=== PATIENT | female | born 1955 | race Caucasian/White ===

== ENCOUNTER → 2016-04-24 | Outpatient (CLI) | payer BC ==
[~2016-04-24] MED LIST: ADVIN25/60 INH; ALBUAER2 INH; AMLO-114 PO; BROM0.07 OPR; DIGO0.1219 PO; DULERA PO; DXY100 PO; FORM1NEB INH; GATI0.5S OPR; LISI-787 PO; METO1TAB69 PO; METO50TA16 PO; MULTTAB5 PO; OPTIRAY 320 IV PRN; PRED10TA PO; PRED1SUS3 OPR; RIVA1TAB4 PO; SPRIN/30 INH; SYMIN INH; TPRSR50 PO; VNTHFA/IN INH; ZTHM250 PO; [UNRECOGNIZED DRUG - OTHER]
--- NOTE | 2016-04-24 10:36 | DIAGNOSTIC IMAGING REPORT ---
CHEST CT WITH CONTRAST CT DOSE: 302.56 mGy.cm HISTORY: Lung nodule LUNG Nodule, multiple TECHNIQUE: Multiaxial CT images of the chest were performed following the intravenous administration of contrast. COMPARISON: 10/26/2015 FINDINGS: Nodular densities previously described are completely stable. There has been no change in size configuration or dimension. There is been no significant change in number. There is no significant hilar or mediastinal adenopathy. IMPRESSION: No significant change compared to the prior study. The nodular densities previously described are completely stable. No evidence for new or interval process. A 6-12 month follow-up is suggested. Electronically signed by: Fred Harris M.D. 04/24/2016 10:35 AM Dictated Date/Time: 04/24/2016 10:25 AM
== END | disposition home or self-care (01) ==
LOC: C.CTS 09:47
PROVIDERS: ATTEND Nurse Practitioner Adult Health
DX: R91.8 Other nonspecific abnormal finding of lung field (principal)

== ENCOUNTER 2016-05-30 17:59 | Inpatient (IN) | payer BC ==
[~2016-05-30] VITALS: Ht 182.9 cm; Wt 76.3 kg
[~2016-05-30 17:59] MED LIST changes: -ADVIN25/60 INH; -DIGO0.1219 PO; -DULERA PO; -DXY100 PO; +METO100T44 PO; -METO1TAB69 PO; -METO50TA16 PO; -OPTIRAY 320 IV PRN; -PRED10TA PO; -RIVA1TAB4 PO; -SPRIN/30 INH; -SYMIN INH; -TPRSR50 PO; -VNTHFA/IN INH; -ZTHM250 PO; -[UNRECOGNIZED DRUG - OTHER]
[2016-05-30] MEDS ORDERED: ALBUT/IPRATROP 3MG/0.5MG NEB 3 ML VIAL INH STA ×2 (18:14→19:52)
--- NOTE | 2016-05-30 19:15 | DIAGNOSTIC IMAGING REPORT ---
CHEST ONE VIEW PORTABLE HISTORY: Short of breath. COMPARISON: Chest CT 04/24/2016. FINDINGS: Mild emphysema. No pleural effusions. No pneumothorax. The lungs are clear. The heart is top normal in size. IMPRESSION: Mild emphysema. Otherwise, no acute process within the chest. Electronically signed by: Dre Taylor M.D. 05/30/2016 7:12 PM Dictated Date/Time: 05/30/2016 7:11 PM
[2016-05-30 19:22] LABS: BASO % 0.3 %; BASO ABS # 0.02 K/uL (0-0.2); COMPLETE YES; EOS % 2.5 %; HEMATOCRIT 46.6 % (37-47); IG% 0.1 %; LYMPH % 24.9 %; LYMPH ABS # 1.68 K/uL (1.2-3.4); MEAN CELL VOLUME 92.5 fL (80-100); MEAN CORPUSCULAR HEMOGLOBIN 30.6 pg (25-34); MEAN PLATELET VOLUME 9.1 fL (7.4-10.4); MONO % 7.3 %; NEUT % 64.9 %; PLATELET COUNT 311 K/uL (130-400); RED BLOOD COUNT 5.04 M/uL (4.2-5.4); WHITE BLOOD COUNT 6.74 K/uL (4.8-10.8)
[2016-05-30 19:31] LABS: PROTHROMBIN TIME (PATIENT) 10.6 SECONDS (9.0-12.0)
[2016-05-30 19:38] LABS: CALCIUM 8.7 mg/dl (8.5-10.1); POTASSIUM 3.9 mmol/L (3.5-5.1)
[2016-05-30 19:39] LABS: POINT OF CARE TROPONIN I 0.01 ng/ml (0-0.045)
[2016-05-30] MEDS ORDERED: METHYLPREDNISOLONE 125 MG VIAL IV STA (19:52)
[2016-05-30] MEDS ORDERED: ONDANSETRON INJ 2 MG/ML 2 ML VIAL IV PRN (23:30)
[2016-05-30] MEDS ORDERED: ACETAMINOPHEN 325 MG TAB PO PRN (23:30)
[2016-05-30] MEDS ORDERED: ZOLPIDEM TARTRATE 5 MG TAB PO PRN (23:30)
[2016-05-30] MEDS ORDERED: MAGNESIUM HYDROXIDE SUSP 30 ML UDC PO PRN (23:30)
[2016-05-30] MEDS ORDERED: ALUMINUM/MAGNESIUM/SIMETH (MAALOX MAX) 30 ML UDC PO PRN (23:30)
[2016-05-30] MEDS ORDERED: POLYETHYLENE (MIRALAX) 17 GM PACK PO PRN (23:30)
--- NOTE | 2016-05-30 23:31 | History and Physical ---
History & Physical Date & Time of Service: May 30, 2016 at 23:30 Chief Complaint: SOB Primary Care Physician: Masha Germain C.R.N.P. History of Present Illness Source: patient 60-year-old female with a past medical history of hypertension, smoking presented to the ER with complaints of worsening shortness of breath which started about a week ago. She complained about shortness of breath at rest and with exertion which had worsened today. She denied any chest pain, palpitations , dizziness, fevers or chills that she did have some dry nonproductive cough. She recently had a CT chest which revealed lung nodules. She denied any swelling or tenderness in calves, any long travels . Denied any nausea, vomiting, abdominal pain, urinary symptoms. She does not use any oxygen at home. Past Medical/Surgical History Medical Problems: (1) Hypertension Status: Chronic Family History Heart disease Social History Smoking Status: Current Every Day Smoker Allergies Coded Allergies: No Known Allergies (Unverified , 05/30/16) Home Medications Scheduled Amlodipine (Norvasc), 10 MG PO QAM Budesonide/Formoterol Fumarate (Symbicort 160-4.5 Mcg/Act), 2 PUFFS INH BID Doxycycline Hyclate (Doxycycline Hyclate), 100 MG PO BID Lisinopril/Hctz (Zestoretic 20MG/12.5MG), 1 TAB PO QAM Metoprolol Succ (Toprol Xl) (Toprol-Xl ), 100 MG PO QAM Multiple Vitamins W/ Minerals (Centrum), 1 TAB PO QAM Prednisone Tab (Prednisone), 10 MG PO UD Tiotropium [place] (Spiriva Handihaler), 1 CAP INH DAILY Scheduled PRN Albuterol Hfa (Ventolin Hfa), 1 PUFFS INH Q4H PRN for SOB/Wheezing Review of Systems Constitutional: No chills, No fever Eyes: No worsening of vision ENT: No hearing loss Respiratory: + cough, + dyspnea at rest, + dyspnea on exertion, + shortness of breath Cardiovascular: No chest pain Abdomen: No nausea, No pain, No vomiting Musculoskeletal: No joint pain Genitourinary - Female: No dysuria Neurologic: No memory loss Psychiatric: No depression symptoms Endocrine: No fatigue Hematologic / Lymphatic: No abnormal bleeding/bruising Physical Exam Vital Signs Date Time Temp Pulse Resp B/P Pulse Ox O2 Delivery O2 Flow Rate FiO2 05/30/16 22:15 67 18 145/87 93 Nasal Cannula 2.0 05/30/16 21:08 65 18 158/88 95 Room Air 05/30/16 19:52 64 20 144/92 95 Room Air 05/30/16 19:48 66 05/30/16 19:25 95 Nasal Cannula 3.0 05/30/16 18:12 Nasal Cannula 2.0 05/30/16 18:12 86 Room Air 05/30/16 18:02 36.7 72 18 175/103 84 Room Air General Appearance: WD/WN, no apparent distress Head: normocephalic Eyes: normal inspection ENT: normal ENT inspection, hearing grossly normal Neck: supple Respiratory/Chest: chest non-tender, normal breath sounds, no respiratory distress, no accessory muscle use, + wheezing (diffusely) Cardiovascular: regular rate, rhythm Abdomen/GI: normal bowel sounds, non tender, soft Extremities/Musculoskelatal: no pedal edema Neurologic/Psych: alert, normal mood/affect, oriented x 3 Skin: normal color Diagnostics Laboratory Results Results Past 24 Hours Test 05/30/16 19:09 05/30/16 19:14 Range/Units White Blood Count 6.74 4.8-10.8 K/uL Red Blood Count 5.04 4.2-5.4 M/uL Hemoglobin 15.4 12.0-16.0 g/dL Hematocrit 46.6 37-47 % Mean Corpuscular Volume 92.5 80-100 fL Mean Corpuscular Hemoglobin 30.6 25-34 pg Mean Corpuscular Hemoglobin Concent 33.0 32-36 g/dl Platelet Count 311 130-400 K/uL Mean Platelet Volume 9.1 7.4-10.4 fL Neutrophils (%) (Auto) 64.9 % Lymphocytes (%) (Auto) 24.9 % Monocytes (%) (Auto) 7.3 % Eosinophils (%) (Auto) 2.5 % Basophils (%) (Auto) 0.3 % Neutrophils # (Auto) 4.37 1.4-6.5 K/uL Lymphocytes # (Auto) 1.68 1.2-3.4 K/uL Monocytes # (Auto) 0.49 0.11-0.59 K/uL Eosinophils # (Auto) 0.17 0-0.5 K/uL Basophils # (Auto) 0.02 0-0.2 K/uL RDW Standard Deviation 47.4 36.4-46.3 fL RDW Coefficient of Variation 14.1 11.5-14.5 % Immature Granulocyte % (Auto) 0.1 % Immature Granulocyte # (Auto) 0.01 0.00-0.02 K/uL Prothrombin Time 10.6 9.0-12.0 SECONDS Prothromb Time International Ratio 1.0 0.9-1.1 Activated Partial Thromboplast Time 25.5 21.0-31.0 SECONDS Partial Thromboplastin Ratio 1.0 Sodium Level 144 136-145 mmol/L Potassium Level 3.9 3.5-5.1 mmol/L Chloride Level 102 98-107 mmol/L Carbon Dioxide Level 40 21-32 mmol/L Anion Gap 2.0 3-11 mmol/L Blood Urea Nitrogen 17 7-18 mg/dl Creatinine 1.00 0.60-1.20 mg/dl Est Creatinine Clear Calc Drug Dose 70.8 ml/min Estimated GFR () 71.9 Estimated GFR (Non- 62.1 BUN/Creatinine Ratio 17.0 10-20 Random Glucose 97 70-99 mg/dl Calcium Level 8.7 8.5-10.1 mg/dl Bedside D-Dimer 289 0-450 ng/mlFEU Bedside Troponin I 0.010 0-0.045 ng/ml DF-Vfc-[id number]-Type Natriuretic Peptide 160 0-900 pg/ml Diagnostic Radiology CHEST ONE VIEW PORTABLE HISTORY: Short of breath. COMPARISON: Chest CT 04/24/2016. FINDINGS: Mild emphysema. No pleural effusions. No pneumothorax. The lungs are clear. The heart is top normal in size. IMPRESSION: Mild emphysema. Otherwise, no acute process within the chest. Electronically signed by: Dre Taylor M.D. 05/30/2016 7:12 PM Dictated Date/Time: 05/30/2016 7:11 PM EKG Normal sinus rhythm Possible Left atrial enlargement Left axis deviation Cannot rule out Septal infarct , age undetermined Abnormal ECG No previous ECGs available Confirmed by JEFFREY KAUR ([id number]) on 05/30/2016 8:15:00 PM Impression Assessment and Plan 60-year-old female with a past medical history of hypertension, smoking presented to the ER with complaints of worsening shortness of breath which started about a week ago. She complained about shortness of breath at rest and with exertion which had worsened today. COPD exacerbation : - CXR: Mild emphysema - Received DuoNeb's and Solu-Medrol in the ER - Oxygen per protocol - Continue duonebs QID and Q2h PRN - Continue Solu-Medrol 60 mg 3 times a day Hypertension - Continue Norvasc, lisinopril, Toprol DVT prophylaxis Lovenox Full code Disposition: Admitted to [facility] Level of Care Telemetry Resuscitation Status FULL RESUSCITATION VTE Prophylaxis VTE Risk Assessment Done? Y/N: Yes Risk Level: High Resident Tracking Resident Involvement: Resident Care Provided Care Provided: Adult [facility] Medicine Assessment and Plan Attending Addendum: I have physically seen and examined this patient, have directed their medical care, have supervised the medical residents activities, and agree with the H&P as noted above, with the following changes: NONE
[2016-05-30] MEDS ORDERED: ALBUT/IPRATROP 3MG/0.5MG NEB 3 ML VIAL INH SCH (23:45)
--- NOTE | 2016-05-31 00:45 | EMERGENCY ROOM VISIT NOTE ---
History Report prepared by Radha: Abigail Garcia Under the Supervision of: Dr. Jose Hui M.D. First contact with patient: 18:08 Chief Complaint: SHORTNESS OF BREATH Stated Complaint: SOB History of Present Illness The patient is a 60 year old female who presents to the Emergency Room with complaints of worsening shortness of breath for the past week. Her symptoms are worse with exertion. She recently had a CT scan of the chest that found nodules in her lungs. She was told that it was not cancerous but they are going to keep an eye on it. The patient is a current smoker. She denies any personal history of CHF or COPD. She denies chest pain, chest tightness, cough, abdominal pain, vomiting, fever, and any recent illness. She does not take estrogen or hormone replacement therapy. She denies any recent long trips. The patient was placed on O2 in the department and her shortness of breath has started to improve. Source of History: patient Onset: 1 week ago Position: chest (respiratory) Quality: other (shortness of breath) Timing: worsening Modifying Factors (Worsening): exertion Modifying Factors (Relieving): oxygen Associated Symptoms: No abdominal pain, No chest pain, No cough, No fevers, No vomiting Review of Systems See HPI for pertinent positives & negatives. A total of 10 systems reviewed and were otherwise negative. Past Medical & Surgical Medical Problems: (1) Hypertension (2) SOB (shortness of breath) Family History Heart disease Social History Smoking Status: Current Every Day Smoker Marital Status: Housing Status: lives with significant other Current/Historical Medications Scheduled Amlodipine (Norvasc), 10 MG PO QAM Lisinopril/Hctz (Zestoretic 20MG/12.5MG), 1 TAB PO QAM Metoprolol Succ (Toprol Xl) (Toprol-Xl ), 100 MG PO QAM Multiple Vitamins W/ Minerals (Centrum), 1 TAB PO QAM Scheduled PRN Albuterol (Ventolin), 2 PUFFS INH QID PRN for Shortness of Breath Formoterol Fumarate (Perforomist), 1 DOSE INH Q12 PRN for Shortness of Breath Allergies Coded Allergies: No Known Allergies (Unverified , 05/30/16) Physical Exam Vital Signs Date Time Temp Pulse Resp B/P Pulse Ox O2 Delivery O2 Flow Rate FiO2 05/31/16 00:25 66 20 139/91 92 3.0 05/30/16 22:15 67 18 145/87 93 Nasal Cannula 2.0 05/30/16 21:08 65 18 158/88 95 Room Air 05/30/16 19:52 64 20 144/92 95 Room Air 05/30/16 19:48 66 05/30/16 19:25 95 Nasal Cannula 3.0 05/30/16 18:12 Nasal Cannula 2.0 05/30/16 18:12 86 Room Air 05/30/16 18:02 36.7 72 18 175/103 84 Room Air Physical Exam Constitutional: Vital signs reviewed. Hypoxic. Eyes: Pupils are equal round reactive to light. Conjunctiva are noninjected. ENT: Pharynx is clear without erythema or exudate. Mucous membranes are moist. Neck supple without meningeal signs. Respiratory: Poor air entry bilaterally. Breath sounds are equal bilaterally. Cardiovascular: Regular rate and rhythm. No rubs or gallops. GI: Soft, nondistended and nontender. Bowel sounds are present. Musculoskeletal: No peripheral edema. No lower extremity tenderness. Integumentary: No cyanosis. Neurological: The patient is awake and alert. No focal deficits. Psychiatric: Normal affect. Medical Decision & Procedures ER Provider Diagnostic Interpretation: Radiology results as stated below per my review and the radiologist's interpretation: CHEST ONE VIEW PORTABLE HISTORY: Short of breath. COMPARISON: Chest CT 04/24/2016. FINDINGS: Mild emphysema. No pleural effusions. No pneumothorax. The lungs are clear. The heart is top normal in size. IMPRESSION: Mild emphysema. Otherwise, no acute process within the chest. Electronically signed by: Dre Taylor M.D. 05/30/2016 7:12 PM Dictated Date/Time: 05/30/2016 7:11 PM Laboratory Results 05/30/16 19:09 Red Blood Count 5.04, Mean Corpuscular Volume 92.5, Mean Corpuscular Hemoglobin 30.6, Mean Corpuscular Hemoglobin Concent 33.0, Mean Platelet Volume 9.1, Neutrophils (%) (Auto) 64.9, Lymphocytes (%) (Auto) 24.9, Monocytes (%) (Auto) 7.3, Eosinophils (%) (Auto) 2.5, Basophils (%) (Auto) 0.3, Neutrophils # (Auto) 4.37, Lymphocytes # (Auto) 1.68, Monocytes # (Auto) 0.49, Eosinophils # (Auto) 0.17, Basophils # (Auto) 0.02 05/30/16 19:09 Test 05/30/16 19:09 05/30/16 19:14 White Blood Count 6.74 K/uL (4.8-10.8) Red Blood Count 5.04 M/uL (4.2-5.4) Hemoglobin 15.4 g/dL (12.0-16.0) Hematocrit 46.6 % (37-47) Mean Corpuscular Volume 92.5 fL (80-100) Mean Corpuscular Hemoglobin 30.6 pg (25-34) Mean Corpuscular Hemoglobin Concent 33.0 g/dl (32-36) Platelet Count 311 K/uL (130-400) Mean Platelet Volume 9.1 fL (7.4-10.4) Neutrophils (%) (Auto) 64.9 % Lymphocytes (%) (Auto) 24.9 % Monocytes (%) (Auto) 7.3 % Eosinophils (%) (Auto) 2.5 % Basophils (%) (Auto) 0.3 % Neutrophils # (Auto) 4.37 K/uL (1.4-6.5) Lymphocytes # (Auto) 1.68 K/uL (1.2-3.4) Monocytes # (Auto) 0.49 K/uL (0.11-0.59) Eosinophils # (Auto) 0.17 K/uL (0-0.5) Basophils # (Auto) 0.02 K/uL (0-0.2) RDW Standard Deviation 47.4 fL (36.4-46.3) RDW Coefficient of Variation 14.1 % (11.5-14.5) Immature Granulocyte % (Auto) 0.1 % Immature Granulocyte # (Auto) 0.01 K/uL (0.00-0.02) Prothrombin Time 10.6 SECONDS (9.0-12.0) Prothromb Time International Ratio 1.0 (0.9-1.1) Activated Partial Thromboplast Time 25.5 SECONDS (21.0-31.0) Partial Thromboplastin Ratio 1.0 Anion Gap 2.0 mmol/L (3-11) Est Creatinine Clear Calc Drug Dose 70.8 ml/min Estimated GFR () 71.9 Estimated GFR (Non- 62.1 BUN/Creatinine Ratio 17.0 (10-20) Calcium Level 8.7 mg/dl (8.5-10.1) Bedside D-Dimer 289 ng/mlFEU (0-450) Bedside Troponin I 0.010 ng/ml (0-0.045) EQ-Rtx-T-Type Natriuretic Peptide 160 pg/ml (0-900) Laboratory results as reviewed by me. Medications Administered Medications (Trade) Dose Ordered Sig/Lianne Route Start Time Stop Time Status Last Admin Dose Admin Albuterol/ Ipratropium (Duoneb) 3 ml NOW STAT INH 05/30/16 18:14 05/30/16 18:16 DC 05/30/16 18:14 3 ML Methylprednisolone Sodium Succinate (Solu-Medrol IV) 125 mg NOW STAT IV 05/30/16 19:52 05/30/16 19:53 DC 05/30/16 20:11 125 MG Albuterol/ Ipratropium (Duoneb) 3 ml NOW STAT INH 05/30/16 19:52 05/30/16 19:53 DC 05/30/16 20:11 3 ML ECG Indication: SOB/dyspnea Rate (beats per minute): 65 Rhythm: normal sinus Findings: no acute ischemic change, no ectopy ED Course 1807: The patient was evaluated in room B12A. A complete history and physical exam was performed. 1813: DuoNeb 3 ml INH 1900: I reevaluated the patient. Her pulse-ox is 96% on 3L and the nurse is getting an ECG and labs now. 1949: I reassessed the patient at this time. She has better air entry on exam with significant wheezing. I discussed the results and treatment plan with the patient. I answered all pertaining questions that she had. She expressed understanding and verbalized agreement. 1951: DuoNeb 3ml INH, Solu-Medrol 125 mg IV 2013: I spoke with Dr. Sapp. We discussed the patient's results and treatment plan. The patient will be evaluated by the [facility] for further management. Medical Decision This is a 60-year-old female who presents with shortness of breath for the past week. Differential diagnosis includes pneumonia, pleural effusion, CHF, pulmonary embolism, COPD. I did perform a limited focused review of portions of the patient's old chart on the electronic medical record. The patient had a CT of the chest with contrast on April 24 which showed stable nodular densities without any new or interval process. I did evaluate the patient as noted above. IV access was established. The patient was placed on a continuous grief counsellor. The patient is hypoxemic. She was placed on 3 L nasal cannula and her O2 saturation went up to 96%. She has poor air entry on lung examination and was treated with a DuoNeb. On reexamination air entry improved and she had significant wheezing. She was given another DuoNeb and Solu-Medrol IV. I did order and personally review the patient's 12-lead EKG and chest x-ray as described above. I did order and review the patient's blood work as noted in the electronic medical record. D- dimer and troponin are negative. BNP is negative. I did discuss the test results with the patient. Because of her hypoxemia she will be hospitalized. I did discuss case with the hospitalist and manager of case. Consults Time Called: 1954 Consulting Physician: Dr. Sapp Returned Call: [address] Sapp. We discussed the patient's results and treatment plan. The patient will be evaluated by the [facility] for further management. Impression Primary Impression: Hypoxia Additional Impression: COPD exacerbation Scribe Attestation The scribe's documentation has been prepared under my direct and personally reviewed by me in its entirety. I confirm that the note above accurately reflects all work, treatment, procedures, and medical decision making performed by me. Departure Information Dispostion Being Evaluated By Hospitalist Referrals Masha Germain C.R.N.P. (PCP) Patient Instructions My [facility] Problem Qualifiers
[2016-05-31 00:51] VITALS: BP 143/88; PULSE 72; TEMP 36.4; O2SAT 89; Ht 182.9 cm; Wt 76.3 kg
[2016-05-31 06:06] LABS: BASO % 0.2 %; BASO ABS # 0.01 K/uL (0-0.2); COMPLETE YES; HEMATOCRIT 47.4 % (37-47); IG% 0.2 %; LYMPH % 11.2 %; LYMPH ABS # 0.61 K/uL (1.2-3.4); MEAN CELL VOLUME 92.6 fL (80-100); MEAN CORPUSCULAR HEMOGLOBIN 29.5 pg (25-34); MEAN CORPUSCULAR HGB CONC 31.9 g/dl (32-36); MONO % 0.4 %; PLATELET COUNT 312 K/uL (130-400); RED BLOOD COUNT 5.12 M/uL (4.2-5.4); WHITE BLOOD COUNT 5.47 K/uL (4.8-10.8)
[2016-05-31 06:45] LABS: BUN/CREATININE RATIO 22.8 (10-20); CALCIUM 8.8 mg/dl (8.5-10.1); CREATININE 0.89 mg/dl (0.60-1.20); MAGNESIUM 2.2 mg/dl (1.8-2.4); POTASSIUM 3.9 mmol/L (3.5-5.1)
[2016-05-31 07:40] VITALS: PULSE 74; O2SAT 92
[2016-05-31 08:00] VITALS: O2SAT 96
[2016-05-31 08:13] VITALS: BP 137/75; PULSE 70; TEMP 36.6; O2SAT 96
[2016-05-31] MEDS ORDERED: METHYLPREDNISOLONE IV 60 MG in SYRINGE 0 ML IV SCH (09:00)
[2016-05-31] MEDS ORDERED: BUDESONIDE/FORMOTEROL FUMARATE 160/4.5 60 PUFFS/INHALER INH SCH (09:00)
[2016-05-31] MEDS ORDERED: AMLODIPINE BESYLATE 5 MG TAB PO SCH (09:00)
[2016-05-31] MEDS ORDERED: METOPROLOL SUCC 50MG EXT REL TAB PO SCH (09:00)
[2016-05-31] MEDS ORDERED: CEROVITE ADV FORMULA TAB PO SCH (09:00)
[2016-05-31] MEDS ORDERED: TIOTROPIUM BROMIDE 5 PUFF/90 MCG INH INH SCH (09:00)
[2016-05-31] MEDS ORDERED: LISINOPRIL/HCTZ 20/12.5MG TAB PO SCH (09:00)
[2016-05-31] MEDS ORDERED: DOXYCYCLINE HYCLATE 100 MG CAP PO SCH (09:00)
[2016-05-31] MEDS ORDERED: ENOXAPARIN 40 MG/0.4 ML SYR SQ SCH (09:00)
[2016-05-31] MEDS ORDERED: SYMIN INH (09:21)
[2016-05-31] MEDS ORDERED: SPRIN/30 INH (09:21)
[2016-05-31] MEDS ORDERED: VNTHFA/IN INH (09:21)
[2016-05-31] MEDS ORDERED: DXY100 PO (09:21)
[2016-05-31] MEDS ORDERED: [UNRECOGNIZED DRUG - OTHER] (09:21)
[2016-05-31] MEDS ORDERED: PRED10TA PO (09:21)
--- NOTE | 2016-05-31 09:37 | Discharge Instructions ---
Discharge Instructions Date of Service May 31, 2016. Admission Reason for Admission: SOB Discharge Discharge Diagnosis / Problem: (presumed) COPD exacerbation Discharge Goals Goal(s): Diagnostic testing, Therapeutic intervention Activity Recommendations Activity Limitations: as noted below . Instructions / Follow-Up Instructions / Follow-Up your shortness of breath appears to have been due to a COPD exacerbation (think : severe bronchitis) ---i have to use the vague terms "presumed" or "appears to have been" until we get you set up for pulmonary function tests to truly determine if you have COPD or if you just have lungs irritated from smoking and dust (see below) ---the working assumption, with the way your current bronchitis appears, is that you probably have a moderate degree of COPD -the current bronchitis-type flare up should continue to respond nicely to the antibiotics to kill bacterial overgrowth (doxycycline), steroids to reduce lung inflammation (prednisone) and the inhalers (spiriva, symbicort, albuterol - see below) -the overall long-term picture of management will really depend on how mild/ moderate/severe things look when we get your pulmonary function tests done acute exacerbation: -the current acute illness will probably take ~3-5 days to slowly fade, and then probably take about a month until you totally feel like yourself again. we 'll finish treatment for this with the doxycyline and prednisone as noted above. you'll be due for your next dose of doxycycline tonight (05/31) and your next dose of prednisone tomorrow morning (06/01). the doxycycline is usually really well tolerated, it can make people more sun-sensitive though - so even though it's only mid-may, wear sunblock and sun protection as though it's late august. the prednisone, as we discussed, can commonly make you "hungry and hyper" - so definitely take it earlier in the day. if "hyper" is more feeling angry or easily agitated, that too is very common and should go away once you get to lower doses (obviously if it's really bad, call) -use the albuterol inhaler with the spacer (plastic tube) as often as every 4 hours for shortness of breath, a tight cough, or wheezing. i expect that you' ll probably need it 4-6 times a day for the next few days on the early part of getting better, and then likely you'll need it less and less as days go by and you improve. for most people, using an inhaler with a spacer is as effective as using a nebulizer (and way more convenient) (presumed) COPD -we'll want to get you set up for pulmonary function tests - i've asked that this be scheduled for about 4-6 weeks from now. if we were to check today, the acute bronchitis picture would make your lung function look way worse than it actually is -obviously, as we've discussed, try to quit smoking (make today a new "quit day ") if you did have to go home on oxygen for the short term, obviously smoking while on oxygen presents a real and true explosion risk, but even if you didn't , smoking while you're getting better from something like this can easily get worse with smoking. for most people, a situation like this can create a "man, i 've gotta quit" kind of moment that makes it more do-able. if you find that quitting is still really hard, that's where it would be worthwhile to talk with your PCP about meds that can help quit -for COPD, the foundation of inhaler management keeps people out of trouble, makes sickness less severe when you do get sick, and generally works to make hospital stays and severe illnesses less frequent -spiriva: this is in a class called "anticholinergics" -- it helps to reduce the mucous your lungs make and reduce inflammation, take it once a day every day -symbicort: (or advair, breo, dulera, depending on coverage) - this has two meds in it - an inhaled steroid and a long acting bronchodilator (opens up airways) -- the inhaled steroid reduces inflammation in your lungs by a different mechanism than the spiriva, and the bronchodilator works to keep your lungs more open and keep air moving better. this is a twice a day every day inhaler (unless it's the breo - which is once a day) -- because the steroid can coat your tongue and lead to thrush, we recommend rinsing your mouth after using -albuterol: this is the only one of the inhalers that's a strictly "as needed" -- it helps open your airways quickly when you feel tight/short of breath, or wheezy. you can use it up to every four hours as needed. it can make you feel a little shaky or jittery afterwards. typically the goal is to have things under good enough control with the regularly scheduled inhalers that you don't need the albuterol often, but obviously when you're sick you'll need it more often than when things are going well take it easy through the weekend, and then when you follow up in the office next week they can see how you're doing, how you're feeling, and hopefully allow you to be able to start to do more Current Hospital Diet Patient's current hospital diet: Regular Diet Discharge Diet Recommended Diet: Regular Diet Pending Studies Studies pending at discharge: no Medical Emergencies . Who to Call and When: Medical Emergencies: If at any time you feel your situation is an emergency, please call 911 immediately. . Non-Emergent Contact Non-Emergency issues call your: Primary Care Provider (we're working on getting you set up at the [facility] office Friday or Friday of next week) . . "Provider Documentation" section prepared by Umesh Campos. . VTE Core Measure Inpt VTE Proph given/why not?: Enoxaparin (Lovenox)SQ
[2016-05-31 10:50] VITALS: BP 137/75; PULSE 70; TEMP 36.6; O2SAT 96
--- NOTE | 2016-05-31 15:10 | Discharge Summary ---
Discharge Summary Date of Service May 31, 2016. Discharge Summary Admission Date: May 30, 2016 at 23:29 Discharge Date: May 31, 2016 Discharge Disposition: Home Principal Diagnosis: (presumed) COPD exacerbation Procedures: [~ rep ct add3]] CHEST ONE VIEW PORTABLE HISTORY: Short of breath. COMPARISON: Chest CT 04/24/2016. FINDINGS: Mild emphysema. No pleural effusions. No pneumothorax. The lungs are clear. The heart is top normal in size. IMPRESSION: Mild emphysema. Otherwise, no acute process within the chest. Electronically signed by: Dre Taylor M.D. 05/30/2016 7:12 PM Dictated Date/Time: 05/30/2016 7:11 PM Last Resulted CBC 05/31/16 05:23 Red Blood Count 5.12, Mean Corpuscular Volume 92.6, Mean Corpuscular Hemoglobin 29.5, Mean Corpuscular Hemoglobin Concent 31.9, Mean Platelet Volume 9.0, Neutrophils (%) (Auto) 88.0, Lymphocytes (%) (Auto) 11.2, Monocytes (%) (Auto) 0.4, Eosinophils (%) (Auto) 0.0, Basophils (%) (Auto) 0.2, Neutrophils # (Auto) 4.82, Lymphocytes # (Auto) 0.61, Monocytes # (Auto) 0.02, Eosinophils # (Auto) 0.00, Basophils # (Auto) 0.01 Last Resulted BMP 05/31/16 05:23 Medication Reconciliation New Medications: Albuterol Hfa (Ventolin Hfa) 200 Puffs/64862 Mcg Aers 1 PUFFS INH Q4H PRN for SOB/Wheezing, #1 INHALER Prednisone Tab (Prednisone) 10 Mg Tab 10 MG PO UD, #42 TAB 6 po x 2 days then 5 po x 2 days then 4 po x 2 days then 3 po x 2 days then 2 po x 2 days then 1 po x 2 days Spacer (Aerochamber Plus/Small Ma) 1 Ea Zena UNIT, #1 Tiotropium [place] (Spiriva Handihaler) 30 Puff/540 Mcg Aerp 1 CAP INH DAILY for 30 Days, #30 CAP 3 Refills Budesonide/Formoterol Fumarate (Symbicort 160-4.5 Mcg/Act) 60 Puffs/Inhaler Aero 2 PUFFS INH BID, #1 INHALER rinse mouth after using Doxycycline Hyclate (Doxycycline Hyclate) 100 Mg Cap 100 MG PO BID, #19 CAP Continued Medications: Amlodipine (Norvasc) 10 Mg Tab 10 MG PO QAM, TAB Lisinopril/Hctz (Zestoretic 20MG/12.5MG) Tab 1 TAB PO QAM, TAB Metoprolol Succ (Toprol Xl) (Toprol-Xl ) 100 Mg Tabcr 100 MG PO QAM, TAB Multiple Vitamins W/ Minerals (Centrum) 1 Tab Tab 1 TAB PO QAM Discontinued Medications: Albuterol (Ventolin) Inh 2 PUFFS INH QID PRN for Shortness of Breath for 5 Days, INHALER Formoterol Fumarate (Perforomist) 20 Mcg/2 Ml Neb 1 DOSE INH Q12 PRN for Shortness of Breath Discharge Exam Physical Exam: General Appearance: no apparent distress Eyes: EOMI ENT: hearing grossly normal Neck: trachea midline Respiratory/Chest: no respiratory distress, no accessory muscle use, + decreased breath sounds (faint wheeze diminished air entry no r/r good effort no accessory muscles) Cardiovascular: regular rate, rhythm Neurologic/Psychiatric: painter maintenance II-XII nml as tested, alert, normal mood/affect Skin: normal color, warm/dry Hospital Course admitted w sob c/w COPD exacerbation - no prior dx COPD ---did well - improved quickly w medical management ---was requiring supplemental O2 - initially suspicious she might need home O2 for a little while, but fortunately did well on walk test ---has clinical picture, Xray findings highly suspicious of COPD - d/w pt will manage empirically as such at this time: -doxy 100mg bid x 10 days -steroid taper -spiriva daily -symbicort BID (discussed above inhalers scheduled NOT prn) -albuterol w spacer Q4hr prn sob/wheeze -PFTs 4-6wks -smoke cessation -f/u PCP early next week stable for home Total Time Spent: Greater than 30 minutes This includes examination of the patient, discharge planning, medication reconciliation, and communication with other providers. Discharge Instructions Please refer to the electronic Patient Visit Report (Discharge Instructions) for additional information. Additional Copies To Dina Santillan DO
[2016-09-20] MEDS ORDERED: AZIT-57 PO (14:15)
[2016-10-25] MEDS ORDERED: METO50TA16 PO (06:40)
== END 2016-05-31 13:25 | disposition home or self-care (01) | DRG 192 ==
LOC: ENRESERVTM → ENRESERVDT → C.EDB 18:00 → C.MS2W 23:29
PROVIDERS: ADMIT Family Medicine; ATTEND Family Medicine
DX: J44.1 Chronic obstructive pulmonary disease with (acute) exacerbation (principal); R09.02 Hypoxemia; I10 Essential (primary) hypertension; F17.200 Nicotine dependence, unspecified, uncomplicated; Z79.899 Other long term (current) drug therapy

== ENCOUNTER → 2016-06-18 | Outpatient (CLI) | payer BC ==
[~2016-06-18] MED LIST changes: +ADVIN25/60 INH; -ALBUAER2 INH; +AZIT-57 PO; -BROM0.07 OPR; +DIGO0.1219 PO; +DULERA PO; +DXY100 PO; -FORM1NEB INH; -GATI0.5S OPR; +METO50TA16 PO; +PRED10TA PO; -PRED1SUS3 OPR; +RIVA1TAB4 PO; +SPRIN/30 INH; +SYMIN INH; +TPRSR50 PO; +VNTHFA/IN INH; +[UNRECOGNIZED DRUG - OTHER]
--- NOTE | 2016-06-18 12:49 | MAMMOGRAPHY REPORT ---
UNILATERAL LEFT DIGITAL DIAGNOSTIC MAMMOGRAM TOMOSYNTHESIS WITH CAD AND TARGETED LEFT ULTRASOUND: 06/18/2016 CLINICAL HISTORY: 60-year-old woman presents for follow-up in the left breast for any facing area of architectural distortion in the superior aspect of the breast. Also to reevaluate the prominent le ft axillary lymph node. TECHNIQUE: Left breast tomosynthesis in addition to standard 2D mammography was performed. Current josseline cisneros was also evaluated with a Computer Aided Detection (CAD) system. COMPARISON: Comparison is made to exams dated: 12/19/2015 ultrasound, 12/19/2015 mammogram, 6 mammogram - [facility], 02/16/2014 mammogram, 02/04/2013 mammogram, and 12/31/2011 mammogram. BREAST COMPOSITION: The tissue of the left breast is almost entirely fatty. FINDINGS: No persistent architectural distortion is seen in the superior or lateral left breast to c orrelate with the questionable finding seen on screening mammography dated 11/29/2015. Currently, n o focal area of architectural distortion or suspicious microcavitation's are seen. There is an 8 mm nodular asymmetry in the lateral anterior left breast on the CC view, that appears somewhat similar to prior mammograms, particularly the 2011 exam suggesting it could represent normal overlapping ti ssue. However, further evaluation with ultrasound was performed. Real-time high-resolution ultrasound was performed in the lateral left breast and left axilla. With in the left axilla, a prominent undulating morphologically normal lymph node is again identified, th ought to correlate with the lymph node seen on low-dose screening chest CT. This is unchanged harlan red to the prior ultrasound and is considered benign. A few other smaller morphologically normal ly mph nodes are also seen in the left axilla. In the 12:00 through 6:00, slightly lateral left breast , no suspicious solid or cystic mass is seen to correlate with the nodular mammographic asymmetry. This confirms it most likely represented normal overlapping tissue. Recommend follow-up at time of next annual screening mammogram. IMPRESSION: ACR BI-RADS CATEGORY 2: BENIGN, TARGETED ULTRASOUND ACR BI-RADS CATEGORY 2: BENIGN No persistent architectural distortion in the left breast. No suspicious lymphadenopathy identified in the left axilla on ultrasound. There is no mammographic or targeted sonographic evidence of mal ignancy. Return to annual mammogram screening schedule is recommended (December 2016). The patient has been verbally notified of the results. Approximately 10% of breast cancers are not detected with mammography. A negative mammographic repor t should not delay biopsy if a clinically suggestive mass is present. Mary Ann Hernadez M.D. ay/:06/18/2016 10:45:49 Skin Lap Bonder: Dena Gordon, [facility] letter sent: Normal 1/2 BI-RADS Code: ACR BI-RADS Category 2: Benign Ultrasound BI-RADS: ACR BI-RADS Category 2: Benign
== END | disposition home or self-care (01) ==
LOC: C.MAMM 09:41
PROVIDERS: ATTEND Nurse Practitioner Adult Health
DX: Z09 Encounter for follow-up examination after completed treatment for conditions other than malignant neoplasm (principal); R92.8 Other abnormal and inconclusive findings on diagnostic imaging of breast

== ENCOUNTER 2016-09-16 19:02 | Inpatient (IN) | payer BC ==
[~2016-09-16] VITALS: Ht 182.9 cm; Wt 82.3 kg
[~2016-09-16 19:02] MED LIST changes: -ADVIN25/60 INH; -AZIT-57 PO; -DIGO0.1219 PO; -DULERA PO; -METO100T44 PO; +METO1TAB69 PO; -METO50TA16 PO; -RIVA1TAB4 PO; -TPRSR50 PO
[2016-09-16] MEDS ORDERED: ASPIRIN 81 MG CHEW PO STA (19:23)
[2016-09-16] MEDS ORDERED: ALBUT/IPRATROP 3MG/0.5MG NEB 3 ML VIAL INH ONE (19:30)
[2016-09-16 19:47] LABS: BASO % 0.1 %; BASO ABS # 0.01 K/uL (0-0.2); COMPLETE YES; IG% 0.6 %; LYMPH % 7.1 %; LYMPH ABS # 1.31 K/uL (1.2-3.4); MEAN CELL VOLUME 94.5 fL (80-100); MEAN CORPUSCULAR HGB CONC 31.8 g/dl (32-36); MEAN PLATELET VOLUME 9.3 fL (7.4-10.4); MONO % 7.5 %; NEUT % 84.7 %; PLATELET COUNT 462 K/uL (130-400); RED BLOOD COUNT 4.76 M/uL (4.2-5.4); WHITE BLOOD COUNT 18.53 K/uL (4.8-10.8)
[2016-09-16] MEDS ORDERED: ADVIN25/60 INH (19:50)
[2016-09-16] MEDS ORDERED: DULERA PO (19:51)
[2016-09-16 20:05] VITALS: PULSE 116; O2SAT 91
[2016-09-16 20:05] LABS: ALT/SGPT 163 U/L (12-78); BLOOD UREA NITROGEN 37 mg/dl (7-18); BUN/CREATININE RATIO 28.8 (10-20); CALCIUM 8.4 mg/dl (8.5-10.1); CARBON DIOXIDE 36 mmol/L (21-32); CHLORIDE 106 mmol/L (98-107); GLUCOSE 133 mg/dl (70-99); POTASSIUM 3.7 mmol/L (3.5-5.1); SODIUM 147 mmol/L (136-145)
[2016-09-16] MEDS ORDERED: SODIUM CHLORIDE 0.9% 500ML 500 ML IV STA (20:07)
[2016-09-16 20:10] LABS: ALB/GLOB RATIO 1.1 (0.9-2); ALKALINE PHOSPHATASE 81 U/L (45-117); AST/SGOT 59 U/L (15-37)
[2016-09-16 20:22] LABS: VEN BLOOD GAS BASE EXCESS 8.5 mEq/L
--- NOTE | 2016-09-16 20:23 | EMERGENCY ROOM VISIT NOTE ---
History First contact with patient: 19:13 Chief Complaint: SHORTNESS OF BREATH Stated Complaint: SOB Nursing Triage Summary: c/o asthma exacerbation for days seen at urgent care time two. History of Present Illness The patient is a 60 year old female with past medical history of hypertension and COPD who presents to the Emergency Room with complaints of shortness of breath for the past week has been getting progressively worse. She states the shortness of breath is worse with even minor exertion like taking a shower. Patient states she went to an urgent care 5 days ago where they gave her a breathing treatment and placed her on prednisone 40 mg daily which she has been taking with no improvement. She went to urgent care again yesterday where she had another breathing treatment and they gave her "a shot of steroids" and told her to follow closely with her PCP. Patient states she has not been using any albuterol treatments at home. She is an every day smoker, she is on multiple inhalers for COPD but states she has never been formally diagnosed with pulmonary function tests. In addition to her shortness of breath, patient has noted swelling in her feet and lower legs over the past few days that is new for her. She denies any chest pain, palpitations, dizziness or syncope, cough, hemoptysis, abdominal pain, nausea or vomiting, fevers or chills, diarrhea, urinary symptoms. She does report a strong family history of heart disease, though she states she has never had any known heart issues other than hypertension. Review of Systems A complete 10 point review of systems was reviewed with the patient with pertinent positives and negatives as per history of present illness. All else were negative. Past Medical/Surgical History Medical Problems: (1) Congestive heart failure (2) COPD exacerbation (3) Hypertension (4) SOB (shortness of breath) Family History Heart disease Social History Smoking Status: Current Every Day Smoker Marital Status: Housing Status: lives with significant other Current/Historical Medications Scheduled Amlodipine (Norvasc), 10 MG PO QAM Fluticasone Prop/Salmeterol (Advair Diskus 250/50 60 Dose), 2 PUFF INH BID Lisinopril/Hctz (Zestoretic 20MG/12.5MG), 1 TAB PO QAM Metoprolol Succ (Toprol Xl) (Toprol-Xl ), 100 MG PO QAM Multiple Vitamins W/ Minerals (Centrum), 1 TAB PO QAM Prednisone Tab (Prednisone), 10 MG PO UD Tiotropium [place] (Spiriva Handihaler), 1 CAP INH DAILY [Dulera], 2 PUFF PO BID Scheduled PRN Albuterol Hfa (Ventolin Hfa), 1 PUFFS INH Q4H PRN for SOB/Wheezing Physical Exam Vital Signs Date Time Temp Pulse Resp B/P (MAP) Pulse Ox O2 Delivery O2 Flow Rate FiO2 09/16/16 21:23 134 18 153/120 92 Nasal Cannula 4.0 09/16/16 20:05 116 21 91 Nasal Cannula 2.0 09/16/16 20:05 142 20 150/104 90 09/16/16 19:43 92 Nasal Cannula 2.0 09/16/16 19:42 92 Nasal Cannula 2.0 09/16/16 19:05 36.7 122 22 135/95 88 Room Air Physical Exam CONSTITUTIONAL: No acute distress, but does appear uncomfortable. Moderately dehydrated. Alert and oriented X 4 with normal affect. HEENT: Normocephalic, atraumatic. Pupils equal, round and reactive to light, EOMI. TMs normal. Pharynx normal. Dry mucous membranes. NECK: Supple, full active range of motion without discomfort. RESPIRATORY: Mildly tachypneic, but no retractions, able to speak in full sentences. Significantly diminished throughout with fine expiratory wheezing and crackles, no rhonchi or stridor. Equal expansion bilaterally. CARDIOVASCULAR: Irregularly irregular rhythm, tachycardic rate, with no murmurs , rubs or gallops. Normal peripheral perfusion. 3+ pitting edema in the feet ankles and calves up to the knees. GASTROINTESTINAL: Soft, nontender, nondistended. Bowel sounds present in all quadrants. MUSCULOSKELETAL: Full range of motion of all joints without discomfort. INTEGUMENTARY: No rash or other significant dermatologic conditions noted. Poor skin turgor. NEUROLOGIC: Cranial nerves II-XII grossly intact. No focal neurologic deficits noted. Medical Decision & Procedures ER Provider Diagnostic Interpretation: CHEST ONE VIEW PORTABLE CLINICAL HISTORY: SOB, hypoxic dyspnea COMPARISON STUDY: 05/30/2016 FINDINGS: Moderate cardiac megaly. Increased prominence of the pulmonary vasculature. Diaphragms are smooth. IMPRESSION: Congestive failure ----- (CHEST FOR PE) ANGIO WITH CT DOSE: 508.07 mGy.cm HISTORY: Chest pain dyspnea TECHNIQUE: Multiaxial CT images of the chest were performed following the intravenous administration of contrast to evaluate the pulmonary arteries. Maximal intensity projection images were also obtained. A dose lowering technique was utilized adhering to the principles of ALARA. COMPARISON STUDY: 04/24/2016 FINDINGS: There is a normal caliber thoracic aorta with no evidence for dissection. There is no evidence for pulmonary embolus. No pleural effusions. No pneumothorax. The liver and spleen are unremarkable. No mediastinal or hilar lymphadenopathy. The central airways are patent. The lungs are clear. Moderate cardiomegaly. Minimal basilar nodularity unchanged from the prior study. Mild nonspecific left lower lobe basilar interstitial change. IMPRESSION: 1. No evidence for pulmonary embolus. 2. Stable nodularity compared to the prior study. 3. Mild interstitial prominence left lower lobe raise the possibly of a nonspecific interstitial pneumonitis. 4. Moderate stable cardia megaly. Laboratory Results 09/16/16 19:35 Red Blood Count 4.76, Mean Corpuscular Volume 94.5, Mean Corpuscular Hemoglobin 30.0, Mean Corpuscular Hemoglobin Concent 31.8, Mean Platelet Volume 9.3, Neutrophils (%) (Auto) 84.7, Lymphocytes (%) (Auto) 7.1, Monocytes (%) (Auto) 7.5, Eosinophils (%) (Auto) 0.0, Basophils (%) (Auto) 0.1, Neutrophils # (Auto) 15.70, Lymphocytes # (Auto) 1.31, Monocytes # (Auto) 1.39, Eosinophils # (Auto) 0.00, Basophils # (Auto) 0.01 09/16/16 19:35 Test 09/16/16 19:35 09/16/16 20:07 09/16/16 22:34 White Blood Count 18.53 K/uL (4.8-10.8) Red Blood Count 4.76 M/uL (4.2-5.4) Hemoglobin 14.3 g/dL (12.0-16.0) Hematocrit 45.0 % (37-47) Mean Corpuscular Volume 94.5 fL (80-100) Mean Corpuscular Hemoglobin 30.0 pg (25-34) Mean Corpuscular Hemoglobin Concent 31.8 g/dl (32-36) Platelet Count 462 K/uL (130-400) Mean Platelet Volume 9.3 fL (7.4-10.4) Neutrophils (%) (Auto) 84.7 % Lymphocytes (%) (Auto) 7.1 % Monocytes (%) (Auto) 7.5 % Eosinophils (%) (Auto) 0.0 % Basophils (%) (Auto) 0.1 % Neutrophils # (Auto) 15.70 K/uL (1.4-6.5) Lymphocytes # (Auto) 1.31 K/uL (1.2-3.4) Monocytes # (Auto) 1.39 K/uL (0.11-0.59) Eosinophils # (Auto) 0.00 K/uL (0-0.5) Basophils # (Auto) 0.01 K/uL (0-0.2) RDW Standard Deviation 51.2 fL (36.4-46.3) RDW Coefficient of Variation 14.9 % (11.5-14.5) Immature Granulocyte % (Auto) 0.6 % Immature Granulocyte # (Auto) 0.12 K/uL (0.00-0.02) Anion Gap 5.0 mmol/L (3-11) Est Creatinine Clear Calc Drug Dose 54.4 ml/min Estimated GFR () 52.4 Estimated GFR (Non- 45.2 BUN/Creatinine Ratio 28.8 (10-20) Calcium Level 8.4 mg/dl (8.5-10.1) Total Bilirubin 0.6 mg/dl (0.2-1) Aspartate Amino Transf (AST/SGOT) 59 U/L (15-37) Alanine Aminotransferase (ALT/SGPT) 163 U/L (12-78) Alkaline Phosphatase 81 U/L (45-117) Troponin I < 0.015 ng/ml (0-0.045) Pro-B-Type Natriuretic Peptide 4950 pg/ml (0-900) Total Protein 6.3 gm/dl (6.4-8.2) Albumin 3.3 gm/dl (3.4-5.0) Globulin 3.0 gm/dl (2.5-4.0) Albumin/Globulin Ratio 1.1 (0.9-2) Venous Blood pH 7.41 (7.36-7.41) Venous Blood Partial Pressure CO2 56 mmHg (38.0-50.0) Venous Blood Partial Pressure O2 55 mmHg Venous Blood HCO3 35 mmol/L Venous Blood Oxygen Saturation 86.0 % Venous Blood Base Excess 8.5 mEq/L Lactic Acid Level 1.3 mmol/L (0.4-2.0) Medications Administered Medications (Trade) Dose Ordered Sig/Lianne Route Start Time Stop Time Status Last Admin Dose Admin Albuterol/ Ipratropium (Duoneb) 12 ml ONE ONCE INH 09/16/16 19:30 09/16/16 19:31 DC 09/16/16 19:30 12 ML Aspirin (Aspirin Chew) 324 mg NOW STAT PO 09/16/16 19:23 09/16/16 19:29 DC 09/16/16 19:40 324 MG Sodium Chloride 500 ml @ 999 mls/hr Q31M STAT IV 09/16/16 20:07 09/16/16 20:37 DC 09/16/16 20:16 999 MLS/HR Furosemide (Lasix Inj) 40 mg STK-MED ONCE .ROUTE 09/16/16 21:48 09/16/16 21:49 DC 09/16/16 21:52 40 MG ECG Indication: SOB/dyspnea Rate (beats per minute): 130 Rhythm: atrial fibrillation (with RVR) Findings: PVC, no acute ischemic change Medical Decision CC: Patient presenting with complaint of shortness of breath Interpretation of Labs: Leukocytosis with left shift, not anemic, mild hyponatremia, no other significant electrolyte abnormalities, elevated BUN and creatinine, normal liver enzymes, normal lactic acid. VBG shows a slightly elevated CO2 with normal pH. Troponin negative, pro-BNP significantly elevated. Differential Diagnosis: Includes, but not limited to COPD exacerbation, congestive heart failure, pneumonia, bronchitis, PE, acute VT, dysrhythmia, dehydration, electrolyte abnormality, sepsis/bacteremia, among others. Medication Reconciliation: I attest that I have personally reviewed the patient' s current medication list. Vital signs review: I reviewed the patient's vital signs and interpret them as follows: T: Afebrile; BP: Hypertensive; HR: Tachycardic; RR: Tachypneic; Pulse Ox: Hypoxic. Summary: Patient was evaluated at bedside, history of physical exam performed. Patient is alert and in no acute distress, but does appear somewhat uncomfortable. She is noted to be tachycardic on exam, mildly tachypneic in the mid 20s, but with no significant respiratory distress, no retractions, and able to speak in full sentences. Irregularly irregular and tachycardic heart rate auscultation and confirmed with pulse check. Significant pitting edema in the bilateral lower extremities, and lungs are significantly diminished with scant wheezes and crackles. EKG evaluated at bedside, atrial fibrillation with RVR. Compared to previous EKG, A.fib is a new finding. I am most suspicious for COPD exacerbation vs a new onset of CHF, based on patient's history and clinical condition. Orders were placed at bedside for labs, UA, DuoNeb treatment, chest x-ray to evaluate for pneumonia. Patient discussed with Dr. Phillips, who agrees with my assessment and plan. Labs reviewed as above, significant for leukocytosis with left shift, elevated creatinine. Significantly elevated pro-BNP suggestive of acute congestive heart failure. Given the leukocytosis in setting of tachycardia, blood cultures and lactic acid were added on. Duo Neb treatment given, with improved air movement and increased wheezing now heard. Patient also reports improvement in her shortness of breath after the neb treatment. Bedside ultrasound performed at bedside by Dr. Phillips, he has some concern based on this for mild right heart strain. We discussed together and decision was made to order CT of the chest to rule out PE. 500 mL IV fluids ordered for renal protection due to elevated creatinine of 1.3 Chest x-ray reviewed, this supports pulmonary congestion rather than COPD exacerbation. No evidence of pneumonia or effusion. I updated Dr. Phillips on patient's status and workup thus far. We discussed patient's picture of pulmonary congestion in setting of hypoxia, however appearing clinically dry. We also discussed the persistent rapid A. fib, which I believe may be compensatory. CT chest for PE is pending, given that patient has remained stable to this point , Dr. Phillips and I agree that we will hold off on any diuresis until we have results from the CT. CT chest reviewed and is negative for PE. Discussed again with Dr. Phillips, who agrees with diuresis at this time and will speak with hospitalist for admission. I spoke on the phone with Dr. Shelton, Hospitalist, who agrees with plan for admission and will come evaluate the patient. Patient reassessed multiple times throughout ED stay, she reports she is feeling improved after being placed on oxygen and having her nebulizer treatment. She remains stable and in no acute distress. Patient updated on all results and plan for admission, she verbalized understanding and is in agreement with this plan. Patient in stable condition at time of admission. Medication Reconcilliation Current Medication List: was personally reviewed by me Blood Pressure Screening Patient's blood pressure: Elevated blood pressure Blood pressure disposition: Elevated BP felt to be situational (Patient requiring admission) Impression Primary Impression: Congestive heart failure Additional Impression: Hypoxemia Critical Care I have personally spent greater than 30 minutes of critical care time in the direct management of this patient. This includes bedside care, interpretation of diagnostic studies, and testing, discussion with consultants, patient, and family members, and other required patient management activities. This 30 minutes is in excess of all separately billable procedures. Departure Information Dispostion Admitted as an inpatient Condition FAIR Referrals Masha Germain ,OnielN.P. (PCP) Patient Instructions My [facility] Problem Qualifiers Primary Impression: Congestive heart failure Congestive heart failure type: unspecified congestive heart failure type Congestive heart failure chronicity: acute Qualified Codes: I50.9 - Heart failure, unspecified
--- NOTE | 2016-09-16 21:00 | DIAGNOSTIC IMAGING REPORT ---
CHEST ONE VIEW PORTABLE CLINICAL HISTORY: SOB, hypoxic dyspnea COMPARISON STUDY: 05/30/2016 FINDINGS: Moderate cardiac megaly. Increased prominence of the pulmonary vasculature. Diaphragms are smooth. IMPRESSION: Congestive failure The above report was generated using voice recognition software. It may contain grammatical, syntax or spelling errors. Electronically signed by: Fred Harris M.D. 09/16/2016 8:59 PM Dictated Date/Time: 09/16/2016 8:58 PM
[2016-09-16] MEDS ORDERED: OPTIRAY 320 IV PRN (21:30)
--- NOTE | 2016-09-16 21:30 | DIAGNOSTIC IMAGING REPORT ---
(CHEST FOR PE) ANGIO WITH CT DOSE: 508.07 mGy.cm HISTORY: Chest pain dyspnea TECHNIQUE: Multiaxial CT images of the chest were performed following the intravenous administration of contrast to evaluate the pulmonary arteries. Maximal intensity projection images were also obtained. A dose lowering technique was utilized adhering to the principles of ALARA. COMPARISON STUDY: 04/24/2016 FINDINGS: There is a normal caliber thoracic aorta with no evidence for dissection. There is no evidence for pulmonary embolus. No pleural effusions. No pneumothorax. The liver and spleen are unremarkable. No mediastinal or hilar lymphadenopathy. The central airways are patent. The lungs are clear. Moderate cardiomegaly. Minimal basilar nodularity unchanged from the prior study. Mild nonspecific left lower lobe basilar interstitial change. IMPRESSION: 1. No evidence for pulmonary embolus. 2. Stable nodularity compared to the prior study. 3. Mild interstitial prominence left lower lobe raise the possibly of a nonspecific interstitial pneumonitis. 4. Moderate stable cardia megaly. The above report was generated using voice recognition software. It may contain grammatical, syntax or spelling errors. Electronically signed by: Fred Harris M.D. 09/16/2016 9:29 PM Dictated Date/Time: 09/16/2016 9:25 PM
[2016-09-16] MEDS ORDERED: FUROSEMIDE INJ 40 MG in SYRINGE 0 ML IV STA (21:40)
[2016-09-16] MEDS ORDERED: FUROSEMIDE 40 MG/4 ML VIAL ONE (21:48)
[2016-09-16] MEDS ORDERED: ACETAMINOPHEN 325 MG TAB PO PRN (22:15)
[2016-09-16] MEDS ORDERED: ZOLPIDEM TARTRATE 5 MG TAB PO PRN (22:15)
[2016-09-16] MEDS ORDERED: ONDANSETRON INJ 2 MG/ML 2 ML VIAL IV PRN (22:15)
--- NOTE | 2016-09-16 22:44 | History and Physical ---
History & Physical Date & Time of Service: Sep 16, 2016 at 22:43 Chief Complaint: SOB Primary Care Physician: Masha Germain C.R.N.P. History of Present Illness Source: patient Mrs Croft is a 60-year-old female with significant smoking history, about a pack a day since age 14, who presents with shortness of breath. She reports this started 5 days ago. She went to an urgent care and was started on a breathing treatment, and a course of steroids. She did not feel that it had any improvement, so she went back to the urgent care and she was given a shot of the steroid. She returns today to the ER feeling a persistently short of breath even at rest. She was found to be in atrial fibrillation with RVR, which apparently is new, and a new diagnosis of congestive heart failure. On review of her medication list though she is on a beta nadia, diuretics, and JLUIS inhibitor. On review of our records there is no echocardiogram noted. The patient reports that she is incredibly stressed with everything going on in her life. Her apparently drinks a lot, which concerns her, and she is trying to get him to stop. She reports that most recently he brought a bottle of tequila and she thought he would if she shared it with him then he would drink less. She denies drinking significant amounts herself though. She denies any form of verbal or physical abuse from her . She reports she has a very loving family. She reports she is very eager to stop smoking. She has now cut down to three quarters pack per day. She reports she is considering going to an inpatient rehabilitation facility in [place] to stop smoking. She then brought up that she was considering her . She also reports her diet is very poor, and over the last week she has had a very high salt diet. This consists of lots of pizza, pakistani fries, and chips. Past Medical/Surgical History Medical Problems: (1) Hypertension Status: Chronic (2) Axillary lymphadenopathy - biopsied, was benign PSHx: None Family History Heart disease Social History Smoking Status: Current Every Day Smoker (3/4 ppd, since age 14) Smokeless Tobacco Use: Yes Alcohol Use: socially Drug Use: marijuana Marital Status: Housing status: lives with family Occupational Status: unemployed Immunizations History of Influenza Vaccine: Unknown History of Tetanus Vaccine?: Yes History of Pneumococcal: No History of Hepatitis B Vaccine: Unknown Multi-Drug Resistant Organisms History of MDRO: No Allergies Coded Allergies: No Known Allergies (Unverified , 09/16/16) Home Medications Scheduled Amlodipine (Norvasc), 10 MG PO QAM Fluticasone Prop/Salmeterol (Advair Diskus 250/50 60 Dose), 2 PUFF INH BID Lisinopril/Hctz (Zestoretic 20MG/12.5MG), 1 TAB PO QAM Metoprolol Succ (Toprol Xl) (Toprol-Xl ), 100 MG PO QAM Multiple Vitamins W/ Minerals (Centrum), 1 TAB PO QAM Prednisone Tab (Prednisone), 10 MG PO UD Tiotropium [place] (Spiriva Handihaler), 1 CAP INH DAILY [Dulera], 2 PUFF PO BID Scheduled PRN Albuterol Hfa (Ventolin Hfa), 1 PUFFS INH Q4H PRN for SOB/Wheezing Review of Systems See HPI for pertinent positives & negatives. A total of 10 systems reviewed and were otherwise negative. Physical Exam Vital Signs Date Time Temp Pulse Resp B/P (MAP) Pulse Ox O2 Delivery O2 Flow Rate FiO2 09/16/16 21:23 134 18 153/120 92 Nasal Cannula 4.0 09/16/16 20:05 116 21 91 Nasal Cannula 2.0 09/16/16 20:05 142 20 150/104 90 09/16/16 19:43 92 Nasal Cannula 2.0 09/16/16 19:42 92 Nasal Cannula 2.0 09/16/16 19:05 36.7 122 22 135/95 88 Room Air General Appearance: WD/WN, + moderate distress, + pertinent finding (anxious) Head: normocephalic, atraumatic Eyes: normal inspection, PERRL ENT: hearing grossly normal Neck: supple, no JVD Respiratory/Chest: normal breath sounds, no respiratory distress, + wheezing ( expiratory wheeze in all lung heredia) Cardiovascular: no murmur, normal peripheral pulses, + tachycardia Abdomen/GI: non tender, soft Back: no CVA tenderness, no muscle spasm Extremities/Musculoskelatal: no calf tenderness, no pedal edema Neurologic/Psych: alert, normal mood/affect, oriented x 3 Skin: no rash Diagnostics Laboratory Results Results Past 24 Hours Test 09/16/16 19:35 09/16/16 20:07 09/16/16 22:34 Range/Units White Blood Count 18.53 4.8-10.8 K/uL Red Blood Count 4.76 4.2-5.4 M/uL Hemoglobin 14.3 12.0-16.0 g/dL Hematocrit 45.0 37-47 % Mean Corpuscular Volume 94.5 80-100 fL Mean Corpuscular Hemoglobin 30.0 25-34 pg Mean Corpuscular Hemoglobin Concent 31.8 32-36 g/dl Platelet Count 462 130-400 K/uL Mean Platelet Volume 9.3 7.4-10.4 fL Neutrophils (%) (Auto) 84.7 % Lymphocytes (%) (Auto) 7.1 % Monocytes (%) (Auto) 7.5 % Eosinophils (%) (Auto) 0.0 % Basophils (%) (Auto) 0.1 % Neutrophils # (Auto) 15.70 1.4-6.5 K/uL Lymphocytes # (Auto) 1.31 1.2-3.4 K/uL Monocytes # (Auto) 1.39 0.11-0.59 K/uL Eosinophils # (Auto) 0.00 0-0.5 K/uL Basophils # (Auto) 0.01 0-0.2 K/uL RDW Standard Deviation 51.2 36.4-46.3 fL RDW Coefficient of Variation 14.9 11.5-14.5 % Immature Granulocyte % (Auto) 0.6 % Immature Granulocyte # (Auto) 0.12 0.00-0.02 K/uL Sodium Level 147 136-145 mmol/L Potassium Level 3.7 3.5-5.1 mmol/L Chloride Level 106 98-107 mmol/L Carbon Dioxide Level 36 21-32 mmol/L Anion Gap 5.0 3-11 mmol/L Blood Urea Nitrogen 37 7-18 mg/dl Creatinine 1.30 0.60-1.20 mg/dl Est Creatinine Clear Calc Drug Dose 54.4 ml/min Estimated GFR () 52.4 Estimated GFR (Non- 45.2 BUN/Creatinine Ratio 28.8 10-20 Random Glucose 133 70-99 mg/dl Calcium Level 8.4 8.5-10.1 mg/dl Total Bilirubin 0.6 0.2-1 mg/dl Aspartate Amino Transf (AST/SGOT) 59 15-37 U/L Alanine Aminotransferase (ALT/SGPT) 163 12-78 U/L Alkaline Phosphatase 81 45-117 U/L Troponin I < 0.015 0-0.045 ng/ml Pro-B-Type Natriuretic Peptide 4950 0-900 pg/ml Total Protein 6.3 6.4-8.2 gm/dl Albumin 3.3 3.4-5.0 gm/dl Globulin 3.0 2.5-4.0 gm/dl Albumin/Globulin Ratio 1.1 0.9-2 Venous Blood pH 7.41 7.36-7.41 Venous Blood Partial Pressure CO2 56 38.0-50.0 mmHg Venous Blood Partial Pressure O2 55 mmHg Venous Blood HCO3 35 mmol/L Venous Blood Oxygen Saturation 86.0 % Venous Blood Base Excess 8.5 mEq/L Lactic Acid Level 1.3 0.4-2.0 mmol/L Microbiology Results 09/16/16 Blood Culture, Received Pending 09/16/16 Blood Culture, Received Pending Diagnostic Radiology CTA IMPRESSION: 1. No evidence for pulmonary embolus. 2. Stable nodularity compared to the prior study. 3. Mild interstitial prominence left lower lobe raise the possibly of a nonspecific interstitial pneumonitis. 4. Moderate stable cardia megaly. CXR IMPRESSION: Congestive failure Normal EKG Impression Assessment and Plan 60-year-old female with significant smoking history who presents with shortness of breath - likely COPD exacerbation with components of congestive heart failure. She also has atrial fibrillation with RVR. Congestive heart failure - Appears intravascularly dry, was given a 500 mL bolus in the ED, and then given 40 mg of Lasix IV. Continue to monitor this - Strict I&O monitoring - Echocardiogram in the morning - Low salt diet - Dietary education on low salt diet - Continue JLUIS-I, Beta nadia, and diuretic - Repeat CXR in AM Atrial fibrillation with RVR - Takes Toprol-XL 100 mg in a.m. We'll provide a 25 mg dose of Toprol XLat the moment, with 5 mg Lopressor IV every 4 hours for heart rate greater than 110. - Her CHADsVaSC score is 3 - will provide Lovenox 1mg/kg BID so she gets a dose now, then decide on further chcf anticoagulation in the AM - Telemetry monitoring COPD Exacerbation - Has already received 6 days of steroids - We'll provide DuoNeb regularly and when necessary at this time. - Continue home inhaler regime - Spiriva, Dulera -though it is unclear if she is actually taking them all - Goal O2 sats 88-92% Hypertension - Continue Amlodipine 10mg Anxiety - Pt is v tremulous - will check an alcohol level and tox screen Leukocytosis - Could be from steroids. No other evidence of infection at this time - Continue to monitor for underlying pneumonia. DISPO: Tele VTE: Lovenox CODE STATUS: Full Attending Addendum: I have physically seen and examined this patient, have supervised the medical residents activities, and agree with the H&P as noted above with the following exceptions as noted. The patient is awake, well-developed and adequately nourished, alert and oriented 3, normocephalic and atraumatic, sitting up on the edge of the bed and in no acute distress. HEENT--PERRL, EOMI, mucous membranes and oropharynx dry. Neck--supple, no JVD or bruits, thyroid normal, trachea midline, no adenopathy. Heart--normal S1 and S2, no extra beats, no murmurs, rubs or gallops. Lungs--crackles at the bases bilaterally no respiratory distress, no accessory muscle use. Abdomen--normal bowel sounds and soft, nontender and nondistended, no hernias or masses, no organomegaly. Extremities--no cyanosis, clubbing. There is 3+ bilateral pretibial pitting Edema. There are good distal pulses b/l. Dermatologic--normal skin turgor, normal color, warm and dry, no abnormal lymph nodes, no rash. There is pitting edema abdominal wall and bilateral extremities Neurologic--cranial nerves II through XII grossly intact, motor and sensory examination normal. Rheumatologic--normal range of motion, nontender, muscles and joints. Psychiatric--normal affect. Assessment and Plan: 1. Anasarca/CHF/hypernatremia/excessive sodium intake over the past 2 weeks/ atrial fibrillation with RVR-- The patient will be admitted to telemetry for serial cardiac enzymes, cardiac rhythm monitoring and a 2-D echocardiogram with Dopplers. Check serum osmolality and urine osmolality. Would decrease amlodipine from 10 mg to 5 mg by mouth every morning. Continue lisinopril/HCTZ 20/12.5 by mouth every morning. Continue metoprolol succinate 100 mg by mouth every morning, and add 50 mg by mouth every evening. Lopressor 5 mg IV every 4 hours when necessary heart rate greater than 110. Lovenox 1 mg/kg subcutaneous twice a day, until long-term anticoagulation modality is chosen. Extensive education on lowering sodium intake. She had friends in from out of town, and ate Telugu take-out food excessively. UDS initial screen positive for amphetamine/dextroamphetamine, with confirmation pending. If confirmed, likely a strong contributor or cause of A. fib with RVR. 2. COPD exacerbation--no further steroids at this time, having completed 6 days. Continue Spiriva, and Dulera. Hold on Duonebs due to potential for aggravating A. fib, and instead have Xopenex/Atrovent available to use every 2 hours when necessary. 3. Abnormal liver enzymes--order adult hepatitis panel, and liver ultrasound. Level of Care Telemetry Advanced Directives Existing Advance Directive: No Existing Living Will: No Existing Power of Portfolio Manager: No Resuscitation Status FULL RESUSCITATION VTE Prophylaxis VTE Risk Assessment Done? Y/N: Yes Risk Level: Moderate Given or contraindicated: Other Anticoagulation, SCD's Social Service Consult None Apply Resident Tracking Resident Involvement: Resident Care Provided Care Provided: Adult Hospital Medicine
[2016-09-16 23:01] VITALS: BP 154/93; PULSE 137; TEMP 36.5; O2SAT 92; Ht 182.9 cm; Wt 82.3 kg
[2016-09-16 23:01] LABS: PROTHROMBIN TIME (PATIENT) 10.9 SECONDS (9.0-12.0)
[2016-09-16] MEDS ORDERED: ENOXAPARIN 1 MG/KG SQ SCH (23:45)
[2016-09-17] VITALS (15 sets, daily range): BP systolic 118–149; BP diastolic 76–95; PULSE 79–130; TEMP 36.3–37.5; O2SAT 90–96
[2016-09-17] MEDS ORDERED: METOPROLOL SUCC 25MG EXT REL TAB PO STA (00:22)
[2016-09-17 00:30] LABS: URINE APPEARANCE CLEAR (CLEAR); URINE BILIRUBIN NEG (NEG); URINE COLOR YELLOW; URINE NITRITE NEG (NEG); URINE SPECIFIC GRAVITY 1.019 (1.000-1.030); UROBILINOGEN NEG (NEG)
[2016-09-17 00:31] LABS: MANUAL MICROSCOPIC REQUIRED? NO; REVIEW REQ? NO
[2016-09-17] MEDS ORDERED: ENOXAPARIN 100 MG/1ML SYR SQ STA (00:35)
[2016-09-17 00:46] LABS: BENZODIAZEPINE, URINE NEG (NEG); COCAINE,URINE NEG (NEG); PHENCYCLIDINE, URINE NEG (NEG)
[2016-09-17] MEDS: METOPROLOL TARTRATE 1 MG/ML VIAL IV PRN ×4 (03:14→23:50)
[2016-09-17] MEDS ORDERED: NURSING DECISION MEDICATION ORDER SCH (05:45)
[2016-09-17] MEDS ORDERED: COUGH DROP (SUGAR FREE) LOZ 24 LOZ/1 BOX ONE (05:45)
[2016-09-17] MEDS ORDERED: HEPARIN SOD 5000 UNIT/0.5 ML CARP SQ SCH (06:00)
[2016-09-17] MEDS ORDERED: COUGH DROP (SUGAR FREE) LOZ 24 LOZ/1 BOX PO PRN (06:00)
[2016-09-17 07:03] LABS: BUN/CREATININE RATIO 27.3 (10-20); CALCIUM 8.3 mg/dl (8.5-10.1); CHOLESTEROL/HDL RATIO 3.6; CREATININE 1.1 mg/dl (0.60-1.20)
[2016-09-17 07:05] LABS: ESTIMATED AVERAGE GLUCOSE 131 mg/dl; HA1C FLAG Normal (Normal)
[2016-09-17] MEDS: ALBUT/IPRATROP 3MG/0.5MG NEB 3 ML VIAL INH SCH ×3 (07:20→15:19)
--- NOTE | 2016-09-17 07:29 | DIAGNOSTIC IMAGING REPORT ---
CHEST ONE VIEW PORTABLE HISTORY: Short of breath. COMPARISON: Chest 09/16/2016. FINDINGS: The heart remains mildly enlarged. Bibasilar interstitial thickening has slightly progressed. Mild emphysema. No pleural effusions. No pneumothorax. Internal fixation of an old right humeral fracture. IMPRESSION: 1. Progressive bibasilar interstitial thickening. This could represent an atypical pneumonitis or dependent change. 2. Stable cardiomegaly. Electronically signed by: Dre Taylor M.D. 09/17/2016 7:28 AM Dictated Date/Time: 09/17/2016 7:26 AM
[2016-09-17] MEDS: FLUTICASONE/SALMETEROL 250/50 (ADVAIR) 14 PUFF/1 INHALER INH SCH ×2 (07:41→20:58)
[2016-09-17] MEDS: TIOTROPIUM BROMIDE 5 PUFF/90 MCG INH INH SCH (07:42)
[2016-09-17] MEDS: DULERA~ORDER AWAITING ACTION SCH ×3 (07:42→20:58)
[2016-09-17] MEDS: AMLODIPINE BESYLATE 5 MG TAB PO SCH (07:43)
[2016-09-17] MEDS: LISINOPRIL/HCTZ 20/12.5MG TAB PO SCH (07:43)
[2016-09-17] MEDS: METOPROLOL SUCC 50MG EXT REL TAB PO SCH (07:43)
[2016-09-17] MEDS: CEROVITE ADV FORMULA TAB PO SCH (07:44)
[2016-09-17] MEDS: ENOXAPARIN 100 MG/1ML SYR SQ SCH ×2 (12:54→20:59)
--- NOTE | 2016-09-17 14:31 | ECHOCARDIOGRAM REPORT ---
*NOTICE TO RECEIVING [employer] This information is strictly Confidential and protected under [place] law. [place] law prohibits you from making any further disclosure of this information unless further disclosure is expressly permitted by the written consent of the person to whom it pertains or is authorized by law. A general authorization for the release of medical or other information is not sufficient for this purpose. Hospital accepts no responsibility if the information is made available to any other person, INCLUDING THE PATIENT. Interpretation Summary * Name: RAFIQ JENKINS Study Date: 09/17/2016 06:50 AM BP: 142/88 mmHg * Patient Location: C.2T\S\S229\S\2 HR: 122 * : 1955 (M/d/yyyy) Gender: Female Height: 72 in * Age: 60 yrs Ethnicity: CA Weight: 182 lb * Ordering Physician: Masha Shelton * Referring Physician: Self, Referred * Performed By: Sweetie Epps RCS * * Reason For Study: CHF * BSA: 2.0 m2 * -- Conclusions -- * The left ventricle is borderline dilated. * There is moderate concentric left ventricular hypertrophy. * Left ventricular systolic function is mildly reduced. * The left atrium is moderately dilated. * The right atrium is moderately dilated. * There is mild mitral regurgitation. * Right ventricular systolic pressure is elevated at 30-40mmHg. Procedure Details * A complete two-dimensional transthoracic echocardiogram was performed (2D, M-mode, Doppler and color flow Doppler). * The rhythm is atrial fibrillation Left Ventricle * The left ventricle is borderline dilated. * There is moderate concentric left ventricular hypertrophy. * Left ventricular systolic function is mildly reduced. * Ejection Fraction = 40-45%. Right Ventricle * The right ventricle is normal in size and function. Atria * The left atrium is moderately dilated. * The right atrium is moderately dilated. Mitral Valve * The mitral valve is grossly normal. * There is mild mitral regurgitation. Tricuspid Valve * There is mild tricuspid regurgitation. * Right ventricular systolic pressure is elevated at 30-40mmHg. Aortic Valve * The aortic valve is normal in structure and function. * The aortic valve is trileaflet. * No hemodynamically significant valvular aortic stenosis. * There is no significant aortic regurgitation. Great Vessels * The aortic root is normal size. Pericardium/Pleural * There is no pericardial effusion. MMode 2D Measurements and Calculations IVSd 1.7 cm IVSs 1.8 cm LVIDd 5.2 cm LVIDs 4.6 cm LVPWd 1.5 cm LVPWs 1.7 cm IVS/LVPW 1.2 FS 10.4 % EDV(Teich) 127.9 ml ESV(Teich) 99.0 ml EF(Teich) 22.6 % EDV(cubed) 138.3 ml ESV(cubed) 99.5 ml EF(cubed) 28.1 % % IVS thick 3.6 % % LVPW thick 16.8 % LV mass(C)d 374.3 grams LV mass(C)dI 182.9 grams/m\S\2 LV mass(C)s 367.4 grams LV mass(C)sI 179.5 grams/m\S\2 SV(Teich) 28.9 ml SI(Teich) 14.1 ml/m\S\2 SV(cubed) 38.8 ml SI(cubed) 19.0 ml/m\S\2 Ao root diam 3.2 cm Ao root area 8.2 cm\S\2 ACS 2.3 cm LA dimension 4.8 cm LA/Ao 1.5 LVOT diam 2.2 cm LVOT area 3.8 cm\S\2 Doppler Measurements and Calculations MV E max jeanette 117.6 cm/sec MV P1/2t max jeanette 128.3 cm/sec MV P1/2t 60.8 msec MVA(P1/2t) 3.6 cm\S\2 MV dec slope 618.3 cm/sec\S\2 MV dec time 0.15 sec TR max jeanette 271.5 cm/sec
--- NOTE | 2016-09-17 15:15 | EMERGENCY ROOM VISIT NOTE ---
ED Visit Note First contact with patient: 19:13 HPI: SOB with new BLE edema and Afib PE: Tachypneic, tachycardic NC/AT MM mikayla, no injection IRIR, no murmurs Dimished throughout with scattered wheezes Abd soft NT/ND Ext: 1+ edema BLE, erythema Neuro: grossly intact Limited bedside US: negative for pericardial effusion, ?mild RV dilation/apical WMA, LV slightly enlarged. EF slightly decreased to normal. Plan: CT-PE negative in setting of new BLE edema and ?RV dilation. Appears mixed picture of new-onset AFib/CHF predominant and COPD. Nebs, Diurese, rate control if needed. I reviewed the patient's past medical history, medications, and visit nursing notes. I discussed the case with the physician chemistry research assistant, examined the patient, and agree with the findings and plan as documented in the physician assistants note. Problem List Medical Problems: (1) Hypertension Status: Chronic Current/Historical Medications Scheduled Amlodipine (Norvasc), 10 MG PO QAM Fluticasone Prop/Salmeterol (Advair Diskus 250/50 60 Dose), 2 PUFF INH BID Lisinopril/Hctz (Zestoretic 20MG/12.5MG), 1 TAB PO QAM Metoprolol Succ (Toprol Xl) (Toprol-Xl ), 100 MG PO QAM Multiple Vitamins W/ Minerals (Centrum), 1 TAB PO QAM Prednisone Tab (Prednisone), 10 MG PO UD Tiotropium [place] (Spiriva Handihaler), 1 CAP INH DAILY [Dulera], 2 PUFF PO BID Scheduled PRN Albuterol Hfa (Ventolin Hfa), 1 PUFFS INH Q4H PRN for SOB/Wheezing Allergies Coded Allergies: No Known Allergies (Unverified , 09/16/16) Vital Signs Date Time Temp Pulse Resp B/P (MAP) Pulse Ox O2 Delivery O2 Flow Rate FiO2 09/16/16 21:23 134 18 153/120 92 Nasal Cannula 4.0 09/16/16 20:05 116 21 91 Nasal Cannula 2.0 09/16/16 20:05 142 20 150/104 90 09/16/16 19:43 92 Nasal Cannula 2.0 09/16/16 19:42 92 Nasal Cannula 2.0 09/16/16 19:05 36.7 122 22 135/95 88 Room Air Laboratory Results 09/16/16 19:35 Red Blood Count 4.76, Mean Corpuscular Volume 94.5, Mean Corpuscular Hemoglobin 30.0, Mean Corpuscular Hemoglobin Concent 31.8, Mean Platelet Volume 9.3, Neutrophils (%) (Auto) 84.7, Lymphocytes (%) (Auto) 7.1, Monocytes (%) (Auto) 7.5, Eosinophils (%) (Auto) 0.0, Basophils (%) (Auto) 0.1, Neutrophils # (Auto) 15.70, Lymphocytes # (Auto) 1.31, Monocytes # (Auto) 1.39, Eosinophils # (Auto) 0.00, Basophils # (Auto) 0.01 Test 09/16/16 19:35 09/16/16 20:07 White Blood Count 18.53 K/uL (4.8-10.8) Red Blood Count 4.76 M/uL (4.2-5.4) Hemoglobin 14.3 g/dL (12.0-16.0) Hematocrit 45.0 % (37-47) Mean Corpuscular Volume 94.5 fL (80-100) Mean Corpuscular Hemoglobin 30.0 pg (25-34) Mean Corpuscular Hemoglobin Concent 31.8 g/dl (32-36) Platelet Count 462 K/uL (130-400) Mean Platelet Volume 9.3 fL (7.4-10.4) Neutrophils (%) (Auto) 84.7 % Lymphocytes (%) (Auto) 7.1 % Monocytes (%) (Auto) 7.5 % Eosinophils (%) (Auto) 0.0 % Basophils (%) (Auto) 0.1 % Neutrophils # (Auto) 15.70 K/uL (1.4-6.5) Lymphocytes # (Auto) 1.31 K/uL (1.2-3.4) Monocytes # (Auto) 1.39 K/uL (0.11-0.59) Eosinophils # (Auto) 0.00 K/uL (0-0.5) Basophils # (Auto) 0.01 K/uL (0-0.2) RDW Standard Deviation 51.2 fL (36.4-46.3) RDW Coefficient of Variation 14.9 % (11.5-14.5) Immature Granulocyte % (Auto) 0.6 % Immature Granulocyte # (Auto) 0.12 K/uL (0.00-0.02) Total Bilirubin 0.6 mg/dl (0.2-1) Aspartate Amino Transf (AST/SGOT) 59 U/L (15-37) Alanine Aminotransferase (ALT/SGPT) 163 U/L (12-78) Alkaline Phosphatase 81 U/L (45-117) Troponin I < 0.015 ng/ml (0-0.045) Pro-B-Type Natriuretic Peptide 4950 pg/ml (0-900) Total Protein 6.3 gm/dl (6.4-8.2) Albumin 3.3 gm/dl (3.4-5.0) Globulin 3.0 gm/dl (2.5-4.0) Albumin/Globulin Ratio 1.1 (0.9-2) Venous Blood pH 7.41 (7.36-7.41) Venous Blood Partial Pressure CO2 56 mmHg (38.0-50.0) Venous Blood Partial Pressure O2 55 mmHg Venous Blood HCO3 35 mmol/L Venous Blood Oxygen Saturation 86.0 % Venous Blood Base Excess 8.5 mEq/L Lactic Acid Level 1.3 mmol/L (0.4-2.0) Medications Administered Medications (Trade) Dose Ordered Sig/Lianne Route Start Time Stop Time Status Last Admin Dose Admin Albuterol/ Ipratropium (Duoneb) 12 ml ONE ONCE INH 09/16/16 19:30 09/16/16 19:31 DC 09/16/16 19:30 12 ML Aspirin (Aspirin Chew) 324 mg NOW STAT PO 09/16/16 19:23 09/16/16 19:29 DC 09/16/16 19:40 324 MG Sodium Chloride 500 ml @ 999 mls/hr Q31M STAT IV 09/16/16 20:07 09/16/16 20:37 DC 09/16/16 20:16 999 MLS/HR Furosemide (Lasix Inj) 40 mg STK-MED ONCE .ROUTE 09/16/16 21:48 09/16/16 21:49 DC 09/16/16 21:52 40 MG Departure Information Impression Primary Impression: Congestive heart failure Additional Impression: Hypoxemia Dispostion Admitted as an inpatient Condition FAIR Referrals Masha Germain ,C.R.N.P. (PCP) Forms HOME CARE DOCUMENTATION FORM, IMPORTANT VISIT INFORMATION Patient Instructions [facility] Problem Qualifiers
[2016-09-17] MEDS ORDERED: METHYLPREDNISOLONE IV 80 MG in SYRINGE 0 ML IV SCH (16:00)
[2016-09-17] MEDS ORDERED: FUROSEMIDE INJ 40 MG in SYRINGE 0 ML IV ONE (16:00)
[2016-09-17] MEDS ORDERED: ALBUTEROL 0.083% NEBU SOLN 3 ML VIAL INH PRN (16:00)
[2016-09-17] MEDS ORDERED: POTASSIUM CHLORIDE 10 MEQ TABCR PO STA (16:09)
[2016-09-17] MEDS ORDERED: METOPROLOL SUCC 25MG EXT REL TAB PO ONE (16:15)
[2016-09-17] MEDS ORDERED: AZITHROMYCIN 250 MG TAB PO ONE (16:30)
[2016-09-17] MEDS ORDERED: NURSING VERBAL MED ORDER ONE (16:30)
[2016-09-17] MEDS: NYSTATIN SUSP 500,000 U/5 ML UDC PO SCH ×2 (17:34→20:57)
[2016-09-17] MEDS ORDERED: POTASSIUM CHLORIDE 10 MEQ TABCR PO ONE ×2 (18:00→21:00)
--- NOTE | 2016-09-17 18:50 | Family Medicine Progress Note ---
Progress Note Date of Service Sep 17, 2016. Subjective Pt evaluation today including: conversation w/ patient, physical exam, chart review, lab review, review of studies Voiding: no voiding problems 60F with COPD here for SOB x1 week, treated at urgent care with steroids, but only temporary improvement. Pt is resting comfortably in bed with nasal cannula in place. Pt complains of throat pain that she thinks may be due to not rinsing out her mouth after using her inhaler for COPD. Constitutional: No fever, No chills, No sweats Respiratory: + shortness of breath, No sputum Cardiovascular: No chest pain, No orthopnea, No palpitations Abdomen: No pain, No nausea, No vomiting Objective Physical Exam General Appearance: WD/WN, + mild distress (pt somewhat restless in bed) Eyes: normal inspection, PERRL, EOMI ENT: hearing grossly normal, + pharyngeal erythema, + pertinent finding ( evidence of thrush in her oropharynx and palate.) Neck: no JVD, trachea midline Respiratory/Chest: chest non-tender, no respiratory distress, no accessory muscle use, + wheezing Cardiovascular: no edema, no JVD, + irregularly irregular Abdomen: normal bowel sounds, non tender, soft Neurologic/Psychiatric: alert, oriented x 3 Skin: normal color, warm/dry, no rash Assessment and Plan 60F with h/o COPD here for SOB COPD exacerbation - pt with SOB and cough for 1+ week, appears somewhat noncompliant with meds - currently smokes 3/4 PPD, has smoked 1 PPD since age 14. - CXR showed increased prominence of pulmonary vasculature, congestive failure. - Cont Albuterol, Advair, Spiriva. Added Solumedrol and Zithromax to cover for atypical pneumonia. - On 3L O2 nasal cannula, sats 95. AFIB w/ RVR, new onset - pt rate is 115-130s - Continue Toprol-XL 100 mg in a.m. and Lisinopril/HCTZ 20/12.5mg - adding Metoprolol succinate 25mg OD. - Continue 5 mg Lopressor IV every 4 hours for heart rate greater than 110. - Her CHADsVaSC score is 3 - continuing Lovenox 1mg/kg BID - Telemetry monitoring Acute CHF exacerbation - Strict I&O monitoring - Echo showed: Left ventricle borderline dilated with moderate concentric left ventricular hypertrophy. Left ventricular systolic function is mildly reduced. Left and Right atrium are moderately dilated. Mild mitral regurgitation. Ejection Fraction = 40-45%. - Repeat CXR showed: Progressive bibasilar interstitial thickening which could represent an atypical pneumonitis or dependent change. Stable cardiomegaly - Given 40 Lasix - Low salt diet - Dietary education on low salt diet - Continue JLUIS-I, Beta nadia, and diuretic Hypertension, controlled - cont Amlodipine Anxiety - tremulousness is improving. - UDS + for dextromethorphan. - per nurse, pt states she took brother's adderall pill 2 days ago - supportive care prn Leukocytosis - likely due to steroid treatment pre-hospitalization - will continue to monitor CODE STATUS: Full VTE: Lovenox DISPO: Tele Resident Physician Supervision Note: I interviewed and examined the patient. Discussed with Dr. Mckeon and agree with findings and plan as documented in the note. Any exceptions or clarifications are listed here: None Documented By: Umesh Campos feeling OK breathing ok better than when she came in but not back to baseline vitals noted breathing unlabored but very fatigued appearing tachycardia ongoing afib/RVR - appearing due to COPD / COPD exacerbation - increase metoprolol. anticoagulation COPD w exacerbation - steroids, cover atypicals, inhalers, supportive care acute (mostly rate related diastolic) CHF - control rate, lasix x 1 cardiomyopathy - likely relates mostly to above, but with nonspecific ST changes should at least have non-invasive testing after back to baseline. no troponin elevation tobacco abuse otherwise as above Continued [facility] stay due to: abnormal vital signs Resident Tracking Resident Involvement: Resident Care Provided Care Provided: Adult Hospital Medicine
[2016-09-17] MEDS: METHYLPREDNISOLONE IV 80 MG in SYRINGE 0 ML IV SCH (20:57)
[2016-09-17] MEDS ORDERED: METOPROLOL SUCC 25MG EXT REL TAB PO SCH (21:00)
[2016-09-18] VITALS (8 sets, daily range): BP systolic 114–144; BP diastolic 70–98; PULSE 106–116; TEMP 36.9–37.7; O2SAT 91–96
[2016-09-18 05:52] LABS: HEMATOCRIT 46.5 % (37-47); MEAN CELL VOLUME 95.5 fL (80-100); MEAN CORPUSCULAR HEMOGLOBIN 29.6 pg (25-34); MEAN PLATELET VOLUME 9.4 fL (7.4-10.4); PLATELET COUNT 359 K/uL (130-400); RED BLOOD COUNT 4.87 M/uL (4.2-5.4); WHITE BLOOD COUNT 18.71 K/uL (4.8-10.8)
[2016-09-18] MEDS: METHYLPREDNISOLONE IV 80 MG in SYRINGE 0 ML IV SCH ×3 (06:07→21:51)
--- NOTE | 2016-09-18 06:50 | Family Medicine Progress Note ---
Progress Note Date of Service Sep 18, 2016. Subjective Pt evaluation today including: conversation w/ patient, physical exam, chart review, lab review Voiding: no voiding problems Pt reports sleeping well overnight with no issues. Pt is resting comfortably in bed having just finished breakfast. Pt asked about discharge, and we discussed that we need to see more improvement in lung function and rate control. Pt understands and says that is fine. Pt reports that throat pain is better since the nystatin, but still has some pain when swallowing. Constitutional: No fever, No chills, No sweats Respiratory: + cough, No shortness of breath, No dyspnea at rest Cardiovascular: No chest pain, No orthopnea, No edema Abdomen: No pain, No nausea, No vomiting, No diarrhea Psychiatric: No insomnia Objective Physical Exam General Appearance: WD/WN, no apparent distress Eyes: normal inspection, PERRL, EOMI ENT: hearing grossly normal, + pertinent finding (thrush still present, but improving.) Respiratory/Chest: chest non-tender, no respiratory distress, no accessory muscle use, + wheezing, + pertinent finding (faint basilar rales asymmetric, faint L upper lung wheeze) Cardiovascular: no edema, no gallop, no JVD, + irregularly irregular Abdomen: normal bowel sounds, non tender, soft Extremities: normal range of motion, normal inspection, no pedal edema Neurologic/Psychiatric: alert, normal mood/affect Skin: normal color, warm/dry, no rash Assessment and Plan 60F with h/o COPD here for SOB COPD exacerbation - pt with SOB and cough for 1+ week, appears somewhat noncompliant with meds - currently smokes 3/4 PPD, has smoked 1 PPD since age 14. - CXR showed increased prominence of pulmonary vasculature, congestive failure. - Cont Albuterol, Advair, Spiriva. Added Solumedrol and Zithromax to cover for atypical pneumonia. - On 3L O2 nasal cannula, sats 95. AFIB w/ RVR, new onset - pt rate remains tachy at 115-130s - increased PM Toprol dose to 50mg OD. - Continue AM Toprol-XL 100 mg and Lisinopril/HCTZ 20/12.5mg. - Continue 5 mg Lopressor IV every 4 hours for heart rate greater than 110. - Her CHADsVaSC score is 3 - continuing Lovenox 1mg/kg BID. 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 - Telemetry monitoring Acute CHF exacerbation - likely due to supply demand mismatch. - Echo showed: Left ventricle borderline dilated with moderate concentric left ventricular hypertrophy. Left ventricular systolic function is mildly reduced. Left and Right atrium are moderately dilated. Mild mitral regurgitation. Ejection Fraction = 40-45%. - Repeat CXR showed: Progressive bibasilar interstitial thickening which could represent an atypical pneumonitis or dependent change. Stable cardiomegaly. - Strict I&O monitoring - Improved with 40 Lasix given 09/17/16. - Low salt diet - Dietary education on low salt diet - Continue JLUIS-I, Beta nadia, and diuretic Hypertension, controlled - cont Amlodipine Anxiety - tremulousness is improving. - UDS + for dextromethorphan. - per nurse, pt states she took brother's adderall pill 2 days ago - supportive care prn Leukocytosis - likely due to steroid treatment pre-hospitalization - Afebrile. Will continue to monitor CODE STATUS: Full VTE: Lovenox DISPO: Tele Resident Physician Supervision Note: I interviewed and examined the patient. Discussed with Dr. Mckoen and agree with findings and plan as documented in the note. Any exceptions or clarifications are listed here: None Documented By: Umesh Campos feels OK no sob no cp no palpitations vitals noted breathing unlabored faint basilar rales asymmetric, faint L upper lung wheeze. afib/RVR - appearing due to COPD / COPD exacerbation - rate improved but not at goal - increase metoprolol again anticoagulation COPD w exacerbation - steroids, cover atypicals, inhalers, supportive care, continue current care today acute (mostly rate related diastolic) CHF - improved w lasix, now rate control. follow cardiomyopathy - likely relates mostly to above, but with nonspecific ST changes should at least have non-invasive testing after back to baseline. no troponin elevation tobacco abuse otherwise as above Continued [facility] stay due to: abnormal vital signs, multiple IV medications needed Discharge planning: home Resident Tracking Resident Involvement: Resident Care Provided Care Provided: Adult Hospital Medicine
[2016-09-18 06:53] LABS: BUN/CREATININE RATIO 30.5 (10-20); CALCIUM 8.7 mg/dl (8.5-10.1); CREATININE 0.84 mg/dl (0.60-1.20); MAGNESIUM 1.9 mg/dl (1.8-2.4); POTASSIUM 3.8 mmol/L (3.5-5.1); THYROID STIMULATING HORMONE 0.329 uIu/ml (0.300-4.500)
[2016-09-18] MEDS: DULERA~ORDER AWAITING ACTION SCH ×2 (08:00→15:44)
[2016-09-18] MEDS: FLUTICASONE/SALMETEROL 250/50 (ADVAIR) 14 PUFF/1 INHALER INH SCH ×2 (08:30→20:23)
[2016-09-18] MEDS: TIOTROPIUM BROMIDE 5 PUFF/90 MCG INH INH SCH (08:30)
[2016-09-18] MEDS: LISINOPRIL/HCTZ 20/12.5MG TAB PO SCH (08:30)
[2016-09-18] MEDS: METOPROLOL SUCC 50MG EXT REL TAB PO SCH ×3 (08:31→20:24)
[2016-09-18] MEDS: AMLODIPINE BESYLATE 5 MG TAB PO SCH (08:31)
[2016-09-18] MEDS: CEROVITE ADV FORMULA TAB PO SCH (08:31)
[2016-09-18] MEDS: NYSTATIN SUSP 500,000 U/5 ML UDC PO SCH ×4 (08:31→20:23)
[2016-09-18] MEDS: AZITHROMYCIN 250 MG TAB PO SCH (08:32)
[2016-09-18] MEDS: METOPROLOL TARTRATE 1 MG/ML VIAL IV PRN ×3 (11:04→21:57)
[2016-09-18] MEDS: ENOXAPARIN 100 MG/1ML SYR SQ SCH (11:18)
[2016-09-19] MEDS: ENOXAPARIN 100 MG/1ML SYR SQ SCH ×3 (00:12→23:51)
[2016-09-19 03:53] VITALS: BP 145/91; PULSE 106; TEMP 36.8; O2SAT 95
[2016-09-19] MEDS: METHYLPREDNISOLONE IV 80 MG in SYRINGE 0 ML IV SCH ×2 (05:58→14:43)
--- NOTE | 2016-09-19 06:45 | Family Medicine Progress Note ---
Progress Note Date of Service Sep 19, 2016. Subjective Pt evaluation today including: conversation w/ patient, physical exam, chart review, lab review, review of studies Objective Physical Exam General Appearance: WD/WN, no apparent distress Eyes: normal inspection, PERRL, EOMI Respiratory/Chest: chest non-tender, lungs clear, no respiratory distress, + wheezing Cardiovascular: no edema, no JVD, + irregularly irregular Abdomen: normal bowel sounds, non tender, soft Extremities: no pedal edema Assessment and Plan 60F with h/o COPD here for SOB COPD exacerbation - pt with SOB and cough for 1+ week, appears somewhat noncompliant with meds - currently smokes 3/4 PPD, has smoked 1 PPD since age 14. - CXR showed increased prominence of pulmonary vasculature, congestive failure. - Cont Albuterol, Advair, Spiriva. Added Solumedrol and Zithromax to cover for atypical pneumonia. - On 3L O2 nasal cannula, sats 95. AFIB w/ RVR, new onset - pt rate remains tachy at 110-120s - increased PM Toprol dose to 50mg OD. - Continue AM Toprol-XL 100 mg and Lisinopril/HCTZ 20/12.5mg. - Added Digoxin today: 250 mcg (09:42)ONCE, then next dose will be .25 mg (@20: 00). - Continue 5 mg Lopressor IV every 4 hours for heart rate greater than 110. - Her CHADsVaSC score is 3 - continuing Lovenox 1mg/kg BID. 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 - Telemetry monitoring Acute CHF exacerbation - likely due to supply demand mismatch. - Echo showed: Left ventricle borderline dilated with moderate concentric left ventricular hypertrophy. Left ventricular systolic function is mildly reduced. Left and Right atrium are moderately dilated. Mild mitral regurgitation. Ejection Fraction = 40-45%. - Repeat CXR showed: Progressive bibasilar interstitial thickening which could represent an atypical pneumonitis or dependent change. Stable cardiomegaly. - Strict I&O monitoring - Improved with 40 Lasix given 09/17/16. - Low salt diet - Dietary education on low salt diet - Continue JLUIS-I, Beta nadia, and diuretic Hypertension, controlled - cont Amlodipine Anxiety - tremulousness is improving. - UDS + for dextromethorphan. - per nurse, pt states she took brother's adderall pill 2 days ago - supportive care prn Leukocytosis - likely due to steroid treatment pre-hospitalization - Afebrile. Will continue to monitor CODE STATUS: Full VTE: Lovenox DISPO: Tele Resident Physician Supervision Note: I interviewed and examined the patient. Discussed with Dr. Mckeon and agree with findings and plan as documented in the note. Any exceptions or clarifications are listed here: None Documented By: Umesh Campos feeling fine. notes breathing better no complaints. initially gets somewhat combative asking when a railroad signal operator will be seeing her and then grumbling "so i have to go to [facility] to get good care" -- extensively explained all dx's and plans to pt and where typically a role of cardiology would be -- she then noted that her family was who was bothering her about a consult and once she understood she feels comfortable with our care. offered multiple times for cardiology consult for her peace of mind but she declined. vitals noted HR improving lungs w diminished air entry, faint base rales no wheeze afib / RVR - rate now improving w digoxin in addition to metoprolol COPD w exacerbation - encouraged smoke cessation continue current treatment probably can wean steroids starting tomorrow nonspecific T wave changes - formal stress testing once better. no elevation of troponin so less likely of significance given how sick she was with both of above hypoxia - due to COPD and diastolic CHF w afib/RVR --> may need home O2 DVT proph - anticoagulated for afib Continued [facility] stay due to: abnormal vital signs Discharge planning: home
[2016-09-19 07:18] VITALS: BP 144/92; PULSE 117; TEMP 36.8; O2SAT 96
[2016-09-19 07:36] LABS: HEMATOCRIT 46.8 % (37-47); MEAN CELL VOLUME 95.7 fL (80-100); MEAN CORPUSCULAR HEMOGLOBIN 30.1 pg (25-34); MEAN CORPUSCULAR HGB CONC 31.4 g/dl (32-36); MEAN PLATELET VOLUME 9.5 fL (7.4-10.4); PLATELET COUNT 350 K/uL (130-400); RED BLOOD COUNT 4.89 M/uL (4.2-5.4); WHITE BLOOD COUNT 19.28 K/uL (4.8-10.8)
[2016-09-19] MEDS: DULERA~ORDER AWAITING ACTION SCH ×4 (08:00→23:49)
[2016-09-19 08:04] LABS: BUN/CREATININE RATIO 29.8 (10-20); CALCIUM 8.8 mg/dl (8.5-10.1); CREATININE 0.85 mg/dl (0.60-1.20); POTASSIUM 3.9 mmol/L (3.5-5.1)
[2016-09-19] MEDS ORDERED: DIGOXIN IV 250 MCG in SYRINGE 9 ML IV SCH (09:15)
[2016-09-19] MEDS: AMLODIPINE BESYLATE 5 MG TAB PO SCH (09:41)
[2016-09-19] MEDS: FLUTICASONE/SALMETEROL 250/50 (ADVAIR) 14 PUFF/1 INHALER INH SCH ×2 (09:41→21:02)
[2016-09-19] MEDS: NYSTATIN SUSP 500,000 U/5 ML UDC PO SCH ×4 (09:41→21:03)
[2016-09-19] MEDS: AZITHROMYCIN 250 MG TAB PO SCH (09:42)
[2016-09-19] MEDS: METOPROLOL SUCC 50MG EXT REL TAB PO SCH ×2 (09:42→21:02)
[2016-09-19] MEDS: LISINOPRIL/HCTZ 20/12.5MG TAB PO SCH (09:42)
[2016-09-19] MEDS: CEROVITE ADV FORMULA TAB PO SCH (09:42)
[2016-09-19] MEDS: TIOTROPIUM BROMIDE 5 PUFF/90 MCG INH INH SCH (09:46)
[2016-09-19 11:23] VITALS: BP 138/80; PULSE 103; TEMP 37.3; O2SAT 95
[2016-09-19] MEDS ORDERED: DIGOXIN IV 250 MCG in SYRINGE 9 ML IV ONE (13:45)
[2016-09-19 15:07] VITALS: BP 141/90; PULSE 95; TEMP 36.8; O2SAT 95
[2016-09-19 18:35] VITALS: BP 129/65; PULSE 110; TEMP 37.2; O2SAT 92
[2016-09-19] MEDS: METHYLPREDNISOLONE IV 40 MG in SYRINGE 0 ML IV SCH (21:02)
[2016-09-19] MEDS: DIGOXIN 0.25 MG TAB PO SCH (21:03)
[2016-09-19 22:58] VITALS: BP 140/90; PULSE 110; TEMP 36.7; O2SAT 92
[2016-09-20 03:50] VITALS: BP 160/96; PULSE 89; TEMP 36.7; O2SAT 93
[2016-09-20 05:51] LABS: HEMATOCRIT 47.3 % (37-47); MEAN CELL VOLUME 93.1 fL (80-100); MEAN CORPUSCULAR HEMOGLOBIN 30.1 pg (25-34); MEAN CORPUSCULAR HGB CONC 32.3 g/dl (32-36); MEAN PLATELET VOLUME 9.5 fL (7.4-10.4); PLATELET COUNT 325 K/uL (130-400); RED BLOOD COUNT 5.08 M/uL (4.2-5.4); WHITE BLOOD COUNT 19.52 K/uL (4.8-10.8)
[2016-09-20] MEDS: METHYLPREDNISOLONE IV 40 MG in SYRINGE 0 ML IV SCH ×2 (06:23→14:00)
[2016-09-20 06:41] LABS: CREATININE 0.75 mg/dl (0.60-1.20)
[2016-09-20 07:26] VITALS: BP 157/97; PULSE 91; TEMP 36.7; O2SAT 96
[2016-09-20] MEDS: DULERA~ORDER AWAITING ACTION SCH ×2 (08:00→14:53)
[2016-09-20] MEDS: TIOTROPIUM BROMIDE 5 PUFF/90 MCG INH INH SCH (09:47)
[2016-09-20] MEDS: FLUTICASONE/SALMETEROL 250/50 (ADVAIR) 14 PUFF/1 INHALER INH SCH (09:47)
[2016-09-20] MEDS: METOPROLOL SUCC 50MG EXT REL TAB PO SCH (09:48)
[2016-09-20] MEDS: AMLODIPINE BESYLATE 5 MG TAB PO SCH (09:48)
[2016-09-20] MEDS: LISINOPRIL/HCTZ 20/12.5MG TAB PO SCH (09:48)
[2016-09-20] MEDS: CEROVITE ADV FORMULA TAB PO SCH (09:48)
[2016-09-20] MEDS: AZITHROMYCIN 250 MG TAB PO SCH (09:49)
[2016-09-20] MEDS: NYSTATIN SUSP 500,000 U/5 ML UDC PO SCH ×3 (09:49→15:03)
--- NOTE | 2016-09-20 10:27 | Discharge Summary ---
Discharge Summary Date of Service Sep 20, 2016. (Shilpa Mckeon M.D.) Discharge Summary Admission Date: Sep 16, 2016 at 22:13 Discharge Date: Sep 20, 2016 Discharge Disposition: Home Principal Diagnosis: COPD exacerbation Problems/Secondary Diagnoses: CAP, new onset AFIB w RVR. Immunizations: Have You Had Influenza Vaccine: Unknown History of Tetanus Vaccine?: Yes History of Pneumococcal: No History of Hepatitis B Vaccine: Unknown (Shilpa Mckeon M.D.) Discharge Exam Review of Systems: Constitutional: No fever, No chills, No sweats Respiratory: + cough, No sputum, No wheezing, No shortness of breath Cardiovascular: No chest pain, No orthopnea, No edema Abdomen: No pain, No nausea, No vomiting Physical Exam: General Appearance: WD/WN, no apparent distress Respiratory/Chest: chest non-tender, lungs clear, no respiratory distress, no accessory muscle use, + wheezing (mild wheezing in LT upper lobe) Cardiovascular: no edema, no JVD, no murmur, + irregularly irregular Abdomen / GI: normal bowel sounds, non tender, soft Extremities: normal inspection, no pedal edema, normal range of motion Neurologic/Psychiatric: alert, oriented x 3, + pertinent finding (appears mildly anxious) Skin: normal color, warm/dry, no rash (Shilpa Mckeon M.D.) Hospital Course 60F with h/o COPD here for Shortness of breath COPD exacerbation - Pt with SOB and cough for 1+ week, appears somewhat noncompliant with meds. - Currently smokes 3/4 PPD, has smoked 1 PPD since age 14. - CXR showed increased prominence of pulmonary vasculature, congestive failure. - Continue Albuterol, Advair, and Spiriva. - Added Solumedrol and Zithromax to cover for atypical pneumonia. - On 3L O2 nasal cannula, sats 95. - Discussed with pt the benefits of smoking cessation. AFIB w/ RVR, new onset - Pt's rate improved on increased Toprol dose, as well as Digoxin: - Pt educated on importance of taking medicine as prescribed, but to also follow up with PCP as doses may need to be titrated once pneumonia is resolved. Acute CHF exacerbation - likely due to supply demand mismatch. - Echo showed: Left ventricle borderline dilated with moderate concentric left ventricular hypertrophy. Left ventricular systolic function is mildly reduced. Left and Right atrium are moderately dilated. Mild mitral regurgitation. Ejection Fraction = 40-45%. - Repeat CXR showed: Progressive bibasilar interstitial thickening which could represent an atypical pneumonitis or dependent change. Stable cardiomegaly. - We monitored I&O strictly. Pt improved with a dose of Lasix. - Discussed with pt importance of on low salt diet - Continue JLUIS-I, Beta nadia, and diuretic Hypertension, controlled - continue Amlodipine Anxiety - Tremulousness is improving. - UDS + for dextromethorphan. - per nurse, pt states she took brother's adderall pill 2 days ago - supportive care prn. - Educated pt about this drug's effects on the heart and to avoid any recreational use. CODE STATUS: Full VTE: Lovenox Total Time Spent: Greater than 30 minutes This includes examination of the patient, discharge planning, medication reconciliation, and communication with other providers. (Shilpa Mckeon M.D.) Resident Physician Supervision Note: I interviewed and examined the patient. Discussed with Dr. Mckeon and agree with findings and plan as documented in the note. Any exceptions or clarifications are listed here: None Documented By: Umesh Campos feeling better breathing better HR controlled did well w 2 step vitals noted HR controlled breathing unlabored no accessory muscles stable for home afib/RVR - improved -metoprolol and digoxin --> as COPD exacerbation lets up hopefully afib will be easier to control possibly can wean or stop dig -digoxin level friday -xarelto anticoagulation - extensively discussed COPD w exacerbation -steroids and zithromax for acute -advair/spiriva/albuterol prn for chronic -hopefully she'll truly quit smoking, hopefully she'll show for PFTs PCP previously ordered nonspecific ST-T changes -no elevation of troponin or sx but new from prior baseline -dw pt for now quite nonspecific but will want formal stress testing once back to recovered from current acute illness (?likely can stress in ~2-4wks depending on recovery) stable for home Total Time Spent: Greater than 30 minutes (Umesh Campos, [place]) Discharge Instructions Please refer to the electronic Patient Visit Report (Discharge Instructions) for additional information. (Shilpa Mckeon M.D.) Additional Copies To Masha Germain C.R.N.P. Resident Tracking Resident Involvement: Resident Care Provided Care Provided: Adult [facility] (Shilpa Mckeon M.D.)
[2016-09-20 11:02] VITALS: BP 149/94; PULSE 88; TEMP 37; O2SAT 92
[2016-09-20] MEDS: ENOXAPARIN 100 MG/1ML SYR SQ SCH (12:04)
[2016-09-20] MEDS ORDERED: RIVA1TAB4 PO (14:15)
[2016-09-20] MEDS ORDERED: DIGO0.1219 PO (14:15)
[2016-09-20] MEDS ORDERED: PRED10TA PO (14:15)
[2016-09-20] MEDS ORDERED: ZTHM250 PO (14:15)
[2016-09-20] MEDS ORDERED: TPRSR50 PO (14:15)
--- NOTE | 2016-09-20 14:26 | Discharge Instructions ---
Discharge Instructions Date of Service Sep 20, 2016. Admission Reason for Admission: Congestive Heart Failure, Copd Exacerbation, Sob Discharge Discharge Diagnosis / Problem: COPD exacerbation Discharge Goals Goal(s): Decrease discomfort Activity Recommendations Activity Limitations: as noted below (Make sure to rest and drink plenty of fluids. Talk to Dr. Germain about activity limitations. Only do as much as you can tolerate, because too much activity can make your breathing worse.) . Instructions / Follow-Up Instructions / Follow-Up You were treated for an exacerbation of your lung disease, COPD. We treated you with antibiotic (Zithromax) to cover for the pneumonia. We also treated you with oxygen and daily nebulizing treatments. We have continued your COPD medications and we recommend you take those as prescribed. Your lung function will be greatly improved by quitting smoking as soon as possible. You were also treated for your heart, as you had Atrial Fibrillation with Rapid Ventricular Response. We were able to get your heart rate under control with multiple medications, one of which is new for you called Digoxin. You will need to go to the lab on the specified date to get a blood test to check the level of digoxin in your blood. Please take your heart medications as prescribed. Your heart function will be greatly improved by quitting smoking as soon as possible. While you were here, we also found ST changes on your rhythm strip for your heart. We recommend your primary care provider recheck a EKG at your next visit and monitor. Current Hospital Diet Patient's current hospital diet: AHA Diet (Heart Healthy), Low Sodium Diet (2gm Na) Discharge Diet Recommended Diet: AHA Diet (Heart Healthy) Pending Studies Studies pending at discharge: no Laboratory Results Hemoglobin A1c Test 09/17/16 05:49 Range/Units Estimated Average Glucose 131 mg/dl Hemoglobin A1c 6.2 H 4.5-5.6 % Lipid Panel Test 09/17/16 05:49 Range/Units Triglycerides Level 161 H 0-150 mg/dl Cholesterol Level 125 0-200 mg/dl HDL Cholesterol 35 mg/dl Cholesterol/HDL Ratio 3.6 LDL Cholesterol, Calculated 58 mg/dl Medical Emergencies . Who to Call and When: Medical Emergencies: If at any time you feel your situation is an emergency, please call 911 immediately. . Non-Emergent Contact Non-Emergency issues call your: Primary Care Provider . . "Provider Documentation" section prepared by Shilpa Mike. . VTE Core Measure Inpt VTE Proph given/why not?: Other Anticoagulation, SCD's
[2016-09-20 14:34] VITALS: BP 149/94; PULSE 88; TEMP 37; O2SAT 92
[2016-09-20] MEDS: DIGOXIN 0.25 MG TAB PO SCH (15:03)
[2016-09-21] MEDS ORDERED: ENOXAPARIN 80 MG/0.8 ML SYR SQ SCH
[2016-10-25] MEDS ORDERED: METO50TA16 PO (06:40)
== END 2016-09-20 15:18 | disposition home or self-care (01) | DRG 190 ==
LOC: C.EDB 19:02 → C.2T 22:13 → ENRESERV 22:23
PROVIDERS: ADMIT Hospitalist; ATTEND Family Medicine
DX: J44.1 Chronic obstructive pulmonary disease with (acute) exacerbation (principal); I50.31 Acute diastolic (congestive) heart failure; J18.9 Pneumonia, unspecified organism; E87.0 Hyperosmolality and hypernatremia; I42.9 Cardiomyopathy, unspecified; I11.0 Hypertensive heart disease with heart failure; R09.02 Hypoxemia; F17.210 Nicotine dependence, cigarettes, uncomplicated; I48.91 Unspecified atrial fibrillation; Z91.14 Patient's other noncompliance with medication regimen; F41.9 Anxiety disorder, unspecified

== ENCOUNTER → 2016-09-23 | Outpatient (CLI) | payer BC ==
[~2016-09-23] MED LIST changes: +ADVIN25/60 INH; +DIGO0.1219 PO; -DXY100 PO; +METO50TA16 PO; +RIVA1TAB4 PO; -SYMIN INH; +TPRSR50 PO; +ZTHM250 PO; -[UNRECOGNIZED DRUG - OTHER]
== END | disposition home or self-care (01) ==
LOC: C.LAB1850 12:18
PROVIDERS: ATTEND Nurse Practitioner Family
DX: I48.91 Unspecified atrial fibrillation (principal); Z51.81 Encounter for therapeutic drug level monitoring; Z79.899 Other long term (current) drug therapy

== ENCOUNTER → 2016-10-17 | Outpatient (CLI) | payer BC | END | disposition home or self-care (01) | LOC: C.LAB1850 13:02 | PROVIDERS: ATTEND Nurse Practitioner Family | DX: I48.91 Unspecified atrial fibrillation (principal) ==

== ENCOUNTER → 2016-10-25 | Day surgery (SDC) | payer BC ==
[~2016-10-25] VITALS: Ht 182.9 cm; Wt 81.0 kg
[~2016-10-25] MED LIST changes: +LIDOCAINE HCL 2% 2 ML VIAL (20MG/ML) ONE; +PROPOFOL IV EMULSION 10 MG/ML 20 ML VIAL IV ONE
[2016-10-25 07:00] VITALS: BP 137/103; PULSE 65; TEMP 36.7; Ht 182.9 cm; Wt 81.0 kg
[2016-10-25 07:28] VITALS: BP 131/90; PULSE 76; O2SAT 99
[2016-10-25 07:33] VITALS: BP 113/95; PULSE 72; O2SAT 98
[2016-10-25 07:37] VITALS: BP 133/87; PULSE 72; O2SAT 98
--- NOTE | 2016-10-25 07:41 | History & Physical Bridge Note ---
H&P Re-Evaluation Bridge Note: I have examined the patient, reviewed the History & Physical and in the interval since the performance of the History & Physical I have noted the following changes of clinical significance: Still in AF No other changes noted
--- NOTE | 2016-10-25 07:43 | Discharge Instructions ---
Discharge Instructions Date of Service Oct 25, 2016. Admission Reason for Admission: W/Anesthesia,, A Fib Discharge Discharge Diagnosis / Problem: Atrial fibrillation Discharge Goals Goal(s): Improve function Activity Recommendations Activity Limitations: resume your previous activity Lifting Limitations: none Exercise/Sports Limitations: none May Resume Sexual Activity: when tolerated Shower/Bathe: no limitations Driving or Machine Use: resume 1 day after discharge . Current Hospital Diet Patient's current hospital diet: Discharge Diet Recommended Diet: AHA Diet (Heart Healthy) Pending Studies Studies pending at discharge: no Laboratory Results Hemoglobin A1c Test 09/17/16 05:49 Range/Units Estimated Average Glucose 131 mg/dl Hemoglobin A1c 6.2 H 4.5-5.6 % Lipid Panel Test 09/17/16 05:49 Range/Units Triglycerides Level 161 H 0-150 mg/dl Cholesterol Level 125 0-200 mg/dl HDL Cholesterol 35 mg/dl Cholesterol/HDL Ratio 3.6 LDL Cholesterol, Calculated 58 mg/dl Medical Emergencies . Who to Call and When: Medical Emergencies: If at any time you feel your situation is an emergency, please call 911 immediately. . Non-Emergent Contact Non-Emergency issues call your: Sand Worker Call Non-Emergent contact if: you have any medication questions . . "Provider Documentation" section prepared by Roberto Isaac. . VTE Core Measure Inpt VTE Proph given/why not?: Treatment not indicated
[2016-10-25 07:44] VITALS: BP 141/84; PULSE 70; O2SAT 95
--- NOTE | 2016-10-25 08:17 | Anesthesiology Progress Note ---
Anesthesia Post Op Note Date & Time Oct 25, 2016 at 08:17 Vital Signs Pain Intensity: 0 Vital Signs Past 12 Hours Date Time Temp Pulse Resp B/P (MAP) Pulse Ox O2 Delivery O2 Flow Rate FiO2 10/25/16 08:04 68 18 129/88 (102) 94 Room Air 10/25/16 07:54 68 18 122/94 (103) 95 Room Air 10/25/16 07:44 66 16 124/92 (103) 93 Room Air 10/25/16 07:44 70 18 141/84 95 Room Air 10/25/16 07:37 72 14 133/87 98 Nasal Cannula 4 10/25/16 07:33 72 14 113/95 98 Nasal Cannula 4 10/25/16 07:28 76 22 131/90 99 Nasal Cannula 4 10/25/16 07:00 36.7 65 16 137/103 Room Air Notes Mental Status: alert / awake / arousable, participated in evaluation Pt Amnestic to Procedure: Yes Nausea / Vomiting: adequately controlled Pain: adequately controlled Airway Patency, RR, SpO2: stable & adequate BP & HR: stable & adequate Hydration State: stable & adequate Anesthetic Complications: no major complications apparent
[2016-10-25 08:26] VITALS: BP 133/82; PULSE 62; O2SAT 95
--- NOTE | 2016-10-25 18:34 | Procedure Note ---
Procedure Note Date of Service Oct 25, 2016. 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 Based on symptoms associated with the arrhythmia she has requested cardioversion today. She has been anticoagulated for the appropriate amount of time. Procedure detail: The patient was informed of the risks benefits and alternatives to the intended procedure. She wished to proceed. The patient underwent administration of a general anesthetic by the Anesthesiology Service. Once appropriately anesthetized initial attempt at cardioversion with 200 joules was unsuccessful. A 2nd attempt at 360 joules delivered in a biphasic fashion returned her to a sinus rhythm. Patient tolerated procedure well. She was neurologically intact at the conclusion of the procedure. There were no immediate complications. Impression: Successful cardioversion from atrial fibrillation normal sinus rhythm.
== END | disposition home or self-care (01) ==
LOC: C.CATH 06:25
PROVIDERS: ATTEND Internal Medicine Clinical Cardiac Electrophysiology
DX: I48.91 Unspecified atrial fibrillation (principal); J44.1 Chronic obstructive pulmonary disease with (acute) exacerbation; F17.210 Nicotine dependence, cigarettes, uncomplicated; I10 Essential (primary) hypertension; Z79.899 Other long term (current) drug therapy

== ENCOUNTER → 2016-10-28 | Outpatient (CLI) | payer BC ==
[~2016-10-28] MED LIST changes: -ADVIN25/60 INH; -LIDOCAINE HCL 2% 2 ML VIAL (20MG/ML) ONE; -METO1TAB69 PO; -PROPOFOL IV EMULSION 10 MG/ML 20 ML VIAL IV ONE; -SPRIN/30 INH; -TPRSR50 PO; -ZTHM250 PO
--- NOTE | 2016-10-28 08:15 | DIAGNOSTIC IMAGING REPORT ---
CT LUNG SCREENING, LOW DOSE WITH COMPUTER-AIDED DETECTION (CAD) CLINICAL HISTORY: Smoker. Lung screening examination. COMPARISON STUDY: 10/26/2015 CT DOSE: 88.97 mGy.cm TECHNIQUE: Low-dose helical CT was acquired without intravenous contrast from lung apices to bases and reconstructed at 2.5 mm every 2 mm. CAD was utilized for this study. A dose lowering technique was utilized adhering to the principles of ALARA. FINDINGS: Thyroid: The right lobe of thyroid is quite small and may been previously surgically removed Thoracic aorta: The thoracic aorta is normal in course and caliber, noting standard 3 vessel arch anatomy. Heart: The heart is normal in size and configuration, without pericardial effusion. Lungs and pleural spaces: There is pulmonary emphysema. Multiple tiny subcentimeter point nodules remain stable. 12 month follow-up is recommended. Mediastinum: There is no pathologic mediastinal adenopathy by size criteria Angela: Calcified hilar lymph nodes remain stable Axilla: There is no evidence of pathologic axillary lymphadenopathy Upper abdomen: Partially visualized upper abdominal viscera is within normal limits. Skeletal structures: There are no lytic or blastic osseous lesions. IMPRESSION: Stable subcentimeter pulmonary nodules. 12 month follow-up is recommended. Nodule 1 Category: 2 Nodule 1 Status: Stable Nodule 1 Description: Solid Nodule 1 Lesion ID: 2 Nodule 1 Slice Number: [id number] Nodule 1 Volume (mm3): 125 Nodule 1 Major [place] mm: 10.1 Nodule 1 Minor [place] mm: 7.5 Nodule 2 Category: 2 Nodule 2 Status: Shrinking Nodule 2 Description: Solid Nodule 2 Lesion ID: 1 Nodule 2 Slice Number: [id number] Nodule 2 Volume (mm3): -1 Nodule 2 Major [place] mm: -1.0 Nodule 2 Minor [place] mm: -1.0 Nodule 3 Category: 2 Nodule 3 Status: New Nodule 3 Description: Solid Nodule 3 Lesion ID: 6 Nodule 3 Slice Number: [id number] Nodule 3 Volume (mm3): 11 Nodule 3 Major [place] mm: 3.2 Nodule 3 Minor [place] mm: 3.2 Nodule 4 Category: 2 Nodule 4 Status: Stable Nodule 4 Description: Solid Nodule 4 Lesion ID: 2 Nodule 4 Slice Number: [id number] Nodule 4 Volume (mm3): 125 Nodule 4 Major [place] mm: 10.1 Nodule 4 Minor [place] mm: 7.5 CAD FINDINGS: Overall Lung RADS Category: 2 Lung RADS Management Recommendation: Lung-RADS 2: Continue annual screening in 12 months. Lung RADS Follow Up Date: 2017-10-28 Lung RADS Nodule ID: [id number] Electronically signed by: Edilberto Camacho M.D. 10/28/2016 8:14 AM Dictated Date/Time: 10/28/2016 7:59 AM
== END | disposition home or self-care (01) ==
LOC: C.CTS 07:40
PROVIDERS: ATTEND Nurse Practitioner Adult Health
DX: R91.8 Other nonspecific abnormal finding of lung field (principal); Z87.891 Personal history of nicotine dependence

== ENCOUNTER → 2016-11-29 | Outpatient (CLI) | payer BC ==
--- NOTE | 2016-11-29 13:42 | MAMMOGRAPHY REPORT ---
BILATERAL DIGITAL SCREENING MAMMOGRAM TOMOSYNTHESIS WITH CAD: 11/29/2016 CLINICAL HISTORY: Routine screening. Patient has no complaints. TECHNIQUE: Breast tomosynthesis in addition to standard 2D mammography was performed. Current study was also evaluated with a Computer Aided Detection (CAD) system. COMPARISON: Comparison is made to exams dated: 06/18/2016 ultrasound, 06/18/2016 mammogram, 12/19/2015 ul trasound, 12/19/2015 mammogram, 11/29/2015 mammogram - [facility], and 02/16/2014 mamm ogram. BREAST COMPOSITION: The tissue of both breasts is almost entirely fatty. FINDINGS: No suspicious masses, calcifications, or areas of architectural distortion are noted in ei ther breast. There has been no significant interval change compared to prior exams. IMPRESSION: ACR BI-RADS CATEGORY 1: NEGATIVE There is no mammographic evidence of malignancy. A 1 year screening mammogram is recommended. The pa tient will receive written notification of the results. Approximately 10% of breast cancers are not detected with mammography. A negative mammographic report should not delay biopsy if a clinically suggestive mass is present. Janet Winchester M.D. /:11/29/2016 12:29:05 Wax Specialist: Dena Gordon, [facility] letter sent: Normal 1/2 BI-RADS Code: ACR BI-RADS Category 1: Negative
== END | disposition home or self-care (01) ==
LOC: C.MAMM 09:26
PROVIDERS: ATTEND Nurse Practitioner Family
DX: Z12.31 Encounter for screening mammogram for malignant neoplasm of breast (principal)

== ENCOUNTER → 2017-01-20 | Day surgery (SDC) | payer BC ==
[~2017-01-20] VITALS: Ht 182.9 cm; Wt 82.0 kg
[2017-01-20] VITALS (7 sets, daily range): BP systolic 129–152; BP diastolic 78–99; PULSE 60–78; TEMP 36.8; O2SAT 93–96; Ht 182.9 cm; Wt 82.0 kg
[~2017-01-20] MED LIST changes: +DRON400T PO; -VNTHFA/IN INH
--- NOTE | 2017-01-20 07:56 | History & Physical Bridge Note ---
H&P Re-Evaluation Bridge Note: I have examined the patient, reviewed the History & Physical and in the interval since the performance of the History & Physical I have noted the following changes of clinical significance: Bronchospasm present or arrival, received nebulizer treatment pre-procedure with improvement. Reviewed the indications, procedure, risks and alternatives and she understands and agrees to proceed. Consent obtained.
--- NOTE | 2017-01-20 08:22 | Cardioversion ---
Electricial Cardioversion Rpt Date of Service: 01/20/2017 Electrical Cardioversion Rprt The patient was brought to the laboratory being NPO after midnight and was identified in the laboratory, connected to the recording apparatus including electrocardiographic monitoring, noninvasive blood pressure monitoring and pulse oximetry. On exam she had significant bronchospasm and therefore a nebulizer treatment was given. She improved significantly. Anteroposterior patch electrodes were placed. The patient was anesthetized by the anesthesia department. Once adequate anesthesia was obtained a synchronized biphasic shock was delivered using 200 J with conversion to a sinus rhythm. The patient awoke from the anesthetic without sequela, will be observed briefly and then discharged.
--- NOTE | 2017-01-20 09:35 | Discharge Instructions ---
Discharge Instructions Date of Service Jan 20, 2017. Admission Reason for Admission: Atrial fibrillation Discharge Discharge Diagnosis / Problem: Electrical cardioversion Discharge Goals Goal(s): Improve disease control Activity Recommendations Activity Limitations: resume your previous activity . Instructions / Follow-Up Instructions / Follow-Up ACTIVITY RECOMMENDATIONS: * May resume driving tomorrow. SPECIAL CARE: * May apply burn ointment for skin irritation. * Please contact physician for any lightheadedness, dizziness or palpitations. Current Hospital Diet Patient's current hospital diet: AHA Diet (Heart Healthy) Discharge Diet Recommended Diet: AHA Diet (Heart Healthy) Pending Studies Studies pending at discharge: no Medical Emergencies . Who to Call and When: Medical Emergencies: If at any time you feel your situation is an emergency, please call 911 immediately. . Non-Emergent Contact Non-Emergency issues call your: Primary Care Provider . . "Provider Documentation" section prepared by Tim Alvarado. . VTE Core Measure Inpt VTE Proph given/why not?: Other Anticoagulation
--- NOTE | 2017-01-20 09:51 | Anesthesiology Progress Note ---
Anesthesia Post Op Note Date & Time Jan 20, 2017 at 09:51 Vital Signs Pain Intensity: 0 Vital Signs Past 12 Hours Date Time Temp Pulse Resp B/P (MAP) Pulse Ox O2 Delivery O2 Flow Rate FiO2 01/20/17 08:45 65 16 116/73 (87) 94 Room Air 01/20/17 08:30 67 16 116/70 (85) 94 Room Air 01/20/17 08:25 64 16 114/70 (85) 94 Room Air 01/20/17 08:10 60 16 134/90 (105) 92 Room Air 01/20/17 08:05 60 16 142/80 96 Nasal Cannula 4 01/20/17 08:05 60 16 136/92 (107) 92 Room Air 01/20/17 08:04 72 16 93 Nasal Cannula 3.0 01/20/17 08:03 60 16 129/80 96 Nasal Cannula 4 01/20/17 08:00 74 16 131/82 96 Nasal Cannula 4 01/20/17 07:59 78 16 145/94 96 Nasal Cannula 4 01/20/17 07:10 36.8 72 16 152/99 93 Room Air Notes Mental Status: alert / awake / arousable, participated in evaluation Pt Amnestic to Procedure: Yes Nausea / Vomiting: adequately controlled Pain: adequately controlled Airway Patency, RR, SpO2: stable & adequate BP & HR: stable & adequate Hydration State: stable & adequate Anesthetic Complications: no major complications apparent
== END ==
LOC: C.CATH 06:31
PROVIDERS: ATTEND Internal Medicine Cardiovascular Disease
DX: I48.91 Unspecified atrial fibrillation (principal); J44.9 Chronic obstructive pulmonary disease, unspecified; I42.9 Cardiomyopathy, unspecified; I10 Essential (primary) hypertension; Z98.890 Other specified postprocedural states; Z90.710 Acquired absence of both cervix and uterus; Z87.891 Personal history of nicotine dependence; Z98.49 Cataract extraction status, unspecified eye; Z79.01 Long term (current) use of anticoagulants; Z79.899 Other long term (current) drug therapy; Z83.3 Family history of diabetes mellitus; Z80.1 Family history of malignant neoplasm of trachea, bronchus and lung; Z82.49 Family history of ischemic heart disease and other diseases of the circulatory system; Z83.6 Family history of other diseases of the respiratory system

== ENCOUNTER → 2017-02-27 | Day surgery (SDC) | payer BC ==
[~2017-02-27] VITALS: Ht 182.9 cm; Wt 82.0 kg
[~2017-02-27] MED LIST changes: +ADVIN10/60 INH; +ALBUTEROL HFA 8 GM INHALER INH ONE; +ATRINS NEB; +LIDOCAINE HCL 2% 2 ML VIAL (20MG/ML) ONE; +METO100T44 PO; +PROPOFOL IV EMULSION 10 MG/ML 20 ML VIAL IV ONE; +PRVHFAIN
[2017-02-27 07:06] VITALS: BP 149/95; PULSE 84; TEMP 36.5; O2SAT 98; Ht 182.9 cm; Wt 82.0 kg
--- NOTE | 2017-02-27 07:19 | History & Physical Bridge Note ---
H&P Re-Evaluation Bridge Note: I have examined the patient, reviewed the History & Physical and in the interval since the performance of the History & Physical I have noted the following changes of clinical significance: Still in AF. On appropriate anticoagulation. No changes noted
--- NOTE | 2017-02-27 07:20 | Procedure Note ---
Procedure Note Date of Service Feb 27, 2017. Procedure Note Procedure performed: Cardioversion Indication: Atrial fibrillation Staff keg varnisher: Sahil Isaac MD Procedure in detail: The patient was informed of the risks benefits and alternatives to the intended procedure. He understood such which proceed. He was taken to the cardiac catheterization suite holding area. A general anesthetic was administered by the Anesthesiology Service. Once appropriately anesthetized, the patient was cardioverted using 200 joules delivered in a biphasic fashion. This returned the patient to sinus rhythm. However, she quickly returned to atrial fibrillation required a 2nd 200 joule cardioversion. The patient tolerated procedure well, there were no immediate complications. Patient was neurologically intact subsequent to the procedure. Impression: Successful cardioversion from atrial fibrillation to normal sinus rhythm
--- NOTE | 2017-02-27 07:22 | Discharge Instructions ---
Discharge Instructions Procedure Procedure Date: Feb 27, 2017. Reason for Visit: A Fib W/Anesthesia . Discharge Discharge Date: Feb 27, 2017. Discharge Diagnosis: Atrial fibrillation Last Recorded Wt (Kilograms): 82 Anesthesia Post Anesthesia Instructions: If you have had General Anesthesia or IV Sedation: * Do not drive today. * Resume driving when surgeon permits. * Do not make important decisions or sign legal documents today. * Call surgeon for: 1. Temperature elevations greater than 101 degrees F. 2. Uncontrollable pain. 3. Excessive bleeding. 4. Persistent nausea and vomiting. 5. Medication intolerance (nausea, vomiting or rash). * For nausea and vomiting use only clear liquids such as: tea, soda, bouillon until nausea subsides, then gradually increase diet as tolerated. * If you have any concerns or questions, call your surgeon's office. If physician is unavailable and it is an emergency, call 911 or go to the nearest emergency room. Instructions Activity Recommendations: driving or machine use limit Return to School/Work: with no limitations Recommended Home Diet: resume previous diet Allergies: Coded Allergies: No Known Allergies (Unverified , 09/16/16) Provider Instructions No driving for 24 hours. Follow Up [facility] Recommendations: Call your doctor if: * Temperature above 101 degrees * Pain not relieved by pain medicine ordered * There is increased drainage or redness from any incision * You have any unanswered questions or concerns. Your Doctors Instructions noted above were prepared by provider Roberto Isaac. Patient Signature Section: Patient Instructions Signature Page José Croft Patient (or Guardian) Signature/Date: I have read and understand the instructions given to me by my caregivers. Caregiver/RN/Doctor Signature/Date: The above-named patient and/or guardian has received patient instructions on this date. + Original Patient Signature Page (only) stays with chart. Please make copy for patient.
[2017-02-27 07:26] VITALS: BP 128/87; PULSE 84; O2SAT 96
[2017-02-27 07:30] VITALS: BP 97/73; PULSE 85; O2SAT 96
[2017-02-27 07:33] VITALS: BP 119/70; PULSE 96; O2SAT 96
[2017-02-27 08:00] VITALS: BP 97/62; PULSE 77; O2SAT 95
--- NOTE | 2017-02-27 08:34 | Anesthesiology Progress Note ---
Anesthesia Post Op Note Date & Time Feb 27, 2017 at 08:34 Vital Signs Pain Intensity: 0 Vital Signs Past 12 Hours Date Time Temp Pulse Resp B/P (MAP) Pulse Ox O2 Delivery O2 Flow Rate FiO2 02/27/17 08:00 77 16 97/62 (74) 95 Room Air 02/27/17 07:50 71 16 121/73 (89) 95 Room Air 02/27/17 07:40 36.8 77 16 121/66 (84) 95 Room Air 02/27/17 07:33 96 16 119/70 96 Nasal Cannula 5 02/27/17 07:30 85 16 97/73 96 Nasal Cannula 5 02/27/17 07:26 84 16 128/87 96 Nasal Cannula 5 02/27/17 07:06 36.5 84 18 149/95 (113) 98 Room Air Notes Mental Status: alert / awake / arousable, participated in evaluation Pt Amnestic to Procedure: Yes Nausea / Vomiting: adequately controlled Pain: adequately controlled Airway Patency, RR, SpO2: stable & adequate BP & HR: stable & adequate Hydration State: stable & adequate Anesthetic Complications: no major complications apparent
== END | disposition home or self-care (01) ==
LOC: C.CATH 06:16
PROVIDERS: ATTEND Internal Medicine Clinical Cardiac Electrophysiology
DX: I48.0 Paroxysmal atrial fibrillation (principal); I42.9 Cardiomyopathy, unspecified; I34.0 Nonrheumatic mitral (valve) insufficiency; I10 Essential (primary) hypertension; I27.20 Pulmonary hypertension, unspecified; J44.9 Chronic obstructive pulmonary disease, unspecified; F17.210 Nicotine dependence, cigarettes, uncomplicated; Z82.49 Family history of ischemic heart disease and other diseases of the circulatory system; Z80.1 Family history of malignant neoplasm of trachea, bronchus and lung; Z83.3 Family history of diabetes mellitus; Z83.6 Family history of other diseases of the respiratory system

== ENCOUNTER → 2017-05-19 | Outpatient (CLI) | payer BC ==
[~2017-05-19] MED LIST changes: -ALBUTEROL HFA 8 GM INHALER INH ONE; -LIDOCAINE HCL 2% 2 ML VIAL (20MG/ML) ONE; -METO50TA16 PO; -PRED10TA PO; -PROPOFOL IV EMULSION 10 MG/ML 20 ML VIAL IV ONE
[2017-05-19 15:10] LABS: BLOOD UREA NITROGEN 15 mg/dl (7-18); CALCIUM 9.3 mg/dl (8.5-10.1); CARBON DIOXIDE 36 mmol/L (21-32); CREATININE 0.88 mg/dl (0.60-1.20); GLUCOSE 108 mg/dl (70-99); POTASSIUM 3.2 mmol/L (3.5-5.1); SODIUM 132 mmol/L (136-145)
== END | disposition home or self-care (01) ==
LOC: C.LAB1850 13:20
PROVIDERS: ATTEND Internal Medicine Clinical Cardiac Electrophysiology
DX: I48.0 Paroxysmal atrial fibrillation (principal)

== ENCOUNTER 2018-05-18 22:34 | Inpatient (IN) ==
[2018-05-18] MEDS ORDERED: ALBUT/IPRATROP 3MG/0.5MG NEB 3 ML VIAL NEB STA (23:22)
[2018-05-18] MEDS ORDERED: SODIUM CHLORIDE 0.9% 1000ML 1,000 ML IV ONE (23:22)
[2018-05-18] MEDS ORDERED: MAGNESIUM SULFATE / D5W 1 GM/100 ML BAG IV ONE (23:22)
[2018-05-18 23:36] LABS: Appearance Urine Clear (Clear); Bacteria Urine Automated Negative (Negative); Bilirubin Urine Negative (Negative); Blood Urine 2+ (Negative); Color Urine Yellow; Glucose Urine UA Negative (Negative); Ketones Urine Negative (Negative); Leukocyte Esterase Urine Negative (Negative); Nitrite Urine Negative (Negative); Protein Urine 1+ (Negative); RBC Urine Automated 0-4 /hpf (0-4); Specific Gravity Urine 1.019 (1.000-1.030); Urobilinogen Urine Negative (Negative); WBC Urine Automated 0 /hpf (0-5); pH Urine 5.5 (4.5-7.5)
[2018-05-18 23:43] LABS: Basophils # (auto) 0.02 K/uL (0-0.2); Basophils % (auto) 0.2 %; Hematocrit (blood only) 35.1 % (37-47); Hemoglobin 11.5 g/dL (12.0-16.0); Immature Granulocytes # (auto) 0.03 K/uL (0.00-0.02); Immature Granulocytes % (auto) 0.3 %; Lymphocytes # (auto) 0.74 K/uL (1.2-3.4); Lymphocytes % (auto) 6.5 %; Mean Corpuscular Hgb Conc 32.8 g/dL (32-36); Mean Platelet Volume 9.4 fL (7.4-10.4); Monocytes # (auto) 1.26 K/uL (0.11-0.59); Neutrophils # (auto) 9.36 K/uL (1.4-6.5); Platelet Count 265 K/uL (130-400); RDW Coefficient of Variation 14.8 % (11.5-14.5); RDW Standard Deviation 47.8 fL (36.4-46.3); Red Blood Count 3.99 M/uL (4.2-5.4); White Blood Count 11.41 K/uL (4.8-10.8)
[2018-05-18 23:59] LABS: Alanine Aminotransferase 29 U/L (12-78); Albumin Level 3.2 gm/dl (3.4-5.0); Aspartate Aminotransferase 29 U/L (15-37); Blood Urea Nitrogen 23 mg/dl (7-18); Calcium 8.5 mg/dl (8.5-10.1); Carbon Dioxide 34 mmol/L (21-32); Chloride 99 mmol/L (98-107); Creatinine Clr Calc Pharmacy 97.4 ml/min; Est GFR (African American) 95.8; Est GFR (Non-African American) 82.6; Glucose 119 mg/dl (70-99); Magnesium 1.8 mg/dl (1.8-2.4); Potassium 2.8 mmol/L (3.5-5.1); Sodium 139 mmol/L (136-145)
[2018-05-19 00:04] LABS: Albumin Globulin Ratio 0.8 (0.9-2); Alkaline Phosphatase 98 U/L (45-117); Bilirubin,Total 0.3 mg/dl (0.2-1); Globulin 3.9 gm/dl (2.5-4.0); NT Pro B Type Natriuretic Pept 328 pg/ml (0-900); Total Protein 7.1 gm/dl (6.4-8.2); Troponin I < 0.015 ng/ml (0-0.045)
[2018-05-19] MEDS ORDERED: POTASSIUM CHLORIDE 20 MEQ TABCR PO STA (00:39)
[2018-05-19] MEDS ORDERED: ALBUT/IPRATROP 3MG/0.5MG NEB 3 ML VIAL NEB STA (00:54)
--- NOTE | 2018-05-19 02:46 | Emergency Department Note ---
Entered by Michael Gant acting as a scribe for Carmencita Meraz DO History of Present Illness General Chief complaint: Shortness of Breath/Dyspnea Stated complaint: SOB Time Seen by Provider: 05/18/18 23:09 Source: patient History of Present Illness Provider complaint: Shortness of breath Onset (ago): day(s) (past few days) Location: chest Pain Consistency: + other (worsening) Quality: + other (shortness of breath) Relieved By: + other (NC oxygen) Exacerbated By: + other (laying down) Associated symptoms: + denies other symptoms (diarrhea, swelling in her legs) and + cough (sputum ranging from greenish-yellow to brown); no fever/chills and no nausea/vomiting Treatments prior to arrival: other (Doxycycline, Amoxicillin, Prednisone) The patient is a 62 year old female who presents to the Emergency Room with complaints of shortness of breath that has been worsening over the past few days. The patient reports a history of COPD, but states that her was sick with a cough last week and notes that she recently developed a cough associated with sputum that ranges from a greenish-yellow color to a brownish color. The patient notes that she was seen at Urgent Care yesterday where she was given a chest x-ray and diagnosed with pneumonia in her right lung. The patient denies ever having pneumonia before. She reports that she was prescribed Doxycycline as well as Amoxicillin and was given a shot of Prednisone at Urgent Care. The patient notes that she has been experience significant shortness of breath that is worsened when she lies down. The patient reports that she feels much better with the NC oxygen on. She states that she typically wears 2.5 L NC at night. She denies any fevers, chills, nausea, vomiting, diarrhea, or swelling in her legs. The patient admits smoking about a quarter of a pack of cigarettes per day. She also notes that she is on the lung nodule program here at [facility] and gets scans frequently. The patient also states that she has a history of Afib that has been corrected through cardioversions and a cardiac ablation. The patient notes that she is currently on Xarelto. The patient states that she had had an echo done before, but denies ever being told that her heart didn't squeeze or pump normally. Additionally, the patient notes that 3 days ago she was out with her friend in [place] where she did a line of speed. Home Medications Home Medications Medication Instructions Recorded Confirmed Type albuterol sulfate 2 puff INHALATION Q6H PRN 05/19/18 05/19/18 History amlodipine 10 mg PO DAILY 05/19/18 05/19/18 History flecainide 100 mg PO DAILY 05/19/18 05/19/18 History fluticasone furoate-vilanterol 1 dose INHALATION DAILY 05/19/18 05/19/18 History [Breo Ellipta] ipratropium-albuterol 3 ml INHALATION QID 05/19/18 05/19/18 History lisinopril-hydrochlorothiazide 1 tab PO QAM 05/19/18 05/19/18 History metoprolol succinate 100 mg PO DAILY 05/19/18 05/19/18 History pirxthbednbo-flpk-hxqvb acid 1 tab PO QAM 05/19/18 05/19/18 History [Centrum] rivaroxaban [Xarelto] 20 mg PO DAILY 05/19/18 05/19/18 History Allergies Allergy/AdvReac Type Severity Reaction Status Date / Time No Known Allergies Allergy Verified 05/19/18 01:21 Past Med/Surg History Medical History Afib History of cardioversion Hypertension (Chronic) COPD exacerbation Congestive heart failure (Acute) Congestive heart failure Hypoxemia (Acute) SOB (shortness of breath) Cataract Surgical History H/O cardiac radiofrequency ablation H/O partial thyroidectomy History of 3 sections Family History Other No pertinent family history Social History Preferred Language: Occitan Communication Ability: Effective [employer] Manager Required: No Beliefs That Will Affect Care: None Current Living Situation: Spouse Other Information That Helps Us Care for You: No Feels Safe at Home: Yes Safety Concerns: Feels Safe At This Time Smoking Status: Current every day smoker Hx Substance Use: Yes Review of Systems See HPI for pertinent positives & negatives. and A total of 10 systems reviewed and were otherwise negative Physical Exam Vital Signs Vital Signs - 24 hr 05/18/18 22:46 05/18/18 22:58 05/18/18 23:41 Temperature 37.7 C H Temperature Source Oral Sepsis Recent Fever Within 48 Hours No Sepsis New/Unexplained Change in Mental Status No Sepsis Action Taken by Nursing No Action Required Pulse Rate 104 H Pulse Rate [Right Finger] 91 H Respiratory Rate 30 H 20 Respiratory Effort / Characteristics Labored Non-Labored Spontaneous Respiratory Depth Normal Respiratory Pattern Regular Blood Pressure 164/98 H Blood Pressure [Right Arm] 127/72 Blood Pressure Mean 120 Blood Pressure Mean [Right Arm] 90 Blood Pressure Position [Right Arm] Sitting Pulse Oximetry 94 94 98 Oxygen Delivery Method Nasal Cannula Nasal Cannula Nebulizer Oxygen Flow Rate 4 5 9 05/19/18 00:08 05/19/18 00:58 05/19/18 01:11 Temperature Temperature Source Sepsis Recent Fever Within 48 Hours Sepsis New/Unexplained Change in Mental Status Sepsis Action Taken by Nursing Pulse Rate Pulse Rate [Right Finger] 99 H 99 H 97 H Respiratory Rate 20 24 24 Respiratory Effort / Characteristics Non-Labored Spontaneous Spontaneous Spontaneous Respiratory Depth Normal Normal Normal Respiratory Pattern Regular Regular Blood Pressure Blood Pressure [Right Arm] 124/78 162/99 H 153/83 H Blood Pressure Mean Blood Pressure Mean [Right Arm] 93 120 106 Blood Pressure Position [Right Arm] Sitting Sitting Sitting Pulse Oximetry 94 92 84 L Oxygen Delivery Method Nasal Cannula Nasal Cannula Nasal Cannula Oxygen Flow Rate 5 6 5 05/19/18 02:27 05/19/18 02:52 05/19/18 03:57 Temperature 37.3 C Temperature Source Oral Sepsis Recent Fever Within 48 Hours Sepsis New/Unexplained Change in Mental Status Sepsis Action Taken by Nursing Pulse Rate 88 Pulse Rate [Right Finger] 93 H 95 H Respiratory Rate 22 20 20 Respiratory Effort / Characteristics Spontaneous Non-Labored Spontaneous SOB on Exertion Respiratory Depth Normal Respiratory Pattern Regular Blood Pressure 155/86 H Blood Pressure [Right Arm] 131/80 162/88 H Blood Pressure Mean Blood Pressure Mean [Right Arm] 97 112 Blood Pressure Position [Right Arm] Sitting Pulse Oximetry 94 94 93 Oxygen Delivery Method Nasal Cannula Nasal Cannula Nasal Cannula Oxygen Flow Rate 5 5 5 GENERAL: alert, ill-appearing, well nourished, mild distress, non-toxic EYE EXAM: normal conjunctiva, PERRL and EOM's grossly intact OROPHARYNX: no exudate, no erythema, lips, buccal mucosa, and tongue normal and mucous membranes are moist NECK: supple, no nuchal rigidity, no adenopathy, non-tender LUNGS: Increased work of breathing. Bilateral expiratory wheezes. No retractions. Normal chest wall mechanics HEART: Tachycardic. No murmurs, S1 normal and S2 normal ABDOMEN: abdomen soft, non-tender, normo-active bowel sounds, no masses, no rebound or guarding. BACK: Back is symmetrical on inspection and there is no deformity, no midline tenderness, no CVA tenderness. SKIN: no rashes and no bruising UPPER EXTREMITIES: upper extremities are grossly normal. FROM, nml pulses b/l. LOWER EXTREMITIES: No pitting edema. FROM, nml pulses b/l. NEURO EXAM: Normal sensorium, cranial nerves II-XII grossly intact, normal speech, no gross weakness of arms, no gross weakness of legs. Course 2311: The patient was evaluated in room C10, and a complete history and physical examination were performed. 0052: I reevaluated the patient and she states that she is feeling better. Upon reexamination the patient has faint expiratory wheezing on the left. 0123: I discussed my recommendation for admission with the patient. She is agreeable with the plan. Per nursing staff, patient easily desaturates despite being on 5 L/min via nasal cannula with any movement or exertion. 0128: I reviewed the patient's [facility] will evaluate the patient for further management. Consultations Consultation #1: [facility] Time: 01:28 Administered Medications Albuterol (Duoneb) 3 ml NEB Q4R RODNEY Stop: 06/18/18 03:59 Last Admin: 05/19/18 03:57 Dose: 3 ml Documented by: [id number] Azithromycin 500 mg/ Dextrose 255 mls @ 125 mls/hr IV ONE ONE Stop: 05/19/18 06:02 Last Admin: 05/19/18 04:24 Dose: 125 mls/hr Documented by: [id number] Discontinued Medications Albuterol (Duoneb) 3 ml NEB NOW STA Stop: 05/18/18 23:23 Last Admin: 05/18/18 23:29 Dose: 3 ml Documented by: [id number] Albuterol (Duoneb) 3 ml NEB NOW STA Stop: 05/19/18 00:55 Last Admin: 05/19/18 01:10 Dose: 3 ml Documented by: [id number] Magnesium Sulfate/Dextrose (Magnesium Sulfate / D5w) 1 gm in 100 mls @ 100 mls/hr IV ONE ONE Stop: 05/19/18 00:21 Last Infusion: 05/19/18 00:45 Dose: 0 mls/hr Documented by: [id number] Admin: 05/18/18 23:29 Dose: 100 mls/hr Documented by: [id number] Sodium Chloride (Nss 1000ml) 1,000 mls @ 999 mls/hr IV .Q1H1M ONE Stop: 05/19/18 00:22 Last Infusion: 05/19/18 00:45 Dose: 0 mls/hr Documented by: [id number] Admin: 05/18/18 23:29 Dose: 999 mls/hr Documented by: [id number] Methylprednisolone (Solumedrol) 40 mg IV NOW STA Stop: 05/18/18 23:23 Last Admin: 05/18/18 23:29 Dose: 40 mg Documented by: [id number] Potassium Chloride (Klor-Con M20) 40 meq PO NOW STA Stop: 05/19/18 00:40 Last Admin: 05/19/18 00:52 Dose: 40 meq Documented by: [id number] Potassium Chloride (Klor-Con M20) 60 meq PO ONE ONE Stop: 05/19/18 04:01 Last Admin: 05/19/18 04:24 Dose: 60 meq Documented by: [id number] Medical Decision Making Differential Diagnosis Differential diagnosis: Etiologies such as infections, reactive airway disease, pneumonia, pneumothorax, COPD, CHF, cardiac ischemia, pulmonary embolism, musculoskeletal, gastrointestinal, as well as others were entertained. Medical Records Attestation: I reviewed the patient's medical records. Home Medications Current Medication List: was personally reviewed by me Laboratory Data Attestation: I reviewed the patient's lab results. Result diagrams: 05/18/18 23:30 05/19/18 03:14 Lab Results 05/18/18 05/18/18 05/18/18 Range/Units 22:50 23:30 23:30 WBC 11.41 H (4.8-10.8) K/uL RBC 3.99 L (4.2-5.4) M/uL Hgb 11.5 L (12.0-16.0) g/dL Hct 35.1 L (37-47) % MCV 88.0 (80-100) fL MCH 28.8 (25-34) pg MCHC 32.8 (32-36) g/dL RDW Std Deviation 47.8 H (36.4-46.3) fL RDW Coeff of Naila 14.8 H (11.5-14.5) % Plt Count 265 (130-400) K/uL MPV 9.4 (7.4-10.4) fL Immature Gran % (Auto) 0.3 % Neut % (Auto) 82.0 % Lymph % (Auto) 6.5 % [place] % (Auto) 11.0 % Eos % (Auto) 0.0 % Baso % (Auto) 0.2 % Immature Gran # (Auto) 0.03 H (0.00-0.02) K/uL Neut # (Auto) 9.36 H (1.4-6.5) K/uL Lymph # (Auto) 0.74 L (1.2-3.4) K/uL [place] # (Auto) 1.26 H (0.11-0.59) K/uL Eos # (Auto) 0.00 (0-0.5) K/uL Baso # (Auto) 0.02 (0-0.2) K/uL Sodium 139 (136-145) mmol/L Potassium 2.8 L (3.5-5.1) mmol/L Chloride 99 (98-107) mmol/L Carbon Dioxide 34 H (21-32) mmol/L Anion Gap 6.0 (3-11) BUN 23 H (7-18) mg/dl Creatinine 0.78 (0.6-1.2) mg/dl Est Cr Clr Drug Dosing 97.4 ml/min Est GFR ( Amer) 95.8 Est GFR (Non-Af Amer) 82.6 BUN/Creatinine Ratio 29.0 H (10-20) Glucose 119 H (70-99) mg/dl Calcium 8.5 (8.5-10.1) mg/dl Phosphorus (2.5-4.9) mg/dl Magnesium 1.8 (1.8-2.4) mg/dl Total Bilirubin 0.3 (0.2-1) mg/dl AST 29 (15-37) U/L ALT 29 (12-78) U/L Alkaline Phosphatase 98 (45-117) U/L Troponin I < 0.015 (0-0.045) ng/ml NT-Pro-B Natriuret Pep 328 (0-900) pg/ml Total Protein 7.1 (6.4-8.2) gm/dl Albumin 3.2 L (3.4-5.0) gm/dl Globulin 3.9 (2.5-4.0) gm/dl Albumin/Globulin Ratio 0.8 L (0.9-2) Lipase 90 (73-393) U/L Urine Color Yellow Urine Appearance Clear (Clear) Urine pH 5.5 (4.5-7.5) Ur Specific [place] 1.019 (1.000-1.030) Urine Protein 1+ H (Negative) Urine Glucose (UA) Negative (Negative) Urine Ketones Negative (Negative) Urine Blood 2+ H (Negative) Urine Nitrite Negative (Negative) Urine Bilirubin Negative (Negative) Urine Urobilinogen Negative (Negative) Ur Leukocyte Esterase Negative (Negative) Urine WBC (Auto) 0 (0-5) /hpf Urine RBC (Auto) 0-4 (0-4) /hpf U Hyaline Cast (Auto) 1-5 (0-5) /lpf U Epithel Cells (Auto) 5-10 H (0-5) /lpf Urine Bacteria (Auto) Negative (Negative) 05/19/18 Range/Units 03:14 WBC (4.8-10.8) K/uL RBC (4.2-5.4) M/uL Hgb (12.0-16.0) g/dL Hct (37-47) % MCV (80-100) fL MCH (25-34) pg MCHC (32-36) g/dL RDW Std Deviation (36.4-46.3) fL RDW Coeff of Naila (11.5-14.5) % Plt Count (130-400) K/uL MPV (7.4-10.4) fL Immature Gran % (Auto) % Neut % (Auto) % Lymph % (Auto) % [place] % (Auto) % Eos % (Auto) % Baso % (Auto) % Immature Gran # (Auto) (0.00-0.02) K/uL Neut # (Auto) (1.4-6.5) K/uL Lymph # (Auto) (1.2-3.4) K/uL [place] # (Auto) (0.11-0.59) K/uL Eos # (Auto) (0-0.5) K/uL Baso # (Auto) (0-0.2) K/uL Sodium 140 (136-145) mmol/L Potassium 3.5 D (3.5-5.1) mmol/L Chloride 102 (98-107) mmol/L Carbon Dioxide 35 H (21-32) mmol/L Anion Gap 3.0 (3-11) BUN 18 (7-18) mg/dl Creatinine 0.68 (0.6-1.2) mg/dl Est Cr Clr Drug Dosing 111.7 ml/min Est GFR ( Amer) 110.2 Est GFR (Non-Af Amer) 95.1 BUN/Creatinine Ratio 26.1 H (10-20) Glucose 124 H (70-99) mg/dl Calcium 8.2 L (8.5-10.1) mg/dl Phosphorus 3.3 (2.5-4.9) mg/dl Magnesium (1.8-2.4) mg/dl Total Bilirubin (0.2-1) mg/dl AST (15-37) U/L ALT (12-78) U/L Alkaline Phosphatase (45-117) U/L Troponin I (0-0.045) ng/ml NT-Pro-B Natriuret Pep (0-900) pg/ml Total Protein (6.4-8.2) gm/dl Albumin (3.4-5.0) gm/dl Globulin (2.5-4.0) gm/dl Albumin/Globulin Ratio (0.9-2) Lipase (73-393) U/L Urine Color Urine Appearance (Clear) Urine pH (4.5-7.5) Ur Specific [place] (1.000-1.030) Urine Protein (Negative) Urine Glucose (UA) (Negative) Urine Ketones (Negative) Urine Blood (Negative) Urine Nitrite (Negative) Urine Bilirubin (Negative) Urine Urobilinogen (Negative) Ur Leukocyte Esterase (Negative) Urine WBC (Auto) (0-5) /hpf Urine RBC (Auto) (0-4) /hpf U Hyaline Cast (Auto) (0-5) /lpf U Epithel Cells (Auto) (0-5) /lpf Urine Bacteria (Auto) (Negative) Imaging Data Attestation: I personally reviewed and interpreted this imaging study as follows: My Impression: Two view Chest X-ray: 1. No cardiomegaly. 2. No effusions. 3. No wide mediastinum. 4. Increased interstitial marking of right lower lobe and slightly at right base concerning for pneumonia. 5. No acute pulmonary edema. ECG Data Attestation: I personally reviewed and interpreted this ECG as follows: Indication: SOB/dyspnea Rate (beats per minute): 100 Rhythm: sinus tachycardia Findings: + other (baseline artifact noted, normal intervals), + PVC (occasional) and + left axis deviation; no acute ischemic change Blood Pressure Blood Pressure Findings: Elevated blood pressure Blood Pressure Disposition: further management by hospitalist MDM Narrative Concern for patient's persistent hypoxia given recent diagnosis of pneumonia and underlying COPD despite initiation of outpatient treatment with antibiotics and steroids. Patient given additional steroids here, nebulizer treatments, as well as IV magnesium. Patient did report improvement, and did have decreased wheezing on exam. I do not suspect bacteremia/sepsis. I do not suspect contributing cardiac etiology including ACS and CHF. Given patient's daily use of anticoagulation, I do not suspect PE. Given persistent hypoxia and increased oxygen requirements, discussed with patient additional inpatient evaluation and she was in agreement. Case discussed with hospitalist for additional evaluation and management. Impression & Plan Pneumonia, COPD exacerbation, Hypoxia, Hypertension, Anxiety Discharge Plan Visit Data *Final* Discharge Date/Time: 05/19/18 02:52 Chief Complaint: Shortness of Breath/Dyspnea Stated Complaint: SOB ED Provider: Carmencita Meraz Discharge Problem: Pneumonia, COPD exacerbation, Hypoxia, Hypertension, Anxiety Patient Disposition: Admitted As Inpatient Discharge Instructions Interventions: ED Discharge Assessment Last Done: 05/19/18 02:52 Discharge Problem: Pneumonia Qualifiers: Pneumonia type: due to unspecified organism Laterality: right Lung location: lower lobe of lung Qualified Code(s): J18.1 - Lobar pneumonia, unspecified organism Hypertension Qualifiers: Hypertension type: essential hypertension Qualified Code(s): I10 - Essential (primary) hypertension The scribe's documentation has been prepared under my direction and personally reviewed by me in its entirety. I confirm that the note above accurately reflects all work, treatment, procedures, and medical decision making performed by me.
--- NOTE | 2018-05-19 02:57 | History & Physical Report ---
Date of Service May 19, 2018 Assessment & Plan (1) Hypoxia: Patient with O2 dependent COPD, chronic CO2 retention suggested by elevated serum HCO3 as well as prior VBG from 2017. Suspect COPD exacerbation secondary to underlying infectious process. Patient presently with adequate oxygenation on 5L NC. No respiratory distress. -Supplemental O2 as needed, maintain saturations 88 - 92% -Treatment as below Present on Admission?: Yes (2) COPD exacerbation: Suspect acute exacerbation of COPD secondary to underlying infectious process -Admit to medical floor -Continuous pulse ox as above -Supplemental O2 as needed -DuoNeb q 4 hours -Albuterol q 2 hours PRN -Solumedrol 30mg IV TID -Mucinex 1200mg po BID -Incentive Spirometry (3) Pneumonia: Patient afebrile, hemodynamically stable. Concern for RML CAP -Ceftriaxone and Azithromycin -Continue to monitor (4) Afib: Patient with AF s/p cardioversion and ablation, well controlled with Metoprolol, Flecainide. Anticoagulated on Xarelto -Continue Metoprolol, Flecainide and Xarelto -Check EKG q AM to assess QT interval (5) Hypertension: Blood pressure well controlled on home regimen. -Continue Amlodipine -Continue Lisinopril/HCTZ and Metoprolol -Monitor (6) Congestive heart failure: Patient with echo from 09/2016 which revealed mildly dilated LV with EF of 40-45%, moderate concentric LVH. She does not appear to be in acute decompensated CHF at this time. -Continue Metoprolol, Lisinopril/HCTZ -Continue to monitor F/E/N - [place]. Monitor electrolytes and replete as needed, administer. 60mEq K, Heart healthy diet as tolerated Ppx - Patient on Xarelto Code - Full Dispo - Med/Surge, continuous pulse oximetry History of Present Illness Chief Complaint: SOB Primary Care Provider: Ricardo Person, DIANA, JENNY Patient is a 62yo C female with history of O2 dependent COPD (no history of intubation), HTN, AF and CHF presenting with progressive dyspnea. Patient reports having mild URI symptoms 1 week ago, cough with clear nasal congestion. Symptoms worsened on 05/16/18, phlegm became yellow/green in color. She was seen at Urgent Care on 05/17/18 and had a CXR performed which revealed right sided PNA. She was started on Amoxicillin and Doxycycline and administered a steroid injection. She was sent home with antibiotics and a Prednisone taper. Patient with persistent SOB that has worsened over the last day. She denies CP, palpitations, dizziness or syncope. Denies abdominal pain, nausea/vomiting/diar alcides or constipation. No additional complaints at this time. On arrival to the ER she was tachycardic at 104, RR of 30. Episode of desaturation to 84% on 5L NC. ER Course: Albuterol neb x 2, Magnesium sulfate x 1gm, Solumedrol 40mg , KCL 40mEq, NSS x 1 L Allergies Allergy/AdvReac Type Severity Reaction Status Date / Time No Known Allergies Allergy Verified 05/19/18 01:21 Home Medications Home Medications Medication Instructions Recorded Confirmed Type albuterol sulfate 2 puff INHALATION Q6H PRN 05/19/18 05/19/18 History amlodipine 10 mg PO DAILY 05/19/18 05/19/18 History flecainide 100 mg PO DAILY 05/19/18 05/19/18 History fluticasone furoate-vilanterol 1 dose INHALATION DAILY 05/19/18 05/19/18 History [Breo Ellipta] ipratropium-albuterol 3 ml INHALATION QID 05/19/18 05/19/18 History lisinopril-hydrochlorothiazide 1 tab PO QAM 05/19/18 05/19/18 History metoprolol succinate 100 mg PO DAILY 05/19/18 05/19/18 History [id number]-[id number] acid 1 tab PO QAM 05/19/18 05/19/18 History [Centrum] rivaroxaban [Xarelto] 20 mg PO DAILY 05/19/18 05/19/18 History Past Med/Surg History Medical History Afib History of cardioversion Hypertension (Chronic) COPD exacerbation Congestive heart failure (Acute) Congestive heart failure Hypoxemia (Acute) SOB (shortness of breath) Cataract Surgical History H/O cardiac radiofrequency ablation H/O partial thyroidectomy History of 3 sections Family History Other No pertinent family history Social History Preferred Language: [place] Feels Safe at Home: Yes Smoking Status: Current every day smoker Hx Alcohol Use: No Hx Substance Use: Yes Review of Systems All systems reviewed & are unremarkable except as noted in HPI & below Physical Exam Vital Signs (Past 24 Hours): Last Vital Signs Temp 37.7 C H 05/18/18 22:46 Pulse 93 H 05/19/18 02:27 Resp 22 05/19/18 02:27 BP 131/80 05/19/18 02:27 Pulse Ox 94 05/19/18 02:27 Physical Exam: General: patient resting comfortably, NAD, non-toxic in appearance, AA&O x 4, speaking in complete sentences Skin: warm, dry, intact, no rashes or lesions HEENT: NC/AT, PERRL, EOMI, anicteric sclera, conjunctiva without injection, external ear normal to inspection and nontender, nares patent, moist mucus membranes, dentition intact, no oropharyngeal lesions, neck supple, trachea midline, no LAD, no thyromegaly, no JVD Heart: +S1/S2, regular, no m/r/g Lungs: diminished breath sounds bilaterally, diffuse inspiratory and expiratory wheezing, prolonged expiratory phase, diminished BS in bases, no rales/rhonchi Abd: +BS, soft, NT/ND, no masses/organomegaly/ascites Ext: warm, 2+ pulses in UE/LE bilaterally, no cyanosis or edema, +digital clubbing Neuro: nonfocal, patient AA&O x 4, speech intact, no facial droop, moving all extremities on command with equal strength 5/5 Results & Data Laboratory Results Lab Results 05/18/18 05/18/18 05/18/18 Range/Units 22:50 23:30 23:30 WBC 11.41 H (4.8-10.8) K/uL RBC 3.99 L (4.2-5.4) M/uL Hgb 11.5 L (12.0-16.0) g/dL Hct 35.1 L (37-47) % MCV 88.0 (80-100) fL MCH 28.8 (25-34) pg MCHC 32.8 (32-36) g/dL RDW Std Deviation 47.8 H (36.4-46.3) fL RDW Coeff of Naila 14.8 H (11.5-14.5) % Plt Count 265 (130-400) K/uL MPV 9.4 (7.4-10.4) fL Immature Gran % (Auto) 0.3 % Neut % (Auto) 82.0 % Lymph % (Auto) 6.5 % [place] % (Auto) 11.0 % Eos % (Auto) 0.0 % Baso % (Auto) 0.2 % Immature Gran # (Auto) 0.03 H (0.00-0.02) K/uL Neut # (Auto) 9.36 H (1.4-6.5) K/uL Lymph # (Auto) 0.74 L (1.2-3.4) K/uL [place] # (Auto) 1.26 H (0.11-0.59) K/uL Eos # (Auto) 0.00 (0-0.5) K/uL Baso # (Auto) 0.02 (0-0.2) K/uL Sodium 139 (136-145) mmol/L Potassium 2.8 L (3.5-5.1) mmol/L Chloride 99 (98-107) mmol/L Carbon Dioxide 34 H (21-32) mmol/L Anion Gap 6.0 (3-11) BUN 23 H (7-18) mg/dl Creatinine 0.78 (0.6-1.2) mg/dl Est Cr Clr Drug Dosing 97.4 ml/min Est GFR ( Amer) 95.8 Est GFR (Non-Af Amer) 82.6 BUN/Creatinine Ratio 29.0 H (10-20) Glucose 119 H (70-99) mg/dl Calcium 8.5 (8.5-10.1) mg/dl Magnesium 1.8 (1.8-2.4) mg/dl Total Bilirubin 0.3 (0.2-1) mg/dl AST 29 (15-37) U/L ALT 29 (12-78) U/L Alkaline Phosphatase 98 (45-117) U/L Troponin I < 0.015 (0-0.045) ng/ml NT-Pro-B Natriuret Pep 328 (0-900) pg/ml Total Protein 7.1 (6.4-8.2) gm/dl Albumin 3.2 L (3.4-5.0) gm/dl Globulin 3.9 (2.5-4.0) gm/dl Albumin/Globulin Ratio 0.8 L (0.9-2) Lipase 90 (73-393) U/L Urine Color Yellow Urine Appearance Clear (Clear) Urine pH 5.5 (4.5-7.5) Ur Specific [place] 1.019 (1.000-1.030) Urine Protein 1+ H (Negative) Urine Glucose (UA) Negative (Negative) Urine Ketones Negative (Negative) Urine Blood 2+ H (Negative) Urine Nitrite Negative (Negative) Urine Bilirubin Negative (Negative) Urine Urobilinogen Negative (Negative) Ur Leukocyte Esterase Negative (Negative) Urine WBC (Auto) 0 (0-5) /hpf Urine RBC (Auto) 0-4 (0-4) /hpf U Hyaline Cast (Auto) 1-5 (0-5) /lpf U Epithel Cells (Auto) 5-10 H (0-5) /lpf Urine Bacteria (Auto) Negative (Negative) Diagnostic Findings By my interpretation, trachea midline, lungs appear to be hyperinflated with flattened diaphragms, increase in airspace opacity in the the RML, no effusions or edema ECG Additional Comments: Sinus tachycardia Code Status & VTE Plan Code Status FULL VTE Prophylaxis Plan VTE Prophylaxis will be ordered: Yes (1) Pneumonia Laterality: right Lung location: lower lobe of lung Pneumonia type: due to unspecified organism Qualified Code(s): J18.1 - Lobar pneumonia, unspecified organism (2) Hypertension Hypertension type: essential hypertension Qualified Code(s): I10 - Essential (primary) hypertension
[2018-05-19] MEDS ORDERED: ALBUTEROL 0.5% NEB SOLN 2.5 MG/0.5 ML VIAL NEB PRN (03:03)
[2018-05-19] MEDS ORDERED: ACETAMINOPHEN 325 MG TAB PO PRN (03:03)
[2018-05-19] MEDS ORDERED: DOCUSATE SODIUM 100 MG CAP PO PRN (03:03)
[2018-05-19 03:57] LABS: BUN Creatinine Ratio 26.1 (10-20); Calcium 8.2 mg/dl (8.5-10.1); Creatinine Clr Calc Pharmacy 111.7 ml/min; Est GFR (African American) 110.2; Est GFR (Non-African American) 95.1; Phosphorus 3.3 mg/dl (2.5-4.9); Potassium 3.5 mmol/L (3.5-5.1)
[2018-05-19] MEDS: ALBUT/IPRATROP 3MG/0.5MG NEB 3 ML VIAL NEB SCH ×5 (03:57→20:28)
[2018-05-19] MEDS ORDERED: AZITHROMYCIN 500 MG in DEXTROSE 5% 250 ML IV ONE (04:00)
[2018-05-19] MEDS ORDERED: POTASSIUM CHLORIDE 20 MEQ TABCR PO ONE (04:00)
[2018-05-19] MEDS: cefTRIAXone SODIUM 1,000 MG in DEXTROSE 5% 50 ML IV SCH (06:25)
--- NOTE | 2018-05-19 06:32 | XRay Report ---
XR chest 2V routine HISTORY: 62 years-old Female cough, pneumonia acute cough with suspected pneumonia COMPARISON: Chest CT 10/16/2017, chest radiograph 09/17/2016 TECHNIQUE: PA and lateral views of the chest. FINDINGS: The cardiomediastinal and hilar silhouettes are unchanged. There is no pneumothorax, pleural effusion or overt pulmonary edema. Mild subsegmental bibasilar opacities are noted with emphysema and chronic interstitial coarsening. Degenerative changes of the shoulders and spine. Partially imaged hardware about the right humerus. IMPRESSION: 1. Mild subsegmental bibasilar opacities suggests atelectasis or pneumonitis. 2. Emphysema with chronic interstitial coarsening. The above report was generated using voice recognition software. It may contain grammatical, syntax o r spelling errors. Electronically signed by: Zechariah Villatoro M.D. 05/19/2018 6:31 AM
[2018-05-19] MEDS ORDERED: INFLUENZA VIRUS QUAD VACCINE 0.5 ML SYR IM ONE (07:00)
[2018-05-19] MEDS ORDERED: INFLUENZA ADMINISTRATION CHARGE ONE (07:00)
[2018-05-19] MEDS: RIVAROXABAN 20 MG TAB PO SCH (08:53)
[2018-05-19] MEDS: methylPREDNISolone 30 MG in SYRINGE 0 ML IV SCH ×2 (08:53→16:58)
[2018-05-19] MEDS: FLECAINIDE ACETATE 100 MG TABLET PO SCH (08:54)
[2018-05-19] MEDS: guaiFENesin 600 MG TABCR PO SCH ×2 (08:54→20:51)
[2018-05-19] MEDS: AMLODIPINE BESYLATE 5 MG TAB PO SCH (08:54)
[2018-05-19] MEDS: LISINOPRIL/HCTZ 20/12.5MG 1 TAB TAB PO SCH (08:54)
[2018-05-19] MEDS: METOPROLOL SUCC 50MG EXT REL TAB PO SCH (08:54)
--- NOTE | 2018-05-19 15:38 | Hospitalist Progress Note ---
Date of Service May 19, 2018 Assessment & Plan (1) Hypoxia: 70-year-old white female admitted because of COPD exacerbation acute on chronic respiratory failure, O2 dependent COPD, chronic CO2 retention suggested by elevated serum HCO3 as well as prior VBG from 2017. Suspect COPD exacerbation secondary to underlying infectious process. Still required 5L NC. No respiratory distress. Supplemental O2 as needed, maintain saturations 88 - 92% (2) COPD exacerbation: acute exacerbation of COPD secondary to underlying infectious process, and COPD exacerbation, More than 40 years history of tobacco abuse still smoking, Continue supplemental O2 as needed -DuoNeb q 4 hours -Albuterol q 2 hours PRN -Solumedrol 30mg IV TID -Mucinex 1200mg po BID -Incentive Spirometry -Counseled to quit smoking offered help, continue nicotine patch (3) Pneumonia: Patient afebrile, hemodynamically stable. Concern for RML CAP -Ceftriaxone and Azithromycin -Continue to monitor -Follow-up culture and sensitivity, (4) Afib: hx of AF s/p cardioversion and ablation, Stable, Continue with Metoprolol, Flecainide. Anticoagulated on Xarelto (5) Hypertension: Blood pressure mildly elevated, will watch, -Continue Amlodipine -Continue Lisinopril/HCTZ and Metoprolol -Monitor (6) Congestive heart failure: History of chronic systolic CHF, echo from 09/2016 which revealed mildly dilated LV with EF of 40-45%, moderate concentric LVH. no in acute decompensated CHF at this time. -Continue Metoprolol, Lisinopril/HCTZ -Continue to monitor Ppx - Patient on Xarelto Code - Full Dispo, continue current care PT OT, possible discharge in day 1 or 2, need to taper down Solu-Medrol, possible can change to oral prednisone tomorrow Subjective Pleasant, difficult improving, eating lunch, On 5 L nasal cannula oxygen, Occasional cough with white sputum, Denies fever chills denies chest pain Review of Systems Constitutional: Positive weakness, or fatigue Respiratory:mild dyspnea on exertion Cardiac: No chest pain, No orthopnea, No PND, No claudication, No palpitations, Abdomen: No pain, No nausea, No vomiting, No diarrhea Musculoskeletal: No joint pain, No muscle pain, No swelling, No calf pain, No problem reported : No dysuria, No urinary frequency, No incontinence, No hematuria Neurologic: No paralysis, No weakness, No numbness/tingling, Psychiatric: No depression symptoms, No anhedonism, No anxiety Heme: No abnormal bleeding/bruising, No clotting problems Skin: No rash, No itch, No new/changing skin lesions Physical Exam Vital Signs (Past 24 Hours): Last Vital Signs Temp 36.7 C 05/19/18 08:02 Pulse 85 05/19/18 15:17 Resp 20 05/19/18 15:17 BP 144/83 H 05/19/18 08:02 Pulse Ox 98 05/19/18 15:17 Physical Exam: General Appearance: Thinl, much older than her age, WD/WN, no apparent distress, Eyes: normal inspection, PERRL, EOMI, sclerae normal ENT: normal ENT inspection, hearing grossly normal, pharynx normal Neck: supple, no adenopathy, thyroid normal, no JVD, no carotid bruits, trachea midline Respiratory/Chest: chest non-tender, significantly decreased breath sounds, no respiratory distress, some rales, wheezing, no crackles, Cardiovascular: regular rate, rhythm, no JVD, no murmur Abdomen: normal bowel sounds, non tender, soft, no organomegaly, Extremities: normal range of motion, non-tender, normal inspection, Trace pedal edema, no calf tenderness, normal capillary refill, pelvis stable, joint has no limited range of motion, capillary refill is normal, no cyanosis clubbing Neurologic/Psychiatric: 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 II-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 nml as tested, no motor/sensory deficits, alert, normal mood/affect, oriented x 3 Skin: normal color, warm/dry, no rash Lymphatic: no adenopathy Results & Data Laboratory Results Laboratory Results - last 24 hr 05/18/18 05/18/18 05/18/18 22:50 23:30 23:30 WBC 11.41 H RBC 3.99 L Hgb 11.5 L Hct 35.1 L MCV 88.0 MCH 28.8 MCHC 32.8 RDW Std Deviation 47.8 H RDW Coeff of Naila 14.8 H Plt Count 265 MPV 9.4 Immature Gran % (Auto) 0.3 Neut % (Auto) 82.0 Lymph % (Auto) 6.5 [place] % (Auto) 11.0 Eos % (Auto) 0.0 Baso % (Auto) 0.2 Immature Gran # (Auto) 0.03 H Neut # (Auto) 9.36 H Lymph # (Auto) 0.74 L [place] # (Auto) 1.26 H Eos # (Auto) 0.00 Baso # (Auto) 0.02 Sodium 139 Potassium 2.8 L Chloride 99 Carbon Dioxide 34 H Anion Gap 6.0 BUN 23 H Creatinine 0.78 Est Cr Clr Drug Dosing 97.4 Est GFR ( Amer) 95.8 Est GFR (Non-Af Amer) 82.6 BUN/Creatinine Ratio 29.0 H Glucose 119 H Calcium 8.5 Phosphorus Magnesium 1.8 Total Bilirubin 0.3 AST 29 ALT 29 Alkaline Phosphatase 98 Troponin I < 0.015 NT-Pro-B Natriuret Pep 328 Total Protein 7.1 Albumin 3.2 L Globulin 3.9 Albumin/Globulin Ratio 0.8 L Lipase 90 Urine Color Yellow Urine Appearance Clear Urine pH 5.5 Ur Specific [place] 1.019 Urine Protein 1+ H Urine Glucose (UA) Negative Urine Ketones Negative Urine Blood 2+ H Urine Nitrite Negative Urine Bilirubin Negative Urine Urobilinogen Negative Ur Leukocyte Esterase Negative Urine WBC (Auto) 0 Urine RBC (Auto) 0-4 U Hyaline Cast (Auto) 1-5 U Epithel Cells (Auto) 5-10 H Urine Bacteria (Auto) Negative 05/19/18 03:14 WBC RBC Hgb Hct MCV MCH MCHC RDW Std Deviation RDW Coeff of Naila Plt Count MPV Immature Gran % (Auto) Neut % (Auto) Lymph % (Auto) [place] % (Auto) Eos % (Auto) Baso % (Auto) Immature Gran # (Auto) Neut # (Auto) Lymph # (Auto) [place] # (Auto) Eos # (Auto) Baso # (Auto) Sodium 140 Potassium 3.5 D Chloride 102 Carbon Dioxide 35 H Anion Gap 3.0 BUN 18 Creatinine 0.68 Est Cr Clr Drug Dosing 111.7 Est GFR ( Amer) 110.2 Est GFR (Non-Af Amer) 95.1 BUN/Creatinine Ratio 26.1 H Glucose 124 H Calcium 8.2 L Phosphorus 3.3 Magnesium Total Bilirubin AST ALT Alkaline Phosphatase Troponin I NT-Pro-B Natriuret Pep Total Protein Albumin Globulin Albumin/Globulin Ratio Lipase Urine Color Urine Appearance Urine pH Ur Specific [place] Urine Protein Urine Glucose (UA) Urine Ketones Urine Blood Urine Nitrite Urine Bilirubin Urine Urobilinogen Ur Leukocyte Esterase Urine WBC (Auto) Urine RBC (Auto) U Hyaline Cast (Auto) U Epithel Cells (Auto) Urine Bacteria (Auto) (1) Pneumonia Laterality: right Lung location: lower lobe of lung Pneumonia type: due to unspecified organism Qualified Code(s): J18.1 - Lobar pneumonia, unspecified organism (2) Hypertension Hypertension type: essential hypertension Qualified Code(s): I10 - Essential (primary) hypertension
[2018-05-19] MEDS: NICOTINE 7 MG/24 HR TDSY TD SCH (16:55)
[2018-05-20] MEDS: methylPREDNISolone 30 MG in SYRINGE 0 ML IV SCH ×3 (01:15→16:51)
[2018-05-20] MEDS: ALBUT/IPRATROP 3MG/0.5MG NEB 3 ML VIAL NEB SCH ×6 (03:23→23:15)
[2018-05-20] MEDS: cefTRIAXone SODIUM 1,000 MG in DEXTROSE 5% 50 ML IV SCH (05:41)
[2018-05-20 06:03] LABS: Basophils # (auto) 0.01 K/uL (0-0.2); Basophils % (auto) 0.1 %; Hemoglobin 11.7 g/dL (12.0-16.0); Immature Granulocytes # (auto) 0.06 K/uL (0.00-0.02); Immature Granulocytes % (auto) 0.7 %; Lymphocytes # (auto) 0.67 K/uL (1.2-3.4); Lymphocytes % (auto) 8.3 %; Mean Corpuscular Hgb Conc 31.6 g/dL (32-36); Mean Corpuscular Volume 89.8 fL (80-100); Mean Platelet Volume 9.4 fL (7.4-10.4); Monocytes # (auto) 0.37 K/uL (0.11-0.59); Monocytes % (auto) 4.6 %; Neutrophils # (auto) 6.95 K/uL (1.4-6.5); Neutrophils % (auto) 86.3 %; Platelet Count 257 K/uL (130-400); RDW Coefficient of Variation 14.7 % (11.5-14.5); RDW Standard Deviation 47.8 fL (36.4-46.3); Red Blood Count 4.12 M/uL (4.2-5.4); White Blood Count 8.06 K/uL (4.8-10.8)
[2018-05-20 06:31] LABS: Potassium 4.4 mmol/L (3.5-5.1)
[2018-05-20 06:32] LABS: BUN Creatinine Ratio 23.1 (10-20); Calcium 8.4 mg/dl (8.5-10.1); Creatinine Clr Calc Pharmacy 111.4 ml/min; Est GFR (African American) 113.6; Magnesium 2.2 mg/dl (1.8-2.4)
[2018-05-20] MEDS: AZITHROMYCIN 500 MG in DEXTROSE 5% 250 ML IV SCH (07:32)
[2018-05-20] MEDS: METOPROLOL SUCC 50MG EXT REL TAB PO SCH (07:38)
[2018-05-20] MEDS: LISINOPRIL/HCTZ 20/12.5MG 1 TAB TAB PO SCH (07:38)
[2018-05-20] MEDS: FLECAINIDE ACETATE 100 MG TABLET PO SCH (07:38)
[2018-05-20] MEDS: RIVAROXABAN 20 MG TAB PO SCH (07:38)
[2018-05-20] MEDS: guaiFENesin 600 MG TABCR PO SCH ×2 (07:38→20:41)
[2018-05-20] MEDS: NICOTINE 7 MG/24 HR TDSY TD SCH (07:38)
[2018-05-20] MEDS: AMLODIPINE BESYLATE 5 MG TAB PO SCH (07:38)
--- NOTE | 2018-05-20 18:07 | Hospitalist Progress Note ---
Date of Service May 20, 2018 Assessment & Plan (1) COPD exacerbation: Acute exacerbation of COPD secondary to underlying infectious process. More than 40 years history of tobacco abuse still smoking. - Continue supplemental O2 as needed - Continue DuoNebs, steroids, antibiotics - Mucinex 1200mg po BID - Incentive Spirometry - Counseled to quit smoking offered help, continue nicotine patch (2) Hypoxia: O2 dependent COPD, chronic CO2 retention suggested by elevated serum HCO3 as well as prior VBG from 2017. - Plan as above (3) Pneumonia: Patient afebrile, hemodynamically stable. CXR on 05/19 showed mild subsegmental opacities suggesting atelectasis vs. pneumonitis. - Plan as above (4) Afib: Hx of AF s/p cardioversion and ablation; stable. - Continue metoprolol & flecainide. - Continue Xarelto (5) Hypertension: Blood pressure initially elevated; now 130/70. - Continue Amlodipine - Continue Lisinopril/HCTZ and Metoprolol (6) Congestive heart failure: History of chronic systolic CHF. Echo from 09/2016 showed mildly dilated LV with EF of 40-45%, moderate concentric LVH. - Not in acute decompensated CHF at this time - Continue Metoprolol, Lisinopril/HCTZ - Continue to monitor Subjective Feeling some better today. Reports her breathing being ~50% from baseline. Reports no fevers/chills, chest pain, abdominal pain, nausea, or vomiting. Physical Exam Vital Signs (Past 24 Hours): Last Vital Signs Temp 37.2 C 05/20/18 16:04 Pulse 82 05/20/18 16:04 Resp 20 05/20/18 16:04 BP 131/67 05/20/18 16:04 Pulse Ox 93 05/20/18 16:04 Constitutional: WD/WN, vitals as above Eyes: EOM intact bilaterally; no conjunctival abnormality ENMT: external ear and nose normal, oropharynx normal Neck: trachea midline, no thyromegaly normal visual inspection Respiratory: + labored breathing Auscultation: + wheezes (Inspiratory and expiratory) Cardiovascular: RRR, no murmur, no edema Gastrointestinal (Abdomen): Inspection/Auscultation: abdomen normal to inspection; abdomen not distended Musculoskeletal: no cyanosis or clubbing, extremities motor strength 5/5 Skin: no rashes, warm and dry Neurologic: moves all extremities and awake Psychiatric: Orientation: alert, oriented to person and cooperative (1) Pneumonia Laterality: right Lung location: lower lobe of lung Pneumonia type: due to unspecified organism Qualified Code(s): J18.1 - Lobar pneumonia, unspecified organism (2) Hypertension Hypertension type: essential hypertension Qualified Code(s): I10 - Essential (primary) hypertension
[2018-05-21] MEDS: methylPREDNISolone 30 MG in SYRINGE 0 ML IV SCH ×2 (00:17→07:57)
[2018-05-21] MEDS: ALBUT/IPRATROP 3MG/0.5MG NEB 3 ML VIAL NEB SCH ×6 (03:40→23:05)
[2018-05-21] MEDS: cefTRIAXone SODIUM 1,000 MG in DEXTROSE 5% 50 ML IV SCH (05:53)
[2018-05-21] MEDS: guaiFENesin 600 MG TABCR PO SCH ×2 (07:56→22:20)
[2018-05-21] MEDS: LISINOPRIL/HCTZ 20/12.5MG 1 TAB TAB PO SCH (07:56)
[2018-05-21] MEDS: NICOTINE 7 MG/24 HR TDSY TD SCH (07:56)
[2018-05-21] MEDS: RIVAROXABAN 20 MG TAB PO SCH (07:56)
[2018-05-21] MEDS: AMLODIPINE BESYLATE 5 MG TAB PO SCH (07:56)
[2018-05-21] MEDS: AZITHROMYCIN 500 MG in DEXTROSE 5% 250 ML IV SCH (07:57)
[2018-05-21] MEDS: FLECAINIDE ACETATE 100 MG TABLET PO SCH (07:57)
[2018-05-21] MEDS: METOPROLOL SUCC 50MG EXT REL TAB PO SCH (07:57)
--- NOTE | 2018-05-21 15:08 | Hospitalist Progress Note ---
Date of Service May 21, 2018 Assessment & Plan (1) COPD exacerbation: Acute exacerbation of COPD, likely secondary to environment / continued smoking. More than 40 years history of tobacco abuse still smoking. - Continue supplemental O2 as needed - Continue DuoNebs, steroids - After discussion with pharmacist; held abx on 05/21 for low concern for infectious cause of her COPD exacerbation - Mucinex 1200mg po BID - Incentive Spirometry - Counseled to quit smoking offered help, continue nicotine patch (2) Hypoxia: O2 dependent COPD, chronic CO2 retention suggested by elevated serum HCO3 as well as prior VBG from 2017. - Patient has been using her home noctural O2 as a PRN - May need a 2-step if her home O2 script does not include this. Yeimy ([email or web address]) checking on this. - Plan as above (3) Pneumonia: Patient afebrile, hemodynamically stable. CXR on 05/19 showed mild subsegmental opacities suggesting atelectasis vs. pneumonitis. - Plan as above (4) Afib: Hx of afib s/p cardioversion and ablation; stable. - Continue metoprolol & flecainide. - Continue Xarelto (5) Hypertension: Blood pressure initially elevated; now generally 130/60 to 155/90 over the last 24 hours. - Continue amlodipine - Continue lisinopril/HCTZ and metoprolol (6) Congestive heart failure: History of chronic systolic CHF. Echo from 09/2016 showed mildly dilated LV with EF of 40-45%, moderate concentric LVH. - Not in acute decompensated CHF at this time - Continue metoprolol, lisinopril/HCTZ - Continue to monitor (7) DVT prophylaxis: On Xarelto for afib Subjective Feeling some better today. Reports her breathing being ~50% from baseline. Reports no fevers/chills, chest pain, abdominal pain, nausea, or vomiting. Physical Exam Vital Signs (Past 24 Hours): Last Vital Signs Temp 37 C 05/21/18 08:01 Pulse 78 05/21/18 11:13 Resp 20 05/21/18 11:13 BP 156/87 H 05/21/18 08:01 Pulse Ox 91 05/21/18 11:13 Constitutional: WD/WN, vitals as above Eyes: EOM intact bilaterally; no conjunctival abnormality ENMT: external ear and nose normal, oropharynx normal Neck: trachea midline, no thyromegaly normal visual inspection Respiratory: + labored breathing Auscultation: + wheezes (Inspiratory and expiratory) Cardiovascular: RRR, no murmur, no edema Gastrointestinal (Abdomen): Inspection/Auscultation: abdomen normal to inspection; abdomen not distended Musculoskeletal: no cyanosis or clubbing, extremities motor strength 5/5 Skin: no rashes, warm and dry Neurologic: moves all extremities and awake Psychiatric: Orientation: alert, oriented to person and cooperative (1) Pneumonia Laterality: right Lung location: lower lobe of lung Pneumonia type: due to unspecified organism Qualified Code(s): J18.1 - Lobar pneumonia, unspecified organism (2) Hypertension Hypertension type: essential hypertension Qualified Code(s): I10 - Essential (primary) hypertension
[2018-05-22] MEDS: ALBUT/IPRATROP 3MG/0.5MG NEB 3 ML VIAL NEB SCH ×6 (03:05→23:06)
[2018-05-22] MEDS: AMLODIPINE BESYLATE 5 MG TAB PO SCH (08:17)
[2018-05-22] MEDS: RIVAROXABAN 20 MG TAB PO SCH (08:17)
[2018-05-22] MEDS: METOPROLOL SUCC 50MG EXT REL TAB PO SCH (08:18)
[2018-05-22] MEDS: LISINOPRIL/HCTZ 20/12.5MG 1 TAB TAB PO SCH (08:18)
[2018-05-22] MEDS: guaiFENesin 600 MG TABCR PO SCH ×2 (08:18→20:14)
[2018-05-22] MEDS: predniSONE 50 MG TAB PO SCH (08:19)
[2018-05-22] MEDS: NICOTINE 7 MG/24 HR TDSY TD SCH (08:19)
[2018-05-22] MEDS: FLECAINIDE ACETATE 100 MG TABLET PO SCH (08:19)
[2018-05-23] MEDS: ALBUT/IPRATROP 3MG/0.5MG NEB 3 ML VIAL NEB SCH ×3 (03:31→11:29)
--- NOTE | 2018-05-23 07:57 | Hospitalist Progress Note ---
Date of Service May 22, 2018 Assessment & Plan (1) COPD exacerbation: Acute exacerbation of COPD, likely secondary to environment / continued smoking. More than 40 years history of tobacco abuse still smoking. Improving today - Continue supplemental O2 as needed and asked nurse to try to wean her off - Continue DuoNebs, steroids at current doses -No antibiotics needed as low concern for infectious cause of her COPD exacerbation -Continue Mucinex 1200mg po BID - Incentive Spirometry - Counseled to quit smoking offered help, continue nicotine patch-she has been working on this at home (2) Hypoxia: Acute on chronic hypoxic respiratory failure O2 dependent COPD at home with usual nocturnal O2, chronic CO2 retention suggested by elevated serum HCO3 as well as prior VBG from 2017. - Patient has been using her home nocturnal O2 as a PRN - May need a 2-step prior to discharge - Plan as above (3) Pneumonia: Ruled out. Patient afebrile, hemodynamically stable. CXR on 05/19 showed mild subsegmental opacities suggesting atelectasis vs. pneumonitis. Most likely atelectasis - Plan as above (4) Afib: Hx of afib s/p cardioversion and ablation; stable. Remains in normal rhythm on exam - Continue metoprolol & flecainide. - Continue Xarelto (5) Hypertension: Blood pressure controlled - Continue amlodipine - Continue lisinopril/HCTZ and metoprolol (6) Congestive heart failure: History of chronic systolic CHF. Echo from 09/2016 showed mildly dilated LV with EF of 40-45%, moderate concentric LVH. - Not in acute decompensated CHF at this time - Continue metoprolol, lisinopril/HCTZ - Continue to monitor (7) DVT prophylaxis: On Xarelto for afib Disposition-likely discharge home tomorrow Subjective Patient reports feeling much better, still short of breath with some exertion around the room. Remains on oxygen during the day which she does not wear at home. Reports a mildly productive cough of anna sputum. Remains afebrile Denies nausea or vomiting, denies chest pain. Review of Systems All systems reviewed & are unremarkable except as noted in HPI & below Physical Exam Vital Signs (Past 24 Hours): Last Vital Signs Temp 36.5 C 05/22/18 23:20 Pulse 80 05/23/18 07:03 Resp 18 05/23/18 07:03 BP 143/94 H 05/22/18 23:20 Pulse Ox 93 05/23/18 07:03 Constitutional: WD/WN, vitals as above Eyes: PERRL, conjunctivae normal, anicteric sclerae ENMT: external ear and nose normal, oropharynx normal Neck: trachea midline, no thyromegaly Respiratory: normal respiratory effort; no respiratory distress Auscultation: + diminished lung sounds (Throughout), + rhonchi (Throughout the left lung heredia) and + wheezes (Diffuse expiratory wheezes) Cardiovascular: RRR, no murmur, no edema Gastrointestinal (Abdomen): normal bowel sounds, soft, nontender, no hepatosplenomegaly Musculoskeletal: Extremities: extremities normal to inspection; no cyanosis and no clubbing Skin: no rashes, warm and dry Neurologic: moves all extremities and awake; no focal motor deficits Psychiatric: A+Ox3, euthymic affect Results & Data Laboratory Results No labs (1) Pneumonia Laterality: right Lung location: lower lobe of lung Pneumonia type: due to unspecified organism Qualified Code(s): J18.1 - Lobar pneumonia, unspecified organism (2) Hypertension Hypertension type: essential hypertension Qualified Code(s): I10 - Essential (primary) hypertension
[2018-05-23] MEDS: METOPROLOL SUCC 50MG EXT REL TAB PO SCH (08:36)
[2018-05-23] MEDS: LISINOPRIL/HCTZ 20/12.5MG 1 TAB TAB PO SCH (08:36)
[2018-05-23] MEDS: predniSONE 50 MG TAB PO SCH (08:36)
[2018-05-23] MEDS: guaiFENesin 600 MG TABCR PO SCH (08:36)
[2018-05-23] MEDS: FLECAINIDE ACETATE 100 MG TABLET PO SCH (08:36)
[2018-05-23] MEDS: NICOTINE 7 MG/24 HR TDSY TD SCH (08:37)
[2018-05-23] MEDS: RIVAROXABAN 20 MG TAB PO SCH (08:37)
[2018-05-23] MEDS: AMLODIPINE BESYLATE 5 MG TAB PO SCH (08:37)
--- NOTE | 2018-05-23 14:14 | Discharge Summary ---
Date of Service May 23, 2018 Admission HPI Per Admitting Provider Patient is a 62yo C female with history of O2 dependent COPD (no history of intubation), HTN, AF and CHF presenting with progressive dyspnea. Patient reports having mild URI symptoms 1 week ago, cough with clear nasal congestion. Symptoms worsened on 05/16/18, phlegm became yellow/green in color. She was seen at Urgent Care on 05/17/18 and had a CXR performed which revealed right sided PNA. She was started on Amoxicillin and Doxycycline and administered a steroid injection. She was sent home with antibiotics and a Prednisone taper. Patient with persistent SOB that has worsened over the last day. She denies CP, palpitations, dizziness or syncope. Denies abdominal pain, nausea/vomiting/diarrhea or constipation. No additional complaints at this time. On arrival to the ER she was tachycardic at 104, RR of 30. Episode of desaturation to 84% on 5L NC. ER Course: Albuterol neb x 2, Magnesium sulfate x 1gm, Solumedrol 40mg , KCL 40mEq, NSS x 1 L Principal Diagnosis COPD exacerbation Discharge Exam Constitutional WD/WN, vitals as above Eyes PERRL, conjunctivae normal, anicteric sclerae ENMT external ear and nose normal, oropharynx normal Neck trachea midline, no thyromegaly Respiratory normal respiratory effort; no respiratory distress Auscultation: + diminished lung sounds (Throughout); no rhonchi and no wheezes Cardiovascular RRR, no murmur, no edema Gastrointestinal (Abdomen) normal bowel sounds, soft, nontender, no hepatosplenomegaly Musculoskeletal Extremities: extremities normal to inspection; no cyanosis and no clubbing Skin no rashes, warm and dry Neurologic moves all extremities and awake; no focal motor deficits Psychiatric A+Ox3, euthymic affect Discharge Data Allergies Allergy/AdvReac Type Severity Reaction Status Date / Time No Known Allergies Allergy Verified 05/19/18 01:21 Consultations None Ordered Studies Chest x-ray Hospital Course (1) COPD exacerbation: Acute exacerbation of COPD, likely secondary to environment / continued smoking. More than 40 years history of tobacco abuse still smoking. Much improved overall - Continue supplemental O2 as tested with a 6-minute walk test-she requires 5 L nasal cannula with ambulation and 2-1/2 L continuously otherwise-prescription provided to case management to send her home medical supply company - Continue DuoNebs scheduled for the next 3 days and then can go to as needed after that -Continue home Brio Ellipta and Ventolin as needed -No antibiotics needed as low concern for infectious cause of her COPD exacerbation -Continue Mucinex 1200mg po BID after discharge -Finish out prednisone taper at 40 mill grams daily times 3 days, then decrease by 10 mg q. 1 day until gone - Counseled to quit smoking offered help, continue nicotine patch-she has been working on this at home -Needs close follow-up with her primary care physician after discharge (2) Hypoxia: Acute on chronic hypoxic respiratory failure O2 dependent COPD at home with usual nocturnal O2, chronic CO2 retention suggested by elevated serum HCO3 as well as prior VBG from 2017. The patient reports that she does have portable oxygen for use during the day but has not been using it. She is now requiring oxygen as above (3) Pneumonia: Ruled out. Patient afebrile, hemodynamically stable. CXR on 05/19 showed mild subsegmental opacities suggesting atelectasis vs. pneumonitis. Most likely atelectasis - Plan as above (4) Afib: Hx of afib s/p cardioversion and ablation; stable. Remains in normal rhythm on exam - Continue metoprolol & flecainide. - Continue Xarelto for stroke prevention (5) Hypertension: Blood pressure controlled - Continue amlodipine - Continue lisinopril/HCTZ and metoprolol (6) Congestive heart failure: History of chronic systolic CHF. Echo from 09/2016 showed mildly dilated LV with EF of 40-45%, moderate concentric LVH. - Not in acute decompensated CHF at this time - Continue metoprolol, lisinopril/HCTZ - Continue to monitor (7) DVT prophylaxis: On Xarelto for afib Disposition-stable for discharge to home today Total Time Total Time Spent Total Time Spent (In Minutes): Greater than 30 minutes Total Time Includes: Examination of the Patient, Discharge Planning and Medication Reconciliation Discharge Plan Discharge Items Patient Disposition: Home - Home Health Services Reason For Visit: COPD EXACERBATION, PNA Discharge Diagnosis: COPD Exacerbation Condition: Good Discharge Goals: Diagnostic testing, Improve disease control, Learn about illness and Therapeutic intervention Activity: Resume your previous activity Bathing: No limitations Exercise/Sports: Gradually increase as tolerated Non-emergency contact: Primary Care Provider Call non-emergency contact if: you have any medication questions and your symptoms worsen Follow-up/Referrals: Ricardo Person III, JENNY [Primary Care Provider] - (Please call for a follow up appointment within 1 week.) Diet: Heart Healthy Addtl Provider Instructions: You were admitted for an exacerbation of your COPD. Please finish out the prednisone taper as written for you. You can continue the nebulizer treatments at home every 6 hours for the next 3-5 days and then do it every 6 hours as needed after that. Your other medications remain the same. It is very important for you to continue to quit smoking as you were doing here in the hospital. You were tested for your oxygen requirement and you need 2-1/2 L at all times, and increase it to 5 L via nasal cannula with any exertion/walking around. Please follow-up with your primary care physician within 1 week. Prescriptions: New nicotine [Nicoderm CQ] 7 mg/24 hr Patch 24 Hour 7 mg transdermal QAM Qty: 14 RF: 0 prednisone 10 mg tablet 40 mg PO DAILY Qty: 18 RF: 0 guaifenesin [Mucinex] 600 mg Tablet Extended Release 12hr 1,200 mg PO Q12 Qty: 30 RF: 0 Continued amlodipine 10 mg tablet 10 mg PO DAILY RF: 0 Breo Ellipta 100-25 mcg/dose blister with device 1 dose inhalation DAILY RF: 0 ipratropium-albuterol 0.5 mg-3 mg(2.5 mg base)/3 mL solution for nebulization 3 ml inhalation QID RF: 0 lisinopril-hydrochlorothiazide 20-12.5 mg tablet 1 tab PO QAM RF: 0 metoprolol succinate 100 mg tablet extended release 24 hr 100 mg PO DAILY RF: 0 flecainide 100 mg tablet 100 mg PO DAILY RF: 0 Centrum 18-400 mg-mcg Tablet 1 tab PO QAM RF: 0 Xarelto 20 mg tablet 20 mg PO DAILY RF: 0 No Action albuterol sulfate 90 mcg/actuation Hfa Aerosol Inhaler 2 puff INHALATION Q6H PRN (Reason: Shortness Of Breath Or Wheezing) RF: 0 Stand-Alone Forms: [facility] Discharge Orders: Discharge Order (Routine); Ordered 05/23/18 Ordered By: Hyacinth Flynn Admission Data Admit Date/Time: 05/19/18 02:29 Attending Provider: Hyacinth Flynn Admit Provider: Bhavna Pires Primary Care Provider: Ricardo Person III Other Providers: Nish Laird Service: Medical Other Pending Studies at Discharge: No
== END 2018-05-23 16:00 | disposition home or self-care (01) | DRG 190 ==
LOC: ED 22:34 → SUATTDRO 05-19 02:29 → 2N 05-19 02:29 → 4W 05-19 22:40

== ENCOUNTER 2019-09-03 20:56 | Inpatient (IN) ==
[2019-09-03] MEDS ORDERED: SODIUM CHLORIDE 0.9% 1000ML 1,000 ML IV STA (21:04)
[2019-09-03] MEDS ORDERED: MIDAZOLAM HCL 1 MG/ML 2ML VIAL ONE ×3 (21:10→21:36)
[2019-09-03] MEDS ORDERED: HEPARIN (PORCINE) 1000 UNIT/ML 10 ML (CATH LAB USE ONLY) ONE (21:10)
[2019-09-03] MEDS ORDERED: NiCARDipine HCL INJ 2.5 MG/ML 10 ML AMP ONE (21:10)
[2019-09-03] MEDS ORDERED: fentaNYL citrate 100 MCG/2 ML VIAL ONE (21:10)
[2019-09-03] MEDS ORDERED: NITROGLYCERIN/D5W 100MCG/ML 20ML SYR ONE (21:11)
[2019-09-03] MEDS ORDERED: AMIODARONE 360MG / 200ML D5W IV ONE (21:15)
[2019-09-03] MEDS ORDERED: AMIODARONE 150MG / 100ML D5W IV ONE (21:15)
[2019-09-03] MEDS ORDERED: ICU PROTOCOL FOR HYPERGLYCEMIA PRN (21:18)
[2019-09-03 21:19] LABS: Hematocrit (blood only) 40.7 % (37-47); Hemoglobin 12.6 g/dL (12.0-16.0); Mean Corpuscular Hemoglobin 28.4 pg (25-34); Mean Corpuscular Volume 91.9 fL (80-100); Mean Platelet Volume 9.5 fL (7.4-10.4); Platelet Count 366 K/uL (130-400); RDW Coefficient of Variation 13.4 % (11.5-14.5); RDW Standard Deviation 44.9 fL (36.4-46.3); Red Blood Count 4.43 M/uL (4.2-5.4); White Blood Count 12.99 K/uL (4.8-10.8)
[2019-09-03] MEDS ORDERED: AMIODARONE / D5W 150 MG/100 ML BAG IV STA (21:24)
[2019-09-03] MEDS ORDERED: 0.2 MICRON FILTER SET 1 EA IV ONE (21:24)
[2019-09-03] MEDS ORDERED: AMIODARONE / D5W 360 MG/200 ML BAG IV ONE (21:24)
[2019-09-03 21:30] LABS: INR 1.3 (0.9-1.1); Partial Thromboplastin Ratio 1.1; Partial Thromboplastin Time 31.9 Seconds (21.0-31.0); Prothrombin Time 13.3 Seconds (9.0-12.0)
[2019-09-03] MEDS ORDERED: SODIUM CHLORIDE 0.9% 1000ML 1,000 ML IV SCH (21:30)
--- NOTE | 2019-09-03 21:31 | XRay Report ---
SINGLE VIEW CHEST CLINICAL HISTORY: Atypical chest pain. FINDINGS: 2 AP, portable, supine chest radiographs are compared to study dated 05/19/2018 and correlate d with chest CT dated 10/16/2017. The examination is degraded by portable technique and patient rotatio n. An endotracheal tube has been placed. The tip projects over the right mainstem bronchus. The hea rt is enlarged noting atherosclerotic calcification of the thoracic aorta. The pulmonary vasculature is noncongested. There are calcified right hilar lymph nodes. Emphysema and chronic interstitial thic kening are similar to previous. Atelectasis is seen at the left lung base. Scattered calcified granul omas are observed. No airspace consolidation or large pleural effusion is identified. No pneumothorax is seen. The skeletal structures are osteopenic. The bony thorax is grossly intact. IMPRESSION: 1. An endotracheal tube has been placed. The tip projects over the right mainstem bronchus and reposi tioning is indicated. 2. Cardiomegaly and emphysema. 3. No airspace consolidation, large pleural effusion, or pneumothorax is identified. ACT 112: Negative or not required by law. Electronically signed by: Juan David Finley M.D. 09/03/2019 9:30 PM
[2019-09-03 21:36] LABS: Alanine Aminotransferase 40 U/L (12-78); Albumin Level 2.9 gm/dl (3.4-5.0); Aspartate Aminotransferase 49 U/L (15-37); BUN Creatinine Ratio 9.5 (10-20); Blood Urea Nitrogen 15 mg/dl (7-18); Carbon Dioxide 28 mmol/L (21-32); Chloride 103 mmol/L (98-107); Est GFR (African American) 40.8; Est GFR (Non-African American) 35.2; Glucose 291 mg/dl (70-99); Lipase 166 U/L (73-393); Magnesium 2.4 mg/dl (1.8-2.4); Potassium 4.7 mmol/L (3.5-5.1); Sodium 142 mmol/L (136-145)
[2019-09-03] MEDS ORDERED: NOREPINEPHRINE BITARTRATE 1 MG/ML 4 ML VIAL (CATH LAB USE ONLY) ONE (21:39)
[2019-09-03 21:53] LABS: Basophils # (auto) 0.02 K/uL (0-0.2); Basophils % (auto) 0.2 %; Eosinophils # (auto) 0.07 K/uL (0-0.5); Eosinophils % (auto) 0.5 %; Immature Granulocytes # (auto) 0.67 K/uL (0.00-0.02); Immature Granulocytes % (auto) 5.2 %; Lymphocytes # (auto) 3.51 K/uL (1.2-3.4); Monocytes # (auto) 0.47 K/uL (0.11-0.59); Monocytes % (auto) 3.6 %; Neutrophils # (auto) 8.25 K/uL (1.4-6.5); Neutrophils % (auto) 63.5 %
[2019-09-03 21:54] LABS: Albumin Globulin Ratio 0.7 (0.9-2); Alkaline Phosphatase 119 U/L (45-117); Bilirubin,Total 0.3 mg/dl (0.2-1); Creatine Kinase 151 U/L (26-192); Creatine Kinase MB 4.3 ng/ml (0.5-3.6); Globulin 3.9 gm/dl (2.5-4.0); Total Protein 6.8 gm/dl (6.4-8.2); Troponin I 0.625 ng/ml (0-0.045)
[2019-09-03 22:10] LABS: T4 Free Thyroxine 0.97 ng/dl (0.8-1.6)
--- NOTE | 2019-09-03 22:17 | History & Physical Report ---
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 cpr, shock x3 and cp with inf yadira Primary Care Provider: Ricardo Person, III, FLIGHT INSTRUCTOR Allergies Allergy/AdvReac Type Severity Reaction Status Date / Time No Known Allergies Allergy Verified 04/14/19 12:15 Home Medications Home Medications Medication Instructions Recorded Confirmed Type Centrum 1 tab PO QAM 05/19/18 04/14/19 History flecainide 100 mg PO DAILY 05/19/18 04/14/19 History ipratropium-albuterol 3 ml INHALATION QID 05/19/18 04/14/19 History guaifenesin [Mucinex] 1,200 mg PO Q12 #30 tab 05/23/18 04/14/19 Rx nicotine [Nicoderm CQ] 7 mg TRANSDERMAL QAM #14 ea 05/23/18 04/14/19 Rx amlodipine 10 mg tablet 10 mg PO DAILY #90 tab 12/16/18 04/14/19 Rx lisinopril 20 1 tab PO QAM #90 tab 12/16/18 04/14/19 Rx mg-hydrochlorothiazide 12.5 mg tablet fluticasone furoate 100 1 ea INHALATION DAILY #1 inhaler 01/28/19 04/14/19 Rx mcg-vilanterol 25 mcg/dose inhalation powder rivaroxaban 20 mg tablet 20 mg PO DAILY #30 tab 03/22/19 04/14/19 Rx varenicline 0.5 mg (11)-1 mg (42) See Rx Instructions PO .as 04/14/19 04/14/19 Rx tablets in a dose pack directed #53 ea varenicline 1 mg tablet 1 mg PO BID 84 Days #168 tab 04/14/19 04/14/19 Rx azithromycin 250 mg tablet See Rx Instructions PO .COMPLEX #6 06/09/19 Rx tab prednisone 10 mg tablet See Rx Instructions PO DAILY #30 06/09/19 Rx tab metoprolol succinate 100 mg 100 mg PO DAILY #90 tab 07/13/19 Rx tablet,extended release 24 hr albuterol sulfate 90 mcg/actuation 1 puffs INHALATION Q4H PRN #18 gm 08/05/19 Rx aerosol inhaler Past Med/Surg History Social History Smoking Status: Unknown if ever smoked Cigarettes Per Day: 4-5; Hx Alcohol Use: No Hx Substance Use: No Preferred Language: [place]uneian Communication Ability: Effective Visual Impairment: No Limitations Hearing Ability: Normal Cap Sewer Required: No Beliefs That Will Affect Care: None Current Living Situation: Spouse current occupational status: disabled Feels Safe at Home: Yes Childhood Exposure to Second-Hand Smoke: Yes Physical Activity Frequency: Does not Exercise Seatbelt Use: always Sunscreen Use: Yes Physical Exam Constitutional: + obese and + altered mental status Respiratory: normal respiratory effort, lungs clear to auscultation Cardiovascular: RRR, no murmur, no edema Neurologic: + obtunded Comatose Patient: + response to noxious stimuli absent ASA Classification ASA ASA3 Results & Data Vital Signs (Past 12 Hours) Vital Signs Temp Pulse Resp BP Pulse Ox 09/03/19 21:49 35.7 C L 72 18 127/80 98 Code Status & VTE Plan VTE Prophylaxis Plan VTE Prophylaxis will be ordered: Yes
--- NOTE | 2019-09-03 22:18 | Emergency Department Note ---
Impression & Plan ST elevation (STEMI) myocardial infarction, Elevated troponin, Cardiac arrest with ventricular fibrillation, Signs of return of spontaneous circulation ED Provider Note INFORMANT: EMS, ED PROVIDER(S): Catrachito Black MD CHIEF COMPLAINT: Cardiac arrest PLAN: Disposition: Admitted Condition: Critical MEDICAL DECISION MAKING: Patient presented to the emergency department after a V. fib cardiac arrest and Rosc by ACLS prehospital intervention. EMS ECG was concerning for inferior ST elevation ID. Medical command done by me. Code Arctic as well as code heart alert initiated. Patient presented. She was intubated. She was placed on the ventilator without difficulty. Stable vital signs. She was also placed on the cooling blanket. She was given 2 mg of Versed IV as she was bucking the tube slightly. The patient had a mild leukocytosis on CBC and elevated troponin on chemistry panel. Interventional cardiology, Dr. Sahu presented to the emergency department. He assessed the situation and felt emergent cardiac intervention was necessary. The patient's consented. I did discuss the case with the patient's as well. Patient was taken emergently to the cardiac catheterization suite. The patient was also evaluated by Dr. Juan Ramon Sapp of the [facility] service to help with admission. Triage Nursing notes reviewed and agree them. [Additional history obtained from] EMS and the patient's [Prior medical records reviewed] history of COPD and CHF. A. fib with ablation. Vital Signs: reviewed and remarkable for [no significant abnormalities] Differential diagnosis: Dysrhythmia, myocardial infarction, infection, hypoglycemia, electrolyte abnormalities, overdose, toxicologic, cardiac sources, intracerebral event, neurologic, trauma, as well as other pathologies. Diagnostics interpreted by me: ECG: Twelve-lead ECG reveals a sinus rhythm with PACs at 73 bpm. There is left axis deviation and incomplete right bundle branch block present. There is anterolateral T wave abnormality present. ST elevation inferiorly concerning for myocardial infarction. Cardiac Monitoring: Cardiac monitoring ordered by me: The patient was placed on continuous cardiac monitoring and observed. It revealed a normal sinus rhythm at 75 beats per minute without ectopy or evidence of dysrhythmia. Imaging studies: Chest x-ray reveals no evidence of pneumothorax, effusion, or infiltrate. Endotracheal tube was at the right mainstem. Catheterization laboratory notified to draw back tube 1.5 cm Consultation(s): Interventional cardiology [facility] service HPI: The patient is a 63 year old female who presents to the Emergency Room with return of spontaneous circulation after V. fib cardiac arrest. This started less than 1 hour prior to arrival and is stabilizing. Patient did complain of chest pain to her . She collapsed. He summoned 911 and began bystander CPR. Police arrived on scene and continued CPR. AED was applied and the patient was shocked twice. ACLS arrived and initiated care. CPR was continued. The patient was given 2 shocks for ventricular fibrillation with conversion after also receiving IV epinephrine and 300 mg of IV amiodarone. The patient was intubated. Vital signs stabilized per EMS. Prehospital ECG was concerning for ST elevation ID. Medical command was contacted. A heart alert and code Arctic was initiated. History is limited secondary to the patient's mental sta tus. ROS: Unobtainable secondary to mental status and acuity. PAST MEDICAL HISTORY:[See Below] A. fib, COPD PAST SURGICAL HISTORY:[See Below] FAMILY HISTORY:[See Below] SOCIAL HISTORY:[See Below] HOME MEDICATIONS:[See Below] ALLERGIES:[See Below] VITALS:[See Below] PHYSICAL EXAMINATION: GENERAL: Unconscious, unresponsive, intubated. HENT: Normocephalic, atraumatic. Oropharynx unremarkable. ET tube in place. EYES: Normal conjunctiva. Sclera non-icteric. NECK: No tracheal deviation, No JVD. RESPIRATORY: Breath sounds equal bilaterally.. CARDIAC: Regular rate, normal rhythm. ABDOMEN: Soft, non-distended. No masses. RECTAL: Deferred. MUSCULOSKELETAL: Atraumatic. IO line present in the left tibia. LOWER EXTREMITIES: No significant edema. NEURO: Altered sensorium. Patient biting at the ET tube. Not following commands. SKIN: No rash or jaundice noted. ED COURSE: [Critical Care:] I have personally spent greater than 32 minutes of critical care time in the direct management of this patient. This includes bedside care, interpretation of diagnostic studies, and testing, discussion with consultants, and family members, and other required patient management activities. These minutes are in excess of all separately billable procedures. Catrachito Black MD Past Med/Surg History Medical History Afib Cataract Congestive heart failure (Acute) Congestive heart failure COPD exacerbation History of cardioversion Hypertension (Chronic) Hypoxemia (Acute) SOB (shortness of breath) Surgical History H/O cardiac radiofrequency ablation H/O partial thyroidectomy History of 3 sections Family History Other No pertinent family history Social History Smoking Status: Unknown if ever smoked Cigarettes Per Day: 4-5; Hx Alcohol Use: No Hx Substance Use: No Preferred Language: Divehi Communication Ability: Effective Visual Impairment: No Limitations Hearing Ability: Normal Cooler Man Required: No Beliefs That Will Affect Care: None Current Living Situation: Spouse current occupational status: disabled Childhood Exposure to Second-Hand Smoke: Yes Physical Activity Frequency: Does not Exercise Seatbelt Use: always Sunscreen Use: Yes Allergies Allergies Allergy/AdvReac Type Severity Reaction Status Date / Time No Known Allergies Allergy Verified 04/14/19 12:15 Home Meds Home Medications Medication Instructions Recorded Confirmed Centrum 1 tab PO QAM 05/19/18 04/14/19 flecainide 100 mg PO DAILY 05/19/18 04/14/19 ipratropium-albuterol 3 ml INHALATION QID 05/19/18 04/14/19 Previous Rx's Medication Instructions Recorded guaifenesin [Mucinex] 1,200 mg PO Q12 #30 tab 05/23/18 nicotine [Nicoderm CQ] 7 mg TRANSDERMAL QAM #14 ea 05/23/18 amlodipine 10 mg tablet 10 mg PO DAILY #90 tab 12/16/18 lisinopril 20 1 tab PO QAM #90 tab 12/16/18 mg-hydrochlorothiazide 12.5 mg tablet fluticasone furoate 100 1 ea INHALATION DAILY #1 inhaler 01/28/19 mcg-vilanterol 25 mcg/dose inhalation powder rivaroxaban 20 mg tablet 20 mg PO DAILY #30 tab 03/22/19 varenicline 0.5 mg (11)-1 mg (42) See Rx Instructions PO .as 04/14/19 tablets in a dose pack directed #53 ea varenicline 1 mg tablet 1 mg PO BID 84 Days #168 tab 04/14/19 azithromycin 250 mg tablet See Rx Instructions PO .COMPLEX #6 06/09/19 tab prednisone 10 mg tablet See Rx Instructions PO DAILY #30 06/09/19 tab metoprolol succinate 100 mg 100 mg PO DAILY #90 tab 07/13/19 tablet,extended release 24 hr albuterol sulfate 90 mcg/actuation 1 puffs INHALATION Q4H PRN #18 gm 08/05/19 aerosol inhaler Results & Data (ED) Vital Signs Vital Signs - 24 hr 09/03/19 21:02 09/03/19 21:05 09/03/19 21:10 Pulse Rate 73 75 75 Pulse Rate from SpO2 Sensor 73 75 Respiratory Rate 21 Blood Pressure 127/80 157/103 H Blood Pressure Mean 88 129 Pulse Oximetry 100 98 99 Oxygen Delivery Method Mechanical Vent Mechanical Vent Fraction of Inspired Oxygen 60 60 60 End-Tidal CO2 41 46 43 09/03/19 21:11 09/03/19 21:16 Pulse Rate 76 Pulse Rate from SpO2 Sensor 74 76 Respiratory Rate Blood Pressure 133/91 144/73 H Blood Pressure Mean 93 98 Pulse Oximetry 99 97 Oxygen Delivery Method Mechanical Vent Mechanical Vent Fraction of Inspired Oxygen 60 60 End-Tidal CO2 43 50 Laboratory Data Result diagrams: 09/03/19 21:04 09/03/19 23:43 Lab Results 09/03/19 09/03/19 09/03/19 Range/Units 21:04 21:04 21:04 WBC 12.99 H (4.8-10.8) K/uL RBC 4.43 (4.2-5.4) M/uL Hgb 12.6 (12.0-16.0) g/dL POC Hgb (12.0-16.0) g/dl Hct 40.7 (37-47) % POC Hct (37-47) % MCV 91.9 (80-100) fL MCH 28.4 (25-34) pg MCHC 31.0 L (32-36) g/dL RDW Std Deviation 44.9 (36.4-46.3) fL RDW Coeff of Naila 13.4 (11.5-14.5) % Plt Count 366 (130-400) K/uL MPV 9.5 (7.4-10.4) fL Immature Gran % (Auto) 5.2 % Neut % (Auto) 63.5 % Lymph % (Auto) 27.0 % [place] % (Auto) 3.6 % Eos % (Auto) 0.5 % Baso % (Auto) 0.2 % Neut # (Auto) 8.25 H (1.4-6.5) K/uL Lymph # (Auto) 3.51 H (1.2-3.4) K/uL [place] # (Auto) 0.47 (0.11-0.59) K/uL Eos # (Auto) 0.07 (0-0.5) K/uL Baso # (Auto) 0.02 (0-0.2) K/uL Immature Gran # (Auto) 0.67 H (0.00-0.02) K/uL PT 13.3 H (9.0-12.0) Seconds INR 1.3 H (0.9-1.1) APTT 31.9 H (21.0-31.0) Seconds PTT Ratio 1.1 POC Sodium (135-144) mmol/L Sodium 142 (136-145) mmol/L POC Potassium (3.3-5.0) mmol/L Potassium 4.7 (3.5-5.1) mmol/L POC Chloride (101-112) mmol/L Chloride 103 (98-107) mmol/L Carbon Dioxide 28 (21-32) mmol/L POC Total CO2 (24-31) mmol/L Anion Gap 11.0 (3-11) POC Anion Gap (16-25) mmol/L POC BUN (7-18) mg/dl BUN 15 (7-18) mg/dl Creatinine 1.57 H (0.6-1.2) mg/dl POC Creatinine (0.6-1.3) mg/dl Est Cr Clr Drug Dosing Not Reportable Est GFR ( Amer) 40.8 Est GFR (Non-Af Amer) 35.2 BUN/Creatinine Ratio 9.5 L (10-20) Glucose 291 H (70-99) mg/dl POC Glucose (other) (70-99) mg/dl Calcium 8.0 L (8.5-10.1) mg/dl POC Ioniz Calcium Miracle (1.12-1.32) mmol/l Magnesium 2.4 (1.8-2.4) mg/dl Total Bilirubin 0.3 (0.2-1) mg/dl AST 49 H (15-37) U/L ALT 40 (12-78) U/L Alkaline Phosphatase 119 H (45-117) U/L Total Creatine Kinase 151 (26-192) U/L CK-MB (CK-2) 4.3 H (0.5-3.6) ng/ml CK/CKMB % Calc 2.8 (0-3.0) POC Troponin I (0-0.045) ng/ml Troponin I 0.625 H* (0-0.045) ng/ml Total Protein 6.8 (6.4-8.2) gm/dl Albumin 2.9 L (3.4-5.0) gm/dl Globulin 3.9 (2.5-4.0) gm/dl Albumin/Globulin Ratio 0.7 L (0.9-2) Lipase 166 (73-393) U/L TSH 6.310 H (0.300-4.500) uIu/ml Free T4 0.97 (0.8-1.6) ng/dl 09/03/19 09/03/19 Range/Units 21:15 21:17 WBC (4.8-10.8) K/uL RBC (4.2-5.4) M/uL Hgb (12.0-16.0) g/dL POC Hgb 13.3 (12.0-16.0) g/dl Hct (37-47) % POC Hct 39 (37-47) % MCV (80-100) fL MCH (25-34) pg MCHC (32-36) g/dL RDW Std Deviation (36.4-46.3) fL RDW Coeff of Naila (11.5-14.5) % Plt Count (130-400) K/uL MPV (7.4-10.4) fL Immature Gran % (Auto) % Neut % (Auto) % Lymph % (Auto) % [place] % (Auto) % Eos % (Auto) % Baso % (Auto) % Neut # (Auto) (1.4-6.5) K/uL Lymph # (Auto) (1.2-3.4) K/uL [place] # (Auto) (0.11-0.59) K/uL Eos # (Auto) (0-0.5) K/uL Baso # (Auto) (0-0.2) K/uL Immature Gran # (Auto) (0.00-0.02) K/uL PT (9.0-12.0) Seconds INR (0.9-1.1) APTT (21.0-31.0) Seconds PTT Ratio POC Sodium 142 (135-144) mmol/L Sodium (136-145) mmol/L POC Potassium 4.6 (3.3-5.0) mmol/L Potassium (3.5-5.1) mmol/L POC Chloride 100 L (101-112) mmol/L Chloride (98-107) mmol/L Carbon Dioxide (21-32) mmol/L POC Total CO2 30 (24-31) mmol/L Anion Gap (3-11) POC Anion Gap 18.0 (16-25) mmol/L POC BUN 16 (7-18) mg/dl BUN (7-18) mg/dl Creatinine (0.6-1.2) mg/dl POC Creatinine 1.3 (0.6-1.3) mg/dl Est Cr Clr Drug Dosing Est GFR ( Amer) Est GFR (Non-Af Amer) BUN/Creatinine Ratio (10-20) Glucose (70-99) mg/dl POC Glucose (other) 300 H (70-99) mg/dl Calcium (8.5-10.1) mg/dl POC Ioniz Calcium Miracle 1.13 (1.12-1.32) mmol/l Magnesium (1.8-2.4) mg/dl Total Bilirubin (0.2-1) mg/dl AST (15-37) U/L ALT (12-78) U/L Alkaline Phosphatase (45-117) U/L Total Creatine Kinase (26-192) U/L CK-MB (CK-2) (0.5-3.6) ng/ml CK/CKMB % Calc (0-3.0) POC Troponin I 0.44 H (0-0.045) ng/ml Troponin I (0-0.045) ng/ml Total Protein (6.4-8.2) gm/dl Albumin (3.4-5.0) gm/dl Globulin (2.5-4.0) gm/dl Albumin/Globulin Ratio (0.9-2) Lipase (73-393) U/L TSH (0.300-4.500) uIu/ml Free T4 (0.8-1.6) ng/dl Administered Medications Discontinued Medications Amiodarone HCl/Dextrose (Nexterone / D5w) Confirm Administered Dose 150 mg IV .STK-MED ONE Stop: 09/03/19 21:16 Last Admin: 09/03/19 21:19 Dose: 150 mg Documented by: [id number] Cosigned by: [id number] Midazolam HCl (Versed) Confirm Administered Dose 2 mg .ROUTE .STK-MED ONE Stop: 09/03/19 21:23 Last Admin: 09/03/19 21:24 Dose: 2 mg Documented by: [id number] Discharge Plan Visit Data *Final* Discharge Date/Time: 09/03/19 21:49 Chief Complaint: Heart Alert Other Complaint: Cardiac Arrest/CPR ED Provider: Catrachito Black Discharge Problem: ST elevation (STEMI) myocardial infarction, Elevated troponin, Cardiac arrest with ventricular fibrillation, Signs of return of spontaneous circulation Patient Disposition: Admitted As Inpatient Discharge Instructions Interventions: ED Discharge Assessment Last Done: 09/03/19 21:25
--- NOTE | 2019-09-03 22:26 | Cardiac Catheterization ---
Cardiac Cath Procedure Full Procedure Date September 03, 2019 Pre-Procedure Diagnosis Pre-Procedure Diagnosis: Acute Coronary Syndrome AUC Score AUC Score: 3 Post-Procedure Diagnosis Post-Procedure Diagnosis: Moderate CAD and Unsuccessful PCI Procedure(s) Performed Procedure(s) Performed: Coronary Angiography, Aortography, Femoral Artery Angiography and Procedure (placment of venous cooling cath) Steam Hand Samina Sahu Estimated Blood Loss Estimated Blood Loss: None Summary of Findings Possible distal rca though it is unclear if it is the end of the vessel or a leasion. no wire was able to pass Distal apical LAD occlusion not amendable to intervention no aortic dissection cool cath placed Hemodynamics Rest Ao:: 79/72 Final Ao: 107/80 LV: not done Recommendations Recommendations: Medical Therapy and/or Counseling Radiation Exposure (mGy) 6.2 Contrast (mls) 180 I attest to the content of the Intraoperative Record and any orders documented therein. Any exceptions are noted below. ACC Data: Deputy Administrator Cardiac Status Clinical evaluation leading to the procedure pt c/o of cp s/p cardiac arrest and multiple shocks and 20+ mins of CPR with ROSC presenting with inf yadira No fixable leasion was found. Attempted to cross distal RCA without succuss. A cooling cath was placed for coling Protocol in standard fashion. CAD Presenation: STEMI Anginal Classification: CCS IV Heart Failure: No Cardiogenic Shock within 24 Hours: Yes Cardiac Arrest within 24 Hours: Yes Imaging Studies Past 6 Months: No Stress Studies Past 6 Months: No STEMI OR Non-STEMI Symptom Onset Date: 09/03/19 Thrombolytics: No Coronary Anatomy Dominant: Left LAD (% Stenosis): Distal (100% at the apex) RCA (% Stenosis): Distal (possible distal rca 100%) Aortography Aortic Regurgitation: no dissection Diagnostic Physicians Name: Samina aShu Status: Salvage Closure Device Percutaneous Entry Location: Femoral Closure Device: None-Manual Hold Recommendations: Medical Therapy and/or Counseling First Noted: First EKG Reason For Delay in PCI:: Cardiac Arrest &/or Lesion Segment Name: distal/apical LAD 100% Culprit Artery: No Chronic Total Occlusion: Yes IVUS: No FFR: No Pre-Procedure GER[place] Flow: 0 Previously Treated Lesion: No Lesion Complexity: High/C Lesion Length (mm): 10 Thrombus Present: No Bifurcation Lesion: No Guidewire Across Lesion: No Lesion #2 Segment Name: distal rca Culprit Artery: No Chronic Total Occlusion: Yes IVUS: No FFR: No Pre-Procedure GER[place] Flow: 0 Previously Treated Lesion: No Thrombus Present: No Bifurcation Lesion: No Guidewire Across Lesion: No Intraprocedure Events Significant Disection: No Perforation: No
--- NOTE | 2019-09-03 22:34 | History & Physical Report ---
Date of Service September 03, 2019 Assessment & Plan (1) Admitted to intensive care unit: Patient is admitted to intensive care unit/status post cardiac arrest in the field with ventricular fibrillation/status post return of spontaneous circulation/cold therapy, Code Arctic/STEMI- Post cardiac catheterization orders per Dr. Sahu. Standard protocol orders for laboratories: CBC with differential, troponins, chemistry profile, magnesium, ABGs, PT/PTT//INR. Consult granite worker service with Dr. Tavares. Consult cardiology Present on Admission?: Yes (2) Cardiac arrest: See above Present on Admission?: Yes (3) ST elevation (STEMI) myocardial infarction: See above Present on Admission?: Yes (4) Cardiac arrest with ventricular fibrillation: See above Present on Admission?: Yes (5) Signs of return of spontaneous circulation: See above Present on Admission?: Yes (6) Pneumonia: Placed on vancomycin IV and Zosyn IV due to likely aspiration. Present on Admission?: Yes Admission and Anticipated Discharge Date Admission Date: September 03, 2019 History of Present Illness Chief Complaint: The patient was found to have a cardiac arrest with ventricular fibrillation in the field, and did have ROSC after cardioversion x2 and epinephrine. Primary Care Provider: Ricardo ePrson III, JENNY The patient is a 63-year-old female with a past medical history including COPD, anxiety, pneumonia, atrial fibrillation, history of cardiac radiofrequency ablation, COPD exacerbation with hypoxemia, and CHF. She presented to the emergency department after a V. fib cardiac arrest in the field, intubated, with ROSC after defibrillation x2 and epinephrine. EMS EKG suggested inferior wall STEMI, and preparations for Code Arctic were made and heart alert was initiated. Patient did receive amiodarone 300 mg IV in the field, and was started on amiodarone drip per protocol while in the ED. Patient was then taken emergently to the cardiac catheterization lab by Dr. Sahu, and then admitted to the ICU for further care. Allergies Allergy/AdvReac Type Severity Reaction Status Date / Time No Known Allergies Allergy Verified 04/14/19 12:15 Home Medications Home Medications Medication Instructions Recorded Confirmed Type Centrum 1 tab PO QAM 05/19/18 04/14/19 History flecainide 100 mg PO DAILY 05/19/18 04/14/19 History ipratropium-albuterol 3 ml INHALATION QID 05/19/18 04/14/19 History guaifenesin [Mucinex] 1,200 mg PO Q12 #30 tab 05/23/18 04/14/19 Rx nicotine [Nicoderm CQ] 7 mg TRANSDERMAL QAM #14 ea 05/23/18 04/14/19 Rx amlodipine 10 mg tablet 10 mg PO DAILY #90 tab 12/16/18 04/14/19 Rx lisinopril 20 1 tab PO QAM #90 tab 12/16/18 04/14/19 Rx mg-hydrochlorothiazide 12.5 mg tablet fluticasone furoate 100 1 ea INHALATION DAILY #1 inhaler 01/28/19 04/14/19 Rx mcg-vilanterol 25 mcg/dose inhalation powder rivaroxaban 20 mg tablet 20 mg PO DAILY #30 tab 03/22/19 04/14/19 Rx varenicline 0.5 mg (11)-1 mg (42) See Rx Instructions PO .as 04/14/19 04/14/19 Rx tablets in a dose pack directed #53 ea varenicline 1 mg tablet 1 mg PO BID 84 Days #168 tab 04/14/19 04/14/19 Rx azithromycin 250 mg tablet See Rx Instructions PO .COMPLEX #6 06/09/19 Rx tab prednisone 10 mg tablet See Rx Instructions PO DAILY #30 06/09/19 Rx tab metoprolol succinate 100 mg 100 mg PO DAILY #90 tab 07/13/19 Rx tablet,extended release 24 hr albuterol sulfate 90 mcg/actuation 1 puffs INHALATION Q4H PRN #18 gm 08/05/19 Rx aerosol inhaler Past Med/Surg History Medical History Afib Cataract Congestive heart failure (Acute) Congestive heart failure COPD exacerbation History of cardioversion Hypertension (Chronic) Hypoxemia (Acute) SOB (shortness of breath) Surgical History H/O cardiac radiofrequency ablation H/O partial thyroidectomy History of 3 sections Family History Other No pertinent family history Social History Smoking Status: Unknown if ever smoked Cigarettes Per Day: 4-5; Hx Alcohol Use: No Hx Substance Use: No Preferred Language: Malagasy Communication Ability: Effective Visual Impairment: No Limitations Hearing Ability: Normal Pad Tufter Required: No Beliefs That Will Affect Care: None Current Living Situation: Spouse current occupational status: disabled Childhood Exposure to Second-Hand Smoke: Yes Physical Activity Frequency: Does not Exercise Seatbelt Use: always Sunscreen Use: Yes Review of Systems Review of Systems: Unobtainable due to endotracheal tube Physical Exam Physical Exam: The patient is sedated, obtunded, on the ventilator. HEENT--PERRL, EOMI, mucous membranes and oropharynx dry. Neck--supple. No JVD. No bruits. Thyroid normal, trachea midline, no adenopathy. Heart--normal S1 and S2. No murmurs, rubs or gallops. Lungs--few coarse breath sounds bilaterally. Abdomen--normal bowel sounds and soft. Mildly distended and tympanitic. Extremities--no cyanosis or clubbing. No edema. Dermatologic--normal skin turgor. Neurologic--limited exam Rheumatologic--limited exam Psychiatric-intubated. Results & Data Results & Data ([facility]) Vital Signs (Past 12 Hours) Vital Signs Temp Pulse Resp BP Pulse Ox 09/03/19 21:49 96.3 F L 72 18 127/80 98 09/03/19 21:21 76 150/105 H 95 09/03/19 21:16 76 144/73 H 97 09/03/19 21:11 133/91 99 09/03/19 21:05 75 157/103 H 98 09/03/19 21:02 73 127/80 100 Laboratory Results Laboratory Results WBC 32.16 K/uL (4.8-10.8) H* D 09/04/19 03:39 RBC 4.27 M/uL (4.2-5.4) 09/04/19 03:39 Hgb 12.2 g/dL (12.0-16.0) 09/04/19 03:39 POC Hgb 12.9 g/dl (12.0-16.0) 09/04/19 05:43 Hct 39.0 % (37-47) 09/04/19 03:39 POC Hct 38 % (37-47) 09/04/19 05:43 MCV 91.3 fL (80-100) 09/04/19 03:39 MCH 28.6 pg (25-34) 09/04/19 03:39 MCHC 31.3 g/dL (32-36) L 09/04/19 03:39 RDW Std Deviation 45.8 fL (36.4-46.3) 09/04/19 03:39 RDW Coeff of Naila 13.7 % (11.5-14.5) 09/04/19 03:39 Plt Count 426 K/uL (130-400) H 09/04/19 03:39 MPV 9.4 fL (7.4-10.4) 09/04/19 03:39 Immature Gran % (Auto) 0.5 % 09/04/19 03:39 Neut % (Auto) 92.8 % 09/04/19 03:39 Lymph % (Auto) 2.4 % 09/04/19 03:39 [place] % (Auto) 4.2 % 09/04/19 03:39 Eos % (Auto) 0.0 % 09/04/19 03:39 Baso % (Auto) 0.1 % 09/04/19 03:39 Neut # (Auto) 29.86 K/uL (1.4-6.5) H 09/04/19 03:39 Lymph # (Auto) 0.77 K/uL (1.2-3.4) L 09/04/19 03:39 [place] # (Auto) 1.34 K/uL (0.11-0.59) H 09/04/19 03:39 Eos # (Auto) 0.01 K/uL (0-0.5) 09/04/19 03:39 Baso # (Auto) 0.02 K/uL (0-0.2) 09/04/19 03:39 Immature Gran # (Auto) 0.16 K/uL (0.00-0.02) H 09/04/19 03:39 PT 13.8 Seconds (9.0-12.0) H 09/04/19 03:34 INR 1.3 (0.9-1.1) H 09/04/19 03:34 APTT 38.7 Seconds (21.0-31.0) H 09/04/19 03:34 PTT Ratio 1.4 09/04/19 03:34 Sample Site Art Line 09/04/19 05:43 POC pH 7.20 (7.35-7.45) L 09/04/19 05:43 POC pCO2 83 mmHg (35-46) H 09/04/19 05:43 POC pO2 105 mmHg (80-95) H 09/04/19 05:43 POC HCO3 33 olamide/L (19-24) H 09/04/19 05:43 POC Total CO2 35 mmol/L (24-31) H 09/04/19 05:43 POC Base Excess 5.0 olamide/L (-9-1.8) H 09/04/19 05:43 ABG pH (Temp Correct) 7.267 (7.35-7.45) L 09/04/19 05:43 ABG pCO2 (Temp Corrct 68 mmHg (35-46) H 09/04/19 05:43 POC ABG pO2 at Pt Temp 80 09/04/19 05:43 POC ABG O2 Sat 96.0 % (90-95) H 09/04/19 05:43 Hitesh Test NA 09/04/19 05:43 O2 Delivery Device Ventilator 09/04/19 05:43 POC O2 Rate 22 09/04/19 05:43 Minute Ventilation 11.0 09/04/19 05:43 POC FiO2 40 % 09/04/19 05:43 Tidal Volume 500 09/04/19 05:43 PEEP 8 09/04/19 05:43 POC Sodium 141 mmol/L (135-144) 09/04/19 05:43 Sodium 142 mmol/L (136-145) 09/04/19 03:39 Sodium Cancelled 09/04/19 03:39 POC Potassium 5.7 mmol/L (3.3-5.0) H 09/04/19 05:43 Potassium 5.3 mmol/L (3.5-5.1) H D 09/04/19 03:39 Potassium Cancelled 09/04/19 03:39 POC Chloride 100 mmol/L (101-112) L 09/03/19 21:17 Chloride 107 mmol/L (98-107) 09/04/19 03:39 Chloride Cancelled 09/04/19 03:39 Carbon Dioxide 28 mmol/L (21-32) 09/04/19 03:39 Carbon Dioxide Cancelled 09/04/19 03:39 POC Total CO2 30 mmol/L (24-31) 09/03/19 21:17 Anion Gap 7.0 (3-11) 09/04/19 03:39 Anion Gap Cancelled 09/04/19 03:39 POC Anion Gap 18.0 mmol/L (16-25) 09/03/19 21:17 POC BUN 16 mg/dl (7-18) 09/03/19 21:17 BUN 22 mg/dl (7-18) H 09/04/19 03:39 BUN Cancelled 09/04/19 03:39 Creatinine 1.50 mg/dl (0.6-1.2) H 09/04/19 03:39 Creatinine Cancelled 09/04/19 03:39 POC Creatinine 1.3 mg/dl (0.6-1.3) 09/03/19 21:17 Est Cr Clr Drug Dosing 45.8 ml/min 09/04/19 03:39 Est Cr Clr Drug Dosing Cancelled 09/04/19 03:39 Est GFR ( Amer) 43.1 09/04/19 03:39 Est GFR ( Amer) Cancelled 09/04/19 03:39 Est GFR (Non-Af Amer) 37.2 09/04/19 03:39 Est GFR (Non-Af Amer) Cancelled 09/04/19 03:39 BUN/Creatinine Ratio 15.0 (10-20) 09/04/19 03:39 BUN/Creatinine Ratio Cancelled 09/04/19 03:39 Glucose 295 mg/dl (70-99) H 09/04/19 03:39 Glucose Cancelled 09/04/19 03:39 POC Glucose 337 mg/dl (70-99) H* 09/04/19 02:29 POC Glucose (other) 135 mg/dl (70-99) H 09/04/19 06:21 Lactate 2.8 mmol/L (0.4-2.0) H* 09/04/19 03:39 Calcium 7.4 mg/dl (8.5-10.1) L 09/04/19 03:39 Calcium Cancelled 09/04/19 03:39 POC Ioniz Calcium Miracle 1.13 mmol/l (1.12-1.32) 09/03/19 21:17 Ionized Calcium 1.02 mmol/L (1.12-1.32) L 09/04/19 03:39 Phosphorus 6.5 mg/dl (2.5-4.9) H D 09/04/19 03:39 Phosphorus Cancelled 09/04/19 03:39 Magnesium 2.0 mg/dl (1.8-2.4) 09/04/19 03:39 Magnesium Cancelled 09/04/19 03:39 Total Bilirubin 0.4 mg/dl (0.2-1) 09/04/19 03:39 Direct Bilirubin < 0.1 mg/dl (0-0.2) 09/04/19 04:27 AST 116 U/L (15-37) H 09/04/19 03:39 ALT 60 U/L (12-78) 09/04/19 03:39 Alkaline Phosphatase 114 U/L (45-117) 09/04/19 03:39 Total Creatine Kinase 151 U/L (26-192) 09/03/19 21:04 CK-MB (CK-2) 81.3 ng/ml (0.5-3.6) H 09/04/19 03:39 CK/CKMB % Calc Not Reportable 09/04/19 03:39 POC Troponin I 0.44 ng/ml (0-0.045) H 09/03/19 21:15 Troponin I 9.370 ng/ml (0-0.045) H* 09/03/19 23:43 Total Protein 6.6 gm/dl (6.4-8.2) 09/04/19 03:39 Albumin 2.9 gm/dl (3.4-5.0) L 09/04/19 03:39 Globulin 3.9 gm/dl (2.5-4.0) 09/03/19 21:04 Albumin/Globulin Ratio 0.7 (0.9-2) L 09/03/19 21:04 Lipase 166 U/L (73-393) 09/03/19 21:04 Beta-Hydroxybutyric Acd 1.25 mg/dl (0.2-2.81) 09/03/19 23:43 TSH 6.310 uIu/ml (0.300-4.500) H 09/03/19 21:04 Free T4 0.97 ng/dl (0.8-1.6) 09/03/19 21:04 Specimen Hemolysis 09/04/19 03:39 Urine Color Yellow 09/04/19 01:15 Urine Appearance Cloudy (Clear) A 09/04/19 01:15 Urine pH 6.5 (4.5-7.5) 09/04/19 01:15 Ur Specific [place] 1.036 (1.000-1.030) H 09/04/19 01:15 Urine Protein 2+ (Negative) H 09/04/19 01:15 Urine Glucose (UA) 1+ (Negative) H 09/04/19 01:15 Urine Ketones Negative (Negative) 09/04/19 01:15 Urine Blood 3+ (Negative) H 09/04/19 01:15 Urine Nitrite Negative (Negative) 09/04/19 01:15 Urine Bilirubin Negative (Negative) 09/04/19 01:15 Urine Urobilinogen Negative (Negative) 09/04/19 01:15 Ur Leukocyte Esterase Negative (Negative) 09/04/19 01:15 Urine WBC (Auto) >30 /hpf (0-5) H 09/04/19 01:15 Urine RBC (Auto) 10-30 /hpf (0-4) H 09/04/19 01:15 U Hyaline Cast (Auto) 10-30 /lpf (0-5) H 09/04/19 01:15 U Epithel Cells (Auto) >30 /lpf (0-5) H 09/04/19 01:15 Urine Bacteria (Auto) 1+ (Negative) H 09/04/19 01:15 Urine Yeast Not Reportable 09/04/19 01:15 Nasal Screen MRSA (PCR) Uninterpretable (Negative) 09/04/19 00:45 Code Status & VTE Plan Code Status Full code VTE Prophylaxis Plan VTE Prophylaxis will be ordered: Yes Critical Care Time Critical Care Time: Yes Total Critical Care Time: 45 Total critical care time was 45 minutes PG Care Time/CCT Total # of Minutes Spent Total Time Spent with Patient: Total time spent is greater than 50% in coor dination of care (as documented) at patient's floor/unit and/or counseling patient: Critical Care Time: Yes Total Critical Care Time: 45 Coding Level of Care Code 19186 Initial Inpt Care Lvl 3 Diagnoses Admitted to intensive care unit Z78.[address] elevation (STEMI) myocardial infarction I21.3 Cardiac arrest with ventricular fibrillation I46.9; I49.01 Signs of return of spontaneous circulation Pneumonia J18.1 Laterality: right Lung location: lower lobe of lung Pneumonia type: due to unspecified organism Additional Codes Critical Care Time - Critical Care Time: Yes ([id number]) Time Spent (min) 45 (1) Pneumonia Laterality: right Lung location: lower lobe of lung Pneumonia type: due to unspecified organism Qualified Code(s): J18.1 - Lobar pneumonia, unspecified organism
--- NOTE | 2019-09-03 22:56 | CT Scan Report ---
CT SCAN OF THE BRAIN WITHOUT IV CONTRAST CLINICAL HISTORY: Status post cardiac arrest. COMPARISON STUDY: No priors. TECHNIQUE: Unenhanced axial CT scan of the brain is performed from the vertex to the skull base. A do se lowering technique was utilized adhering to the principles of ALARA. There is residual IV contrast throughout the intracranial circulation. This degrades assessment for hemorrhage. CT DOSE: 1228.53 mGy.cm FINDINGS: An endotracheal tube is noted on the trademark affixer tomogram. Brain parenchyma: There are age-related involutional changes noting moderate confluent subcortical a nd periventricular microangiopathic change. There is no hemorrhage, mass effect, or evidence of acute territorial ischemia by CT criteria. Alarcon-white matter differentiation is preserved. No extra-axial fluid collection is seen. Ventricles, sulci, cisterns: Prominent secondary to involutional change. Intracranial vasculature: There is atherosclerotic calcification of the cavernous carotid and vertebr al arteries. The Intracranial vessels at the skull base appear patent. Calvarium: Unremarkable. Sinuses and mastoids: The visualized paranasal sinuses are clear. The mastoid air cells are well pneu matized. Orbits: The bony orbits are grossly intact. There are bilateral ocular lens implants. IMPRESSION: There is no evidence of hemorrhage, mass effect, or acute territorial ischemia by CT crit linnette. ACT 112: Negative or not required by law. Electronically signed by: Juan David Finley M.D. 09/03/2019 10:54 PM
[2019-09-03] MEDS ORDERED: STAT IV Infusion **Titration per Protocol STA (23:27)
[2019-09-03] MEDS ORDERED: PROPOFOL BOLUS FROM BAG IV PRN (23:27)
[2019-09-03] MEDS ORDERED: ARTIFICIAL TEARS OP OINT 3.5 GM TUBE OP PRN (23:27)
[2019-09-03] MEDS ORDERED: MEPERIDINE HCL 25 MG/ML CARP/VIAL IV PRN (23:27)
--- NOTE | 2019-09-03 23:27 | Critical Care Consultation ---
Date of Consultation September 03, 2019 Assessment & Plan (1) Admitted to intensive care unit: Reason Critically Ill: 63-year-old female with ventricular fibrillation cardiac arrest with successful ROSC in the field who is status post PTCA for evaluation of coronary artery disease without significant findings. Patient undergoing therapeutic hypothermia protocol requiring close intensive care monitoring. NEURO - * CAM ICU: Unable to assess secondary to sedation. * Therapeutic Hypothermia Protocol: * Head CT - NEGATIVE for bleed. * Patient does have occasional spontaneous, independent movement of the upper extremities - without purpose. She is not breathing over the vent. She is requiring sedation. * Will continue to monitor closely for any concerning seizure like activity. * AM EEG. * Continue w/ TTM with hopes of preservation on neurological function. * Estimated down time: 20-25 min. CARDIAC/VASCULAR - * V-Fib Arrest w/ ROSC: * Total down time: 20-25 min. * Received 4 shocks, 3 Amps Epi, 1 Amiodarone bolus in the field. * ROSC achieved in the field. * No culprit lesions noted on PTCA. * Continue w/ TTM per hospital protocol. * Pressors as needed. * EKG: NSR @ 73bpm. Shows ST elevation inferiorly w/ T-wave inversions laterally. * Monitor on telemetry. RESPIRATORY - * Respiratory Acidosis: * Consistent w/ cardiopulmonary arrest. * Maximize ventilator settings to improve acidosis. * ABGs q4h per protocol w/ ventilator adjustments as needed. * COPD/Home O2 Dependent: * Will add PRN nebs. * Per records, patient has required steroids in the last few months. Will consider stress dosing/cortisol levels pending ongoing clinical picture. Will hold on stress dosing at this time. GI/NUTRITION - * NPO. * OG in place * Prophylaxis: Famotidine RENAL/LYTES - * BONY: * Likely prerenal 2/2 poor flow s/p arrest. * Continue w/ IVF. * Monitor electrolytes q4h per protocol. * IVF: Normosol @ 100mL/hr - * Temperature sensing [place] in place - Strict I&Os. ENDO - * No h/o DM or Thyroid Dz * BSGs per unit protocol. ISS --> gtt per unit policy. HEME - * Stable H&H * Monitor closely for s/s bleeding s/p arrest/PTCA in the patient on Xarelto. 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 ID - * No apparent infectious sources at this time. * Will monitor w/ daily CXRs for evaluation of possible aspiration during intubation. LINES/IV ACCESS - * PIVs x2 * RIGHT Femoral ThermoGuard Catheter * LEFT Radial A-Line * ET Tube * Temperature Sensing [place] Catheter. * OG DVT PROPHYLAXIS - * Patient with daily Xarelto use 2/2 A-fib. * Will transition to Heparin gtt w/ recent arrest and need for ongoing anticoagulation. * Heparin gtt w/o bolus. * SCDs I have personally spent 90 minutes of critical care time in the direct management of this patient. This is a life/limb threatening event. This includes time spent evaluating patient, direct bedside care, chart review, placing orders, interpretation of diagnostic studies, discussion with consultants, patient, and family members, as well as other required patient management activities. This time is exclusive of all separately billable procedures, and teaching time and separate from and in addition to any other critical care service time. Thank you for allowing us to participate in the care of this patient. Please refer to my attending physician's documentation for any further recommendations. (2) Cardiac arrest with ventricular fibrillation: (3) Signs of return of spontaneous circulation: (4) Cardiac arrest: (5) Elevated troponin: (6) Respiratory acidosis: (7) COPD (chronic obstructive pulmonary disease): (8) Afib: (9) History of cardioversion: Supervising Physician Co-Signing Physician Notes I have personally evaluated and examined this patient. I agree with assessment and plan of Nabil Ndiaye PA-C. As advised of this patient, please see subsequent resident documentation for additional details. History of Present Illness Attending Physician: Juan Ramon Sapp MD History of Present Illness Patient is a 63-year-old female with a significant past medical history of A. fib status post ablation, hypertension, COPD, home O2 dependent, and chronic tobacco abuse. Patient was reportedly complaining of chest discomfort this evening. She went to the restroom and collapsed. performed 5 minutes of CPR until arrival of police. AED was applied and the patient was found to be in V. fib. She was shocked twice. Upon EMS arrival, the patient received 3 rounds of epinephrine, amiodarone, and 2 separate shocks converting the patient to sinus rhythm. The patient was intubated in the field. Patient maintained her own heart rate and blood pressure throughout transfer to this facility. Patient was made a CODE HEART ALERT/CODE ARCTIC. Upon arrival in the emergency department, the patient is intubated and without purposeful movements. She was taken to the catheterization lab where she underwent PTCA with evaluation of coronary vessels which demonstrated no culprit lesions. He was transported to CT where she had a negative scan and arrived to the ICU for completion of therapeutic hypothermia protocol. Allergies Allergy/AdvReac Type Severity Reaction Status Date / Time No Known Allergies Allergy Verified 04/14/19 12:15 Home Medications Home Medications Medication Instructions Recorded Confirmed Type Centrum 1 tab PO QAM 05/19/18 04/14/19 History flecainide 100 mg PO DAILY 05/19/18 04/14/19 History ipratropium-albuterol 3 ml INHALATION QID 05/19/18 04/14/19 History guaifenesin [Mucinex] 1,200 mg PO Q12 #30 tab 05/23/18 04/14/19 Rx nicotine [Nicoderm CQ] 7 mg TRANSDERMAL QAM #14 ea 05/23/18 04/14/19 Rx amlodipine 10 mg tablet 10 mg PO DAILY #90 tab 12/16/18 04/14/19 Rx lisinopril 20 1 tab PO QAM #90 tab 12/16/18 04/14/19 Rx mg-hydrochlorothiazide 12.5 mg tablet fluticasone furoate 100 1 ea INHALATION DAILY #1 inhaler 01/28/19 04/14/19 Rx mcg-vilanterol 25 mcg/dose inhalation powder rivaroxaban 20 mg tablet 20 mg PO DAILY #30 tab 03/22/19 04/14/19 Rx varenicline 0.5 mg (11)-1 mg (42) See Rx Instructions PO .as 04/14/19 04/14/19 Rx tablets in a dose pack directed #53 ea varenicline 1 mg tablet 1 mg PO BID 84 Days #168 tab 04/14/19 04/14/19 Rx azithromycin 250 mg tablet See Rx Instructions PO .COMPLEX #6 06/09/19 Rx tab prednisone 10 mg tablet See Rx Instructions PO DAILY #30 06/09/19 Rx tab metoprolol succinate 100 mg 100 mg PO DAILY #90 tab 07/13/19 Rx tablet,extended release 24 hr albuterol sulfate 90 mcg/actuation 1 puffs INHALATION Q4H PRN #18 gm 08/05/19 Rx aerosol inhaler Patient History Medical History Afib Cataract Congestive heart failure (Acute) Congestive heart failure COPD exacerbation History of cardioversion Hypertension (Chronic) Hypoxemia (Acute) SOB (shortness of breath) Surgical History H/O cardiac radiofrequency ablation H/O partial thyroidectomy History of 3 sections Family History Other No pertinent family history Social History Smoking Status: Unknown if ever smoked Cigarettes Per Day: 4-5; Hx Alcohol Use: No Hx Substance Use: No Preferred Language: Indonesian Communication Ability: Unable Visual Impairment: No Limitations Hearing Ability: Normal Lead Javascript Developer Required: No Beliefs That Will Affect Care: None marital status: Current Living Situation: Spouse current occupational status: disabled Childhood Exposure to Second-Hand Smoke: Yes Physical Activity Frequency: Does not Exercise Seatbelt Use: always Sunscreen Use: Yes Review of Systems Review of Systems: Unobtainable due to endotracheal tube and Unobtainable due to reduced consciousness Physical Exam Physical Exam: VITAL SIGNS - Vital signs and nursing notes were reviewed. GENERAL - 63-year-old female appearing older than her stated age. Intubated and sedated. SKIN - Without rashes. HEAD - NC/AT. EYES - PERRL. Sclera anicteric. Palpebral conjunctiva pink and moist with no injection noted. EARS - No deformities of external structures noted on gross examination bilaterally. NOSE - Midline and without cyanosis. No epistaxis or purulent drainage noted. MOUTH/OROPHARYNX - ET Tube in place. Without perioral cyanosis. NECK - Supple to palpation. No nuchal rigidity. LUNGS - Coarse breath sounds noted throughout all lung heredia. CARDIAC - RRR with S1/S2. No murmur, rubs, or gallops appreciated. ABDOMEN - Abdominal contour protuberant without pulsations or visible masses. BS hypoactive all four quadrants. EXTREMITIES - No clubbing or peripheral cyanosis. No pretibial edema present. +3/5 radial and dorsalis pedis pulses palpated throughout. NEUROLOGIC - Occasional independent movements of the upper extremities - without purpose. No focal neurological deficits noted on exam. Unable to fully assess secondary to sedation, level of consciousness. Results & Data Results & Data ([facility]) Vital Signs (Past 12 Hours) Vital Signs Temp Pulse Resp BP Pulse Ox 09/03/19 21:49 35.7 C L 72 18 127/80 98 09/03/19 21:21 76 150/105 H 95 09/03/19 21:20 98 09/03/19 21:16 76 144/73 H 97 09/03/19 21:11 133/91 99 09/03/19 21:10 75 21 99 09/03/19 21:05 75 157/103 H 98 09/03/19 21:02 73 127/80 100 Coding Level of Care Code Critical Care 1st 30-74 mins Diagnoses Admitted to intensive care unit Z78.9 Cardiac arrest with ventricular fibrillation I46.9; I49.01 Signs of return of spontaneous circulation Cardiac arrest I46.9 Elevated troponin R79.89 Respiratory acidosis E87.2 COPD (chronic obstructive pulmonary disease) J44.9 Afib I48.91 History of cardioversion Z98.890 Time Spent (min) 90
[2019-09-03] MEDS: propofoL 1,000 MG/100 ML VIAL IV SCH (23:30)
[2019-09-03] MEDS ORDERED: PROPOFOL IV EMULSION 10 MG/ML 100 ML VIAL IV ONE (23:31)
[2019-09-03] MEDS ORDERED: PNEUMOCOCCAL ADMINISTRATION CHARGE ONE (23:35)
[2019-09-03] MEDS ORDERED: PNEUMOCOCCAL POLYSACCHARIDES 25 MCG/0.5 ML VIAL/SYR IM ONE (23:35)
[2019-09-03 23:36] LABS: iSTAT Creatinine 1.3 mg/dl (0.6-1.3); iSTAT Hemoglobin 13.3 g/dl (12.0-16.0); iSTAT Ionized Calcium 1.13 mmol/l (1.12-1.32); iSTAT Potassium 4.6 mmol/L (3.3-5.0)
[2019-09-03 23:42] LABS: iSTAT Art Bld Gas pCO2 Correct 77 mmHg (35-46); iSTAT Art Bld Gas pH Corrected 7.198 (7.35-7.45); iSTAT Arterial Blood Gas HCO3 31 meg/L (19-24); iSTAT Arterial Blood Gas pCO2 85 mmHg (35-46); iSTAT Arterial Blood Gas pH 7.17 (7.35-7.45); iSTAT Arterial Blood Gas pO2 94 mmHg (80-95); iSTAT Arterial Blood Gas pO2 C 82; iSTAT Carbon Dioxide 34 mmol/L (24-31); iSTAT FiO2 40 %; iSTAT Hematocrit 39 % (37-47); iSTAT Hemoglobin 13.3 g/dl (12.0-16.0); iSTAT Site Art Line; iSTAT Sodium 140 mmol/L (135-144)
--- NOTE | 2019-09-03 23:42 | Procedure Note ---
Procedure Note Date of Service September 03, 2019 Procedure: Arterial Line Placement Attending: Dr. Tavares APC: Archie Ndiaye PA-C Indication: Monitoring on Pressors Anesthesia: None Emergent consent implied in the setting of need for close hemodynamic monitoring to proceed with therapeutic hypothermia protocol per institution policy. A time-out was completed verifying correct patient, procedure, site, positioning, and implant(s) or special equipment if applicable. Allens test was performed to ensure adequate perfusion. Patients LEFT wrist was prepped and draped in the usual sterile fashion. Ultrasound guidance was used to aid needle placement. A 20g Arrow arterial line was introduced into the LEFT Radial artery. Catheter was threaded, and the needle was removed with appropriate blood return. Good waveform was observed. The patient tolerated the procedure well. Confirmation of placement with ultrasound. Blood Loss: Minimal Complications: None Procedural Ultrasound Guidance: Procedure Date: 09/03/2019 Indication: TTM Protocol, ABGs, Pressors Attending: Dr. Tavares APC: Archie Ndiaye PA-C Artery Identified: YES Line confirmed in Artery with ultrasound: YES Complications: NONE Patient tolerated procedure: WELL Coding CPT Codes Tubes, Drains, and Vasc Access - Tubes, Drains, and Vasc Access: [id number] Place Catheter In Artery ([id number]) [facility] [place] Procedure Codes (Charges) Tubes, Drains, and Vasc Access Procedure 1: Tubes, Drains, and Vasc Access: [id number] Place Catheter In Artery
[2019-09-04 00:17] LABS: BUN Creatinine Ratio 13.7 (10-20); Calcium 7.5 mg/dl (8.5-10.1); Creatinine Clr Calc Pharmacy 47.7 ml/min; Est GFR (African American) 45.3; Est GFR (Non-African American) 39.1; Magnesium 2.2 mg/dl (1.8-2.4); Phosphorus 5.2 mg/dl (2.5-4.9); Potassium 3.8 mmol/L (3.5-5.1); Troponin I 9.37 ng/ml (0-0.045)
[2019-09-04 00:28] LABS: Beta-Hydroxybutyrate 1.25 mg/dl (0.2-2.81)
[2019-09-04 01:36] LABS: Partial Thromboplastin Ratio 1.2
[2019-09-04] MEDS: Heparin IV Low Dose *NO* Bolus IV SCH ×4 (02:02→08:19)
[2019-09-04 02:25] LABS: iSTAT Art Bld Gas pCO2 Correct 74 mmHg (35-46); iSTAT Arterial Blood Gas HCO3 29 meg/L (19-24); iSTAT Arterial Blood Gas pCO2 92 mmHg (35-46); iSTAT Arterial Blood Gas pH 7.11 (7.35-7.45); iSTAT Arterial Blood Gas pO2 100 mmHg (80-95); iSTAT Arterial Blood Gas pO2 C 74; iSTAT Carbon Dioxide 32 mmol/L (24-31); iSTAT FiO2 40 %; iSTAT Hematocrit 39 % (37-47); iSTAT Hemoglobin 13.3 g/dl (12.0-16.0); iSTAT Potassium 5.5 mmol/L (3.3-5.0); iSTAT Site Art Line; iSTAT Sodium 140 mmol/L (135-144)
[2019-09-04] MEDS: HEPARIN SODIUM/DEXTROSE 25,000 UNITS/500 ML BAG IV SCH (02:40)
[2019-09-04] MEDS: fentaNYL DRIP 1,250 MCG/250 ML BAG IV SCH (02:41)
[2019-09-04] MEDS ORDERED: GLUCAGON FOR INJ 1 MG VIAL IM PRN (03:00)
[2019-09-04] MEDS ORDERED: DEXTROSE 50% 50 ML SYRINGE IV PRN (03:00)
[2019-09-04] MEDS ORDERED: NovoLIN-R BOLUS FROM BAG IV ONE (03:00)
[2019-09-04] MEDS ORDERED: CARBOHYDRATES FOR HYPOGLYCEMIA PO PRN (03:00)
[2019-09-04] MEDS ORDERED: GLUCOSE 40% GEL 15 GM TUBE PO PRN (03:00)
[2019-09-04] MEDS ORDERED: GLUCOSE 10 TABS/TUBE PO PRN (03:00)
[2019-09-04] MEDS: AMIODARONE / D5W 360 MG/200 ML BAG IV SCH ×2 (03:46→14:47)
[2019-09-04] MEDS: INSULIN REGULAR 250 UNITS in SODIUM CHLORIDE 0.9% 247.5 ML IV SCH (03:47)
[2019-09-04] MEDS: NORMOSOL-R 1,000 ML IV SCH ×4 (03:49→23:08)
[2019-09-04 04:02] LABS: INR 1.3 (0.9-1.1); Partial Thromboplastin Ratio 1.4; Partial Thromboplastin Time 38.7 Seconds (21.0-31.0); Prothrombin Time 13.8 Seconds (9.0-12.0)
[2019-09-04 04:13] LABS: Appearance Urine Cloudy (Clear); Bacteria Urine Automated 1+ (Negative); Bilirubin Urine Negative (Negative); Blood Urine 3+ (Negative); Color Urine Yellow; Epithelial Cell Urine Auto >30 /lpf (0-5); Glucose Urine UA 1+ (Negative); Ketones Urine Negative (Negative); Leukocyte Esterase Urine Negative (Negative); Nitrite Urine Negative (Negative); Protein Urine 2+ (Negative); Specific Gravity Urine 1.036 (1.000-1.030); Urobilinogen Urine Negative (Negative); WBC Urine Automated >30 /hpf (0-5); pH Urine 6.5 (4.5-7.5)
[2019-09-04 04:25] LABS: Alanine Aminotransferase 60 U/L (12-78); Albumin Level 2.9 gm/dl (3.4-5.0); Alkaline Phosphatase 114 U/L (45-117); Aspartate Aminotransferase 116 U/L (15-37); Bilirubin,Total 0.4 mg/dl (0.2-1); Blood Urea Nitrogen 22 mg/dl (7-18); Calcium 7.4 mg/dl (8.5-10.1); Carbon Dioxide 28 mmol/L (21-32); Chloride 107 mmol/L (98-107); Creatine Kinase MB 81.3 ng/ml (0.5-3.6); Creatinine Clr Calc Pharmacy 45.8 ml/min; Est GFR (African American) 43.1; Est GFR (Non-African American) 37.2; Glucose 295 mg/dl (70-99); Potassium 5.3 mmol/L (3.5-5.1); Sodium 142 mmol/L (136-145); Total Protein 6.6 gm/dl (6.4-8.2)
[2019-09-04 04:39] LABS: Basophils # (auto) 0.02 K/uL (0-0.2); Basophils % (auto) 0.1 %; Eosinophils # (auto) 0.01 K/uL (0-0.5); Hemoglobin 12.2 g/dL (12.0-16.0); Immature Granulocytes # (auto) 0.16 K/uL (0.00-0.02); Immature Granulocytes % (auto) 0.5 %; Lymphocytes # (auto) 0.77 K/uL (1.2-3.4); Lymphocytes % (auto) 2.4 %; Mean Corpuscular Hemoglobin 28.6 pg (25-34); Mean Corpuscular Hgb Conc 31.3 g/dL (32-36); Mean Corpuscular Volume 91.3 fL (80-100); Mean Platelet Volume 9.4 fL (7.4-10.4); Monocytes # (auto) 1.34 K/uL (0.11-0.59); Monocytes % (auto) 4.2 %; Neutrophils # (auto) 29.86 K/uL (1.4-6.5); Neutrophils % (auto) 92.8 %; Platelet Count 426 K/uL (130-400); RDW Coefficient of Variation 13.7 % (11.5-14.5); RDW Standard Deviation 45.8 fL (36.4-46.3); Red Blood Count 4.27 M/uL (4.2-5.4); White Blood Count 32.16 K/uL (4.8-10.8)
[2019-09-04 04:40] LABS: Phosphorus 6.5 mg/dl (2.5-4.9)
[2019-09-04] MEDS: NOREPINEPHRINE BIT INJ 8 MG in DEXTROSE 5% 500 ML IV SCH ×2 (05:02→17:22)
[2019-09-04] MEDS: propofoL 1,000 MG/100 ML VIAL IV SCH ×5 (05:04→22:09)
[2019-09-04 05:59] LABS: iSTAT Art Bld Gas pCO2 Correct 68 mmHg (35-46); iSTAT Art Bld Gas pH Corrected 7.267 (7.35-7.45); iSTAT Arterial Blood Gas HCO3 33 meg/L (19-24); iSTAT Arterial Blood Gas pCO2 83 mmHg (35-46); iSTAT Arterial Blood Gas pO2 105 mmHg (80-95); iSTAT Arterial Blood Gas pO2 C 80; iSTAT Carbon Dioxide 35 mmol/L (24-31); iSTAT FiO2 40 %; iSTAT Hematocrit 38 % (37-47); iSTAT Hemoglobin 12.9 g/dl (12.0-16.0); iSTAT Potassium 5.7 mmol/L (3.3-5.0); iSTAT Site Art Line; iSTAT Sodium 141 mmol/L (135-144)
--- NOTE | 2019-09-04 07:22 | XRay Report ---
XR humerus RT 2V HISTORY: 63 years-old Female RUE fall/injury acute right upper extremity pain status post fall COMPARISON: None TECHNIQUE: 2 views of the right humerus FINDINGS: Intramedullary vero with one proximal and 2 distal fixation screws is noted within the humerus. Healed remote humeral fracture deformity with medial heterotopic ossifications. The hardware appears intact . No acute periprosthetic fracture. Demineralized appearance of the bones with mild to moderate gleno humeral and at least moderate AC joint osteoarthritis. Mild soft tissue swelling of the upper arm. IMPRESSION: 1. Mild soft tissue swelling without acute fracture or dislocation. 2. ORIF changes of the humerus with healed remote fracture deformity. ACT 112: Negative or not required by law. The above report was generated using voice recognition software. It may contain grammatical, syntax o r spelling errors. Electronically signed by: Zechariah Villatoro M.D. 09/04/2019 7:21 AM
--- NOTE | 2019-09-04 07:24 | XRay Report ---
XR chest 1V portable HISTORY: 63 years-old Female s/p arrest acute respiratory failure with cardiac arrest COMPARISON: Chest radiograph 09/03/2019 TECHNIQUE: Portable AP view of the chest FINDINGS: Cardiac silhouette is enlarged, unchanged. Calcified plaque of the thoracic aortic arch. Endotracheal tube overlies the midline 3.9 cm superior to the lisa. Enteric tube courses below the diaphragm, d istal tip outside the [id number]. Probable emphysema with chronic interstitial coarsening. No pneu mothorax, pleural effusion, airspace consolidation or overt pulmonary edema. Bones of the chest appea r grossly intact. Partially imaged ORIF hardware of the proximal right humerus. IMPRESSION: 1. Endotracheal and enteric tubes as above. 2. Cardiomegaly. 3. The lungs appear clear without pneumothorax. ACT 112: Negative or not required by law. The above report was generated using voice recognition software. It may contain grammatical, syntax o r spelling errors. Electronically signed by: Zechariah Villatoro M.D. 09/04/2019 7:23 AM
--- NOTE | 2019-09-04 07:42 | XRay Report ---
KUB HISTORY: Acute diarrhea chest radiograph of same day COMPARISON: None. FINDINGS: Pattern is nonobstructive. Distal tip of enteric tube projects in the expected location of the mid ga stric lumen. There is gaseous distention of the colon. Right lateral abdomen is excluded from the fie ld-of-view. No renal calculi. No ureteral calculi. No pneumoperitoneum or pneumatosis. Mild lumbar l evoscoliosis. Degenerative changes of the spine, pelvis and hips. A catheter projects over the right iliac distribution and IVC No fracture. IMPRESSION: 1. Mild gaseous distention of the colon with nonobstructive bowel gas pattern. 2. Distal tip of enteric tube projects over the mid gastric lumen. ACT 112: Negative or not required by law. The above report was generated using voice recognition software. It may contain grammatical, syntax o r spelling errors. Electronically signed by: Zecahriah Villatoro M.D. 09/04/2019 7:41 AM
[2019-09-04 08:02] LABS: BUN Creatinine Ratio 16.2 (10-20); Calcium 7.7 mg/dl (8.5-10.1); Creatinine Clr Calc Pharmacy 45.8 ml/min; Est GFR (African American) 43.1; Est GFR (Non-African American) 37.2
[2019-09-04] MEDS: INSULIN ASPART 100 UNITS/ML 3 ML PEN SC SCH ×4 (08:11→21:09)
[2019-09-04] MEDS ORDERED: ICU PROTOCOL FOR HYPERGLYCEMIA SCH (09:00)
[2019-09-04] MEDS: FAMOTIDINE 20 MG in SYRINGE 3 ML IV SCH ×2 (09:25→21:19)
--- NOTE | 2019-09-04 10:17 | Critical Care Progress Note ---
Date of Service September 04, 2019 Assessment & Plan (1) Admitted to intensive care unit: Reason Critically Ill: 63-year-old female here with a PMHx significant for COPD, chronic respiratory acidosis, hx Afib s/p ablation and cardioversion, HTN who presented with cardiac arrest at home, CPR by in the field, 3 rounds of Epi, shock and intubation by paramedics in the field. Admitted to ICU for hypothermia protocol. Neuro - [facility] ICU: not applicable Sedation: propofol drip Analgesia: Fentanyl drip * Sedated while on hypothermia protocol * will assess neurologic function upon return to normal temperatures Cardiac - * out of hospital cardiac arrest with Vfib with ROSC achievement * Hypothermia protocol * Levophed for pressure support * art line in L wrist * Cardiogenic shock? Cath negative for significant CAD. * Trop up from 9.370 to 13 * Afib * hx of cardioversion, ablation 5 years ago * Amiodarone drip for Afib rhythm control Respiratory - * Chronic respiratory acidosis with Metabolic alkalosis * last ABG 7.32/64.4/108/33.2 on AC ventilation, rate 22, Vt 500, PEEP 8, FIO2 35% * hx COPD * per , has had worsening disease for the past year -- to the point of being short of breath taking a shower. wears O2 24/7 at home. GI - * Mesenteric Ischemia vs. Diarrheal Disease * profuse diarrhea on admission * Cdiff toxin negative * possible ischemic GI injury after CPR RENAL/LYTES - * Hyperkalemia * on insulin for control, BMP Q4H * lactic acidosis: 2.8 * Mag 2.2, Ca 7.7 Replace lytes as needed. - No concerns at this time. ENDO - no concerns at this time HEME - Stable H&H. Will monitor for any drops in the setting of Heparin gtt ID - Leukocytosis - demargination vs. infection * on hypothermia protocol will be unable to show a fever response * blood cultures sent * UA no LE/nitrites INTEGUMENTARY - no concerns at this time LINES/IV ACCESS - PIVs intact x3, R art line. DVT PROPHYLAXIS - Heparin gtt. Drips: propofol @30 mcg/kg/min, Fentanyl @ 25 mcg/hr, Levophed @ 0.05 mcg/kg/min, Heparin drip 18 ml/hr, amiodarone 0.5 mg/min, normosol 100 ml/hr, novolin 3.4 ml/hr Thank you for allowing us to be part of this patient's care. Please refer to Dr. Tavares's documentation for any further recommendations. (2) COPD (chronic obstructive pulmonary disease): (3) Respiratory acidosis: (4) Cardiac arrest: (5) Elevated troponin: (6) Cardiac arrest with ventricular fibrillation: (7) Signs of return of spontaneous circulation: (8) Anxiety: (9) Afib: (10) History of cardioversion: (11) H/O cardiac radiofrequency ablation: (12) Hypertension: Admission and Anticipated Discharge Date Admission Date: September 03, 2019 Supervising Physician Co-Signing Physician Notes Dr. Julien was resident physician during care of patient. I separately evaluated patient for morris portions of the history and the exam. I was present during the critical portion of medical decision making, and I discussed the case with the resident. I generally agree with the findings and plan. Continued hypothermia protocol, obtain EEG today. Patient critically ill. Subjective Pt sedated, intubated, not opening eyes spontaneously. Review of Systems Review of Systems: Unobtainable due to cognitive status and Unobtainable due to endotracheal tube Physical Exam Physical Exam: VITAL SIGNS - Vital signs and nursing notes were reviewed. GENERAL - 63-year-old female appearing older than her stated age. Intubated and sedated. SKIN - Without rashes. HEAD - NC/AT. EYES - PERRL. Sclera anicteric. Palpebral conjunctiva pink and moist with no injection noted. EARS - No deformities of external structures noted on gross examination bilaterally. NOSE - Midline and without cyanosis. No epistaxis or purulent drainage noted. MOUTH/OROPHARYNX - ET Tube in place. Without perioral cyanosis. NECK - Supple to palpation. No nuchal rigidity. LUNGS - Coarse breath sounds noted throughout all lung heredia. CARDIAC - bradycardic sinus rhythm with S1/S2. No murmur, rubs, or gallops appreciated. ABDOMEN - Abdominal contour protuberant without pulsations or visible masses. BS hypoactive all four quadrants. EXTREMITIES - No clubbing or peripheral cyanosis. No pretibial edema present. +3/5 radial and dorsalis pedis pulses palpated throughout. NEUROLOGIC - Occasional independent movements of the upper extremities - without purpose. No focal neurological deficits noted on exam. Unable to fully assess secondary to sedation, level of consciousness. Results & Data Results & Data ([facility]) Vital Signs (Past 12 Hours) Vital Signs Temp Temp Temp Pulse Pulse Resp BP 09/04/19 09:00 32.2 C L 32.2 C L 36 L 22 09/04/19 08:00 32.2 C L 32.2 C L 35 L 22 09/04/19 07:20 38 L 22 09/04/19 07:00 32.2 C L 32.2 C L 42 L 22 09/04/19 05:36 42 L 23 09/04/19 05:04 32.2 C L 32.2 C L 43 L 22 09/04/19 04:00 32.3 C L 32.3 C L 50 L 22 09/04/19 03:55 35 L 91/62 L 09/04/19 03:40 35 L 87/64 L 09/04/19 02:35 49 L 143/106 H 09/04/19 02:30 22 09/04/19 02:10 53 L 22 09/04/19 02:00 32.3 C L 32.3 C L 53 L 15 09/04/19 01:00 32.8 C L 32.8 C L 56 L 19 09/04/19 00:11 18 09/04/19 00:00 34 C L 34 C L 98 H 20 125/91 09/03/19 23:55 57 L 125/91 09/03/19 23:51 57 L 159/102 H 09/03/19 23:25 35.3 C L 88 22 09/03/19 23:00 35.4 C L 35.4 C L 63 20 BP BP Pulse Ox 09/04/19 09:00 90/58 L 88/59 L 99 09/04/19 08:00 72/49 L 95/65 L 99 09/04/19 07:20 99 09/04/19 07:00 83/53 L 83/61 L 99 09/04/19 05:36 100 09/04/19 05:04 104/69 105/63 100 09/04/19 04:00 91/62 L 87/68 L 100 09/04/19 03:55 09/04/19 03:40 09/04/19 02:35 09/04/19 02:30 09/04/19 02:10 94 09/04/19 02:00 93/69 L 98 09/04/19 01:00 108/82 98 09/04/19 00:11 09/04/19 00:00 125/91 102/66 09/03/19 23:55 64 L 09/03/19 23:51 09/03/19 23:25 161/100 H 98 09/03/19 23:00 161/100 H 102/66 95 09/04/19 09/04/19 09/04/19 Range/Units 11:23 11:23 11:23 WBC (4.8-10.8) K/uL RBC (4.2-5.4) M/uL Hgb (12.0-16.0) g/dL POC Hgb (12.0-16.0) g/dl Hct (37-47) % POC Hct (37-47) % MCV (80-100) fL MCH (25-34) pg MCHC (32-36) g/dL RDW Std Deviation (36.4-46.3) fL RDW Coeff of Naila (11.5-14.5) % Plt Count (130-400) K/uL MPV (7.4-10.4) fL Immature Gran % (Auto) % Neut % (Auto) % Lymph % (Auto) % [place] % (Auto) % Eos % (Auto) % Baso % (Auto) % Neut # (Auto) (1.4-6.5) K/uL Lymph # (Auto) (1.2-3.4) K/uL [place] # (Auto) (0.11-0.59) K/uL Eos # (Auto) (0-0.5) K/uL Baso # (Auto) (0-0.2) K/uL Immature Gran # (Auto) (0.00-0.02) K/uL PT (9.0-12.0) Seconds INR (0.9-1.1) APTT (21.0-31.0) Seconds PTT Ratio Sample Site POC pH (7.35-7.45) POC pCO2 (35-46) mmHg POC pO2 (80-95) mmHg POC HCO3 (19-24) olamide/L POC Base Excess (-9-1.8) olamide/L ABG pH (Temp Correct) (7.35-7.45) ABG pCO2 (Temp Corrct (35-46) mmHg POC ABG pO2 at Pt Temp POC ABG O2 Sat (90-95) % Hitesh Test O2 Delivery Device POC O2 Rate Minute Ventilation POC FiO2 % Tidal Volume PEEP POC Sodium (135-144) mmol/L Sodium 142 (136-145) mmol/L POC Potassium (3.3-5.0) mmol/L Potassium 4.1 (3.5-5.1) mmol/L POC Chloride (101-112) mmol/L Chloride 104 (98-107) mmol/L Carbon Dioxide 30 (21-32) mmol/L POC Total CO2 (24-31) mmol/L Anion Gap 7.0 (3-11) POC Anion Gap (16-25) mmol/L POC BUN (7-18) mg/dl BUN 25 H (7-18) mg/dl Creatinine 1.45 H (0.6-1.2) mg/dl POC Creatinine (0.6-1.3) mg/dl Est Cr Clr Drug Dosing 47.4 Est GFR ( Amer) 44.9 Est GFR (Non-Af Amer) 38.8 BUN/Creatinine Ratio 17.0 (10-20) Glucose 115 H (70-99) mg/dl POC Glucose (70-99) mg/dl POC Glucose (other) (70-99) mg/dl Lactate 2.0 (0.4-2.0) mmol/L Calcium 7.5 L (8.5-10.1) mg/dl POC Ioniz Calcium Miracle (1.12-1.32) mmol/l Ionized Calcium 1.00 L (1.12-1.32) mmol/L Phosphorus 4.0 D (2.5-4.9) mg/dl Magnesium 2.1 (1.8-2.4) mg/dl Total Bilirubin (0.2-1) mg/dl Direct Bilirubin (0-0.2) mg/dl AST (15-37) U/L ALT (12-78) U/L Alkaline Phosphatase (45-117) U/L Total Creatine Kinase (26-192) U/L CK-MB (CK-2) (0.5-3.6) ng/ml CK/CKMB % Calc (0-3.0) POC Troponin I (0-0.045) ng/ml Troponin I (0-0.045) ng/ml Total Protein (6.4-8.2) gm/dl Albumin (3.4-5.0) gm/dl Globulin (2.5-4.0) gm/dl Albumin/Globulin Ratio (0.9-2) Lipase (73-393) U/L Beta-Hydroxybutyric Acd (0.2-2.81) mg/dl TSH (0.300-4.500) uIu/ml Free T4 (0.8-1.6) ng/dl Specimen Hemolysis Urine Color Urine Appearance (Clear) Urine pH (4.5-7.5) Ur Specific Tillar (1.000-1.030) Urine Protein (Negative) Urine Glucose (UA) (Negative) Urine Ketones (Negative) Urine Blood (Negative) Urine Nitrite (Negative) Urine Bilirubin (Negative) Urine Urobilinogen (Negative) Ur Leukocyte Esterase (Negative) Urine WBC (Auto) (0-5) /hpf Urine RBC (Auto) (0-4) /hpf U Hyaline Cast (Auto) (0-5) /lpf U Epithel Cells (Auto) (0-5) /lpf Urine Bacteria (Auto) (Negative) Urine Yeast Nasal Screen MRSA (PCR) (Negative) Stl C. diff Tox B Gene (Neg) 09/04/19 09/04/19 09/04/19 Range/Units 11:17 10:21 10:01 WBC (4.8-10.8) K/uL RBC (4.2-5.4) M/uL Hgb (12.0-16.0) g/dL POC Hgb 11.6 L (12.0-16.0) g/dl Hct (37-47) % POC Hct 34 L (37-47) % MCV (80-100) fL MCH (25-34) pg MCHC (32-36) g/dL RDW Std Deviation (36.4-46.3) fL RDW Coeff of Naila (11.5-14.5) % Plt Count (130-400) K/uL MPV (7.4-10.4) fL Immature Gran % (Auto) % Neut % (Auto) % Lymph % (Auto) % [place] % (Auto) % Eos % (Auto) % Baso % (Auto) % Neut # (Auto) (1.4-6.5) K/uL Lymph # (Auto) (1.2-3.4) K/uL [place] # (Auto) (0.11-0.59) K/uL Eos # (Auto) (0-0.5) K/uL Baso # (Auto) (0-0.2) K/uL Immature Gran # (Auto) (0.00-0.02) K/uL PT (9.0-12.0) Seconds INR (0.9-1.1) APTT (21.0-31.0) Seconds PTT Ratio Sample Site Art Line POC pH 7.32 L (7.35-7.45) POC pCO2 64 H (35-46) mmHg POC pO2 108 H (80-95) mmHg POC HCO3 33 H (19-24) olamide/L POC Base Excess 7.0 H (-9-1.8) olamide/L ABG pH (Temp Correct) 7.388 (7.35-7.45) ABG pCO2 (Temp Corrct 52 H (35-46) mmHg POC ABG pO2 at Pt Temp 82 POC ABG O2 Sat 97.0 H (90-95) % Hitesh Test NA O2 Delivery Device Ventilator POC O2 Rate 22 Minute Ventilation 11 POC FiO2 35 % Tidal Volume 500 PEEP 8 POC Sodium 141 (135-144) mmol/L Sodium (136-145) mmol/L POC Potassium 4.9 (3.3-5.0) mmol/L Potassium (3.5-5.1) mmol/L POC Chloride (101-112) mmol/L Chloride (98-107) mmol/L Carbon Dioxide (21-32) mmol/L POC Total CO2 35 H (24-31) mmol/L Anion Gap (3-11) POC Anion Gap (16-25) mmol/L POC BUN (7-18) mg/dl BUN (7-18) mg/dl Creatinine (0.6-1.2) mg/dl POC Creatinine (0.6-1.3) mg/dl Est Cr Clr Drug Dosing Est GFR ( Amer) Est GFR (Non-Af Amer) BUN/Creatinine Ratio (10-20) Glucose (70-99) mg/dl POC Glucose (70-99) mg/dl POC Glucose (other) 110 H (70-99) mg/dl Lactate (0.4-2.0) mmol/L Calcium (8.5-10.1) mg/dl POC Ioniz Calcium Miracle (1.12-1.32) mmol/l Ionized Calcium (1.12-1.32) mmol/L Phosphorus (2.5-4.9) mg/dl Magnesium (1.8-2.4) mg/dl Total Bilirubin (0.2-1) mg/dl Direct Bilirubin (0-0.2) mg/dl AST (15-37) U/L ALT (12-78) U/L Alkaline Phosphatase (45-117) U/L Total Creatine Kinase (26-192) U/L CK-MB (CK-2) (0.5-3.6) ng/ml CK/CKMB % Calc (0-3.0) POC Troponin I (0-0.045) ng/ml Troponin I (0-0.045) ng/ml Total Protein (6.4-8.2) gm/dl Albumin (3.4-5.0) gm/dl Globulin (2.5-4.0) gm/dl Albumin/Globulin Ratio (0.9-2) Lipase (73-393) U/L Beta-Hydroxybutyric Acd (0.2-2.81) mg/dl TSH (0.300-4.500) uIu/ml Free T4 (0.8-1.6) ng/dl Specimen Hemolysis Urine Color Urine Appearance (Clear) Urine pH (4.5-7.5) Ur Specific Tillar (1.000-1.030) Urine Protein (Negative) Urine Glucose (UA) (Negative) Urine Ketones (Negative) Urine Blood (Negative) Urine Nitrite (Negative) Urine Bilirubin (Negative) Urine Urobilinogen (Negative) Ur Leukocyte Esterase (Negative) Urine WBC (Auto) (0-5) /hpf Urine RBC (Auto) (0-4) /hpf U Hyaline Cast (Auto) (0-5) /lpf U Epithel Cells (Auto) (0-5) /lpf Urine Bacteria (Auto) (Negative) Urine Yeast Nasal Screen MRSA (PCR) (Negative) Stl C. diff Tox B Gene Negative Cdiff Gene (Neg) 09/04/19 09/04/19 09/04/19 Range/Units 09:58 09:58 09:03 WBC (4.8-10.8) K/uL RBC (4.2-5.4) M/uL Hgb (12.0-16.0) g/dL POC Hgb (12.0-16.0) g/dl Hct (37-47) % POC Hct (37-47) % MCV (80-100) fL MCH (25-34) pg MCHC (32-36) g/dL RDW Std Deviation (36.4-46.3) fL RDW Coeff of Naila (11.5-14.5) % Plt Count (130-400) K/uL MPV (7.4-10.4) fL Immature Gran % (Auto) % Neut % (Auto) % Lymph % (Auto) % [place] % (Auto) % Eos % (Auto) % Baso % (Auto) % Neut # (Auto) (1.4-6.5) K/uL Lymph # (Auto) (1.2-3.4) K/uL [place] # (Auto) (0.11-0.59) K/uL Eos # (Auto) (0-0.5) K/uL Baso # (Auto) (0-0.2) K/uL Immature Gran # (Auto) (0.00-0.02) K/uL PT (9.0-12.0) Seconds INR (0.9-1.1) APTT 61.2 H* (21.0-31.0) Seconds PTT Ratio 2.2 Sample Site POC pH (7.35-7.45) POC pCO2 (35-46) mmHg POC pO2 (80-95) mmHg POC HCO3 (19-24) olamide/L POC Base Excess (-9-1.8) olamide/L ABG pH (Temp Correct) (7.35-7.45) ABG pCO2 (Temp Corrct (35-46) mmHg POC ABG pO2 at Pt Temp POC ABG O2 Sat (90-95) % Hitesh Test O2 Delivery Device POC O2 Rate Minute Ventilation POC FiO2 % Tidal Volume PEEP POC Sodium (135-144) mmol/L Sodium (136-145) mmol/L POC Potassium (3.3-5.0) mmol/L Potassium 4.3 D (3.5-5.1) mmol/L POC Chloride (101-112) mmol/L Chloride (98-107) mmol/L Carbon Dioxide (21-32) mmol/L POC Total CO2 (24-31) mmol/L Anion Gap (3-11) POC Anion Gap (16-25) mmol/L POC BUN (7-18) mg/dl BUN (7-18) mg/dl Creatinine (0.6-1.2) mg/dl POC Creatinine (0.6-1.3) mg/dl Est Cr Clr Drug Dosing Est GFR ( Amer) Est GFR (Non-Af Amer) BUN/Creatinine Ratio (10-20) Glucose (70-99) mg/dl POC Glucose (70-99) mg/dl POC Glucose (other) 100 H (70-99) mg/dl Lactate (0.4-2.0) mmol/L Calcium (8.5-10.1) mg/dl POC Ioniz Calcium Miracle (1.12-1.32) mmol/l Ionized Calcium (1.12-1.32) mmol/L Phosphorus (2.5-4.9) mg/dl Magnesium 2.2 (1.8-2.4) mg/dl Total Bilirubin (0.2-1) mg/dl Direct Bilirubin (0-0.2) mg/dl AST Cancelled (15-37) U/L ALT (12-78) U/L Alkaline Phosphatase (45-117) U/L Total Creatine Kinase (26-192) U/L CK-MB (CK-2) (0.5-3.6) ng/ml CK/CKMB % Calc (0-3.0) POC Troponin I (0-0.045) ng/ml Troponin I (0-0.045) ng/ml Total Protein (6.4-8.2) gm/dl Albumin (3.4-5.0) gm/dl Globulin (2.5-4.0) gm/dl Albumin/Globulin Ratio (0.9-2) Lipase (73-393) U/L Beta-Hydroxybutyric Acd 0.82 (0.2-2.81) mg/dl TSH (0.300-4.500) uIu/ml Free T4 (0.8-1.6) ng/dl Specimen Hemolysis Urine Color Urine Appearance (Clear) Urine pH (4.5-7.5) Ur Specific Till[place] (1.000-1.030) Urine Protein (Negative) Urine Glucose (UA) (Negative) Urine Ketones (Negative) Urine Blood (Negative) Urine Nitrite (Negative) Urine Bilirubin (Negative) Urine Urobilinogen (Negative) Ur Leukocyte Esterase (Negative) Urine WBC (Auto) (0-5) /hpf Urine RBC (Auto) (0-4) /hpf U Hyaline Cast (Auto) (0-5) /lpf U Epithel Cells (Auto) (0-5) /lpf Urine Bacteria (Auto) (Negative) Urine Yeast Nasal Screen MRSA (PCR) (Negative) Stl C. diff Tox B Gene (Neg) 09/04/19 09/04/19 09/04/19 Range/Units 08:01 07:18 07:18 WBC (4.8-10.8) K/uL RBC (4.2-5.4) M/uL Hgb (12.0-16.0) g/dL POC Hgb (12.0-16.0) g/dl Hct (37-47) % POC Hct (37-47) % MCV (80-100) fL MCH (25-34) pg MCHC (32-36) g/dL RDW Std Deviation (36.4-46.3) fL RDW Coeff of Naila (11.5-14.5) % Plt Count (130-400) K/uL MPV (7.4-10.4) fL Immature Gran % (Auto) % Neut % (Auto) % Lymph % (Auto) % [place] % (Auto) % Eos % (Auto) % Baso % (Auto) % Neut # (Auto) (1.4-6.5) K/uL Lymph # (Auto) (1.2-3.4) K/uL [place] # (Auto) (0.11-0.59) K/uL Eos # (Auto) (0-0.5) K/uL Baso # (Auto) (0-0.2) K/uL Immature Gran # (Auto) (0.00-0.02) K/uL PT (9.0-12.0) Seconds INR (0.9-1.1) APTT (21.0-31.0) Seconds PTT Ratio Sample Site POC pH (7.35-7.45) POC pCO2 (35-46) mmHg POC pO2 (80-95) mmHg POC HCO3 (19-24) olamide/L POC Base Excess (-9-1.8) olamide/L ABG pH (Temp Correct) (7.35-7.45) ABG pCO2 (Temp Corrct (35-46) mmHg POC ABG pO2 at Pt Temp POC ABG O2 Sat (90-95) % Hitesh Test O2 Delivery Device POC O2 Rate Minute Ventilation POC FiO2 % Tidal Volume PEEP POC Sodium (135-144) mmol/L Sodium 142 (136-145) mmol/L POC Potassium (3.3-5.0) mmol/L Potassium (3.5-5.1) mmol/L POC Chloride (101-112) mmol/L Chloride 106 (98-107) mmol/L Carbon Dioxide 31 (21-32) mmol/L POC Total CO2 (24-31) mmol/L Anion Gap 5.0 (3-11) POC Anion Gap (16-25) mmol/L POC BUN (7-18) mg/dl BUN 24 H (7-18) mg/dl Creatinine 1.50 H (0.6-1.2) mg/dl POC Creatinine (0.6-1.3) mg/dl Est Cr Clr Drug Dosing 45.8 Est GFR ( Amer) 43.1 Est GFR (Non-Af Amer) 37.2 BUN/Creatinine Ratio 16.2 (10-20) Glucose 108 H (70-99) mg/dl POC Glucose (70-99) mg/dl POC Glucose (other) 112 H (70-99) mg/dl Lactate (0.4-2.0) mmol/L Calcium 7.7 L (8.5-10.1) mg/dl POC Ioniz Calcium Miracle (1.12-1.32) mmol/l Ionized Calcium 1.03 L (1.12-1.32) mmol/L Phosphorus 5.0 H D (2.5-4.9) mg/dl Magnesium (1.8-2.4) mg/dl Total Bilirubin (0.2-1) mg/dl Direct Bilirubin (0-0.2) mg/dl AST (15-37) U/L ALT (12-78) U/L Alkaline Phosphatase (45-117) U/L Total Creatine Kinase (26-192) U/L CK-MB (CK-2) (0.5-3.6) ng/ml CK/CKMB % Calc (0-3.0) POC Troponin I (0-0.045) ng/ml Troponin I 13.000 H* (0-0.045) ng/ml Total Protein (6.4-8.2) gm/dl Albumin (3.4-5.0) gm/dl Globulin (2.5-4.0) gm/dl Albumin/Globulin Ratio (0.9-2) Lipase (73-393) U/L Beta-Hydroxybutyric Acd (0.2-2.81) mg/dl TSH (0.300-4.500) uIu/ml Free T4 (0.8-1.6) ng/dl Specimen Hemolysis Urine Color Urine Appearance (Clear) Urine pH (4.5-7.5) Ur Specific [place] (1.000-1.030) Urine Protein (Negative) Urine Glucose (UA) (Negative) Urine Ketones (Negative) Urine Blood (Negative) Urine Nitrite (Negative) Urine Bilirubin (Negative) Urine Urobilinogen (Negative) Ur Leukocyte Esterase (Negative) Urine WBC (Auto) (0-5) /hpf Urine RBC (Auto) (0-4) /hpf U Hyaline Cast (Auto) (0-5) /lpf U Epithel Cells (Auto) (0-5) /lpf Urine Bacteria (Auto) (Negative) Urine Yeast Nasal Screen MRSA (PCR) (Negative) Stl C. diff Tox B Gene (Neg) 09/04/19 09/04/19 09/04/19 Range/Units 07:18 06:21 05:43 WBC (4.8-10.8) K/uL RBC (4.2-5.4) M/uL Hgb (12.0-16.0) g/dL POC Hgb 12.9 (12.0-16.0) g/dl Hct (37-47) % POC Hct 38 (37-47) % MCV (80-100) fL MCH (25-34) pg MCHC (32-36) g/dL RDW Std Deviation (36.4-46.3) fL RDW Coeff of Naila (11.5-14.5) % Plt Count (130-400) K/uL MPV (7.4-10.4) fL Immature Gran % (Auto) % Neut % (Auto) % Lymph % (Auto) % [place] % (Auto) % Eos % (Auto) % Baso % (Auto) % Neut # (Auto) (1.4-6.5) K/uL Lymph # (Auto) (1.2-3.4) K/uL [place] # (Auto) (0.11-0.59) K/uL Eos # (Auto) (0-0.5) K/uL Baso # (Auto) (0-0.2) K/uL Immature Gran # (Auto) (0.00-0.02) K/uL PT (9.0-12.0) Seconds INR (0.9-1.1) APTT (21.0-31.0) Seconds PTT Ratio Sample Site Art Line POC pH 7.20 L (7.35-7.45) POC pCO2 83 H (35-46) mmHg POC pO2 105 H (80-95) mmHg POC HCO3 33 H (19-24) olamide/L POC Base Excess 5.0 H (-9-1.8) olamide/L ABG pH (Temp Correct) 7.267 L (7.35-7.45) ABG pCO2 (Temp Corrct 68 H (35-46) mmHg POC ABG pO2 at Pt Temp 80 POC ABG O2 Sat 96.0 H (90-95) % Hitesh Test NA O2 Delivery Device Ventilator POC O2 Rate 22 Minute Ventilation 11.0 POC FiO2 40 % Tidal Volume 500 PEEP 8 POC Sodium 141 (135-144) mmol/L Sodium (136-145) mmol/L POC Potassium 5.7 H (3.3-5.0) mmol/L Potassium (3.5-5.1) mmol/L POC Chloride (101-112) mmol/L Chloride (98-107) mmol/L Carbon Dioxide (21-32) mmol/L POC Total CO2 35 H (24-31) mmol/L Anion Gap (3-11) POC Anion Gap (16-25) mmol/L POC BUN (7-18) mg/dl BUN (7-18) mg/dl Creatinine (0.6-1.2) mg/dl POC Creatinine (0.6-1.3) mg/dl Est Cr Clr Drug Dosing Est GFR ( Amer) Est GFR (Non-Af Amer) BUN/Creatinine Ratio (10-20) Glucose (70-99) mg/dl POC Glucose (70-99) mg/dl POC Glucose (other) 135 H (70-99) mg/dl Lactate 2.8 H* (0.4-2.0) mmol/L Calcium (8.5-10.1) mg/dl POC Ioniz Calcium Miracle (1.12-1.32) mmol/l Ionized Calcium (1.12-1.32) mmol/L Phosphorus (2.5-4.9) mg/dl Magnesium (1.8-2.4) mg/dl Total Bilirubin (0.2-1) mg/dl Direct Bilirubin (0-0.2) mg/dl AST (15-37) U/L ALT (12-78) U/L Alkaline Phosphatase (45-117) U/L Total Creatine Kinase (26-192) U/L CK-MB (CK-2) (0.5-3.6) ng/ml CK/CKMB % Calc (0-3.0) POC Troponin I (0-0.045) ng/ml Troponin I (0-0.045) ng/ml Total Protein (6.4-8.2) gm/dl Albumin (3.4-5.0) gm/dl Globulin (2.5-4.0) gm/dl Albumin/Globulin Ratio (0.9-2) Lipase (73-393) U/L Beta-Hydroxybutyric Acd (0.2-2.81) mg/dl TSH (0.300-4.500) uIu/ml Free T4 (0.8-1.6) ng/dl Specimen Hemolysis Urine Color Urine Appearance (Clear) Urine pH (4.5-7.5) Ur Specific [place] (1.000-1.030) Urine Protein (Negative) Urine Glucose (UA) (Negative) Urine Ketones (Negative) Urine Blood (Negative) Urine Nitrite (Negative) Urine Bilirubin (Negative) Urine Urobilinogen (Negative) Ur Leukocyte Esterase (Negative) Urine WBC (Auto) (0-5) /hpf Urine RBC (Auto) (0-4) /hpf U Hyaline Cast (Auto) (0-5) /lpf U Epithel Cells (Auto) (0-5) /lpf Urine Bacteria (Auto) (Negative) Urine Yeast Nasal Screen MRSA (PCR) (Negative) Stl C. diff Tox B Gene (Neg) 09/04/19 09/04/19 09/04/19 Range/Units 05:16 04:27 03:39 WBC 32.16 H* D (4.8-10.8) K/uL RBC 4.27 (4.2-5.4) M/uL Hgb 12.2 (12.0-16.0) g/dL POC Hgb (12.0-16.0) g/dl Hct 39.0 (37-47) % POC Hct (37-47) % MCV 91.3 (80-100) fL MCH 28.6 (25-34) pg MCHC 31.3 L (32-36) g/dL RDW Std Deviation 45.8 (36.4-46.3) fL RDW Coeff of Naila 13.7 (11.5-14.5) % Plt Count 426 H (130-400) K/uL MPV 9.4 (7.4-10.4) fL Immature Gran % (Auto) 0.5 % Neut % (Auto) 92.8 % Lymph % (Auto) 2.4 % [place] % (Auto) 4.2 % Eos % (Auto) 0.0 % Baso % (Auto) 0.1 % Neut # (Auto) 29.86 H (1.4-6.5) K/uL Lymph # (Auto) 0.77 L (1.2-3.4) K/uL [place] # (Auto) 1.34 H (0.11-0.59) K/uL Eos # (Auto) 0.01 (0-0.5) K/uL Baso # (Auto) 0.02 (0-0.2) K/uL Immature Gran # (Auto) 0.16 H (0.00-0.02) K/uL PT (9.0-12.0) Seconds INR (0.9-1.1) APTT (21.0-31.0) Seconds PTT Ratio Sample Site POC pH (7.35-7.45) POC pCO2 (35-46) mmHg POC pO2 (80-95) mmHg POC HCO3 (19-24) olamide/L POC Base Excess (-9-1.8) olamide/L ABG pH (Temp Correct) (7.35-7.45) ABG pCO2 (Temp Corrct (35-46) mmHg POC ABG pO2 at Pt Temp POC ABG O2 Sat (90-95) % Hitesh Test O2 Delivery Device POC O2 Rate Minute Ventilation POC FiO2 % Tidal Volume PEEP POC Sodium (135-144) mmol/L Sodium (136-145) mmol/L POC Potassium (3.3-5.0) mmol/L Potassium (3.5-5.1) mmol/L POC Chloride (101-112) mmol/L Chloride (98-107) mmol/L Carbon Dioxide (21-32) mmol/L POC Total CO2 (24-31) mmol/L Anion Gap (3-11) POC Anion Gap (16-25) mmol/L POC BUN (7-18) mg/dl BUN (7-18) mg/dl Creatinine (0.6-1.2) mg/dl POC Creatinine (0.6-1.3) mg/dl Est Cr Clr Drug Dosing Est GFR ( Amer) Est GFR (Non-Af Amer) BUN/Creatinine Ratio (10-20) Glucose (70-99) mg/dl POC Glucose (70-99) mg/dl POC Glucose (other) 190 H (70-99) mg/dl Lactate (0.4-2.0) mmol/L Calcium (8.5-10.1) mg/dl POC Ioniz Calcium Miracle (1.12-1.32) mmol/l Ionized Calcium (1.12-1.32) mmol/L Phosphorus (2.5-4.9) mg/dl Magnesium (1.8-2.4) mg/dl Total Bilirubin (0.2-1) mg/dl Direct Bilirubin < 0.1 (0-0.2) mg/dl AST (15-37) U/L ALT (12-78) U/L Alkaline Phosphatase (45-117) U/L Total Creatine Kinase (26-192) U/L CK-MB (CK-2) (0.5-3.6) ng/ml CK/CKMB % Calc (0-3.0) POC Troponin I (0-0.045) ng/ml Troponin I (0-0.045) ng/ml Total Protein (6.4-8.2) gm/dl Albumin (3.4-5.0) gm/dl Globulin (2.5-4.0) gm/dl Albumin/Globulin Ratio (0.9-2) Lipase (73-393) U/L Beta-Hydroxybutyric Acd (0.2-2.81) mg/dl TSH (0.300-4.500) uIu/ml Free T4 (0.8-1.6) ng/dl Specimen Hemolysis Urine Color Urine Appearance (Clear) Urine pH (4.5-7.5) Ur Specific [place] (1.000-1.030) Urine Protein (Negative) Urine Glucose (UA) (Negative) Urine Ketones (Negative) Urine Blood (Negative) Urine Nitrite (Negative) Urine Bilirubin (Negative) Urine Urobilinogen (Negative) Ur Leukocyte Esterase (Negative) Urine WBC (Auto) (0-5) /hpf Urine RBC (Auto) (0-4) /hpf U Hyaline Cast (Auto) (0-5) /lpf U Epithel Cells (Auto) (0-5) /lpf Urine Bacteria (Auto) (Negative) Urine Yeast Nasal Screen MRSA (PCR) (Negative) Stl C. diff Tox B Gene (Neg) 09/04/19 09/04/19 09/04/19 Range/Units 03:39 03:39 03:39 WBC (4.8-10.8) K/uL RBC (4.2-5.4) M/uL Hgb (12.0-16.0) g/dL POC Hgb (12.0-16.0) g/dl Hct (37-47) % POC Hct (37-47) % MCV (80-100) fL MCH (25-34) pg MCHC (32-36) g/dL RDW Std Deviation (36.4-46.3) fL RDW Coeff of Naila (11.5-14.5) % Plt Count (130-400) K/uL MPV (7.4-10.4) fL Immature Gran % (Auto) % Neut % (Auto) % Lymph % (Auto) % [place] % (Auto) % Eos % (Auto) % Baso % (Auto) % Neut # (Auto) (1.4-6.5) K/uL Lymph # (Auto) (1.2-3.4) K/uL [place] # (Auto) (0.11-0.59) K/uL Eos # (Auto) (0-0.5) K/uL Baso # (Auto) (0-0.2) K/uL Immature Gran # (Auto) (0.00-0.02) K/uL PT (9.0-12.0) Seconds INR (0.9-1.1) APTT (21.0-31.0) Seconds PTT Ratio Sample Site POC pH (7.35-7.45) POC pCO2 (35-46) mmHg POC pO2 (80-95) mmHg POC HCO3 (19-24) olamide/L POC Base Excess (-9-1.8) olamide/L ABG pH (Temp Correct) (7.35-7.45) ABG pCO2 (Temp Corrct (35-46) mmHg POC ABG pO2 at Pt Temp POC ABG O2 Sat (90-95) % Hitesh Test O2 Delivery Device POC O2 Rate Minute Ventilation POC FiO2 % Tidal Volume PEEP POC Sodium (135-144) mmol/L Sodium 142 Cancelled (136-145) mmol/L POC Potassium (3.3-5.0) mmol/L Potassium 5.3 H D Cancelled (3.5-5.1) mmol/L POC Chloride (101-112) mmol/L Chloride 107 Cancelled (98-107) mmol/L Carbon Dioxide 28 Cancelled (21-32) mmol/L POC Total CO2 (24-31) mmol/L Anion Gap 7.0 Cancelled (3-11) POC Anion Gap (16-25) mmol/L POC BUN (7-18) mg/dl BUN 22 H Cancelled (7-18) mg/dl Creatinine 1.50 H Cancelled (0.6-1.2) mg/dl POC Creatinine (0.6-1.3) mg/dl Est Cr Clr Drug Dosing 45.8 Cancelled Est GFR ( Amer) 43.1 Cancelled Est GFR (Non-Af Amer) 37.2 Cancelled BUN/Creatinine Ratio 15.0 Cancelled (10-20) Glucose 295 H Cancelled (70-99) mg/dl POC Glucose (70-99) mg/dl POC Glucose (other) (70-99) mg/dl Lactate (0.4-2.0) mmol/L Calcium 7.4 L Cancelled (8.5-10.1) mg/dl POC Ioniz Calcium Miracle (1.12-1.32) mmol/l Ionized Calcium 1.02 L (1.12-1.32) mmol/L Phosphorus 6.5 H D Cancelled (2.5-4.9) mg/dl Magnesium 2.0 Cancelled (1.8-2.4) mg/dl Total Bilirubin 0.4 (0.2-1) mg/dl Direct Bilirubin (0-0.2) mg/dl AST 116 H (15-37) U/L ALT 60 (12-78) U/L Alkaline Phosphatase 114 (45-117) U/L Total Creatine Kinase (26-192) U/L CK-MB (CK-2) 81.3 H (0.5-3.6) ng/ml CK/CKMB % Calc Not Reportable (0-3.0) POC Troponin I (0-0.045) ng/ml Troponin I (0-0.045) ng/ml Total Protein 6.6 (6.4-8.2) gm/dl Albumin 2.9 L (3.4-5.0) gm/dl Globulin (2.5-4.0) gm/dl Albumin/Globulin Ratio (0.9-2) Lipase (73-393) U/L Beta-Hydroxybutyric Acd (0.2-2.81) mg/dl TSH (0.300-4.500) uIu/ml Free T4 (0.8-1.6) ng/dl Specimen Hemolysis Urine Color Urine Appearance (Clear) Urine pH (4.5-7.5) Ur Specific Tillar (1.000-1.030) Urine Protein (Negative) Urine Glucose (UA) (Negative) Urine Ketones (Negative) Urine Blood (Negative) Urine Nitrite (Negative) Urine Bilirubin (Negative) Urine Urobilinogen (Negative) Ur Leukocyte Esterase (Negative) Urine WBC (Auto) (0-5) /hpf Urine RBC (Auto) (0-4) /hpf U Hyaline Cast (Auto) (0-5) /lpf U Epithel Cells (Auto) (0-5) /lpf Urine Bacteria (Auto) (Negative) Urine Yeast Nasal Screen MRSA (PCR) (Negative) Stl C. diff Tox B Gene (Neg) 09/04/19 09/04/19 09/04/19 Range/Units 03:39 03:34 02:29 WBC (4.8-10.8) K/uL RBC (4.2-5.4) M/uL Hgb (12.0-16.0) g/dL POC Hgb (12.0-16.0) g/dl Hct (37-47) % POC Hct (37-47) % MCV (80-100) fL MCH (25-34) pg MCHC (32-36) g/dL RDW Std Deviation (36.4-46.3) fL RDW Coeff of Naila (11.5-14.5) % Plt Count (130-400) K/uL MPV (7.4-10.4) fL Immature Gran % (Auto) % Neut % (Auto) % Lymph % (Auto) % [place] % (Auto) % Eos % (Auto) % Baso % (Auto) % Neut # (Auto) (1.4-6.5) K/uL Lymph # (Auto) (1.2-3.4) K/uL [place] # (Auto) (0.11-0.59) K/uL Eos # (Auto) (0-0.5) K/uL Baso # (Auto) (0-0.2) K/uL Immature Gran # (Auto) (0.00-0.02) K/uL PT 13.8 H (9.0-12.0) Seconds INR 1.3 H (0.9-1.1) APTT 38.7 H (21.0-31.0) Seconds PTT Ratio 1.4 Sample Site POC pH (7.35-7.45) POC pCO2 (35-46) mmHg POC pO2 (80-95) mmHg POC HCO3 (19-24) olamide/L POC Base Excess (-9-1.8) olamide/L ABG pH (Temp Correct) (7.35-7.45) ABG pCO2 (Temp Corrct (35-46) mmHg POC ABG pO2 at Pt Temp POC ABG O2 Sat (90-95) % Hitesh Test O2 Delivery Device POC O2 Rate Minute Ventilation POC FiO2 % Tidal Volume PEEP POC Sodium (135-144) mmol/L Sodium (136-145) mmol/L POC Potassium (3.3-5.0) mmol/L Potassium (3.5-5.1) mmol/L POC Chloride (101-112) mmol/L Chloride (98-107) mmol/L Carbon Dioxide (21-32) mmol/L POC Total CO2 (24-31) mmol/L Anion Gap (3-11) POC Anion Gap (16-25) mmol/L POC BUN (7-18) mg/dl BUN (7-18) mg/dl Creatinine (0.6-1.2) mg/dl POC Creatinine (0.6-1.3) mg/dl Est Cr Clr Drug Dosing Est GFR ( Amer) Est GFR (Non-Af Amer) BUN/Creatinine Ratio (10-20) Glucose (70-99) mg/dl POC Glucose 337 H* (70-99) mg/dl POC Glucose (other) (70-99) mg/dl Lactate 2.8 H* (0.4-2.0) mmol/L Calcium (8.5-10.1) mg/dl POC Ioniz Calcium Miracle (1.12-1.32) mmol/l Ionized Calcium (1.12-1.32) mmol/L Phosphorus (2.5-4.9) mg/dl Magnesium (1.8-2.4) mg/dl Total Bilirubin (0.2-1) mg/dl Direct Bilirubin (0-0.2) mg/dl AST (15-37) U/L ALT (12-78) U/L Alkaline Phosphatase (45-117) U/L Total Creatine Kinase (26-192) U/L CK-MB (CK-2) (0.5-3.6) ng/ml CK/CKMB % Calc (0-3.0) POC Troponin I (0-0.045) ng/ml Troponin I (0-0.045) ng/ml Total Protein (6.4-8.2) gm/dl Albumin (3.4-5.0) gm/dl Globulin (2.5-4.0) gm/dl Albumin/Globulin Ratio (0.9-2) Lipase (73-393) U/L Beta-Hydroxybutyric Acd (0.2-2.81) mg/dl TSH (0.300-4.500) uIu/ml Free T4 (0.8-1.6) ng/dl Specimen Hemolysis Urine Color Urine Appearance (Clear) Urine pH (4.5-7.5) Ur Specific [place] (1.000-1.030) Urine Protein (Negative) Urine Glucose (UA) (Negative) Urine Ketones (Negative) Urine Blood (Negative) Urine Nitrite (Negative) Urine Bilirubin (Negative) Urine Urobilinogen (Negative) Ur Leukocyte Esterase (Negative) Urine WBC (Auto) (0-5) /hpf Urine RBC (Auto) (0-4) /hpf U Hyaline Cast (Auto) (0-5) /lpf U Epithel Cells (Auto) (0-5) /lpf Urine Bacteria (Auto) (Negative) Urine Yeast Nasal Screen MRSA (PCR) (Negative) Stl C. diff Tox B Gene (Neg) 09/04/19 09/04/19 09/04/19 Range/Units 02:10 01:15 01:07 WBC (4.8-10.8) K/uL RBC (4.2-5.4) M/uL Hgb (12.0-16.0) g/dL POC Hgb 13.3 (12.0-16.0) g/dl Hct (37-47) % POC Hct 39 (37-47) % MCV (80-100) fL MCH (25-34) pg MCHC (32-36) g/dL RDW Std Deviation (36.4-46.3) fL RDW Coeff of Naila (11.5-14.5) % Plt Count (130-400) K/uL MPV (7.4-10.4) fL Immature Gran % (Auto) % Neut % (Auto) % Lymph % (Auto) % [place] % (Auto) % Eos % (Auto) % Baso % (Auto) % Neut # (Auto) (1.4-6.5) K/uL Lymph # (Auto) (1.2-3.4) K/uL [place] # (Auto) (0.11-0.59) K/uL Eos # (Auto) (0-0.5) K/uL Baso # (Auto) (0-0.2) K/uL Immature Gran # (Auto) (0.00-0.02) K/uL PT (9.0-12.0) Seconds INR (0.9-1.1) APTT 34.0 H (21.0-31.0) Seconds PTT Ratio 1.2 Sample Site Art Line POC pH 7.11 L* (7.35-7.45) POC pCO2 92 H (35-46) mmHg POC pO2 100 H (80-95) mmHg POC HCO3 29 H (19-24) olamide/L POC Base Excess -1.0 (-9-1.8) olamide/L ABG pH (Temp Correct) 7.170 L* (7.35-7.45) ABG pCO2 (Temp Corrct 74 H (35-46) mmHg POC ABG pO2 at Pt Temp 74 POC ABG O2 Sat 94.0 (90-95) % Hitesh Test NA O2 Delivery Device Ventilator POC O2 Rate 18 Minute Ventilation 11.6 POC FiO2 40 % Tidal Volume 500 PEEP 5 POC Sodium 140 (135-144) mmol/L Sodium (136-145) mmol/L POC Potassium 5.5 H (3.3-5.0) mmol/L Potassium (3.5-5.1) mmol/L POC Chloride (101-112) mmol/L Chloride (98-107) mmol/L Carbon Dioxide (21-32) mmol/L POC Total CO2 32 H (24-31) mmol/L Anion Gap (3-11) POC Anion Gap (16-25) mmol/L POC BUN (7-18) mg/dl BUN (7-18) mg/dl Creatinine (0.6-1.2) mg/dl POC Creatinine (0.6-1.3) mg/dl Est Cr Clr Drug Dosing Est GFR ( Amer) Est GFR (Non-Af Amer) BUN/Creatinine Ratio (10-20) Glucose (70-99) mg/dl POC Glucose (70-99) mg/dl POC Glucose (other) (70-99) mg/dl Lactate (0.4-2.0) mmol/L Calcium (8.5-10.1) mg/dl POC Ioniz Calcium Miracle (1.12-1.32) mmol/l Ionized Calcium (1.12-1.32) mmol/L Phosphorus (2.5-4.9) mg/dl Magnesium (1.8-2.4) mg/dl Total Bilirubin (0.2-1) mg/dl Direct Bilirubin (0-0.2) mg/dl AST (15-37) U/L ALT (12-78) U/L Alkaline Phosphatase (45-117) U/L Total Creatine Kinase (26-192) U/L CK-MB (CK-2) (0.5-3.6) ng/ml CK/CKMB % Calc (0-3.0) POC Troponin I (0-0.045) ng/ml Troponin I (0-0.045) ng/ml Total Protein (6.4-8.2) gm/dl Albumin (3.4-5.0) gm/dl Globulin (2.5-4.0) gm/dl Albumin/Globulin Ratio (0.9-2) Lipase (73-393) U/L Beta-Hydroxybutyric Acd (0.2-2.81) mg/dl TSH (0.300-4.500) uIu/ml Free T4 (0.8-1.6) ng/dl Specimen Hemolysis Urine Color Yellow Urine Appearance Cloudy A (Clear) Urine pH 6.5 (4.5-7.5) Ur Specific Till[place] 1.036 H (1.000-1.030) Urine Protein 2+ H (Negative) Urine Glucose (UA) 1+ H (Negative) Urine Ketones Negative (Negative) Urine Blood 3+ H (Negative) Urine Nitrite Negative (Negative) Urine Bilirubin Negative (Negative) Urine Urobilinogen Negative (Negative) Ur Leukocyte Esterase Negative (Negative) Urine WBC (Auto) >30 H (0-5) /hpf Urine RBC (Auto) 10-30 H (0-4) /hpf U Hyaline Cast (Auto) 10-30 H (0-5) /lpf U Epithel Cells (Auto) >30 H (0-5) /lpf Urine Bacteria (Auto) 1+ H (Negative) Urine Yeast Not Reportable Nasal Screen MRSA (PCR) (Negative) Stl C. diff Tox B Gene (Neg) 07/25/20 07/24/20 07/24/20 Range/Units 00:45 23:43 23:43 WBC (4.8-10.8) K/uL RBC (4.2-5.4) M/uL Hgb (12.0-16.0) g/dL POC Hgb (12.0-16.0) g/dl Hct (37-47) % POC Hct (37-47) % MCV (80-100) fL MCH (25-34) pg MCHC (32-36) g/dL RDW Std Deviation (36.4-46.3) fL RDW Coeff of Naila (11.5-14.5) % Plt Count (130-400) K/uL MPV (7.4-10.4) fL Immature Gran % (Auto) % Neut % (Auto) % Lymph % (Auto) % [place] % (Auto) % Eos % (Auto) % Baso % (Auto) % Neut # (Auto) (1.4-6.5) K/uL Lymph # (Auto) (1.2-3.4) K/uL [place] # (Auto) (0.11-0.59) K/uL Eos # (Auto) (0-0.5) K/uL Baso # (Auto) (0-0.2) K/uL Immature Gran # (Auto) (0.00-0.02) K/uL PT (9.0-12.0) Seconds INR (0.9-1.1) APTT (21.0-31.0) Seconds PTT Ratio Sample Site POC pH (7.35-7.45) POC pCO2 (35-46) mmHg POC pO2 (80-95) mmHg POC HCO3 (19-24) olamide/L POC Base Excess (-9-1.8) olamide/L ABG pH (Temp Correct) (7.35-7.45) ABG pCO2 (Temp Corrct (35-46) mmHg POC ABG pO2 at Pt Temp POC ABG O2 Sat (90-95) % Hitesh Test O2 Delivery Device POC O2 Rate Minute Ventilation POC FiO2 % Tidal Volume PEEP POC Sodium (135-144) mmol/L Sodium 140 (136-145) mmol/L POC Potassium (3.3-5.0) mmol/L Potassium 3.8 D (3.5-5.1) mmol/L POC Chloride (101-112) mmol/L Chloride 104 (98-107) mmol/L Carbon Dioxide 30 (21-32) mmol/L POC Total CO2 (24-31) mmol/L Anion Gap 6.0 (3-11) POC Anion Gap (16-25) mmol/L POC BUN (7-18) mg/dl BUN 20 H (7-18) mg/dl Creatinine 1.44 H (0.6-1.2) mg/dl POC Creatinine (0.6-1.3) mg/dl Est Cr Clr Drug Dosing 47.7 Est GFR ( Amer) 45.3 Est GFR (Non-Af Amer) 39.1 BUN/Creatinine Ratio 13.7 (10-20) Glucose 358 H* (70-99) mg/dl POC Glucose (70-99) mg/dl POC Glucose (other) (70-99) mg/dl Lactate (0.4-2.0) mmol/L Calcium 7.5 L (8.5-10.1) mg/dl POC Ioniz Calcium Miracle (1.12-1.32) mmol/l Ionized Calcium 1.04 L (1.12-1.32) mmol/L Phosphorus 5.2 H (2.5-4.9) mg/dl Magnesium 2.2 (1.8-2.4) mg/dl Total Bilirubin (0.2-1) mg/dl Direct Bilirubin (0-0.2) mg/dl AST (15-37) U/L ALT (12-78) U/L Alkaline Phosphatase (45-117) U/L Total Creatine Kinase (26-192) U/L CK-MB (CK-2) (0.5-3.6) ng/ml CK/CKMB % Calc (0-3.0) POC Troponin I (0-0.045) ng/ml Troponin I 9.370 H* (0-0.045) ng/ml Total Protein (6.4-8.2) gm/dl Albumin (3.4-5.0) gm/dl Globulin (2.5-4.0) gm/dl Albumin/Globulin Ratio (0.9-2) Lipase (73-393) U/L Beta-Hydroxybutyric Acd 1.25 (0.2-2.81) mg/dl TSH (0.300-4.500) uIu/ml Free T4 (0.8-1.6) ng/dl Specimen Hemolysis Urine Color Urine Appearance (Clear) Urine pH (4.5-7.5) Ur Specific [place] (1.000-1.030) Urine Protein (Negative) Urine Glucose (UA) (Negative) Urine Ketones (Negative) Urine Blood (Negative) Urine Nitrite (Negative) Urine Bilirubin (Negative) Urine Urobilinogen (Negative) Ur Leukocyte Esterase (Negative) Urine WBC (Auto) (0-5) /hpf Urine RBC (Auto) (0-4) /hpf U Hyaline Cast (Auto) (0-5) /lpf U Epithel Cells (Auto) (0-5) /lpf Urine Bacteria (Auto) (Negative) Urine Yeast Nasal Screen MRSA (PCR) Uninterpretable (Negative) Stl C. diff Tox B Gene (Neg) 09/03/19 09/03/19 09/03/19 Range/Units 23:43 23:29 21:17 WBC (4.8-10.8) K/uL RBC (4.2-5.4) M/uL Hgb (12.0-16.0) g/dL POC Hgb 13.3 13.3 (12.0-16.0) g/dl Hct (37-47) % POC Hct 39 39 (37-47) % MCV (80-100) fL MCH (25-34) pg MCHC (32-36) g/dL RDW Std Deviation (36.4-46.3) fL RDW Coeff of Naila (11.5-14.5) % Plt Count (130-400) K/uL MPV (7.4-10.4) fL Immature Gran % (Auto) % Neut % (Auto) % Lymph % (Auto) % [place] % (Auto) % Eos % (Auto) % Baso % (Auto) % Neut # (Auto) (1.4-6.5) K/uL Lymph # (Auto) (1.2-3.4) K/uL [place] # (Auto) (0.11-0.59) K/uL Eos # (Auto) (0-0.5) K/uL Baso # (Auto) (0-0.2) K/uL Immature Gran # (Auto) (0.00-0.02) K/uL PT (9.0-12.0) Seconds INR (0.9-1.1) APTT (21.0-31.0) Seconds PTT Ratio Sample Site Art Line POC pH 7.17 L* (7.35-7.45) POC pCO2 85 H (35-46) mmHg POC pO2 94 (80-95) mmHg POC HCO3 31 H (19-24) olamide/L POC Base Excess 2.0 H (-9-1.8) olamide/L ABG pH (Temp Correct) 7.198 L* (7.35-7.45) ABG pCO2 (Temp Corrct 77 H (35-46) mmHg POC ABG pO2 at Pt Temp 82 POC ABG O2 Sat 94.0 (90-95) % Hitesh Test NA O2 Delivery Device Ventilator POC O2 Rate 12 Minute Ventilation 9.4 POC FiO2 40 % Tidal Volume 500 PEEP 5 POC Sodium 140 142 (135-144) mmol/L Sodium (136-145) mmol/L POC Potassium 4.0 4.6 (3.3-5.0) mmol/L Potassium (3.5-5.1) mmol/L POC Chloride 100 L (101-112) mmol/L Chloride (98-107) mmol/L Carbon Dioxide (21-32) mmol/L POC Total CO2 34 H 30 (24-31) mmol/L Anion Gap (3-11) POC Anion Gap 18.0 (16-25) mmol/L POC BUN 16 (7-18) mg/dl BUN (7-18) mg/dl Creatinine (0.6-1.2) mg/dl POC Creatinine 1.3 (0.6-1.3) mg/dl Est Cr Clr Drug Dosing Est GFR ( Amer) Est GFR (Non-Af Amer) BUN/Creatinine Ratio (10-20) Glucose (70-99) mg/dl POC Glucose (70-99) mg/dl POC Glucose (other) 300 H (70-99) mg/dl Lactate 2.8 H* (0.4-2.0) mmol/L Calcium (8.5-10.1) mg/dl POC Ioniz Calcium Miracle 1.13 (1.12-1.32) mmol/l Ionized Calcium (1.12-1.32) mmol/L Phosphorus (2.5-4.9) mg/dl Magnesium (1.8-2.4) mg/dl Total Bilirubin (0.2-1) mg/dl Direct Bilirubin (0-0.2) mg/dl AST (15-37) U/L ALT (12-78) U/L Alkaline Phosphatase (45-117) U/L Total Creatine Kinase (26-192) U/L CK-MB (CK-2) (0.5-3.6) ng/ml CK/CKMB % Calc (0-3.0) POC Troponin I (0-0.045) ng/ml Troponin I (0-0.045) ng/ml Total Protein (6.4-8.2) gm/dl Albumin (3.4-5.0) gm/dl Globulin (2.5-4.0) gm/dl Albumin/Globulin Ratio (0.9-2) Lipase (73-393) U/L Beta-Hydroxybutyric Acd (0.2-2.81) mg/dl TSH (0.300-4.500) uIu/ml Free T4 (0.8-1.6) ng/dl Specimen Hemolysis Urine Color Urine Appearance (Clear) Urine pH (4.5-7.5) Ur Specific [place] (1.000-1.030) Urine Protein (Negative) Urine Glucose (UA) (Negative) Urine Ketones (Negative) Urine Blood (Negative) Urine Nitrite (Negative) Urine Bilirubin (Negative) Urine Urobilinogen (Negative) Ur Leukocyte Esterase (Negative) Urine WBC (Auto) (0-5) /hpf Urine RBC (Auto) (0-4) /hpf U Hyaline Cast (Auto) (0-5) /lpf U Epithel Cells (Auto) (0-5) /lpf Urine Bacteria (Auto) (Negative) Urine Yeast Nasal Screen MRSA (PCR) (Negative) Stl C. diff Tox B Gene (Neg) 09/03/19 09/03/19 09/03/19 Range/Units 21:15 21:04 21:04 WBC (4.8-10.8) K/uL RBC (4.2-5.4) M/uL Hgb (12.0-16.0) g/dL POC Hgb (12.0-16.0) g/dl Hct (37-47) % POC Hct (37-47) % MCV (80-100) fL MCH (25-34) pg MCHC (32-36) g/dL RDW Std Deviation (36.4-46.3) fL RDW Coeff of Naila (11.5-14.5) % Plt Count (130-400) K/uL MPV (7.4-10.4) fL Immature Gran % (Auto) % Neut % (Auto) % Lymph % (Auto) % [place] % (Auto) % Eos % (Auto) % Baso % (Auto) % Neut # (Auto) (1.4-6.5) K/uL Lymph # (Auto) (1.2-3.4) K/uL [place] # (Auto) (0.11-0.59) K/uL Eos # (Auto) (0-0.5) K/uL Baso # (Auto) (0-0.2) K/uL Immature Gran # (Auto) (0.00-0.02) K/uL PT 13.3 H (9.0-12.0) Seconds INR 1.3 H (0.9-1.1) APTT 31.9 H (21.0-31.0) Seconds PTT Ratio 1.1 Sample Site POC pH (7.35-7.45) POC pCO2 (35-46) mmHg POC pO2 (80-95) mmHg POC HCO3 (19-24) olamide/L POC Base Excess (-9-1.8) olamide/L ABG pH (Temp Correct) (7.35-7.45) ABG pCO2 (Temp Corrct (35-46) mmHg POC ABG pO2 at Pt Temp POC ABG O2 Sat (90-95) % Hitesh Test O2 Delivery Device POC O2 Rate Minute Ventilation POC FiO2 % Tidal Volume PEEP POC Sodium (135-144) mmol/L Sodium 142 (136-145) mmol/L POC Potassium (3.3-5.0) mmol/L Potassium 4.7 (3.5-5.1) mmol/L POC Chloride (101-112) mmol/L Chloride 103 (98-107) mmol/L Carbon Dioxide 28 (21-32) mmol/L POC Total CO2 (24-31) mmol/L Anion Gap 11.0 (3-11) POC Anion Gap (16-25) mmol/L POC BUN (7-18) mg/dl BUN 15 (7-18) mg/dl Creatinine 1.57 H (0.6-1.2) mg/dl POC Creatinine (0.6-1.3) mg/dl Est Cr Clr Drug Dosing Not Reportable Est GFR ( Amer) 40.8 Est GFR (Non-Af Amer) 35.2 BUN/Creatinine Ratio 9.5 L (10-20) Glucose 291 H (70-99) mg/dl POC Glucose (70-99) mg/dl POC Glucose (other) (70-99) mg/dl Lactate (0.4-2.0) mmol/L Calcium 8.0 L (8.5-10.1) mg/dl POC Ioniz Calcium Miracle (1.12-1.32) mmol/l Ionized Calcium (1.12-1.32) mmol/L Phosphorus (2.5-4.9) mg/dl Magnesium 2.4 (1.8-2.4) mg/dl Total Bilirubin 0.3 (0.2-1) mg/dl Direct Bilirubin (0-0.2) mg/dl AST 49 H (15-37) U/L ALT 40 (12-78) U/L Alkaline Phosphatase 119 H (45-117) U/L Total Creatine Kinase 151 (26-192) U/L CK-MB (CK-2) 4.3 H (0.5-3.6) ng/ml CK/CKMB % Calc 2.8 (0-3.0) POC Troponin I 0.44 H (0-0.045) ng/ml Troponin I 0.625 H* (0-0.045) ng/ml Total Protein 6.8 (6.4-8.2) gm/dl Albumin 2.9 L (3.4-5.0) gm/dl Globulin 3.9 (2.5-4.0) gm/dl Albumin/Globulin Ratio 0.7 L (0.9-2) Lipase 166 (73-393) U/L Beta-Hydroxybutyric Acd (0.2-2.81) mg/dl TSH 6.310 H (0.300-4.500) uIu/ml Free T4 0.97 (0.8-1.6) ng/dl Specimen Hemolysis Urine Color Urine Appearance (Clear) Urine pH (4.5-7.5) Ur Specific [place] (1.000-1.030) Urine Protein (Negative) Urine Glucose (UA) (Negative) Urine Ketones (Negative) Urine Blood (Negative) Urine Nitrite (Negative) Urine Bilirubin (Negative) Urine Urobilinogen (Negative) Ur Leukocyte Esterase (Negative) Urine WBC (Auto) (0-5) /hpf Urine RBC (Auto) (0-4) /hpf U Hyaline Cast (Auto) (0-5) /lpf U Epithel Cells (Auto) (0-5) /lpf Urine Bacteria (Auto) (Negative) Urine Yeast Nasal Screen MRSA (PCR) (Negative) Stl C. diff Tox B Gene (Neg) 09/03/19 Range/Units 21:04 WBC 12.99 H (4.8-10.8) K/uL RBC 4.43 (4.2-5.4) M/uL Hgb 12.6 (12.0-16.0) g/dL POC Hgb (12.0-16.0) g/dl Hct 40.7 (37-47) % POC Hct (37-47) % MCV 91.9 (80-100) fL MCH 28.4 (25-34) pg MCHC 31.0 L (32-36) g/dL RDW Std Deviation 44.9 (36.4-46.3) fL RDW Coeff of Naila 13.4 (11.5-14.5) % Plt Count 366 (130-400) K/uL MPV 9.5 (7.4-10.4) fL Immature Gran % (Auto) 5.2 % Neut % (Auto) 63.5 % Lymph % (Auto) 27.0 % [place] % (Auto) 3.6 % Eos % (Auto) 0.5 % Baso % (Auto) 0.2 % Neut # (Auto) 8.25 H (1.4-6.5) K/uL Lymph # (Auto) 3.51 H (1.2-3.4) K/uL [place] # (Auto) 0.47 (0.11-0.59) K/uL Eos # (Auto) 0.07 (0-0.5) K/uL Baso # (Auto) 0.02 (0-0.2) K/uL Immature Gran # (Auto) 0.67 H (0.00-0.02) K/uL PT (9.0-12.0) Seconds INR (0.9-1.1) APTT (21.0-31.0) Seconds PTT Ratio Sample Site POC pH (7.35-7.45) POC pCO2 (35-46) mmHg POC pO2 (80-95) mmHg POC HCO3 (19-24) olamide/L POC Base Excess (-9-1.8) olamide/L ABG pH (Temp Correct) (7.35-7.45) ABG pCO2 (Temp Corrct (35-46) mmHg POC ABG pO2 at Pt Temp POC ABG O2 Sat (90-95) % Hitesh Test O2 Delivery Device POC O2 Rate Minute Ventilation POC FiO2 % Tidal Volume PEEP POC Sodium (135-144) mmol/L Sodium (136-145) mmol/L POC Potassium (3.3-5.0) mmol/L Potassium (3.5-5.1) mmol/L POC Chloride (101-112) mmol/L Chloride (98-107) mmol/L Carbon Dioxide (21-32) mmol/L POC Total CO2 (24-31) mmol/L Anion Gap (3-11) POC Anion Gap (16-25) mmol/L POC BUN (7-18) mg/dl BUN (7-18) mg/dl Creatinine (0.6-1.2) mg/dl POC Creatinine (0.6-1.3) mg/dl Est Cr Clr Drug Dosing Est GFR ( Amer) Est GFR (Non-Af Amer) BUN/Creatinine Ratio (10-20) Glucose (70-99) mg/dl POC Glucose (70-99) mg/dl POC Glucose (other) (70-99) mg/dl Lactate (0.4-2.0) mmol/L Calcium (8.5-10.1) mg/dl POC Ioniz Calcium Miracle (1.12-1.32) mmol/l Ionized Calcium (1.12-1.32) mmol/L Phosphorus (2.5-4.9) mg/dl Magnesium (1.8-2.4) mg/dl Total Bilirubin (0.2-1) mg/dl Direct Bilirubin (0-0.2) mg/dl AST (15-37) U/L ALT (12-78) U/L Alkaline Phosphatase (45-117) U/L Total Creatine Kinase (26-192) U/L CK-MB (CK-2) (0.5-3.6) ng/ml CK/CKMB % Calc (0-3.0) POC Troponin I (0-0.045) ng/ml Troponin I (0-0.045) ng/ml Total Protein (6.4-8.2) gm/dl Albumin (3.4-5.0) gm/dl Globulin (2.5-4.0) gm/dl Albumin/Globulin Ratio (0.9-2) Lipase (73-393) U/L Beta-Hydroxybutyric Acd (0.2-2.81) mg/dl TSH (0.300-4.500) uIu/ml Free T4 (0.8-1.6) ng/dl Specimen Hemolysis Urine Color Urine Appearance (Clear) Urine pH (4.5-7.5) Ur Specific [place] (1.000-1.030) Urine Protein (Negative) Urine Glucose (UA) (Negative) Urine Ketones (Negative) Urine Blood (Negative) Urine Nitrite (Negative) Urine Bilirubin (Negative) Urine Urobilinogen (Negative) Ur Leukocyte Esterase (Negative) Urine WBC (Auto) (0-5) /hpf Urine RBC (Auto) (0-4) /hpf U Hyaline Cast (Auto) (0-5) /lpf U Epithel Cells (Auto) (0-5) /lpf Urine Bacteria (Auto) (Negative) Urine Yeast Nasal Screen MRSA (PCR) (Negative) Stl C. diff Tox B Gene (Neg) Resident Activity Tracking Resident Involvement: Resident Care Provided Care Provided: Adult Hospital Medicine (1) Hypertension Hypertension type: essential hypertension Qualified Code(s): I10 - Essential (primary) hypertension
[2019-09-04 10:36] LABS: iSTAT Art Bld Gas pCO2 Correct 52 mmHg (35-46); iSTAT Art Bld Gas pH Corrected 7.388 (7.35-7.45); iSTAT Arterial Blood Gas HCO3 33 meg/L (19-24); iSTAT Arterial Blood Gas pCO2 64 mmHg (35-46); iSTAT Arterial Blood Gas pH 7.32 (7.35-7.45); iSTAT Arterial Blood Gas pO2 108 mmHg (80-95); iSTAT Arterial Blood Gas pO2 C 82; iSTAT Carbon Dioxide 35 mmol/L (24-31); iSTAT FiO2 35 %; iSTAT Hematocrit 34 % (37-47); iSTAT Hemoglobin 11.6 g/dl (12.0-16.0); iSTAT Potassium 4.9 mmol/L (3.3-5.0); iSTAT Site Art Line; iSTAT Sodium 141 mmol/L (135-144)
--- NOTE | 2019-09-04 10:40 | XCELERA ---
[id number]
[2019-09-04 10:44] LABS: Beta-Hydroxybutyrate 0.82 mg/dl (0.2-2.81); Magnesium 2.2 mg/dl (1.8-2.4); Partial Thromboplastin Ratio 2.2; Potassium 4.3 mmol/L (3.5-5.1)
[2019-09-04 10:46] LABS: Partial Thromboplastin Time 61.2 Seconds (21.0-31.0)
[2019-09-04 11:55] LABS: Calcium 7.5 mg/dl (8.5-10.1); Creatinine Clr Calc Pharmacy 47.4 ml/min; Est GFR (African American) 44.9; Est GFR (Non-African American) 38.8; Magnesium 2.1 mg/dl (1.8-2.4); Potassium 4.1 mmol/L (3.5-5.1)
[2019-09-04] MEDS ORDERED: RASPBERRY SYRUP 5 ML UDP PO SCH (12:00)
[2019-09-04] MEDS ORDERED: VANCOMYCIN HCL 500 MG/10 ML SOLN NG SCH (12:00)
--- NOTE | 2019-09-04 13:48 | Hospitalist Progress Note ---
Date of Service September 04, 2019 Assessment & Plan (1) Admitted to intensive care unit: Patient is admitted to intensive care unit/status post cardiac arrest in the field with ventricular fibrillation/status post return of spontaneous circulation/cold therapy, Code [place]/STEMI. - Cooling protocol per ICU. - Sedated - Amiodarone gtt for vfib (2) Pneumonia: Initially placed on vancomycin IV and Zosyn IV due to likely aspiration. - Held now per ICU team (3) Cardiac arrest: See above (4) ST elevation (STEMI) myocardial infarction: See above (5) Cardiac arrest with ventricular fibrillation: See above (6) Signs of return of spontaneous circulation: See above Admission and Anticipated Discharge Date Admission Date: September 03, 2019 Subjective Intubated and sedated. Review of Systems Review of Systems: Unobtainable due to endotracheal tube and Unobtainable due to reduced consciousness Physical Exam Constitutional: WD/WN, vitals as above + acute distress Eyes: + anicteric sclerae; no conjunctival abnormality ENMT: external ear and nose normal, oropharynx normal Mouth / Teeth: 1. Intubated Neck: trachea midline, no thyromegaly normal visual inspection Respiratory: + labored breathing Auscultation: + crackles Cardiovascular: Rate/Rhythm: regular rhythm and + bradycardic Gastrointestinal (Abdomen): Inspection/Auscultation: abdomen normal to inspection; abdomen not distended Musculoskeletal: no cyanosis or clubbing, extremities motor strength 5/5 Skin: no rashes, warm and dry Neurologic: + does not move all extremities and + not awake Psychiatric: Orientation: + not alert and + not oriented to person Results & Data Results & Data ([facility]) Vital Signs (Past 12 Hours) Vital Signs Temp Temp Pulse Resp BP BP BP 09/04/19 13:00 32.1 C L 32.1 C L 39 L 22 101/61 09/04/19 12:00 32.1 C L 32.1 C L 36 L 22 113/61 09/04/19 11:00 32.2 C L 32.2 C L 37 L 22 98/52 L 09/04/19 10:20 35 L 22 09/04/19 10:00 32.2 C L 32.2 C L 39 L 22 114/53 L 09/04/19 09:00 32.2 C L 32.2 C L 36 L 22 90/58 L 88/59 L 09/04/19 08:00 32.2 C L 32.2 C L 35 L 22 72/49 L 95/65 L 09/04/19 07:20 38 L 22 09/04/19 07:00 32.2 C L 32.2 C L 42 L 22 83/53 L 83/61 L 09/04/19 05:36 42 L 23 09/04/19 05:04 32.2 C L 32.2 C L 43 L 22 104/69 105/63 09/04/19 04:00 32.3 C L 32.3 C L 50 L 22 91/62 L 87/68 L 09/04/19 03:55 35 L 91/62 L 09/04/19 03:40 35 L 87/64 L 09/04/19 02:35 49 L 143/106 H 09/04/19 02:30 22 09/04/19 02:10 53 L 22 09/04/19 02:00 32.3 C L 32.3 C L 53 L 15 93/69 L Pulse Ox 09/04/19 13:00 100 09/04/19 12:00 100 09/04/19 11:00 09/04/19 10:20 98 09/04/19 10:00 100 09/04/19 09:00 99 09/04/19 08:00 99 09/04/19 07:20 99 09/04/19 07:00 99 09/04/19 05:36 100 09/04/19 05:04 100 09/04/19 04:00 100 09/04/19 03:55 09/04/19 03:40 09/04/19 02:35 09/04/19 02:30 09/04/19 02:10 94 09/04/19 02:00 98 PG Care Time/CCT Total # of Minutes Spent Total Time Spent with Patient: Total time spent is greater than 50% in coordination of care (as documented) at patient's floor/unit and/or counseling patient: Coding Level of Care Code 98095 Subseq Hosp Care Lvl 3 Diagnoses Admitted to intensive care unit Z78.9 Pneumonia J18.1 Laterality: right Lung location: lower lobe of lung Pneumonia type: due to unspecified organism Cardiac arrest I46.9 ST elevation (STEMI) myocardial infarction I21.3 Cardiac arrest with ventricular fibrillation I46.9; I49.01 Signs of return of spontaneous circulation (1) Pneumonia Laterality: right Lung location: lower lobe of lung Pneumonia type: due to unspecified organism Qualified Code(s): J18.1 - Lobar pneumonia, unspecified organism
[2019-09-04 14:46] LABS: iSTAT Art Bld Gas pCO2 Correct 40 mmHg (35-46); iSTAT Art Bld Gas pH Corrected 7.458 (7.35-7.45); iSTAT Arterial Blood Gas HCO3 30 meg/L (19-24); iSTAT Arterial Blood Gas pCO2 50 mmHg (35-46); iSTAT Arterial Blood Gas pH 7.39 (7.35-7.45); iSTAT Arterial Blood Gas pO2 108 mmHg (80-95); iSTAT Arterial Blood Gas pO2 C 82; iSTAT Carbon Dioxide 31 mmol/L (24-31); iSTAT FiO2 30 %; iSTAT Hematocrit 32 % (37-47); iSTAT Hemoglobin 10.9 g/dl (12.0-16.0); iSTAT Potassium 3.6 mmol/L (3.3-5.0); iSTAT Site Art Line; iSTAT Sodium 139 mmol/L (135-144)
[2019-09-04 16:43] LABS: BUN Creatinine Ratio 19.4 (10-20); Calcium 7.4 mg/dl (8.5-10.1); Creatinine Clr Calc Pharmacy 50.6 ml/min; Est GFR (African American) 48.6; Est GFR (Non-African American) 41.9; Magnesium 1.9 mg/dl (1.8-2.4); Potassium 3.4 mmol/L (3.5-5.1)
[2019-09-04 16:48] LABS: Troponin I 11.5 ng/ml (0-0.045)
[2019-09-04] MEDS ORDERED: CALCIUM CHLORIDE 10% 1,000 MG in SODIUM CHLORIDE 0.9% 50 ML IV STA (17:10)
[2019-09-04 17:25] LABS: Phosphorus 2.9 mg/dl (2.5-4.9)
[2019-09-04] MEDS ORDERED: POTASSIUM CHLORIDE / WTR 20 MEQ/100 ML PLCT IV ONE (17:30)
[2019-09-04] MEDS ORDERED: MAGNESIUM SULFATE / D5W 1 GM/100 ML BAG IV ONE (17:30)
--- NOTE | 2019-09-04 18:26 | Electroencephalogram ---
EEG Procedure Note Date of Service September 04, 2019 Start / End Times Start Time: 4:22pm End Time: 4:42pm Referring Physician Dr Tavares History cardiac arrest Home Medication List Home Medications Medication Instructions Recorded Confirmed Type Centrum 1 tab PO QAM 05/19/18 04/14/19 History flecainide 100 mg PO DAILY 05/19/18 04/14/19 History ipratropium-albuterol 3 ml INHALATION QID 05/19/18 04/14/19 History guaifenesin [Mucinex] 1,200 mg PO Q12 #30 tab 05/23/18 04/14/19 Rx nicotine [Nicoderm CQ] 7 mg TRANSDERMAL QAM #14 ea 05/23/18 04/14/19 Rx amlodipine 10 mg tablet 10 mg PO DAILY #90 tab 12/16/18 04/14/19 Rx lisinopril 20 1 tab PO QAM #90 tab 12/16/18 04/14/19 Rx mg-hydrochlorothiazide 12.5 mg tablet fluticasone furoate 100 1 ea INHALATION DAILY #1 inhaler 01/28/19 04/14/19 Rx mcg-vilanterol 25 mcg/dose inhalation powder rivaroxaban 20 mg tablet 20 mg PO DAILY #30 tab 03/22/19 04/14/19 Rx varenicline 0.5 mg (11)-1 mg (42) See Rx Instructions PO .as 04/14/19 04/14/19 Rx tablets in a dose pack directed #53 ea varenicline 1 mg tablet 1 mg PO BID 84 Days #168 tab 04/14/19 04/14/19 Rx azithromycin 250 mg tablet See Rx Instructions PO .COMPLEX #6 06/09/19 Rx tab prednisone 10 mg tablet See Rx Instructions PO DAILY #30 06/09/19 Rx tab metoprolol succinate 100 mg 100 mg PO DAILY #90 tab 07/13/19 Rx tablet,extended release 24 hr albuterol sulfate 90 mcg/actuation 1 puffs INHALATION Q4H PRN #18 gm 08/05/19 Rx aerosol inhaler Inpatient Medication List Amiodarone HCl/Dextrose (Nexterone / D5w) 360 mg in 200 mls @ 16.667 mls/hr IV .Q12H [facility]; Protocol Stop: 10/04/19 03:59 Last Admin: 09/04/19 14:47 Dose: 0.5 mg/min, 16.7 mls/hr Documented by: [id number] Cosigned by: [id number] Infusion: 09/04/19 14:47 Dose: 0.5 mg/min, 16.7 mls/hr Documented by: [id number] Cosigned by: [id number] Admin: 09/04/19 03:46 Dose: 0.5 mg/min, 16.7 mls/hr Documented by: [id number] Cosigned by: [id number] Propofol (Diprivan) 1,000 mg in 100 mls @ 22.056 mls/hr IV .Q4H33M [facility]; Protocol Stop: 09/06/19 23:29 Last Admin: 09/04/19 14:47 Dose: 72.54 mcg/kg/min, 40 mls/hr Documented by: [id number] Cosigned by: [id number] Titration: 09/04/19 14:28 Dose: 72.54 mcg/kg/min, 40 mls/hr Documented by: [id number] Cosigned by: [id number] Titration: 09/04/19 12:30 Dose: 72.54 mcg/kg/min, 40 mls/hr Documented by: [id number] Titration: 09/04/19 11:31 Dose: 35 mcg/kg/min, 19.3 mls/hr Documented by: [id number] Admin: 09/04/19 11:21 Dose: 30 mcg/kg/min, 16.5 mls/hr Documented by: [id number] Cosigned by: [id number] Titration: 09/04/19 11:08 Dose: 30 mcg/kg/min, 16.5 mls/hr Documented by: [id number] Cosigned by: [id number] Titration: 09/04/19 06:56 Dose: 30 mcg/kg/min, 16.5 mls/hr Documented by: [id number] Cosigned by: [id number] Admin: 09/04/19 05:04 Dose: 30 mcg/kg/min, 16.5 mls/hr Documented by: [id number] Cosigned by: [id number] Titration: 09/04/19 05:04 Dose: 20 mcg/kg/min, 11 mls/hr Documented by: [id number] Cosigned by: [id number] Admin: 09/03/19 23:30 Dose: 20 mcg/kg/min, 11 mls/hr Documented by: [id number] Cosigned by: [id number] Fentanyl Citrate (Fentanyl Drip) 1,250 mcg in 250 mls @ 6 mls/hr IV .Q24H [facility]; Protocol Stop: 09/17/19 23:44 Last Titration: 09/04/19 11:31 Dose: 30 mcg/hr, 6 mls/hr Documented by: [id number] Titration: 09/04/19 06:56 Dose: 25 mcg/hr, 5 mls/hr Documented by: [id number] Cosigned by: [id number] Admin: 09/04/19 02:41 Dose: 25 mcg/hr, 5 mls/hr Documented by: [id number] Cosigned by: [id number] Norepinephrine Bitartrate 8 mg (/ Dextrose) 508 mls @ 42.017 mls/hr IV .Q12H6M [facility]; Protocol Stop: 10/03/19 23:44 Last Admin: 09/04/19 17:22 Dose: 0.12 mcg/kg/min, 42 mls/hr Documented by: [id number] Cosigned by: [id number] Titration: 09/04/19 17:22 Dose: 0.12 mcg/kg/min, 42 mls/hr Documented by: [id number] Cosigned by: [id number] Titration: 09/04/19 09:29 Dose: 0.12 mcg/kg/min, 42 mls/hr Documented by: [id number] Titration: 09/04/19 06:55 Dose: 0.1 mcg/kg/min, 35 mls/hr Documented by: [id number] Cosigned by: [id number] Admin: 09/04/19 05:02 Dose: 0.05 mcg/kg/min, 17.5 mls/hr Documented by: [id number] Cosigned by: [id number] Famotidine 20 mg/ Syringe 5 mls @ 2.5 mls/min IV BID [facility] Stop: 10/04/19 08:59 Last Admin: 09/04/19 09:25 Dose: 2.5 mls/min Documented by: [id number] Heparin Sodium/Dextrose (Heparin Sodium/Dextrose) 25,000 units in 500 mls @ 18 mls/hr IV .Q24H [facility]; Protocol Stop: 10/04/19 00:59 Last Titration: 09/04/19 11:31 Dose: 900 units/hr, 18 mls/hr Documented by: [id number] Cosigned by: [id number] Titration: 09/04/19 06:56 Dose: 900 units/hr, 18 mls/hr Documented by: [id number] Cosigned by: [id number] Admin: 09/04/19 02:40 Dose: 900 units/hr, 18 mls/hr Documented by: [id number] Cosigned by: [id number] Insulin Human Regular 250 (units/ Sodium Chloride) 250 mls @ 1.6 mls/hr IV .Q24H [facility]; Protocol Stop: 10/04/19 02:59 Last Titration: 09/04/19 16:31 Dose: 1.6 units/hr, 1.6 mls/hr Documented by: [id number] Cosigned by: [id number] Titration: 09/04/19 14:00 Dose: 1.6 units/hr, 1.6 mls/hr Documented by: [id number] Cosigned by: [id number] Titration: 09/04/19 12:00 Dose: 1.6 units/hr, 1.6 mls/hr Documented by: [id number] Cosigned by: [id number] Titration: 09/04/19 11:00 Dose: 1.6 units/hr, 1.6 mls/hr Documented by: [id number] Cosigned by: [id number] Titration: 09/04/19 10:00 Dose: 1.6 units/hr, 1.6 mls/hr Documented by: [id number] Cosigned by: [id number] Titration: 09/04/19 09:09 Dose: 1.6 units/hr, 1.6 mls/hr Documented by: [id number] Cosigned by: [id number] Titration: 09/04/19 08:00 Dose: 2 units/hr, 2 mls/hr Documented by: [id number] Cosigned by: [id number] Titration: 09/04/19 06:55 Dose: 2 units/hr, 2 mls/hr Documented by: [id number] Cosigned by: [id number] Titration: 09/04/19 06:25 Dose: 0 units/hr, 0 mls/hr Documented by: [id number] Cosigned by: [id number] Admin: 09/04/19 03:47 Dose: 3.4 units/hr, 3.4 mls/hr Documented by: [id number] Cosigned by: [id number] Parenteral Electrolytes (Normosol-R) 1,000 mls @ 100 mls/hr IV .Q10H [facility] Stop: 10/04/19 13:14 Last Admin: 09/04/19 13:23 Dose: 100 mls/hr Documented by: [id number] Potassium Chloride (K Miguel / Wtr) 20 meq in 100 mls @ 50 mls/hr IV ONE ONE Stop: 09/04/19 19:29 Last Admin: 09/04/19 17:22 Dose: 50 mls/hr Documented by: [id number] Magnesium Sulfate/Dextrose (Magnesium Sulfate / D5w) 1 gm in 100 mls @ 50 mls/hr IV ONE ONE Stop: 09/04/19 19:29 Last Admin: 09/04/19 17:22 Dose: 50 mls/hr Documented by: [id number] Insulin Aspart (Novolog Flexpen) 0 units SC ACHS [facility] Stop: 10/04/19 07:29 Last Admin: 09/04/19 16:31 Dose: Not Given Documented by: [id number] Cosigned by: [id number] Admin: 09/04/19 12:30 Dose: Not Given Documented by: [id number] Cosigned by: [id number] Admin: 09/04/19 08:11 Dose: Not Given Documented by: [id number] Cosigned by: [id number] Meperidine HCl (Demerol) 25 mg IV Q2H PRN PRN Reason: Shivering Stop: 09/17/19 23:26 Last Admin: 09/04/19 09:25 Dose: 25 mg Documented by: [id number] Discontinued Medications Amiodarone HCl/Dextrose (Nexterone / D5w) Confirm Administered Dose 360 mg IV .STK-MED ONE Stop: 09/03/19 21:16 Last Admin: 09/04/19 01:52 Dose: Not Given Documented by: [id number] Amiodarone HCl/Dextrose (Nexterone / D5w) Confirm Administered Dose 150 mg IV .STK-MED ONE Stop: 09/03/19 21:16 Last Admin: 09/03/19 21:19 Dose: 150 mg Documented by: [id number] Cosigned by: [id number] Fentanyl Citrate (Fentanyl Citrate) Confirm Administered Dose 200 mcg .ROUTE .STK-MED ONE Stop: 09/03/19 21:11 Last Admin: 09/04/19 01:50 Dose: Not Given Documented by: [id number] Heparin Sodium (Porcine) (Heparin Iv Bolus (Pot[employer] Use Only)) Confirm Administered Dose 20,000 units .ROUTE .STK-MED ONE Stop: 09/03/19 21:11 Last Admin: 09/04/19 01:51 Dose: Not Given Documented by: [id number] Heparin Sodium/Dextrose () 1 ea IV Q15M [facility]; Protocol Stop: 10/04/19 00:51 Last Admin: 09/04/19 08:19 Dose: Not Given Documented by: [id number] Admin: 09/04/19 08:18 Dose: Not Given Documented by: [id number] Admin: 09/04/19 08:18 Dose: Not Given Documented by: [id number] Admin: 09/04/19 08:18 Dose: Not Given Documented by: [id number] Admin: 09/04/19 08:12 Dose: Not Given Documented by: [id number] Admin: 09/04/19 02:02 Dose: Not Given Documented by: [id number] Heparin Sodium/Sodium Chloride (Heparin/Nss 1000 Unit/500ml Flush Bag) Confirm Administered Dose 6,000 units IV .STK-MED ONE Stop: 09/03/19 21:11 Last Admin: 09/04/19 01:51 Dose: Not Given Documented by: [id number] Sodium Chloride (Nss 1000ml) 1,000 mls @ 125 mls/hr IV .Q8H [facility] Stop: 09/04/19 05:03 Last Admin: 09/04/19 04:39 Dose: Not Given Documented by: [id number] Sodium Chloride (Nss 1000ml) 1,000 mls @ 100 mls/hr IV .Q10H [facility] Stop: 10/03/19 21:29 Last Admin: 09/04/19 04:39 Dose: Not Given Documented by: [id number] Parenteral Electrolytes (Normosol-R) 1,000 mls @ 100 mls/hr IV .Q10H [facility] Stop: 10/04/19 00:59 Last Admin: 09/04/19 13:24 Dose: Not Given Documented by: [id number] Infusion: 09/04/19 13:22 Dose: 0 mls/hr Documented by: [id number] Admin: 09/04/19 03:49 Dose: 100 mls/hr Documented by: [id number] Calcium Chloride 1,000 mg/ (Sodium Chloride) 60 mls @ 240 mls/hr IV NOW STA Stop: 09/04/19 17:24 Last Infusion: 09/04/19 17:38 Dose: 0 mls/hr Documented by: [id number] Admin: 09/04/19 17:22 Dose: 240 mls/hr Documented by: [id number] Insulin Human Regular (Novolin R Bolus From Bag) 3.5 units IV ONE ONE Stop: 09/04/19 03:01 Last Admin: 09/04/19 03:49 Dose: 3.5 units Documented by: [id number] Cosigned by: [id number] Midazolam HCl (Versed) Confirm Administered Dose 4 mg .ROUTE .STK-MED ONE Stop: 09/03/19 21:11 Last Admin: 09/04/19 01:51 Dose: Not Given Documented by: [id number] Midazolam HCl (Versed) Confirm Administered Dose 2 mg .ROUTE .[facility]-MED ONE Stop: 09/03/19 21:23 Last Admin: 09/03/19 21:24 Dose: 2 mg Documented by: [id number] Midazolam HCl (Versed) Confirm Administered Dose 2 mg .ROUTE .[facility]-MED ONE Stop: 09/03/19 21:37 Last Admin: 09/04/19 01:52 Dose: Not Given Documented by: [id number] Nicardipine HCl (Cardene) Confirm Administered Dose 50 mg .ROUTE .STK-MED ONE Stop: 09/03/19 21:11 Last Admin: 09/04/19 01:50 Dose: Not Given Documented by: [id number] Nitroglycerin/Dextrose (Nitroglycerin/D5w 100 Mcg/Ml 20ml Syringe) Confirm Administered Dose 4,000 mcg .ROUTE .ST-MED ONE Stop: 09/03/19 21:12 Last Admin: 09/04/19 01:51 Dose: Not Given Documented by: [id number] Norepinephrine Bitartrate (Levophed ([employer] Use Only)) Confirm Administered Dose 8 mg .ROUTE .ST-MED ONE Stop: 09/03/19 21:40 Last Admin: 09/04/19 02:08 Dose: Not Given Documented by: [id number] Propofol (Diprivan) Confirm Administered Dose 1,000 mg IV .STK-MED ONE Stop: 09/03/19 23:32 Last Admin: 09/04/19 02:08 Dose: Not Given Documented by: [id number] Description This is a 21 electrode EEG with a single channel dedicated to limited EKG. The electrodes were placed in accordance with the International 10-20 system. History: VFib cardiac arrest s/p ROSC Rx: fentanyl gtt, propofol gtt Start/Stop: 4:22pm/4:42pm Attending reading: Ariane Kathleen EEG Description: EEG background: Background was low voltage with predominantly 1-3 Hz delta slowing with overriding muscle artifact. No well formed posterior dominant rhythm was observed. The EEG is continuous. There is variability, no clear reactivity present. Activation and reactivity: Photic stimulation and hyperventilation were not performed. Sleep: No drowsiness or sleep was recorded. Epileptiform discharges: No epileptiform discharges were observed. Rhythmic and periodic patterns: None Seizures: None Impression: This was an abnormal EEG given the severe generalized slowing present suggestive of a severe encephalopathy picture. Recommend using rocuronium prior to next EEG to help remove muscle artifact. [facility] EEG Procedure Codes Indication for Procedure (1) Cardiac arrest: Neurology Neurology: 78614 EEG include record awake & drowsy
[2019-09-04 20:26] LABS: iSTAT Art Bld Gas pCO2 Correct 50 mmHg (35-46); iSTAT Art Bld Gas pH Corrected 7.387 (7.35-7.45); iSTAT Arterial Blood Gas HCO3 32 meg/L (19-24); iSTAT Arterial Blood Gas pCO2 62 mmHg (35-46); iSTAT Arterial Blood Gas pH 7.32 (7.35-7.45); iSTAT Arterial Blood Gas pO2 91 mmHg (80-95); iSTAT Arterial Blood Gas pO2 C 67; iSTAT Carbon Dioxide 34 mmol/L (24-31); iSTAT FiO2 35 %; iSTAT Hematocrit 31 % (37-47); iSTAT Hemoglobin 10.5 g/dl (12.0-16.0); iSTAT Potassium 3.9 mmol/L (3.3-5.0); iSTAT Site Art Line; iSTAT Sodium 139 mmol/L (135-144)
[2019-09-04 20:26] LABS: iSTAT Art Bld Gas pCO2 Correct 48 mmHg (35-46); iSTAT Art Bld Gas pH Corrected 7.426 (7.35-7.45); iSTAT Arterial Blood Gas HCO3 33 meg/L (19-24); iSTAT Arterial Blood Gas pCO2 59 mmHg (35-46); iSTAT Arterial Blood Gas pH 7.36 (7.35-7.45); iSTAT Arterial Blood Gas pO2 67 mmHg (80-95); iSTAT Arterial Blood Gas pO2 C 49; iSTAT Carbon Dioxide 35 mmol/L (24-31); iSTAT FiO2 30 %; iSTAT Hematocrit 31 % (37-47); iSTAT Hemoglobin 10.5 g/dl (12.0-16.0); iSTAT Potassium 4.4 mmol/L (3.3-5.0); iSTAT Site Art Line; iSTAT Sodium 138 mmol/L (135-144)
[2019-09-04 20:26] LABS: BUN Creatinine Ratio 19.8 (10-20); Calcium 8.3 mg/dl (8.5-10.1); Creatinine Clr Calc Pharmacy 51.7 ml/min; Est GFR (African American) 49.9; Magnesium 2.5 mg/dl (1.8-2.4); Potassium 3.9 mmol/L (3.5-5.1)
[2019-09-04 20:36] LABS: Phosphorus 4.4 mg/dl (2.5-4.9)
[2019-09-05 00:03] LABS: iSTAT Art Bld Gas pCO2 Correct 55 mmHg (35-46); iSTAT Art Bld Gas pH Corrected 7.359 (7.35-7.45); iSTAT Arterial Blood Gas HCO3 33 meg/L (19-24); iSTAT Arterial Blood Gas pCO2 67 mmHg (35-46); iSTAT Arterial Blood Gas pH 7.29 (7.35-7.45); iSTAT Arterial Blood Gas pO2 74 mmHg (80-95); iSTAT Arterial Blood Gas pO2 C 54; iSTAT Carbon Dioxide 35 mmol/L (24-31); iSTAT FiO2 35 %; iSTAT Hematocrit 31 % (37-47); iSTAT Hemoglobin 10.5 g/dl (12.0-16.0); iSTAT Site Art Line; iSTAT Sodium 139 mmol/L (135-144)
[2019-09-05] MEDS: propofoL 1,000 MG/100 ML VIAL IV SCH ×5 (01:51→08:33)
[2019-09-05] MEDS: AMIODARONE / D5W 360 MG/200 ML BAG IV SCH ×2 (02:51→14:55)
[2019-09-05 04:27] LABS: iSTAT Art Bld Gas pCO2 Correct 55 mmHg (35-46); iSTAT Art Bld Gas pH Corrected 7.326 (7.35-7.45); iSTAT Arterial Blood Gas HCO3 31 meg/L (19-24); iSTAT Arterial Blood Gas pCO2 68 mmHg (35-46); iSTAT Arterial Blood Gas pH 7.26 (7.35-7.45); iSTAT Arterial Blood Gas pO2 86 mmHg (80-95); iSTAT Arterial Blood Gas pO2 C 63; iSTAT Carbon Dioxide 33 mmol/L (24-31); iSTAT FiO2 35 %; iSTAT Hematocrit 33 % (37-47); iSTAT Hemoglobin 11.2 g/dl (12.0-16.0); iSTAT Potassium 3.6 mmol/L (3.3-5.0); iSTAT Site Art Line; iSTAT Sodium 138 mmol/L (135-144)
[2019-09-05] MEDS: HEPARIN SODIUM/DEXTROSE 25,000 UNITS/500 ML BAG IV SCH (05:00)
[2019-09-05 05:13] LABS: Alanine Aminotransferase 51 U/L (12-78); Albumin Level 2.6 gm/dl (3.4-5.0); Aspartate Aminotransferase 108 U/L (15-37); BUN Creatinine Ratio 20.1 (10-20); Bilirubin Direct < 0.1 mg/dl (0-0.2); Blood Urea Nitrogen 26 mg/dl (7-18); Calcium 7.8 mg/dl (8.5-10.1); Carbon Dioxide 30 mmol/L (21-32); Chloride 105 mmol/L (98-107); Creatinine Clr Calc Pharmacy 53.3 ml/min; Est GFR (African American) 51.8; Est GFR (Non-African American) 44.7; Glucose 111 mg/dl (70-99); Magnesium 2.1 mg/dl (1.8-2.4); Potassium 3.7 mmol/L (3.5-5.1); Sodium 142 mmol/L (136-145)
[2019-09-05] MEDS: NOREPINEPHRINE BIT INJ 8 MG in DEXTROSE 5% 500 ML IV SCH ×4 (05:17→16:56)
[2019-09-05 05:19] LABS: Alkaline Phosphatase 98 U/L (45-117); Bilirubin,Total 0.3 mg/dl (0.2-1); Creatine Kinase MB 115.8 ng/ml (0.5-3.6); Phosphorus 4.8 mg/dl (2.5-4.9)
[2019-09-05 05:20] LABS: INR 1.1 (0.9-1.1); Partial Thromboplastin Ratio 2.7; Prothrombin Time 11.2 Seconds (9.0-12.0)
[2019-09-05] MEDS: INSULIN REGULAR 250 UNITS in SODIUM CHLORIDE 0.9% 247.5 ML IV SCH ×2 (05:21→08:34)
[2019-09-05 05:40] LABS: Partial Thromboplastin Time 74.5 Seconds (21.0-31.0)
[2019-09-05 05:52] LABS: Basophils # (auto) 0.01 K/uL (0-0.2); Basophils % (auto) 0.1 %; Eosinophils # (auto) 0.08 K/uL (0-0.5); Eosinophils % (auto) 0.5 %; Hematocrit (blood only) 33.8 % (37-47); Hemoglobin 11.1 g/dL (12.0-16.0); Immature Granulocytes # (auto) 0.06 K/uL (0.00-0.02); Immature Granulocytes % (auto) 0.3 %; Lymphocytes % (auto) 15.3 %; Mean Corpuscular Hemoglobin 28.8 pg (25-34); Mean Corpuscular Hgb Conc 32.8 g/dL (32-36); Mean Corpuscular Volume 87.6 fL (80-100); Mean Platelet Volume 9.9 fL (7.4-10.4); Monocytes # (auto) 1.12 K/uL (0.11-0.59); Monocytes % (auto) 6.3 %; Neutrophils # (auto) 13.69 K/uL (1.4-6.5); Neutrophils % (auto) 77.5 %; Platelet Count 357 K/uL (130-400); RDW Coefficient of Variation 13.9 % (11.5-14.5); RDW Standard Deviation 44.3 fL (36.4-46.3); Red Blood Count 3.86 M/uL (4.2-5.4); White Blood Count 17.66 K/uL (4.8-10.8)
--- NOTE | 2019-09-05 07:06 | Critical Care Progress Note ---
Date of Service September 05, 2019 Assessment & Plan (1) Admitted to intensive care unit: Reason Critically Ill: 63-year-old female here with a PMHx significant for COPD, chronic respiratory acidosis, hx Afib s/p ablation and cardioversion, HTN who presented with cardiac arrest at home, CPR by in the field, 3 rounds of Epi, shock and intubation by paramedics in the field. Admitted to ICU for hypothermia protocol. Neuro - [facility] ICU: not applicable Sedation: propofol drip Analgesia: Fentanyl drip * Sedated while on hypothermia protocol * will assess neurologic function upon return to normal temperatures Cardiac - * out of hospital cardiac arrest with Vfib with ROSC achievement * Hypothermia protocol * Levophed for pressure support * art line in L wrist * Cardiogenic shock? Cath negative for significant CAD. * Trop up from 9.370 to 13 * Afib * hx of cardioversion, ablation 5 years ago * Amiodarone drip for Afib rhythm control Respiratory - * Chronic respiratory acidosis with Metabolic alkalosis * last ABG 7.32/64.4/108/33.2 on AC ventilation, rate 22, Vt 500, PEEP 8, FIO2 35% * hx COPD * per , has had worsening disease for the past year -- to the point of being short of breath taking a shower. wears O2 24/7 at home. GI - * Mesenteric Ischemia vs. Diarrheal Disease * profuse diarrhea on admission * Cdiff toxin negative * possible ischemic GI injury after CPR RENAL/LYTES - * Hyperkalemia * on insulin for control, BMP Q4H * lactic acidosis: 2.8 * Mag 2.2, Ca 7.7 Replace lytes as needed. - No concerns at this time. ENDO - no concerns at this time HEME - Stable H&H. Will monitor for any drops in the setting of Heparin gtt ID - Leukocytosis - demargination vs. infection * on hypothermia protocol will be unable to show a fever response * blood cultures sent * UA no LE/nitrites INTEGUMENTARY - no concerns at this time LINES/IV ACCESS - PIVs intact x3, R art line. DVT PROPHYLAXIS - Heparin gtt. Drips: propofol @30 mcg/kg/min, Fentanyl @ 25 mcg/hr, Levophed @ 0.05 mcg/kg/min, Heparin drip 18 ml/hr, amiodarone 0.5 mg/min, normosol 100 ml/hr, novolin 3.4 ml/hr Thank you for allowing us to be part of this patient's care. Please refer to Dr. Tavares's documentation for any further recommendations. (2) COPD (chronic obstructive pulmonary disease): (3) Respiratory acidosis: (4) Cardiac arrest: (5) Elevated troponin: (6) Cardiac arrest with ventricular fibrillation: (7) Signs of return of spontaneous circulation: (8) Anxiety: (9) Afib: (10) History of cardioversion: (11) H/O cardiac radiofrequency ablation: (12) Hypertension: Admission and Anticipated Discharge Date Admission Date: September 03, 2019 Supervising Physician Co-Signing Physician Notes Dr. Julien was resident physician during care of patient. I separately evaluated patient for morris portions of the history and the exam. I was present during the critical portion of medical decision making, and I discussed the case with the resident. I generally agree with the findings and plan. Continued rewarming protocol, I am concerned for a poor outcome. Patient remains critically ill. Subjective intubated, sedated, no purposeful movements or spontaneous eye opening Review of Systems Review of Systems: Unobtainable due to endotracheal tube and Unobtainable due to reduced consciousness Physical Exam Physical Exam: VITAL SIGNS - Vital signs and nursing notes were reviewed. GENERAL - 63-year-old female appearing older than her stated age. Intubated and sedated. SKIN - Without rashes. HEAD - NC/AT. EYES - PERRL. Sclera anicteric. Palpebral conjunctiva pink and moist with no injection noted. EARS - No deformities of external structures noted on gross examination bilaterally. NOSE - Midline and without cyanosis. No epistaxis or purulent drainage noted. MOUTH/OROPHARYNX - ET Tube in place. Without perioral cyanosis. NECK - Supple to palpation. No nuchal rigidity. LUNGS - Coarse breath sounds noted throughout all lung heredia. CARDIAC - bradycardic sinus rhythm with S1/S2. No murmur, rubs, or gallops appreciated. ABDOMEN - Abdominal contour protuberant without pulsations or visible masses. BS hypoactive all four quadrants. EXTREMITIES - No clubbing or peripheral cyanosis. No pretibial edema present. +3/5 radial and dorsalis pedis pulses palpated throughout. NEUROLOGIC - Occasional independent movements of the upper extremities - without purpose. No focal neurological deficits noted on exam. Unable to fully assess secondary to sedation, level of consciousness. Results & Data Results & Data ([facility]) Vital Signs (Past 12 Hours) Vital Signs Temp Temp Temp Pulse Resp BP Pulse Ox 09/05/19 06:00 33.0 C L 33 C L 33 C L 55 L 24 104/50 L 98 09/05/19 05:53 57 L 24 99 09/05/19 05:33 32.3 C L 32.3 C L 55 L 24 114/54 L 97 09/05/19 05:00 32.4 C L 59 L 97 09/05/19 04:00 32.2 C L 32.2 C L 32.2 C L 53 L 24 142/65 H 96 09/05/19 03:00 32.2 C L 32.2 C L 32.2 C L 44 L 24 103/47 L 97 09/05/19 02:31 42 L 24 97 09/05/19 02:00 32.2 C L 32.2 C L 32.2 C L 40 L 24 106/50 L 97 09/05/19 01:00 32.1 C L 32.2 C L 32.2 C L 38 L 24 112/57 L 99 09/05/19 00:00 32.2 C L 32.2 C L 32.2 C L 38 L 24 103/54 L 100 09/04/19 23:41 43 L 22 99 09/04/19 23:00 32.3 C L 32.2 C L 32.2 C L 40 L 22 112/51 L 99 09/04/19 22:00 32.2 C L 32.2 C L 32.2 C L 43 L 22 105/51 L 98 09/04/19 21:00 32.2 C L 32.2 C L 32.2 C L 41 L 22 110/51 L 100 09/04/19 20:00 32.2 C L 32.2 C L 32.2 C L 40 L 22 115/53 L 99 09/04/19 19:55 32.2 C L 38 L 99 09/04/19 19:30 32.2 C L Laboratory Results WBC 17.66 K/uL (4.8-10.8) H 09/05/19 04:18 RBC 3.86 M/uL (4.2-5.4) L 07/26/20 04:18 Hgb 11.1 g/dL (12.0-16.0) L 09/05/19 04:18 POC Hgb 9.9 g/dl (12.0-16.0) L 09/05/19 07:39 Hct 33.8 % (37-47) L 09/05/19 04:18 POC Hct 29 % (37-47) L 09/05/19 07:39 MCV 87.6 fL (80-100) 09/05/19 04:18 MCH 28.8 pg (25-34) 09/05/19 04:18 MCHC 32.8 g/dL (32-36) 09/05/19 04:18 RDW Std Deviation 44.3 fL (36.4-46.3) 09/05/19 04:18 RDW Coeff of Naila 13.9 % (11.5-14.5) 09/05/19 04:18 Plt Count 357 K/uL (130-400) 09/05/19 04:18 MPV 9.9 fL (7.4-10.4) 09/05/19 04:18 Immature Gran % (Auto) 0.3 % 09/05/19 04:18 Neut % (Auto) 77.5 % 09/05/19 04:18 Lymph % (Auto) 15.3 % 09/05/19 04:18 [place] % (Auto) 6.3 % 09/05/19 04:18 Eos % (Auto) 0.5 % 09/05/19 04:18 Baso % (Auto) 0.1 % 09/05/19 04:18 Neut # (Auto) 13.69 K/uL (1.4-6.5) H 09/05/19 04:18 Lymph # (Auto) 2.70 K/uL (1.2-3.4) 09/05/19 04:18 [place] # (Auto) 1.12 K/uL (0.11-0.59) H 09/05/19 04:18 Eos # (Auto) 0.08 K/uL (0-0.5) 09/05/19 04:18 Baso # (Auto) 0.01 K/uL (0-0.2) 09/05/19 04:18 Immature Gran # (Auto) 0.06 K/uL (0.00-0.02) H 09/05/19 04:18 PT 11.2 Seconds (9.0-12.0) 09/05/19 04:18 INR 1.1 (0.9-1.1) 09/05/19 04:18 APTT 74.5 Seconds (21.0-31.0) H* 09/05/19 04:18 PTT Ratio 2.7 09/05/19 04:18 Sample Site Art Line 09/05/19 07:39 POC pH 7.41 (7.35-7.45) 09/05/19 07:39 POC pCO2 42 mmHg (35-46) 09/05/19 07:39 POC pO2 57 mmHg (80-95) L 09/05/19 07:39 POC HCO3 26 olamide/L (19-24) H 09/05/19 07:39 POC Total CO2 27 mmol/L (24-31) 09/05/19 07:39 POC Base Excess 1.0 olamide/L (-9-1.8) 09/05/19 07:39 ABG pH (Temp Correct) 7.454 (7.35-7.45) H 09/05/19 07:39 ABG pCO2 (Temp Corrct 36 mmHg (35-46) 09/05/19 07:39 POC ABG pO2 at Pt Temp 45 09/05/19 07:39 POC ABG O2 Sat 89.0 % (90-95) L 09/05/19 07:39 Hitesh Test NA 09/05/19 07:39 O2 Delivery Device Ventilator 09/05/19 07:39 POC O2 Rate 24 09/05/19 07:39 Minute Ventilation 13 09/05/19 07:39 POC FiO2 35 % 09/05/19 07:39 Tidal Volume 500 09/05/19 07:39 PEEP 8 09/05/19 07:39 POC Sodium 135 mmol/L (135-144) 09/05/19 07:39 Sodium 142 mmol/L (136-145) 09/05/19 04:18 POC Potassium 3.1 mmol/L (3.3-5.0) L 09/05/19 07:39 Potassium 3.7 mmol/L (3.5-5.1) 09/05/19 04:18 POC Chloride 100 mmol/L (101-112) L 09/03/19 21:17 Chloride 105 mmol/L (98-107) 09/05/19 04:18 Carbon Dioxide 30 mmol/L (21-32) 09/05/19 04:18 POC Total CO2 30 mmol/L (24-31) 09/03/19 21:17 Anion Gap 7.0 (3-11) 09/05/19 04:18 POC Anion Gap 18.0 mmol/L (16-25) 09/03/19 21:17 POC BUN 16 mg/dl (7-18) 09/03/19 21:17 BUN 26 mg/dl (7-18) H 09/05/19 04:18 Creatinine 1.29 mg/dl (0.6-1.2) H 09/05/19 04:18 POC Creatinine 1.3 mg/dl (0.6-1.3) 09/03/19 21:17 Est Cr Clr Drug Dosing 53.3 ml/min 09/05/19 04:18 Est GFR ( Amer) 51.8 09/05/19 04:18 Est GFR (Non-Af Amer) 44.7 09/05/19 04:18 BUN/Creatinine Ratio 20.1 (10-20) H 09/05/19 04:18 Glucose 111 mg/dl (70-99) H 09/05/19 04:18 POC Glucose 337 mg/dl (70-99) H* 09/04/19 02:29 POC Glucose (other) 106 mg/dl (70-99) H 09/05/19 07:19 Lactate 1.4 mmol/L (0.4-2.0) 09/04/19 16:15 Calcium 7.8 mg/dl (8.5-10.1) L 09/05/19 04:18 POC Ioniz Calcium Miracle 1.13 mmol/l (1.12-1.32) 09/03/19 21:17 Ionized Calcium 1.12 mmol/L (1.12-1.32) 09/04/19 20:20 Phosphorus 4.8 mg/dl (2.5-4.9) 09/05/19 04:18 Magnesium 2.1 mg/dl (1.8-2.4) 09/05/19 04:18 Total Bilirubin 0.3 mg/dl (0.2-1) 09/05/19 04:18 Direct Bilirubin < 0.1 mg/dl (0-0.2) 09/05/19 04:18 AST 108 U/L (15-37) H 09/05/19 04:18 ALT 51 U/L (12-78) 09/05/19 04:18 Alkaline Phosphatase 98 U/L (45-117) 09/05/19 04:18 Total Creatine Kinase 151 U/L (26-192) 09/03/19 21:04 CK-MB (CK-2) 115.8 ng/ml (0.5-3.6) H 09/05/19 04:18 CK/CKMB % Calc Not Reportable 09/04/19 03:39 POC Troponin I 0.44 ng/ml (0-0.045) H 09/03/19 21:15 Troponin I 11.500 ng/ml (0-0.045) H* 09/04/19 16:15 Total Protein 6.0 gm/dl (6.4-8.2) L 09/05/19 04:18 Albumin 2.6 gm/dl (3.4-5.0) L 09/05/19 04:18 Globulin 3.9 gm/dl (2.5-4.0) 09/03/19 21:04 Albumin/Globulin Ratio 0.7 (0.9-2) L 09/03/19 21:04 Lipase 166 U/L (73-393) 09/03/19 21:04 Beta-Hydroxybutyric Acd 0.82 mg/dl (0.2-2.81) 09/04/19 09:58 TSH 6.310 uIu/ml (0.300-4.500) H 09/03/19 21:04 Free T4 0.97 ng/dl (0.8-1.6) 09/03/19 21:04 Specimen Hemolysis 09/04/19 03:39 Urine Color Yellow 09/04/19 01:15 Urine Appearance Cloudy (Clear) A 09/04/19 01:15 Urine pH 6.5 (4.5-7.5) 09/04/19 01:15 Ur Specific [place] 1.036 (1.000-1.030) H 09/04/19 01:15 Urine Protein 2+ (Negative) H 09/04/19 01:15 Urine Glucose (UA) 1+ (Negative) H 09/04/19 01:15 Urine Ketones Negative (Negative) 09/04/19 01:15 Urine Blood 3+ (Negative) H 09/04/19 01:15 Urine Nitrite Negative (Negative) 09/04/19 01:15 Urine Bilirubin Negative (Negative) 09/04/19 01:15 Urine Urobilinogen Negative (Negative) 09/04/19 01:15 Ur Leukocyte Esterase Negative (Negative) 09/04/19 01:15 Urine WBC (Auto) >30 /hpf (0-5) H 09/04/19 01:15 Urine RBC (Auto) 10-30 /hpf (0-4) H 09/04/19 01:15 U Hyaline Cast (Auto) 10-30 /lpf (0-5) H 09/04/19 01:15 U Epithel Cells (Auto) >30 /lpf (0-5) H 09/04/19 01:15 Urine Bacteria (Auto) 1+ (Negative) H 09/04/19 01:15 Urine Yeast Not Reportable 09/04/19 01:15 Nasal Screen MRSA (PCR) Uninterpretable (Negative) 09/04/19 00:45 Stl C. diff Tox B Gene Negative Cdiff Gene (Neg) 09/04/19 11:17 Resident Activity Tracking Resident Involvement: Resident Care Provided Care Provided: Adult Hospital Medicine (1) Hypertension Hypertension type: essential hypertension Qualified Code(s): I10 - Essential (primary) hypertension
[2019-09-05] MEDS: INSULIN ASPART 100 UNITS/ML 3 ML PEN SC SCH ×3 (07:28→17:26)
[2019-09-05 07:53] LABS: iSTAT Art Bld Gas pCO2 Correct 36 mmHg (35-46); iSTAT Art Bld Gas pH Corrected 7.454 (7.35-7.45); iSTAT Arterial Blood Gas HCO3 26 meg/L (19-24); iSTAT Arterial Blood Gas pCO2 42 mmHg (35-46); iSTAT Arterial Blood Gas pH 7.41 (7.35-7.45); iSTAT Arterial Blood Gas pO2 57 mmHg (80-95); iSTAT Arterial Blood Gas pO2 C 45; iSTAT Carbon Dioxide 27 mmol/L (24-31); iSTAT FiO2 35 %; iSTAT Hematocrit 29 % (37-47); iSTAT Hemoglobin 9.9 g/dl (12.0-16.0); iSTAT Potassium 3.1 mmol/L (3.3-5.0); iSTAT Site Art Line; iSTAT Sodium 135 mmol/L (135-144)
--- NOTE | 2019-09-05 08:32 | XRay Report ---
XR chest 1V portable HISTORY: 63 years-old Female s/p arrest acute cardiac arrest COMPARISON: Chest radiograph 09/04/2019 TECHNIQUE: Semierect AP view of the chest FINDINGS: Endotracheal tube overlies the midline, 3.9 cm superior to the lisa. Enteric tube versus below the diaphragm, distal tip outside the [id number]. Cardiomegaly. No pneumothorax, pleural effusion, ove rt pulmonary edema or airspace consolidation typical for pneumonia. Bones of the chest appear grossly intact. A catheter tip overlies the right atrium. Partially imaged hardware of the right proximal hu merus. IMPRESSION: 1. Lines and tubes as above. 2. Cardiomegaly without pulmonary edema. ACT 112: Negative or not required by law. The above report was generated using voice recognition software. It may contain grammatical, syntax o r spelling errors. Electronically signed by: Zechariah Villatoro M.D. 09/05/2019 8:31 AM
[2019-09-05] MEDS: NORMOSOL-R 1,000 ML IV SCH ×2 (08:33→18:17)
[2019-09-05] MEDS: FAMOTIDINE 20 MG in SYRINGE 3 ML IV SCH ×2 (08:34→21:04)
[2019-09-05] MEDS ORDERED: LORazepam 2 MG/4 ML VIAL ONE (09:20)
[2019-09-05] MEDS ORDERED: STAT IV Infusion **Titration per Protocol STA (09:21)
[2019-09-05] MEDS ORDERED: LORazepam 2 MG/4 ML VIAL IV ONE (09:22)
[2019-09-05] MEDS: MIDAZOLAM HCL 125 MG/250 ML BAG IV SCH (09:34)
[2019-09-05] MEDS: fentaNYL DRIP 1,250 MCG/250 ML BAG IV SCH (09:34)
[2019-09-05] MEDS: MIDAZOLAM BOLUS FROM BAG IV PRN ×7 (09:35→23:44)
[2019-09-05] MEDS ORDERED: PHARMACY GLYCEMIC MGMT CONSULT PRN (10:43)
[2019-09-05] MEDS ORDERED: VECURONIUM BROMIDE 10 MG VIAL IV ONE (11:30)
[2019-09-05] MEDS ORDERED: Nursing to Pharmacy Communication SCH (12:15)
--- NOTE | 2019-09-05 12:49 | Hospitalist Progress Note ---
Date of Service September 05, 2019 Assessment & Plan (1) Admitted to intensive care unit: Patient is admitted to intensive care unit/status post cardiac arrest in the field with ventricular fibrillation/status post return of spontaneous circulation/cold therapy, Code [place]/STEMI. - Cooling protocol per ICU. - Sedated - Amiodarone gtt for vfib - Concern for seizure today with increased peak pressures, EtCO2, and BIS monitor. Plan for EEG. Sedation switched by ICU team. (2) Pneumonia: Initially placed on vancomycin IV and Zosyn IV due to likely aspiration. - Held now per ICU team (3) Cardiac arrest: See above (4) ST elevation (STEMI) myocardial infarction: See above (5) Cardiac arrest with ventricular fibrillation: See above (6) Signs of return of spontaneous circulation: See above Admission and Anticipated Discharge Date Admission Date: September 03, 2019 Subjective Intubated and unresponsive. Review of Systems Review of Systems: Unobtainable due to endotracheal tube and Unobtainable due to reduced consciousness Physical Exam Constitutional: WD/WN, vitals as above + acute distress Eyes: + anicteric sclerae; no conjunctival abnormality ENMT: external ear and nose normal, oropharynx normal Neck: trachea midline, no thyromegaly normal visual inspection Respiratory: + labored breathing Auscultation: + crackles Cardiovascular: Rate/Rhythm: regular rhythm and + bradycardic Gastrointestinal (Abdomen): Inspection/Auscultation: abdomen normal to inspection; abdomen not distended Musculoskeletal: no cyanosis or clubbing, extremities motor strength 5/5 Skin: no rashes, warm and dry Neurologic: + does not move all extremities and + not awake Psychiatric: Orientation: + not alert and + not oriented to person Results & Data Results & Data ([facility]) Vital Signs (Past 12 Hours) Vital Signs Temp Temp Temp Pulse Resp BP Pulse Ox 09/05/19 12:00 35.9 C L 35.9 C L 83 24 150/62 H 95 09/05/19 11:04 84 25 H 95 09/05/19 11:00 35.6 C L 35.6 C L 83 24 135/60 96 09/05/19 10:59 85 25 H 93 09/05/19 10:00 35.1 C L 35.1 C L 84 24 150/62 H 95 09/05/19 09:00 34.6 C L 34.6 C L 75 24 107/47 L 09/05/19 08:00 33.9 C L 33.9 C L 54 L 24 108/55 L 09/05/19 07:32 50 L 24 100 09/05/19 07:00 33.6 C L 33.6 C L 48 L 24 70/41 L 100 09/05/19 06:00 33.0 C L 33 C L 33 C L 55 L 24 104/50 L 98 09/05/19 05:53 57 L 24 99 09/05/19 05:33 32.3 C L 32.3 C L 55 L 24 114/54 L 97 09/05/19 05:00 32.4 C L 59 L 97 09/05/19 04:00 32.2 C L 32.2 C L 32.2 C L 53 L 24 142/65 H 96 09/05/19 03:00 32.2 C L 32.2 C L 32.2 C L 44 L 24 103/47 L 97 09/05/19 02:31 42 L 24 97 09/05/19 02:00 32.2 C L 32.2 C L 32.2 C L 40 L 24 106/50 L 97 09/05/19 01:00 32.1 C L 32.2 C L 32.2 C L 38 L 24 112/57 L 99 PG Care Time/CCT Total # of Minutes Spent Total Time Spent with Patient: Total time spent is greater than 50% in coordination of care (as documented) at patient's floor/unit and/or counseling patient: Coding Level of Care Code 57406 Subseq Hosp Care Lvl 3 Diagnoses Admitted to intensive care unit Z78.9 Pneumonia J18.1 Laterality: right Lung location: lower lobe of lung Pneumonia type: due to unspecified organism Cardiac arrest I46.9 ST elevation (STEMI) myocardial infarction I21.3 Cardiac arrest with ventricular fibrillation I46.9; I49.01 Signs of return of spontaneous circulation (1) Pneumonia Laterality: right Lung location: lower lobe of lung Pneumonia type: due to unspecified organism Qualified Code(s): J18.1 - Lobar pneumonia, unspecified organism
[2019-09-05 13:02] LABS: Partial Thromboplastin Ratio 1.6
[2019-09-05 13:11] LABS: Partial Thromboplastin Time 45.3 Seconds (21.0-31.0)
[2019-09-05] MEDS ORDERED: HEPARIN IV BOLUS 3,000 UNITS in SYRINGE 0 ML IV ONE (14:00)
--- NOTE | 2019-09-05 14:17 | Pharmacy Report ---
Glycemic Control Consultation - Date of Service September 05, 2019 - Scope Scope: Glycemic Pharmacist consulted for glycemic control and to write orders per [facility] inpatient glycemic control protocol. - Objective Weight: 94.3 kg Accuchecks BSG (last 24hrs): 09/04/19 09/04/19 09/04/19 11:15 12:09 14:25 Glucose POC Glucose (other) 110 H 120 H 132 H 09/04/19 09/04/19 09/04/19 16:15 16:18 18:12 Glucose 140 H POC Glucose (other) 134 H 132 H 09/04/19 09/04/19 09/04/19 19:57 22:01 22:56 Glucose 122 H POC Glucose (other) 105 H 100 H 09/05/19 09/05/19 09/05/19 00:25 01:15 02:14 Glucose POC Glucose (other) 95 102 H 105 H 09/05/19 09/05/19 09/05/19 03:12 04:15 04:18 Glucose 111 H POC Glucose (other) 100 H 102 H 09/05/19 09/05/19 09/05/19 05:12 06:12 07:19 Glucose POC Glucose (other) 103 H 101 H 106 H 09/05/19 09/05/19 09/05/19 08:06 09:04 09:26 Glucose POC Glucose (other) 119 H 88 119 H 09/05/19 09/05/19 10:34 12:11 Glucose POC Glucose (other) 126 H 118 H Laboratory Data (last 24hrs): 09/04/19 09/04/19 09/05/19 16:15 19:57 04:18 Potassium 3.4 L D 3.9 3.7 Carbon Dioxide 30 30 30 Anion Gap 7.0 7.0 7.0 Creatinine 1.36 H 1.33 H 1.29 H Est Cr Clr Drug Dosing 50.6 51.7 53.3 - Recent Pertinent Medications Outpatient Anti-diabetic Regimen: * None * A1c ordered The patient is currently receiving: * Insulin drip Risk Factors for Insulin Resistance: * Pressors: Norepinephrine * IVF: Heparin gtt, midazolam gtt, fentanyl gtt, amiodarone gtt, Normosol-R 100 mL/hr * Diet: NPO * Mechanical Ventilation: yes - Assessment & Plan Assessment & Plan: ASSESSMENT: * SERA is a 63 year old female s/p cardiac arrest in the field with ventricular fibrillation * BSGs elevated at time of hospitalization (358 mg/dL) likely secondary to cardiac arrest * Insulin gtt initiated at that time * BSGs have been very well-controlled over past 24 hours (ranging 88-134 mg/dL) with minimal insulin gtt rates * Insulin gtt discontinued this afternoon without SC basal * Patient does not take antidiabetic medications at home - A1c not available * Will manage with conservative goal range and CF for now PLAN FOR INPATIENT GLYCEMIC CONTROL: * Basal insulin - hold * Bolus insulin * NovoLog per scale ACHS or Q6hrs while NPO * Goal Range: Low 140 mg/dL - High 180 mg/dL * Correction Factor: 30 mg/dL/unit * Please note that the plan above was derived based on current level of insulin resistance and hospital stress. These recommendations are appropriate for inpatient admission only. Plan of care upon discharge will need to be reassessed to avoid potential outpatient hypo/hyperglycemia. Thank you.
[2019-09-05 15:12] LABS: iSTAT Art Bld Gas pCO2 Correct 48 mmHg (35-46); iSTAT Art Bld Gas pH Corrected 7.383 (7.35-7.45); iSTAT Arterial Blood Gas HCO3 29 meg/L (19-24); iSTAT Arterial Blood Gas pCO2 48 mmHg (35-46); iSTAT Arterial Blood Gas pH 7.38 (7.35-7.45); iSTAT Arterial Blood Gas pO2 69 mmHg (80-95); iSTAT Arterial Blood Gas pO2 C 70; iSTAT Carbon Dioxide 30 mmol/L (24-31); iSTAT FiO2 40 %; iSTAT Hematocrit 32 % (37-47); iSTAT Hemoglobin 10.9 g/dl (12.0-16.0); iSTAT Potassium 3.6 mmol/L (3.3-5.0); iSTAT Site Art Line; iSTAT Sodium 135 mmol/L (135-144)
--- NOTE | 2019-09-05 19:40 | Electroencephalogram ---
EEG Procedure Note Date of Service September 05, 2019 Start / End Times Start Time: 11:39am End Time: 11:59am Referring Physician Wilfred Tavares History cardiac arrest Home Medication List Home Medications Medication Instructions Recorded Confirmed Type Centrum 1 tab PO QAM 05/19/18 04/14/19 History flecainide 100 mg PO DAILY 05/19/18 04/14/19 History ipratropium-albuterol 3 ml INHALATION QID 05/19/18 04/14/19 History guaifenesin [Mucinex] 1,200 mg PO Q12 #30 tab 05/23/18 04/14/19 Rx nicotine [Nicoderm CQ] 7 mg TRANSDERMAL QAM #14 ea 05/23/18 04/14/19 Rx amlodipine 10 mg tablet 10 mg PO DAILY #90 tab 12/16/18 04/14/19 Rx lisinopril 20 1 tab PO QAM #90 tab 12/16/18 04/14/19 Rx mg-hydrochlorothiazide 12.5 mg tablet fluticasone furoate 100 1 ea INHALATION DAILY #1 inhaler 01/28/19 04/14/19 Rx mcg-vilanterol 25 mcg/dose inhalation powder rivaroxaban 20 mg tablet 20 mg PO DAILY #30 tab 03/22/19 04/14/19 Rx varenicline 0.5 mg (11)-1 mg (42) See Rx Instructions PO .as 04/14/19 04/14/19 Rx tablets in a dose pack directed #53 ea varenicline 1 mg tablet 1 mg PO BID 84 Days #168 tab 04/14/19 04/14/19 Rx azithromycin 250 mg tablet See Rx Instructions PO .COMPLEX #6 06/09/19 Rx tab prednisone 10 mg tablet See Rx Instructions PO DAILY #30 06/09/19 Rx tab metoprolol succinate 100 mg 100 mg PO DAILY #90 tab 07/13/19 Rx tablet,extended release 24 hr albuterol sulfate 90 mcg/actuation 1 puffs INHALATION Q4H PRN #18 gm 08/05/19 Rx aerosol inhaler Inpatient Medication List Amiodarone HCl/Dextrose (Nexterone / D5w) 360 mg in 200 mls @ 16.667 mls/hr IV .Q12H [facility]; Protocol Stop: 10/04/19 03:59 Last Admin: 09/05/19 14:55 Dose: 0.5 mg/min, 16.7 mls/hr Documented by: [id number] Cosigned by: [id number] Infusion: 09/05/19 14:50 Dose: 0.5 mg/min, 16.7 mls/hr Documented by: [id number] Cosigned by: [id number] Admin: 09/05/19 02:51 Dose: 0.5 mg/min, 16.7 mls/hr Documented by: [id number] Cosigned by: [id number] Infusion: 09/05/19 02:46 Dose: 0.5 mg/min, 16.7 mls/hr Documented by: [id number] Cosigned by: [id number] Admin: 09/04/19 14:47 Dose: 0.5 mg/min, 16.7 mls/hr Documented by: [id number] Cosigned by: [id number] Infusion: 09/04/19 14:47 Dose: 0.5 mg/min, 16.7 mls/hr Documented by: [id number] Cosigned by: [id number] Admin: 09/04/19 03:46 Dose: 0.5 mg/min, 16.7 mls/hr Documented by: [id number] Cosigned by: [id number] Fentanyl Citrate (Fentanyl Drip) 1,250 mcg in 250 mls @ 10 mls/hr IV .Q24H [facility]; Protocol Stop: 09/17/19 23:44 Last Titration: 09/05/19 18:49 Dose: 50 mcg/hr, 10 mls/hr Documented by: [id number] Cosigned by: [id number] Admin: 09/05/19 09:34 Dose: 50 mcg/hr, 10 mls/hr Documented by: [id number] Cosigned by: [id number] Titration: 09/05/19 09:34 Dose: 50 mcg/hr, 10 mls/hr Documented by: [id number] Cosigned by: [id number] Titration: 09/05/19 06:46 Dose: 50 mcg/hr, 10 mls/hr Documented by: [id number] Cosigned by: [id number] Titration: 09/05/19 00:29 Dose: 50 mcg/hr, 10 mls/hr Documented by: [id number] Titration: 09/04/19 22:08 Dose: 40 mcg/hr, 8 mls/hr Documented by: [id number] Titration: 09/04/19 18:57 Dose: 30 mcg/hr, 6 mls/hr Documented by: [id number] Cosigned by: [id number] Titration: 09/04/19 11:31 Dose: 30 mcg/hr, 6 mls/hr Documented by: [id number] Titration: 09/04/19 06:56 Dose: 25 mcg/hr, 5 mls/hr Documented by: [id number] Cosigned by: [id number] Admin: 09/04/19 02:41 Dose: 25 mcg/hr, 5 mls/hr Documented by: [id number] Cosigned by: [id number] Norepinephrine Bitartrate 8 mg (/ Dextrose) 508 mls @ 42.017 mls/hr IV .Q12H6M [facility]; Protocol Stop: 10/03/19 23:44 Last Titration: 09/05/19 18:49 Dose: 0.12 mcg/kg/min, 42 mls/hr Documented by: [id number] Cosigned by: [id number] Admin: 09/05/19 16:56 Dose: 0.12 mcg/kg/min, 42 mls/hr Documented by: [id number] Cosigned by: [id number] Titration: 09/05/19 16:56 Dose: 0.12 mcg/kg/min, 42 mls/hr Documented by: [id number] Cosigned by: [id number] Titration: 09/05/19 16:17 Dose: 0.12 mcg/kg/min, 42 mls/hr Documented by: [id number] Titration: 09/05/19 15:45 Dose: 0.15 mcg/kg/min, 52.5 mls/hr Documented by: [id number] Titration: 09/05/19 15:30 Dose: 0.12 mcg/kg/min, 42 mls/hr Documented by: [id number] Admin: 09/05/19 14:54 Dose: Not Given Documented by: [id number] Titration: 09/05/19 12:14 Dose: 0 mcg/kg/min, 0.1 mls/hr Documented by: [id number] Titration: 09/05/19 11:12 Dose: 0.12 mcg/kg/min, 42 mls/hr Documented by: [id number] Titration: 09/05/19 10:25 Dose: 0.15 mcg/kg/min, 52.5 mls/hr Documented by: [id number] Admin: 09/05/19 07:46 Dose: Not Given Documented by: [id number] Titration: 09/05/19 07:34 Dose: 0.18 mcg/kg/min, 63 mls/hr Documented by: [id number] Titration: 09/05/19 07:10 Dose: 0.15 mcg/kg/min, 52.5 mls/hr Documented by: [id number] Titration: 09/05/19 06:46 Dose: 0.12 mcg/kg/min, 42 mls/hr Documented by: [id number] Cosigned by: [id number] Admin: 09/05/19 05:17 Dose: 0.12 mcg/kg/min, 42 mls/hr Documented by: [id number] Cosigned by: [id number] Titration: 09/05/19 05:17 Dose: 0.12 mcg/kg/min, 42 mls/hr Documented by: [id number] Cosigned by: [id number] Titration: 09/04/19 18:57 Dose: 0.12 mcg/kg/min, 42 mls/hr Documented by: [id number] Cosigned by: [id number] Admin: 09/04/19 17:22 Dose: 0.12 mcg/kg/min, 42 mls/hr Documented by: [id number] Cosigned by: [id number] Titration: 09/04/19 17:22 Dose: 0.12 mcg/kg/min, 42 mls/hr Documented by: [id number] Cosigned by: [id number] Titration: 09/04/19 09:29 Dose: 0.12 mcg/kg/min, 42 mls/hr Documented by: [id number] Titration: 09/04/19 06:55 Dose: 0.1 mcg/kg/min, 35 mls/hr Documented by: [id number] Cosigned by: [id number] Admin: 09/04/19 05:02 Dose: 0.05 mcg/kg/min, 17.5 mls/hr Documented by: [id number] Cosigned by: [id number] Famotidine 20 mg/ Syringe 5 mls @ 2.5 mls/min IV BID [facility] Stop: 10/04/19 08:59 Last Admin: 09/05/19 08:34 Dose: 2.5 mls/min Documented by: [id number] Admin: 09/04/19 21:19 Dose: 2.5 mls/min Documented by: [id number] Admin: 09/04/19 09:25 Dose: 2.5 mls/min Documented by: [id number] Heparin Sodium/Dextrose (Heparin Sodium/Dextrose) 25,000 units in 500 mls @ 16 mls/hr IV .Q24H [facility]; Protocol Stop: 10/04/19 00:59 Last Titration: 09/05/19 18:49 Dose: 800 units/hr, 16 mls/hr Documented by: [id number] Cosigned by: [id number] Titration: 09/05/19 14:14 Dose: 800 units/hr, 16 mls/hr Documented by: [id number] Cosigned by: [id number] Titration: 09/05/19 06:46 Dose: 750 units/hr, 15 mls/hr Documented by: [id number] Cosigned by: [id number] Titration: 09/05/19 05:42 Dose: 750 units/hr, 15 mls/hr Documented by: [id number] Cosigned by: [id number] Admin: 09/05/19 05:00 Dose: 900 units/hr, 18 mls/hr Documented by: [id number] Cosigned by: [id number] Titration: 09/05/19 05:00 Dose: 900 units/hr, 18 mls/hr Documented by: [id number] Cosigned by: [id number] Titration: 09/04/19 18:57 Dose: 900 units/hr, 18 mls/hr Documented by: [id number] Cosigned by: [id number] Titration: 09/04/19 11:31 Dose: 900 units/hr, 18 mls/hr Documented by: [id number] Cosigned by: [id number] Titration: 09/04/19 06:56 Dose: 900 units/hr, 18 mls/hr Documented by: [id number] Cosigned by: [id number] Admin: 09/04/19 02:40 Dose: 900 units/hr, 18 mls/hr Documented by: [id number] Cosigned by: [id number] Parenteral Electrolytes (Normosol-R) 1,000 mls @ 100 mls/hr IV .Q10H [facility] Stop: 10/04/19 13:14 Last Admin: 09/05/19 18:17 Dose: 100 mls/hr Documented by: [id number] Infusion: 09/05/19 18:17 Dose: 100 mls/hr Documented by: [id number] Admin: 09/05/19 08:33 Dose: 100 mls/hr Documented by: [id number] Infusion: 09/05/19 08:33 Dose: 100 mls/hr Documented by: [id number] Admin: 09/04/19 23:08 Dose: 100 mls/hr Documented by: [id number] Infusion: 09/04/19 23:08 Dose: 100 mls/hr Documented by: [id number] Admin: 09/04/19 13:23 Dose: 100 mls/hr Documented by: [id number] Midazolam HCl (Versed) 125 mg in 250 mls @ 6 mls/hr IV .Q24H [facility]; Protocol Stop: 10/05/19 09:29 Last Titration: 09/05/19 18:49 Dose: 3 mg/hr, 6 mls/hr Documented by: [id number] Cosigned by: [id number] Titration: 09/05/19 17:27 Dose: 3 mg/hr, 6 mls/hr Documented by: [id number] Titration: 09/05/19 16:10 Dose: 2.5 mg/hr, 5 mls/hr Documented by: [id number] Titration: 09/05/19 10:27 Dose: 2 mg/hr, 4 mls/hr Documented by: [id number] Admin: 09/05/19 09:34 Dose: 1 mg/hr, 2 mls/hr Documented by: [id number] Cosigned by: [id number] Insulin Aspart (Novolog Flexpen) 0 units SC Q6 [facility]; Protocol Stop: 10/05/19 11:59 Last Admin: 09/05/19 17:26 Dose: Not Given Documented by: [id number] Cosigned by: [id number] Admin: 09/05/19 12:14 Dose: Not Given Documented by: [id number] Meperidine HCl (Demerol) 25 mg IV Q2H PRN PRN Reason: Shivering Stop: 09/17/19 23:26 Last Admin: 09/04/19 09:25 Dose: 25 mg Documented by: [id number] Midazolam HCl (Versed Bolus From Bag) 2 mg IV Q60M PRN PRN Reason: Sedation Stop: 10/05/19 09:20 Last Admin: 09/05/19 17:26 Dose: 2 mg Documented by: [id number] Admin: 09/05/19 16:11 Dose: 2 mg Documented by: [id number] Admin: 09/05/19 10:27 Dose: 2 mg Documented by: [id number] Admin: 09/05/19 09:35 Dose: 2 mg Documented by: [id number] Discontinued Medications Amiodarone HCl/Dextrose (Nexterone / D5w) Confirm Administered Dose 360 mg IV .STK-MED ONE Stop: 09/03/19 21:16 Last Admin: 09/04/19 01:52 Dose: Not Given Documented by: [id number] Amiodarone HCl/Dextrose (Nexterone / D5w) Confirm Administered Dose 150 mg IV .STK-MED ONE Stop: 09/03/19 21:16 Last Admin: 09/03/19 21:19 Dose: 150 mg Documented by: [id number] Cosigned by: [id number] Fentanyl Citrate (Fentanyl Citrate) Confirm Administered Dose 200 mcg .ROUTE .STK-MED ONE Stop: 09/03/19 21:11 Last Admin: 09/04/19 01:50 Dose: Not Given Documented by: [id number] Heparin Sodium (Porcine) (Heparin Iv Bolus (Reactor Service Operator Use Only)) Confirm Administered Dose 20,000 units .ROUTE .STK-MED ONE Stop: 09/03/19 21:11 Last Admin: 09/04/19 01:51 Dose: Not Given Documented by: [id number] Heparin Sodium/Dextrose () 1 ea IV Q15M [facility]; Protocol Stop: 10/04/19 00:51 Last Admin: 09/04/19 08:19 Dose: Not Given Documented by: [id number] Admin: 09/04/19 08:18 Dose: Not Given Documented by: [id number] Admin: 09/04/19 08:18 Dose: Not Given Documented by: [id number] Admin: 09/04/19 08:18 Dose: Not Given Documented by: [id number] Admin: 09/04/19 08:12 Dose: Not Given Documented by: [id number] Admin: 09/04/19 02:02 Dose: Not Given Documented by: [id number] Heparin Sodium/Sodium Chloride (Heparin/Nss 1000 Unit/500ml Flush Bag) Confirm Administered Dose 6,000 units IV .STK-MED ONE Stop: 09/03/19 21:11 Last Admin: 09/04/19 01:51 Dose: Not Given Documented by: [id number] Sodium Chloride (Nss 1000ml) 1,000 mls @ 125 mls/hr IV .Q8H STA Stop: 09/04/19 05:03 Last Admin: 09/04/19 04:39 Dose: Not Given Documented by: [id number] Sodium Chloride (Nss 1000ml) 1,000 mls @ 100 mls/hr IV .Q10H [facility] Stop: 10/03/19 21:29 Last Admin: 09/04/19 04:39 Dose: Not Given Documented by: [id number] Propofol (Diprivan) 1,000 mg in 100 mls @ 27.57 mls/hr IV .Q3H38M [facility]; Protocol Stop: 09/06/19 23:29 Last Titration: 09/05/19 09:35 Dose: 0 mcg/kg/min, 0 mls/hr Documented by: [id number] Admin: 09/05/19 08:33 Dose: 50 mcg/kg/min, 27.6 mls/hr Documented by: [id number] Cosigned by: [id number] Titration: 09/05/19 08:33 Dose: 50 mcg/kg/min, 27.6 mls/hr Documented by: [id number] Cosigned by: [id number] Admin: 09/05/19 07:48 Dose: Not Given Documented by: [id number] Admin: 09/05/19 07:47 Dose: Not Given Documented by: [id number] Titration: 09/05/19 06:46 Dose: 50 mcg/kg/min, 27.6 mls/hr Documented by: [id number] Cosigned by: [id number] Admin: 09/05/19 05:04 Dose: 50 mcg/kg/min, 27.6 mls/hr Documented by: [id number] Cosigned by: [id number] Titration: 09/05/19 05:04 Dose: 50 mcg/kg/min, 27.6 mls/hr Documented by: [id number] Cosigned by: [id number] Titration: 09/05/19 01:51 Dose: 50 mcg/kg/min, 27.6 mls/hr Documented by: [id number] Cosigned by: [id number] Admin: 09/05/19 01:51 Dose: 50 mcg/kg/min, 27.6 mls/hr Documented by: [id number] Cosigned by: [id number] Titration: 09/05/19 00:30 Dose: 50 mcg/kg/min, 27.6 mls/hr Documented by: [id number] Admin: 09/04/19 22:09 Dose: 40 mcg/kg/min, 22.1 mls/hr Documented by: [id number] Cosigned by: [id number] Titration: 09/04/19 22:09 Dose: 40 mcg/kg/min, 22.1 mls/hr Documented by: [id number] Cosigned by: [id number] Titration: 09/04/19 18:57 Dose: 40 mcg/kg/min, 22.1 mls/hr Documented by: [id number] Cosigned by: [id number] Admin: 09/04/19 18:40 Dose: 40 mcg/kg/min, 22.1 mls/hr Documented by: [id number] Titration: 09/04/19 17:17 Dose: 40 mcg/kg/min, 22.1 mls/hr Documented by: [id number] Admin: 09/04/19 14:47 Dose: 40 mcg/kg/min, 22.1 mls/hr Documented by: [id number] Titration: 09/04/19 14:28 Dose: 40 mcg/kg/min, 22.1 mls/hr Documented by: [id number] Titration: 09/04/19 12:30 Dose: 40 mcg/kg/min, 22.1 mls/hr Documented by: [id number] Titration: 09/04/19 11:31 Dose: 35 mcg/kg/min, 19.3 mls/hr Documented by: [id number] Admin: 09/04/19 11:21 Dose: 30 mcg/kg/min, 16.5 mls/hr Documented by: [id number] Cosigned by: [id number] Titration: 09/04/19 11:08 Dose: 30 mcg/kg/min, 16.5 mls/hr Documented by: [id number] Cosigned by: [id number] Titration: 09/04/19 06:56 Dose: 30 mcg/kg/min, 16.5 mls/hr Documented by: [id number] Cosigned by: [id number] Admin: 09/04/19 05:04 Dose: 30 mcg/kg/min, 16.5 mls/hr Documented by: [id number] Cosigned by: [id number] Titration: 09/04/19 05:04 Dose: 20 mcg/kg/min, 11 mls/hr Documented by: [id number] Cosigned by: [id number] Admin: 09/03/19 23:30 Dose: 20 mcg/kg/min, 11 mls/hr Documented by: [id number] Cosigned by: [id number] Parenteral Electrolytes (Normosol-R) 1,000 mls @ 100 mls/hr IV .Q10H [facility] Stop: 10/04/19 00:59 Last Admin: 09/04/19 13:24 Dose: Not Given Documented by: [id number] Infusion: 09/04/19 13:22 Dose: 0 mls/hr Documented by: [id number] Admin: 09/04/19 03:49 Dose: 100 mls/hr Documented by: [id number] Insulin Human Regular 250 (units/ Sodium Chloride) 250 mls @ 0 mls/hr IV .Q0M [facility]; Protocol Stop: 10/04/19 02:59 Last Titration: 09/05/19 15:54 Dose: 0 units/hr, 0 mls/hr Documented by: [id number] Cosigned by: [id number] Titration: 09/05/19 10:59 Dose: 0 units/hr, 0 mls/hr Documented by: [id number] Cosigned by: [id number] Titration: 09/05/19 09:30 Dose: 0.3 units/hr, 0.3 mls/hr Documented by: [id number] Cosigned by: [id number] Titration: 09/05/19 09:00 Dose: 0 units/hr, 0 mls/hr Documented by: [id number] Cosigned by: [id number] Admin: 09/05/19 08:34 Dose: Not Given Documented by: [id number] Cosigned by: [id number] Titration: 09/05/19 08:00 Dose: 0.5 units/hr, 0.5 mls/hr Documented by: [id number] Cosigned by: [id number] Titration: 09/05/19 07:10 Dose: 0.5 units/hr, 0.5 mls/hr Documented by: [id number] Cosigned by: [id number] Titration: 09/05/19 06:46 Dose: 0.5 units/hr, 0.5 mls/hr Documented by: [id number] Cosigned by: [id number] Titration: 09/05/19 06:10 Dose: 0.5 units/hr, 0.5 mls/hr Documented by: [id number] Cosigned by: [id number] Admin: 09/05/19 05:21 Dose: 0.6 units/hr, 0.6 mls/hr Documented by: [id number] Cosigned by: [id number] Titration: 09/05/19 05:21 Dose: 0.6 units/hr, 0.6 mls/hr Documented by: [id number] Cosigned by: [id number] Titration: 09/05/19 05:20 Dose: 0.6 units/hr, 0.6 mls/hr Documented by: [id number] Cosigned by: [id number] Titration: 09/05/19 04:20 Dose: 0.6 units/hr, 0.6 mls/hr Documented by: [id number] Cosigned by: [id number] Titration: 09/05/19 03:19 Dose: 0.6 units/hr, 0.6 mls/hr Documented by: [id number] Cosigned by: [id number] Titration: 09/05/19 02:23 Dose: 0.8 units/hr, 0.8 mls/hr Documented by: [id number] Cosigned by: [id number] Titration: 09/05/19 01:19 Dose: 0.8 units/hr, 0.8 mls/hr Documented by: [id number] Cosigned by: [id number] Titration: 09/05/19 00:28 Dose: 0.8 units/hr, 0.8 mls/hr Documented by: [id number] Cosigned by: [id number] Titration: 09/04/19 22:59 Dose: 1 units/hr, 1 mls/hr Documented by: [id number] Cosigned by: [id number] Titration: 09/04/19 22:07 Dose: 1.6 units/hr, 1.6 mls/hr Documented by: [id number] Cosigned by: [id number] Titration: 09/04/19 18:57 Dose: 1.6 units/hr, 1.6 mls/hr Documented by: [id number] Cosigned by: [id number] Titration: 09/04/19 18:00 Dose: 1.6 units/hr, 1.6 mls/hr Documented by: [id number] Cosigned by: [id number] Titration: 09/04/19 16:31 Dose: 1.6 units/hr, 1.6 mls/hr Documented by: [id number] Cosigned by: [id number] Titration: 09/04/19 14:00 Dose: 1.6 units/hr, 1.6 mls/hr Documented by: [id number] Cosigned by: [id number] Titration: 09/04/19 12:00 Dose: 1.6 units/hr, 1.6 mls/hr Documented by: [id number] Cosigned by: [id number] Titration: 09/04/19 11:00 Dose: 1.6 units/hr, 1.6 mls/hr Documented by: [id number] Cosigned by: [id number] Titration: 09/04/19 10:00 Dose: 1.6 units/hr, 1.6 mls/hr Documented by: [id number] Cosigned by: [id number] Titration: 09/04/19 09:09 Dose: 1.6 units/hr, 1.6 mls/hr Documented by: [id number] Cosigned by: [id number] Titration: 09/04/19 08:00 Dose: 2 units/hr, 2 mls/hr Documented by: [id number] Cosigned by: [id number] Titration: 09/04/19 06:55 Dose: 2 units/hr, 2 mls/hr Documented by: [id number] Cosigned by: [id number] Titration: 09/04/19 06:25 Dose: 0 units/hr, 0 mls/hr Documented by: [id number] Cosigned by: [id number] Admin: 09/04/19 03:47 Dose: 3.4 units/hr, 3.4 mls/hr Documented by: [id number] Cosigned by: [id number] Potassium Chloride (K Miguel / Wtr) 20 meq in 100 mls @ 50 mls/hr IV ONE ONE Stop: 09/04/19 19:29 Last Infusion: 09/04/19 20:14 Dose: 0 mls/hr Documented by: [id number] Admin: 09/04/19 17:22 Dose: 50 mls/hr Documented by: [id number] Magnesium Sulfate/Dextrose (Magnesium Sulfate / D5w) 1 gm in 100 mls @ 50 mls/hr IV ONE ONE Stop: 09/04/19 19:29 Last Infusion: 09/04/19 20:15 Dose: 0 mls/hr Documented by: [id number] Admin: 09/04/19 17:22 Dose: 50 mls/hr Documented by: [id number] Calcium Chloride 1,000 mg/ (Sodium Chloride) 60 mls @ 240 mls/hr IV NOW STA Stop: 09/04/19 17:24 Last Infusion: 09/04/19 17:38 Dose: 0 mls/hr Documented by: [id number] Admin: 09/04/19 17:22 Dose: 240 mls/hr Documented by: [id number] Lorazepam (Ativan) 2 mg in 4 mls @ 4 mls/min IV Q2H ONE Stop: 09/05/19 09:23 Last Admin: 09/05/19 09:25 Dose: Not Given Documented by: [id number] Heparin Sodium (Porcine) 3,000 (units/ Syringe) 3 mls @ 10 mls/min IV ONE ONE; Protocol Stop: 09/05/19 14:01 Last Admin: 09/05/19 14:14 Dose: 10 mls/min Documented by: [id number] Cosigned by: [id number] Insulin Aspart (Novolog Flexpen) 0 units SC ACHS [facility] Stop: 10/04/19 07:29 Last Admin: 09/05/19 07:28 Dose: Not Given Documented by: [id number] Cosigned by: [id number] Admin: 09/04/19 21:09 Dose: Not Given Documented by: [id number] Cosigned by: [id number] Admin: 09/04/19 16:31 Dose: Not Given Documented by: [id number] Cosigned by: [id number] Admin: 09/04/19 12:30 Dose: Not Given Documented by: [id number] Cosigned by: [id number] Admin: 09/04/19 08:11 Dose: Not Given Documented by: [id number] Cosigned by: [id number] Insulin Human Regular (Novolin R Bolus From Bag) 3.5 units IV ONE ONE Stop: 09/04/19 03:01 Last Admin: 09/04/19 03:49 Dose: 3.5 units Documented by: [id number] Cosigned by: [id number] Lorazepam (Ativan) Confirm Administered Dose 2 mg .ROUTE .STK-MED ONE Stop: 09/05/19 09:21 Last Admin: 09/05/19 09:22 Dose: 2 mg Documented by: [id number] Midazolam HCl (Versed) Confirm Administered Dose 4 mg .ROUTE .STK-MED ONE Stop: 09/03/19 21:11 Last Admin: 09/04/19 01:51 Dose: Not Given Documented by: [id number] Midazolam HCl (Versed) Confirm Administered Dose 2 mg .ROUTE .STK-MED ONE Stop: 09/03/19 21:23 Last Admin: 09/03/19 21:24 Dose: 2 mg Documented by: [id number] Midazolam HCl (Versed) Confirm Administered Dose 2 mg .ROUTE .STK-MED ONE Stop: 09/03/19 21:37 Last Admin: 09/04/19 01:52 Dose: Not Given Documented by: [id number] Nicardipine HCl (Cardene) Confirm Administered Dose 50 mg .ROUTE .STK-MED ONE Stop: 09/03/19 21:11 Last Admin: 09/04/19 01:50 Dose: Not Given Documented by: [id number] Nitroglycerin/Dextrose (Nitroglycerin/D5w 100 Mcg/Ml 20ml Syringe) Confirm Administered Dose 4,000 mcg .ROUTE .STK-MED ONE Stop: 09/03/19 21:12 Last Admin: 09/04/19 01:51 Dose: Not Given Documented by: [id number] Norepinephrine Bitartrate (Levophed (Reactor Service Operator Use Only)) Confirm Administered Dose 8 mg .ROUTE .STK-MED ONE Stop: 09/03/19 21:40 Last Admin: 09/04/19 02:08 Dose: Not Given Documented by: [id number] Propofol (Diprivan) Confirm Administered Dose 1,000 mg IV .STK-MED ONE Stop: 09/03/19 23:32 Last Admin: 09/04/19 02:08 Dose: Not Given Documented by: [id number] Vecuronium [place] (Norcuron) Confirm Administered Dose 10 mg IV .STK-MED ONE Stop: 09/05/19 11:31 Last Admin: 09/05/19 11:36 Dose: 10 mg Documented by: [id number] Cosigned by: [id number] Description This is a 21 electrode EEG with a single channel dedicated to limited EKG. The electrodes were placed in accordance with the International 10-20 system. History: cardiac arrest Rx: versed gtt, fentanyl gtt Start/Stop: 11:38am/11:58am Attending reading: Ariane Kathleen EEG Description: EEG background: Background was predominantly 3-6 Hz delta/theta slowing observed, with frequent periods of 1-2 second suppression. No well formed posterior dominant rhythm was observed. The EEG is continuous. There is variability, no clear reactivity present. Activation and reactivity: Photic stimulation performed without any abnormalities noted. No photic driving observed. Hyperventilation was not performed. Sleep: No drowsiness or sleep noted during this recording. Epileptiform discharges: No epileptiform discharges were observed. Frequent triphasic waves were noted. Rhythmic and periodic patterns: None Seizures: None Impression: This was an abnormal EEG given moderate generalized slowing from toxic-metabolic encephalopathy or global cerebral injury. Periods of slowing likely from medication effect (versed). No seizures or epileptiform discharges were seen. [facility] EEG Procedure Codes Indication for Procedure (1) Cardiac arrest: Neurology Neurology: 87392 EEG include record awake & drowsy
[2019-09-05] MEDS: FENTANYL BOLUS FROM BAG IV PRN ×2 (20:42→23:58)
[2019-09-05 20:45] LABS: Partial Thromboplastin Ratio 1.4; Partial Thromboplastin Time 38.7 Seconds (21.0-31.0)
[2019-09-05] MEDS ORDERED: HEPARIN IV BOLUS 4,500 UNITS in SYRINGE 0 ML IV ONE (21:00)
[2019-09-06] MEDS ORDERED: NORMOSOL-R 500 ML IV ONE (00:18)
[2019-09-06 00:25] LABS: iSTAT Art Bld Gas pCO2 Correct 71 mmHg (35-46); iSTAT Art Bld Gas pH Corrected 7.239 (7.35-7.45); iSTAT Arterial Blood Gas HCO3 30 meg/L (19-24); iSTAT Arterial Blood Gas pCO2 72 mmHg (35-46); iSTAT Arterial Blood Gas pH 7.24 (7.35-7.45); iSTAT Arterial Blood Gas pO2 75 mmHg (80-95); iSTAT Arterial Blood Gas pO2 C 73; iSTAT Carbon Dioxide 33 mmol/L (24-31); iSTAT Hematocrit 32 % (37-47); iSTAT Hemoglobin 10.9 g/dl (12.0-16.0); iSTAT Potassium 4.1 mmol/L (3.3-5.0); iSTAT Site Art Line; iSTAT Sodium 133 mmol/L (135-144)
[2019-09-06] MEDS: INSULIN ASPART 100 UNITS/ML 3 ML PEN SC SCH ×4 (00:25→17:26)
[2019-09-06] MEDS: MIDAZOLAM BOLUS FROM BAG IV PRN (01:40)
[2019-09-06] MEDS: HEPARIN SODIUM/DEXTROSE 25,000 UNITS/500 ML BAG IV SCH (01:53)
[2019-09-06] MEDS: fentaNYL DRIP 1,250 MCG/250 ML BAG IV SCH ×2 (01:56→07:45)
[2019-09-06 02:23] LABS: iSTAT Arterial Blood Gas HCO3 30 meg/L (19-24); iSTAT Arterial Blood Gas pCO2 70 mmHg (35-46); iSTAT Arterial Blood Gas pH 7.24 (7.35-7.45); iSTAT Arterial Blood Gas pO2 84 mmHg (80-95); iSTAT Carbon Dioxide 32 mmol/L (24-31); iSTAT FiO2 55 %; iSTAT Site Art Line
[2019-09-06] MEDS: ALBUT/IPRATROP 3MG/0.5MG NEB 3 ML VIAL NEB PRN ×2 (02:29→07:06)
[2019-09-06 03:18] LABS: Hematocrit (blood only) 30.3 % (37-47); Hemoglobin 9.9 g/dL (12.0-16.0); Mean Corpuscular Hemoglobin 28.4 pg (25-34); Mean Corpuscular Hgb Conc 32.7 g/dL (32-36); Mean Corpuscular Volume 86.8 fL (80-100); Platelet Count 320 K/uL (130-400); RDW Coefficient of Variation 14.5 % (11.5-14.5); RDW Standard Deviation 45.6 fL (36.4-46.3); Red Blood Count 3.49 M/uL (4.2-5.4); White Blood Count 22.65 K/uL (4.8-10.8)
[2019-09-06 03:36] LABS: Alanine Aminotransferase 41 U/L (12-78); Albumin Level 2.3 gm/dl (3.4-5.0); Aspartate Aminotransferase 68 U/L (15-37); BUN Creatinine Ratio 16.8 (10-20); Blood Urea Nitrogen 21 mg/dl (7-18); Calcium 7.1 mg/dl (8.5-10.1); Carbon Dioxide 28 mmol/L (21-32); Chloride 101 mmol/L (98-107); Creatinine Clr Calc Pharmacy 54.8 ml/min; Est GFR (African American) 52.7; Est GFR (Non-African American) 45.5; Glucose 117 mg/dl (70-99); Potassium 3.6 mmol/L (3.5-5.1); Sodium 138 mmol/L (136-145)
[2019-09-06 03:39] LABS: Basophils # (auto) 0.01 K/uL (0-0.2); Eosinophils # (auto) 0.01 K/uL (0-0.5); INR 1.1 (0.9-1.1); Immature Granulocytes # (auto) 0.08 K/uL (0.00-0.02); Immature Granulocytes % (auto) 0.4 %; Lymphocytes # (auto) 1.04 K/uL (1.2-3.4); Lymphocytes % (auto) 4.6 %; Monocytes # (auto) 1.14 K/uL (0.11-0.59); Neutrophils # (auto) 20.37 K/uL (1.4-6.5); Partial Thromboplastin Ratio 2.4; Prothrombin Time 11.1 Seconds (9.0-12.0)
[2019-09-06 03:41] LABS: Alkaline Phosphatase 116 U/L (45-117); Bilirubin Direct < 0.1 mg/dl (0-0.2); Bilirubin,Total 0.3 mg/dl (0.2-1)
[2019-09-06] MEDS: NOREPINEPHRINE BIT INJ 8 MG in DEXTROSE 5% 500 ML IV SCH ×2 (03:57→11:33)
[2019-09-06] MEDS: NORMOSOL-R 1,000 ML IV SCH ×2 (04:01→09:30)
[2019-09-06 04:14] LABS: Phosphorus 5.9 mg/dl (2.5-4.9)
[2019-09-06 06:05] LABS: iSTAT Arterial Blood Gas HCO3 30 meg/L (19-24); iSTAT Arterial Blood Gas pCO2 62 mmHg (35-46); iSTAT Arterial Blood Gas pH 7.29 (7.35-7.45); iSTAT Arterial Blood Gas pO2 79 mmHg (80-95); iSTAT Carbon Dioxide 32 mmol/L (24-31); iSTAT FiO2 50 %; iSTAT Site Art Line
--- NOTE | 2019-09-06 06:58 | XRay Report ---
XR chest 1V portable HISTORY: 63 years-old Female s/p arrest acute respiratory failure COMPARISON: Chest radiograph 09/05/2019 TECHNIQUE: Portable AP view of the chest FINDINGS: Endotracheal tube overlies the midline, 4.3 cm superior to the lisa. Enteric tube distal tip course s below the diaphragm with distal tip outside the [id number]. The previously noted catheter tip ov erlying the right ventricle is not definitively seen. Mild interstitial coarsening. No pneumothorax, large pleural effusion or overt pulmonary edema. No airspace consolidation typical for pneumonia. Min imal bibasilar densities suggest atelectasis. Partially imaged right proximal humeral hardware. Bones appear grossly intact. IMPRESSION: 1. Lines and tubes as above. 2. Cardiomegaly. 3. Minimal bibasilar opacities suggest probable atelectasis. ACT 112: Negative or not required by law. The above report was generated using voice recognition software. It may contain grammatical, syntax o r spelling errors. Electronically signed by: Zechariah Villatoro M.D. 09/06/2019 6:56 AM
[2019-09-06 07:07] LABS: Estimated Average Glucose 108 mg/dl; Hemoglobin A1C 5.4 % (4.5-5.6)
[2019-09-06] MEDS: MIDAZOLAM HCL 125 MG/250 ML BAG IV SCH (08:12)
--- NOTE | 2019-09-06 09:19 | Neurology Consultation ---
Date of Consultation September 06, 2019 Assessment & Plan (1) Hypoxic ischemic encephalopathy (HIE): (2) Cardiac arrest with ventricular fibrillation: This patient suffered a cardiac arrest with ventricular fibrillation on September 02. She was intubated and cooled per protocol. Today the patient has some brainstem and spinal cord function involving the medulla greater than demetrio and mid brain. She has no meaningful cortical function currently but does have cortical activity noted by EEG yesterday (moderate slowing in general consistent with an hypoxic ischemic encephalopathy). Exam reveals mid brain and pontine dysfunction also. Overall her prognosis is somewhat poor (although it is still too early to exclude the possibility of meaningful improvements). She has underlying COPD and cardiac issues which will complicate her recovery. Although she has some intermittent body tremors/shivering, there is no evidence of seizure activity clinically or by EEG so far. Recommendations: 1. Continue supportive care as you are doing. 2. I will follow and assess her neurologic function. 3. We may consider MRI of the brain or other neurologic testing in future depending on her clinical course. Overall, I spent a total of 100 minutes with this case including review of records, direct evaluation the patient at bedside, and discussing the case with the patient's at bedside, RN at bedside, and Drs. Julien and Myrna, including differential diagnosis treatment options. History of Present Illness Reason for Consultation: Patient is a 63-year-old, who I was asked to see at the request of Archie Ndiaye PA-C, for neurologic consultation regarding unresponsive state post cardiac arrest. Requesting Physician: Archie Ndiaye PA-C Attending Physician: Chris Glaser History of Present Illness Patient has a history of atrial fibrillation post cardioversion, COPD, CHF, hypertension. On September 02 the patient complained of chest pain and then collapsed. Her gave her CPR and then the police came and gave her 2 shocks. She received 2 more shocks by EMS as she was found to be in VFib. IV epinephrine and amiodarone were given. She was intubated and put on a ventilator. She was cooled. On 09/03, and EEG showed severe generalized slowing but there was too much artifact. On September 04, a repeat EEG on sedation showed moderate generalized slowing, no focal findings, and no potentially epileptogenic discharges, despite episodes of twitching and tremor. There was a concern of seizure activity. This morning, she has been off all sedation since 624. Neurologic examination was done between 0830 and 0900. This morning blood pressure was 124/59 with a pulse of 103. Temperature was 37.0C, but this was maintained by a cooling blanket. Without the cooling blanket her temperature increases up to 38 and above. The patient is ventilated but takes initiates the breaths. Echocardiogram revealed ejection fraction of 40-45%. There is left ventricular hypertrophy, global hypokinesia and dilated atria. CT scan of the head on September 02 was unremarkable Currently she has anemia and elevated white count. BUN and creatinine are mildly elevated as is the AST. She is producing urine. TSH was increased at 6.3 on admission. Free T4 was normal. Allergies Allergy/AdvReac Type Severity Reaction Status Date / Time No Known Allergies Allergy Verified 04/14/19 12:15 Home Medications Home Medications Medication Instructions Recorded Confirmed Type Centrum 1 tab PO QAM 05/19/18 04/14/19 History flecainide 100 mg PO DAILY 05/19/18 04/14/19 History ipratropium-albuterol 3 ml INHALATION QID 05/19/18 04/14/19 History guaifenesin [Mucinex] 1,200 mg PO Q12 #30 tab 05/23/18 04/14/19 Rx nicotine [Nicoderm CQ] 7 mg TRANSDERMAL QAM #14 ea 05/23/18 04/14/19 Rx amlodipine 10 mg tablet 10 mg PO DAILY #90 tab 12/16/18 04/14/19 Rx lisinopril 20 1 tab PO QAM #90 tab 12/16/18 04/14/19 Rx mg-hydrochlorothiazide 12.5 mg tablet fluticasone furoate 100 1 ea INHALATION DAILY #1 inhaler 01/28/19 04/14/19 Rx mcg-vilanterol 25 mcg/dose inhalation powder rivaroxaban 20 mg tablet 20 mg PO DAILY #30 tab 03/22/19 04/14/19 Rx varenicline 0.5 mg (11)-1 mg (42) See Rx Instructions PO .as 04/14/19 04/14/19 Rx tablets in a dose pack directed #53 ea varenicline 1 mg tablet 1 mg PO BID 84 Days #168 tab 04/14/19 04/14/19 Rx azithromycin 250 mg tablet See Rx Instructions PO .COMPLEX #6 06/09/19 Rx tab prednisone 10 mg tablet See Rx Instructions PO DAILY #30 06/09/19 Rx tab metoprolol succinate 100 mg 100 mg PO DAILY #90 tab 07/13/19 Rx tablet,extended release 24 hr albuterol sulfate 90 mcg/actuation 1 puffs INHALATION Q4H PRN #18 gm 08/05/19 Rx aerosol inhaler Patient History Medical History Afib Cataract Congestive heart failure (Acute) Congestive heart failure COPD exacerbation History of cardioversion Hypertension (Chronic) Hypoxemia (Acute) SOB (shortness of breath) Surgical History H/O cardiac radiofrequency ablation H/O partial thyroidectomy History of 3 sections Family History Other No pertinent family history Social History Smoking Status: Unknown if ever smoked Cigarettes Per Day: 4-5; Hx Alcohol Use: No Hx Substance Use: No Preferred Language: Bulgarian Communication Ability: Unable Visual Impairment: No Limitations Hearing Ability: Normal Card Puncher Required: No Beliefs That Will Affect Care: None marital status: Current Living Situation: Spouse current occupational status: disabled Childhood Exposure to Second-Hand Smoke: Yes Physical Activity Frequency: Does not Exercise Seatbelt Use: always Sunscreen Use: Yes Review of Systems Review of Systems: Unobtainable due to cognitive status The patient is intubated and does not communicate/speak so we are unable to obtain any review of systems. Exam (Neuro) Physical Exam: Temperature is 37.0 C on a cooling blanket. Blood pressure is 124 over 55 with a pulse of 103. She has mechanical ventilation with 100% O2 and is initiated breathing. Her rate was around 10. She is lying still without spontaneous movement of the limbs with her eyes half open. She will sometimes turn her head to the left but prefers her head to the right. On occasion I noticed some very fine tremor/ shivering of all 4 limbs proximally. This would last about 20 seconds and then subside. These occurred more with stimulation during the exam than at times of rest. To shout and voice she sometimes turns her head to the left (at the side of the voice) but other times she does that with voice on the right as well. I was not convinced that this was purposeful. Her eyes do not turn to shout or voice. Eyes are front, sometimes conjugant and sometimes slightly skewed with 1 eye a few degrees abducting compared to the other. This will alternate. Sternal rub produces flexed arms and to a lesser degree the legs right greater than left side. She will have some eye opening, watering with this but no true grimacing. Supraorbital notch stimulation produces no significant affect. The pain in the limbs distally produces some right greater than left mild withdrawal in the legs and delayed in the right upper extremity. There was no withdrawal to deep pain in the left upper extremity. Pupils were 3 mm bilaterally reactive to bright light. Eyes remain midline with passive turning of the head horizontally and vertically (negative oculocephalics). There were mild but distinct positive corneal reflexes bilaterally. There was no gag reflex bilaterally and there was no true cough to suctioning. With suctioning however her eyes got wider and had some "watering". She had increased chewing movements with suction as well. Ice water calorics were performed with 30 cc eyes water into each ear after visually inspecting that ears did not have any plugs of wax. There was no movement of the eyes after calorics, in any direction (and no nystagmus), introduced into either ear. This was true after 30-45 seconds of observation after the ice water was introduced. Limbs have decreased tone in the arms and some increased tone/mild spasticity in the legs. Reflexes are 2/4 in the biceps and brachioradialis tendons bilaterally and 1/4 in the triceps tendons bilaterally. Quadriceps and Achilles tendon reflexes are 2/for and there is 2 beats of clonus with passive stretch of the ankles bilaterally. Toes were equivocal to upgoing with plantar stimulation bilaterally. There was peripheral edema and feet greater than hands. Results & Data ([facility]) Vital Signs (Past 12 Hours) Vital Signs Temp Pulse Resp Pulse Ox 09/06/19 07:10 94 H 8 L 100 09/06/19 06:09 92 H 11 L 96 09/06/19 06:00 37.0 C 90 96 09/06/19 05:00 37.1 C 93 H 97 09/06/19 04:00 37.2 C 92 H 95 09/06/19 03:00 37.2 C 85 95 09/06/19 02:15 92 H 11 L 98 09/06/19 02:00 37.2 C 92 H 97 09/06/19 01:00 37.3 C 99 H 90 09/06/19 00:18 87 10 L 95 09/06/19 00:00 36.3 C L 84 96 09/05/19 23:35 96 H 09/05/19 23:00 37.9 C H 97 H 91 09/05/19 22:00 37.2 C 95 H 92 PG Care Time/CCT Total # of Minutes Spent Total Time Spent with Patient: Total time spent is greater than 50% in coordination of care (as documented) at patient's floor/unit and/or counseling patient: Coding Level of Care Code 86575 Inpt Consult Level 5 Diagnoses Hypoxic ischemic encephalopathy (HIE) P91.60 Cardiac arrest with ventricular fibrillation I46.9; I49.01 Time Spent (min) 100
[2019-09-06] MEDS: FAMOTIDINE 20 MG in SYRINGE 3 ML IV SCH (09:30)
[2019-09-06 10:50] LABS: Partial Thromboplastin Ratio 1.5
--- NOTE | 2019-09-06 11:06 | Cardiology Consultation ---
Date of Consultation September 06, 2019 Assessment & Plan (1) Cardiac arrest with ventricular fibrillation: Her cardiac arrest appears most likely due to ischemia. She was complaining of chest discomfort prior to the event, she was urged to call 911 but evidently that was not done until she collapsed. When she was evaluated she was in ventricular fibrillation which was successfully converted to sinus rhythm but it required multiple shocks and CPR. I am not sure whether she is going to have a meaningful recovery, she evidently was down for some time and had prolonged CPR and multiple shocks. (2) ST elevation (STEMI) myocardial infarction: Her initial electrocardiogram suggests an inferior myocardial infarction with some ST elevation, her catheterization done on presentation shows an occluded distal right coronary artery. She also has a distal occluded LAD. Her presentation is most consistent with a small microinfarction leading to a cardiac arrest. (3) Afib: She has a history of atrial fibrillation but has been lost to follow-up for about 2 years, I do not know what the status is, her family is not aware of her having recurrence of atrial fibrillation following ablation several years ago. (4) Cardiomyopathy: She had a mild cardiomyopathy several years ago, her left ventricular ejection fraction is mildly reduced here. I do not know if she had recovery and that now she has an element of stunning or whether it has remained. In any case her left ventricular function at the moment does not qualify her for an ICD, which if we feel this event was due to an ischemic event would require waiting for an ICD in any case. If she has meaningful recovery we can follow further with her left ventricular function. History of Present Illness Reason for Consultation: Cardiac arrest Attending Physician: Chris Glaser History of Present Illness This is a 63-year-old woman who has a history of atrial fibrillation and mild cardiomyopathy for which she had cardioversions and ultimately an atrial fibrillation ablation at [facility] about 2 years ago. She was evidently lost to follow-up after that. She is admitted after a cardiac arrest for which she was resuscitated, she remains unresponsive and cannot provide history. History is therefore from the chart and I discussed her presentation with her family. Evidently she was having chest discomfort on the day of her event, this was present for some time, it sounds like several hours, and a family member was on the phone with her and urged her and her to call 911. Unfortunately that was not done, after some time, perhaps half an hour 40 minutes later, she was unresponsive in the bathroom. At some point 911 was called and she was in ventricular fibrillation, CPR was instituted and cardioversion performed. She did have return in her rhythm and she was brought to the emergency room. There her electrocardiogram showed sinus rhythm with some inferior ST elevation, she was brought to the [facility] where a distal right coronary artery occlusion was identified as well as some LAD distal disease however no intervention was warranted. Echocardiography showed mildly decreased left ventricular function. Her cardiac enzymes were low on admission and increased subsequently. She has not done well mentally. She was intubated, sedated and cooled, she is now been rewarmed and sedation has been held. She remains unresponsive at this point. Hemodynamically she is doing well. Allergies Allergy/AdvReac Type Severity Reaction Status Date / Time No Known Allergies Allergy Verified 04/14/19 12:15 Home Medications Home Medications Medication Instructions Recorded Confirmed Type Centrum 1 tab PO QAM 05/19/18 04/14/19 History flecainide 100 mg PO DAILY 05/19/18 04/14/19 History ipratropium-albuterol 3 ml INHALATION QID 05/19/18 04/14/19 History guaifenesin [Mucinex] 1,200 mg PO Q12 #30 tab 05/23/18 04/14/19 Rx nicotine [Nicoderm CQ] 7 mg TRANSDERMAL QAM #14 ea 05/23/18 04/14/19 Rx amlodipine 10 mg tablet 10 mg PO DAILY #90 tab 12/16/18 04/14/19 Rx lisinopril 20 1 tab PO QAM #90 tab 12/16/18 04/14/19 Rx mg-hydrochlorothiazide 12.5 mg tablet fluticasone furoate 100 1 ea INHALATION DAILY #1 inhaler 01/28/19 04/14/19 Rx mcg-vilanterol 25 mcg/dose inhalation powder rivaroxaban 20 mg tablet 20 mg PO DAILY #30 tab 03/22/19 04/14/19 Rx varenicline 0.5 mg (11)-1 mg (42) See Rx Instructions PO .as 04/14/19 04/14/19 Rx tablets in a dose pack directed #53 ea varenicline 1 mg tablet 1 mg PO BID 84 Days #168 tab 04/14/19 04/14/19 Rx azithromycin 250 mg tablet See Rx Instructions PO .COMPLEX #6 06/09/19 Rx tab prednisone 10 mg tablet See Rx Instructions PO DAILY #30 06/09/19 Rx tab metoprolol succinate 100 mg 100 mg PO DAILY #90 tab 07/13/19 Rx tablet,extended release 24 hr albuterol sulfate 90 mcg/actuation 1 puffs INHALATION Q4H PRN #18 gm 08/05/19 Rx aerosol inhaler Patient History Medical History Afib Cataract Congestive heart failure (Acute) Congestive heart failure COPD exacerbation History of cardioversion Hypertension (Chronic) Hypoxemia (Acute) SOB (shortness of breath) Surgical History H/O cardiac radiofrequency ablation H/O partial thyroidectomy History of 3 sections Family History Other No pertinent family history Social History Smoking Status: Unknown if ever smoked Cigarettes Per Day: 4-5; Hx Alcohol Use: No Hx Substance Use: No Preferred Language: Divehi Communication Ability: Unable Visual Impairment: No Limitations Hearing Ability: Normal Final Operations Technician Required: No Beliefs That Will Affect Care: None marital status: Current Living Situation: Spouse current occupational status: disabled Childhood Exposure to Second-Hand Smoke: Yes Physical Activity Frequency: Does not Exercise Seatbelt Use: always Sunscreen Use: Yes Review of Systems Review of Systems: Unobtainable due to endotracheal tube and Unobtainable due to reduced consciousness Physical Exam Physical Exam: Constitutional: She is unresponsive and intubated. HEENT: Unremarkable Neck: No jugular venous distention, carotid pulses are normal and equal bilaterally without bruits. Pulmonary: Clear to auscultation bilaterally. Cardiac: Regular rhythm with no murmur, gallop or rub. Abdomen: Soft, nontender with normal bowel sounds. Extremities: No edema. Distal pulses intact. Neurologic: Not performed. Skin: No rash, ecchymoses or petechiae. Results & Data ([facility]) Vital Signs (Past 12 Hours) Vital Signs Temp Pulse Resp Pulse Ox 09/06/19 10:10 101 H 26 H 94 09/06/19 09:45 37.2 C 102 H 95 09/06/19 09:30 37.3 C 104 H 95 09/06/19 09:15 37.3 C 104 H 94 09/06/19 09:00 37.3 C 106 H 95 09/06/19 08:45 37.2 C 96 09/06/19 08:30 37.3 C 99 H 95 09/06/19 08:15 37.3 C 101 H 96 09/06/19 08:00 37.2 C 100 H 98 09/06/19 07:45 37.2 C 99 H 96 09/06/19 07:30 37.2 C 96 H 97 09/06/19 07:15 37.2 C 99 09/06/19 07:10 94 H 8 L 100 09/06/19 07:00 37.2 C 88 96 09/06/19 06:09 92 H 11 L 96 09/06/19 06:00 37.0 C 90 96 09/06/19 05:00 37.1 C 93 H 97 09/06/19 04:00 37.2 C 92 H 95 09/06/19 03:00 37.2 C 85 95 09/06/19 02:15 92 H 11 L 98 09/06/19 02:00 37.2 C 92 H 97 09/06/19 01:00 37.3 C 99 H 90 09/06/19 00:18 87 10 L 95 09/06/19 00:00 36.3 C L 84 96 09/05/19 23:35 96 H 09/05/19 23:00 37.9 C H 97 H 91 Diagnostic Findings Cardiac Enzymes 09/06/19 Range/Units 03:01 AST 68 H (15-37) U/L CK-MB (CK-2) 37.0 H (0.5-3.6) ng/ml Coagulation 09/05/19 09/05/19 09/06/19 Range/Units 12:29 20:22 03:01 PT 11.1 (9.0-12.0) Seconds APTT 45.3 H* 38.7 H 67.0 H* (21.0-31.0) Seconds 09/06/19 Range/Units 10:26 PT (9.0-12.0) Seconds APTT 43.0 H (21.0-31.0) Seconds CBC 09/06/19 Range/Units 03:01 WBC 22.65 H (4.8-10.8) K/uL RBC 3.49 L (4.2-5.4) M/uL Hgb 9.9 L (12.0-16.0) g/dL Hct 30.3 L (37-47) % Plt Count 320 (130-400) K/uL Neut # (Auto) 20.37 H (1.4-6.5) K/uL Lymph # (Auto) 1.04 L (1.2-3.4) K/uL [place] # (Auto) 1.14 H (0.11-0.59) K/uL Eos # (Auto) 0.01 (0-0.5) K/uL Baso # (Auto) 0.01 (0-0.2) K/uL Comprehensive Metabolic Panel 09/06/19 Range/Units 03:01 Sodium 138 (136-145) mmol/L Potassium 3.6 (3.5-5.1) mmol/L Chloride 101 (98-107) mmol/L Carbon Dioxide 28 (21-32) mmol/L BUN 21 H (7-18) mg/dl Creatinine 1.27 H (0.6-1.2) mg/dl Glucose 117 H (70-99) mg/dl Calcium 7.1 L (8.5-10.1) mg/dl Direct Bilirubin < 0.1 (0-0.2) mg/dl AST 68 H (15-37) U/L ALT 41 (12-78) U/L Alkaline Phosphatase 116 (45-117) U/L Total Protein 6.0 L (6.4-8.2) gm/dl Albumin 2.3 L (3.4-5.0) gm/dl Intake and Output 09/05/19 09/06/19 09/06/19 22:59 06:59 14:59 Intake Total 1386.777 / 5823.370 2771.982 / 5823.370 900 / 900 Output Total 355 / 1905 1000 / 1905 425 / 425 Balance 1031.777 / 3918.370 1771.982 / 3918.370 475 / 475 Intake: IV 1386.777 / 5823.370 2771.982 / 5823.370 900 / 900 NEXTERONE / D5W 360 mg In 200 200 / 400 ml @ 0.5 MG/MIN 16.667 mls/hr IV .Q12H [facility] Rx#:[id number] HEPARIN SODIUM/DEXTROSE 25,000 106.666 / 406.366 187.700 / 406.366 units In 500 ml @ 900 UNITS/HR 18 mls/hr IV .Q24H [facility] Rx#: [id number] NovoLIN R 250 UNITS In Nss 247. 0 / 1.562 5 ml @ 0 UNITS/HR IV .Q0M [facility] Rx#:[id number] VERSED 125 mg In 250 ml @ 0 MG/ 51.884 / 155.117 101.466 / 155.117 HR IV .Q0M [facility] Rx#:[id number] Levophed Inj 8 mg In D5w 500 ml 145.227 / 1084.835 637.733 / 1084.835 @ 70 mls/hr IV .Q7H16M [facility] Rx# :[id number] Normosol-R 1,000 ml @ 100 mls/ 973.333 / 3388.333 1473.333 / 3388.333 900 / 900 hr IV .Q10H [facility] Rx#:[id number] fentaNYL DRIP 1,250 mcg In 250 109.667 / 309.417 171.750 / 309.417 ml @ 0 MCG/HR IV .Q0M [facility] Rx#: [id number] Output: Urine Amount (Catheter) 355 / 755 400 / 755 425 / 425 [place]/Indwelling 355 / 755 400 / 755 425 / 425 Gastric Drainage 600 / 600 Orogastric 600 / 600 Other: Weight 94.3 kg 98 kg 98 kg Patient Weight 09/07/19 06:59 Weight 98 kg Telemetry: Sinus rhythm and sinus bradycardia. No significant arrhythmias since admission. PG Care Time/CCT Total # of Minutes Spent Total Time Spent with Patient: Total time spent is greater than 50% in c oordination of care (as documented) at patient's floor/unit and/or counseling patient: Coding Level of Care Code 41279 Initial Inpt Care Lvl 2 Diagnoses Cardiac arrest with ventricular fibrillation I46.9; I49.01 ST elevation (STEMI) myocardial infarction I21.3 Afib I48.91 Cardiomyopathy I42.9
[2019-09-06 11:24] LABS: iSTAT Hematocrit 37 % (37-47); iSTAT Hemoglobin 12.6 g/dl (12.0-16.0); iSTAT Potassium 4.6 mmol/L (3.3-5.0); iSTAT Sodium 139 mmol/L (135-144)
[2019-09-06 11:25] LABS: iSTAT Arterial Blood Gas HCO3 30 meg/L (19-24); iSTAT Arterial Blood Gas pCO2 78 mmHg (35-46); iSTAT Arterial Blood Gas pH 7.19 (7.35-7.45); iSTAT Arterial Blood Gas pO2 141 mmHg (80-95); iSTAT Carbon Dioxide 32 mmol/L (24-31)
[2019-09-06] MEDS ORDERED: HEPARIN IV BOLUS 3,000 UNITS in SYRINGE 0 ML IV ONE (11:30)
--- NOTE | 2019-09-06 12:57 | Electrocardiogram Report ---
Test Reason : Blood Pressure : / mmHG Vent. Rate : 073 BPM Atrial Rate : 073 BPM P-R Int : 208 ms QRS Dur : 112 ms QT Int : 436 ms P-R-T Axes : 085 -61 090 degrees QTc Int : 480 ms Sinus rhythm with Premature atrial complexes Left axis deviation Incomplete right bundle branch block Inferior infarct , possibly acute T wave abnormality, consider anterolateral ischemia ACUTE VA / STEMI Consider right ventricular involvement in acute inferior infarct Abnormal ECG When compared with ECG of 19-MAY-2018 06:37, Premature atrial complexes are now Present Incomplete right bundle branch block is now Present Inferior infarct is now Present Confirmed by Tim Alvarado ([id number]) on 09/06/2019 12:56:47 PM Referred By: REFERRED SELF Confirmed By:Tim Alvarado
--- NOTE | 2019-09-06 12:59 | Electrocardiogram Report ---
Test Reason : Blood Pressure : / mmHG Vent. Rate : 053 BPM Atrial Rate : 053 BPM P-R Int : 216 ms QRS Dur : 100 ms QT Int : 606 ms P-R-T Axes : 094 -67 020 degrees QTc Int : 568 ms Sinus bradycardia with 1st degree A-V block Left axis deviation Incomplete right bundle branch block Inferior infarct (cited on or before 03-SEP-2019) T wave abnormality, consider lateral ischemia Prolonged QT Abnormal ECG When compared with ECG of 03-SEP-2019 21:09, (unconfirmed) HR has decreased Confirmed by Tim Alvarado ([id number]) on 09/06/2019 12:59:36 PM Referred By: REFERRED SELF Confirmed By:Tim Alvarado
--- NOTE | 2019-09-06 13:15 | Electrocardiogram Report ---
Test Reason : Blood Pressure : / mmHG Vent. Rate : 033 BPM Atrial Rate : 033 BPM P-R Int : 188 ms QRS Dur : 090 ms QT Int : 732 ms P-R-T Axes : 105 -58 -75 degrees QTc Int : 541 ms Marked sinus bradycardia Left axis deviation T wave abnormality, consider inferior ischemia T wave abnormality, consider anterolateral ischemia Prolonged QT Abnormal ECG When compared with ECG of 04-SEP-2019 00:20, (unconfirmed) Vent. rate has decreased BY 20 BPM Incomplete right bundle branch block is no longer Present Criteria for Inferior infarct are no longer Present Changes are consistent with cooling Confirmed by Tim Alvarado ([id number]) on 09/06/2019 1:15:08 PM Referred By: REFERRED SELF Confirmed By:Tim Alvarado
--- NOTE | 2019-09-06 13:22 | Electrocardiogram Report ---
Test Reason : Blood Pressure : / mmHG Vent. Rate : 036 BPM Atrial Rate : 036 BPM P-R Int : 166 ms QRS Dur : 098 ms QT Int : 732 ms P-R-T Axes : 039 -52 -46 degrees QTc Int : 566 ms Marked sinus bradycardia Incomplete right bundle branch block Left anterior fascicular block Prolonged QT Abnormal ECG When compared with ECG of 04-SEP-2019 07:52, (unconfirmed) T wave inversion less evident in Inferior leads Confirmed by Tim Alvarado ([id number]) on 09/06/2019 1:21:43 PM Referred By: REFERRED SELF Confirmed By:Tim Alvarado
--- NOTE | 2019-09-06 13:27 | Electrocardiogram Report ---
Test Reason : Blood Pressure : / mmHG Vent. Rate : 041 BPM Atrial Rate : 041 BPM P-R Int : 182 ms QRS Dur : 096 ms QT Int : 684 ms P-R-T Axes : 065 -52 021 degrees QTc Int : 564 ms Marked sinus bradycardia Left axis deviation Incomplete right bundle branch block Inferior infarct , age undetermined T wave abnormality, consider lateral ischemia Prolonged QT Abnormal ECG When compared with ECG of 04-SEP-2019 13:09, (unconfirmed) No significant change was found Confirmed by Tim Alvarado ([id number]) on 09/06/2019 1:26:24 PM Referred By: REFERRED SELF Confirmed By:Tim Alvarado
--- NOTE | 2019-09-06 13:30 | Electrocardiogram Report ---
Test Reason : Blood Pressure : / mmHG Vent. Rate : 039 BPM Atrial Rate : 039 BPM P-R Int : 184 ms QRS Dur : 090 ms QT Int : 692 ms P-R-T Axes : 074 -51 022 degrees QTc Int : 557 ms Marked sinus bradycardia Left axis deviation T wave abnormality, consider inferolateral ischemia Prolonged QT Abnormal ECG When compared with ECG of 04-SEP-2019 16:54, (unconfirmed) No significant change was found Confirmed by Tim Alvarado ([id number]) on 09/06/2019 1:30:25 PM Referred By: REFERRED SELF Confirmed By:Tim Alvarado
--- NOTE | 2019-09-06 13:37 | Electrocardiogram Report ---
Test Reason : Blood Pressure : / mmHG Vent. Rate : 041 BPM Atrial Rate : 041 BPM P-R Int : 160 ms QRS Dur : 094 ms QT Int : 572 ms P-R-T Axes : 066 -49 057 degrees QTc Int : 471 ms Poor data quality, interpretation may be adversely affected Marked sinus bradycardia with occasional Premature ventricular complexes with ventricular escape comp lexes Left anterior fascicular block Possible Inferior infarct , age undetermined Abnormal ECG When compared with ECG of 04-SEP-2019 20:06, (unconfirmed) Premature ventricular complexes are now Present Confirmed by Tim Alvarado ([id number]) on 09/06/2019 1:36:49 PM Referred By: REFERRED SELF Confirmed By:Tim Alvarado
--- NOTE | 2019-09-06 13:44 | Electrocardiogram Report ---
Test Reason : Blood Pressure : / mmHG Vent. Rate : 059 BPM Atrial Rate : 059 BPM P-R Int : 168 ms QRS Dur : 100 ms QT Int : 446 ms P-R-T Axes : 114 -51 066 degrees QTc Int : 441 ms Poor data quality, interpretation may be adversely affected Sinus bradycardia with occasional Premature ventricular complexes Left axis deviation Inferior infarct (cited on or before 05-SEP-2019) Abnormal ECG When compared with ECG of 05-SEP-2019 00:16, (unconfirmed) HR has increased Confirmed by Tim Alvarado ([id number]) on 09/06/2019 1:44:01 PM Referred By: REFERRED SELF Confirmed By:Tim Alvarado
--- NOTE | 2019-09-06 14:23 | Critical Care Progress Note ---
Date of Service September 06, 2019 Assessment & Plan (1) Hypoxic ischemic encephalopathy (HIE): Impression: 63-year-old female with out of hospital V. fib VT arrest possibly exacerbated by ischemia. 24-hour events: Patient completed hypothermia protocol and has been rewarmed. Cooling catheter remains in place. The patient intermittently requires bursts o f cooling to maintain normal temperature. She continues to require pressor agents to maintain blood pressure. Recommendations: 1. Neurologic: The patient is at significant risk for hypoxic encephalopathy. EEGs have demonstrated slowing. Appreciate neurology consultation today. Agree with their assessment that there is significant potential for hypoxemic encephalopathy. Met with multiple family members today. Complicated social situation as the patient's is apparently having issues with alcohol abuse and has been unwilling or unreliable with regards to being point of care or power of criminal defense attorney. I met with the patient's daughter and 2 sons as well as sisters. Care was reviewed in detail. They are planning on meeting with patient excellence today to determine medical proxy decision-maker. We discussed advanced directives including no additional CPR given the possibility of hypoxemic encephalopathy. They have taken it under advisement and will r eaddress with . We will try and avoid any additional sedation at this point time. If she does require sedation for ventilator dyssynchrony, may consider propofol given the ability of it to wear off rapidly and allow for repeat neurological assessment. Will defer MRI scanning until we have some direction from family 2. Cardiovascular: Remains hypotensive on intermittent norepinephrine. Discussed with cardiology briefly. Likely event precipitated by ischemia but no indication currently to pursue cardiac catheterization or other invasive intervention. Echocardiogram did show evidence of right ventricular systolic dysfunction with a dilated right ventricle with reduced systolic function. Left ventricle was also moderately dilated with an ejection fraction of 40 to 45%. Left atrial and right atrial dilatation were noted without significant valvular abnormalities. Would like to get cooling catheter out as soon as possible. Recheck lactate level 3. Pulmonary: Patient remains on mechanical ventilator. She has respiratory acidosis currently. We will adjust ventilator settings by either increasing pressure support or potentially transitioning back to rate to get acid-base status back to normal to allow for repeat neurological assessment. 4. ID: The patient demonstrates persistent fevers. Her white count is up to 22,000. She has multiple potential etiologies including intra-abdominal, lung, and urine. Blood and urine cultures from yesterday show no growth to date. Start zosyn pending culture data and follow fever curve and WBC. 5. GI: Holding tube feeds for now. AST mildly elevated. Will check ammonia level. Albumin slightly low and will replete to see if oncotic pressure improves blood pressure. Will check lipase and if unable to wean pressors, consider CT the abdomen and pelvis 6. Renal: Serum creatinine up to 1.27. Calcium low and will be repleted. Acid-base status appears to demonstrate a pure respiratory acidosis 7. Endocrine: Continue glycemic control per ICU protocol. check cortisol if not done previously. 8. Heme-onc: Slight anemia today. No evidence of ongoing blood loss. No indication for transfusion. Patient remains critically ill at this point time. Prognosis is uncertain for functional recovery. Family working on identifying proxy decision-maker. (2) Cardiac arrest: (3) Admitted to intensive care unit: Admission and Anticipated Discharge Date Admission Date: September 03, 2019 Subjective Patient remains intubated. Her eyes are open but she does not follow commands. No significant purposeful movements Review of Systems Review of Systems: Unobtainable due to endotracheal tube Physical Exam Constitutional: WD/WN, vitals as above + acute distress Eyes: + anicteric sclerae; no conjunctival abnormality ENMT: external ear and nose normal, oropharynx normal Neck: trachea midline, no thyromegaly normal visual inspection Respiratory: + labored breathing Auscultation: + crackles Cardiovascular: Rate/Rhythm: regular rhythm and + bradycardic Gastrointestinal (Abdomen): Inspection/Auscultation: abdomen normal to inspection; abdomen not distended Musculoskeletal: no cyanosis or clubbing, extremities motor strength 5/5 Skin: no rashes, warm and dry Neurologic: + does not move all extremities and + not awake Psychiatric: Orientation: + not alert and + not oriented to person Results & Data Results & Data ([facility]) Vital Signs (Past 12 Hours) Vital Signs Temp Pulse Resp Pulse Ox 09/06/19 13:20 105 H 26 H 94 09/06/19 12:00 37.3 C 103 H 94 09/06/19 11:45 37.3 C 101 H 93 09/06/19 11:30 37.3 C 101 H 94 09/06/19 11:15 37.2 C 101 H 94 09/06/19 11:00 37.3 C 100 H 93 09/06/19 10:45 37.3 C 94 H 95 09/06/19 10:30 37.3 C 99 H 96 09/06/19 10:15 37.1 C 100 H 100 09/06/19 10:10 101 H 26 H 94 09/06/19 10:00 37.3 C 93 H 96 09/06/19 09:45 37.2 C 102 H 95 09/06/19 09:30 37.3 C 104 H 95 09/06/19 09:15 37.3 C 104 H 94 09/06/19 09:00 37.3 C 106 H 95 09/06/19 08:45 37.2 C 96 09/06/19 08:30 37.3 C 99 H 95 09/06/19 08:15 37.3 C 101 H 96 09/06/19 08:00 37.2 C 100 H 98 09/06/19 07:45 37.2 C 99 H 96 09/06/19 07:30 37.2 C 96 H 97 09/06/19 07:15 37.2 C 99 09/06/19 07:10 94 H 8 L 100 09/06/19 07:00 37.2 C 88 96 09/06/19 06:09 92 H 11 L 96 09/06/19 06:00 37.0 C 90 96 09/06/19 05:00 37.1 C 93 H 97 09/06/19 04:00 37.2 C 92 H 95 09/06/19 03:00 37.2 C 85 95 Laboratory Results 09/06/19 03:01 09/06/19 03:01 Diagnostic Findings Chest x-ray from today was independently reviewed. Lungs are reasonably well aerated. Endotracheal tube is approximately 4 cm above the lisa. Feeding tube extends through the bottom part of the film below the diaphragm. No focal airspace opacities or markings noted. Coding Level of Care Code Critical Care 1st 30-74 mins Diagnoses Hypoxic ischemic encephalopathy (HIE) P91.60 Cardiac arrest I46.9 Admitted to intensive care unit Z78.9
[2019-09-06] MEDS ORDERED: PIPERACILL/TAZOBAC CONSULT ACTIVE PRN (14:44)
[2019-09-06] MEDS ORDERED: PIPERACILLIN/TAZOBACTAM 3.375 GM in DEXTROSE 5% 100 ML IV SCH (14:45)
[2019-09-06] MEDS ORDERED: CALCIUM CHLORIDE 10% 1,000 MG in SODIUM CHLORIDE 0.9% 50 ML IV STA (14:51)
[2019-09-06] MEDS ORDERED: PIPERACILLIN/TAZOBACTAM 4.5 GM in DEXTROSE 5% 100 ML IV ONE (15:00)
[2019-09-06] MEDS ORDERED: MoRPHine SULFATE 2 MG/ML CARP IV PRN (16:10)
[2019-09-06] MEDS ORDERED: LORazepam 0.5 MG TAB PO PRN (16:10)
[2019-09-06] MEDS ORDERED: ONDANSETRON 4 MG OD TAB SL PRN (16:10)
[2019-09-06] MEDS ORDERED: ONDANSETRON INJ 2 MG/ML 2 ML VIAL IV PRN (16:10)
[2019-09-06] MEDS ORDERED: GLYCOPYRROLATE 0.2 MG/ML VIAL IV PRN (16:10)
[2019-09-06] MEDS ORDERED: LORazepam 0.5 MG/1 ML VIAL IV PRN (16:10)
--- NOTE | 2019-09-06 18:01 | Communication Note ---
Date of Service: September 06, 2019 Met with family on multiple occasions. They identified the daughter is the proxy medical decision-maker. This was confirmed with the patient's spouse. Oliver elaine found an advanced directive at home completed by the patient which indicated that she would not want any life support measures and if life support were to be initiated, it should be discontinued. We reviewed her current state including her neurological condition and prognosis for functional recovery. Based on the patient's advanced directive, the children's statement of the patient's desires, and potential for neurological sequelae, the medical proxy decision-maker elected to change the patient's status to DNR and pursue terminal extubation with initiation of comfort care. Comfort care orders were entered. This was communicated with nursing. Support was offered. Attending physician notified Coding Level of Care Code Critical Care catrina brown'l 30 min
[2019-09-06] MEDS ORDERED: PIPERACILLIN/TAZOBACTAM 4.5 GM in DEXTROSE 5% 100 ML IV SCH (20:00)
--- NOTE | 2019-09-06 20:47 | Death Pronouncement Note ---
Date of Service September 06, 2019 Pronouncement Note Admission Date Admission Date: September 03, 2019 Date and Time of Date of : 09/06/19 Time of : 20:41 PCOD Preliminary cause of : Cardiac arrest with ventricular fibrillation Contributing Factors (1) Hypoxic ischemic encephalopathy (HIE): (2) Cardiac arrest: (3) Admitted to intensive care unit: Hospital Course Hospital Course: Date: 09/06/2019 Time: 2040 I was contacted by nursing staff regarding the patients declining status and concerns for imminent demise. In short, patient had a ventricular fibrillation cardiac arrest on 09/02 with approximately 20 to 25-minute downtime before ROSC. She was noted to have some slight ST elevations upon return of circulation. She was taken to the catheterization suite where no culprit lesions were noted. Patient underwent therapeutic hypothermia protocol without significant problem. On 09/04, the patient was noted to have concerns for some seizure-like activity noted on exam. EEGs demonstrated toxic encephalopathy without seizure findings. Throughout the encoding clerk hours of 09/05, the patient became increasingly dyssynchronous with the ventilator requiring multiple adjustments and increasing sedation. Patient assessed by neurology today as well as cardiology. Ultimately, family presented to the emergency department and POA noted that they had found paperwork stating that the patient would not have wished to undergo prolonged life support measures. At this point, after discussion with family, they did wish to proceed with compassionate extubation and comfort measures only. Patient peacefully with a time of of 2040. Assessment: I presented to the patients room for evaluation. Upon assessment, the patient was found to be in a terminal state. Pupils were fixed and dilated without response. No palpable pulses appreciated. No spontaneous breaths noted. Heart sounds were absent. No response to painful stimuli. Time of : 2040 as pronounced by myself. Family present at bedside. Appropriate response to grief appreciated. Condolences provided. Questions were addressed and emotional support was provided. Patients primary service was contacted and made aware of patient demise. Pronouncement section of the Certificate was filled out and signed by myself. Cause of : Primary - V-fib arrest Secondary - Hypoxic Encephalopathy Contributing Causes of - CAD, COPD, Chronic hypoxic respiratory failure, Cardiogenic shock Please feel free to contact me with any questions regarding the above-mentioned course. Additional Data Confirmation of : no pulse Family: at bedside Attending physician: Chris Glaser Autopsy requested?: No branch examiner notified?: No Coding Level of Care Code None Diagnoses Hypoxic ischemic encephalopathy (HIE) P91.60 Cardiac arrest I46.9 Admitted to intensive care unit Z78.9 Time Spent (min) 35
[2019-09-06] MEDS ORDERED: ALBUMIN 25% 50 ML IV SCH (22:00)
--- NOTE | 2019-09-06 22:21 | Hospitalist Progress Note ---
Date of Service September 06, 2019 Assessment & Plan (1) Admitted to intensive care unit: Patient is admitted to intensive care unit/status post cardiac arrest in the field with ventricular fibrillation/status post return of spontaneous circulation/cold therapy, Code Arctic/STEMI. - Cooling protocol per ICU. - Sedated - Amiodarone gtt for vfib - Concern for seizure today with increased peak pressures, EtCO2, and BIS monitor. Plan for EEG. Sedation switched by ICU team. (2) Pneumonia: Initially placed on vancomycin IV and Zosyn IV due to likely aspiration. - Held now per ICU team (3) Cardiac arrest: See above (4) ST elevation (STEMI) myocardial infarction: See above (5) Cardiac arrest with ventricular fibrillation: See above (6) Signs of return of spontaneous circulation: See above Admission and Anticipated Discharge Date Admission Date: September 03, 2019 Results & Data Results & Data ([facility]) Vital Signs (Past 12 Hours) Vital Signs Temp Pulse Resp Pulse Ox 09/06/19 15:45 37.3 C 108 H 09/06/19 15:30 37.1 C 108 H 94 09/06/19 15:15 37.3 C 106 H 09/06/19 15:00 37.3 C 105 H 94 09/06/19 14:45 37.3 C 106 H 93 09/06/19 14:30 37.3 C 92 09/06/19 14:15 37.3 C 105 H 92 09/06/19 14:00 37.3 C 105 H 93 09/06/19 13:45 37.3 C 100 H 93 09/06/19 13:30 37.3 C 105 H 94 09/06/19 13:20 105 H 26 H 94 09/06/19 13:15 37.3 C 106 H 93 09/06/19 13:00 37.3 C 103 H 92 09/06/19 12:45 37.3 C 103 H 93 09/06/19 12:30 37.3 C 101 H 94 09/06/19 12:15 37.2 C 103 H 95 09/06/19 12:00 37.3 C 103 H 94 09/06/19 11:45 37.3 C 101 H 93 09/06/19 11:30 37.3 C 101 H 94 09/06/19 11:15 37.2 C 101 H 94 09/06/19 11:00 37.3 C 100 H 93 09/06/19 10:45 37.3 C 94 H 95 09/06/19 10:30 37.3 C 99 H 96 PG Care Time/CCT Total # of Minutes Spent Total Time Spent with Patient: Total time spent is greater than 50% in coordination of care (as documented) at patient's floor/unit and/or counseling patient: Coding Diagnoses Admitted to intensive care unit Z78.9 Pneumonia J18.1 Laterality: right Lung location: lower lobe of lung Pneumonia type: due to unspecified organism Cardiac arrest I46.9 ST elevation (STEMI) myocardial infarction I21.3 Cardiac arrest with ventricular fibrillation I46.9; I49.01 Signs of return of spontaneous circulation (1) Pneumonia Laterality: right Lung location: lower lobe of lung Pneumonia type: due to unspecified organism Qualified Code(s): J18.1 - Lobar pneumonia, unspecified organism
--- NOTE | 2019-09-13 09:04 | Discharge Summary ---
Date of Service September 06, 2019 Admission HPI Per Admitting Provider The patient is a 63-year-old female with a past medical history including COPD, anxiety, pneumonia, atrial fibrillation, history of cardiac radiofrequency ablation, COPD exacerbation with hypoxemia, and CHF. She presented to the emergency department after a V. fib cardiac arrest in the field, intubated, with ROSC after defibrillation x2 and epinephrine. EMS EKG suggested inferior wall STEMI, and preparations for Code Arctic were made and heart alert was initiated. Patient did receive amiodarone 300 mg IV in the field, and was started on amiodarone drip per protocol while in the ED. Patient was then taken emergently to the cardiac catheterization lab by Dr. Sahu, and then admitted to the ICU for further care. Principal Diagnosis hypoxic encephalopathy Discharge Exam Did not examine patient at time of . Please refer to note. Below is my exam: earlier in the day. Constitutional: WD/WN, vitals as above + acute distress Eyes: + anicteric sclerae; no conjunctival abnormality ENMT: external ear and nose normal, oropharynx normal Neck: trachea midline, no thyromegaly normal visual inspection Respiratory: Auscultation: + crackles Cardiovascular: Rate/Rhythm: regular rhythm and + bradycardic Gastrointestinal (Abdomen): Inspection/Auscultation: abdomen normal to inspection; abdomen not distended Musculoskeletal: no cyanosis or clubbing, extremities motor strength 5/5 Skin: no rashes, warm and dry Neurologic: + does not move all extremities and + not awake Psychiatric: Orientation: + not alert and + not oriented to person Discharge Data Allergies Allergy/AdvReac Type Severity Reaction Status Date / Time No Known Allergies Allergy Verified 04/14/19 12:15 Consultations 09/03/19 21:18 Consult Case Management - Discharge Planning Routine Consult System Operation Superintendent Routine 09/03/19 21:54 ED Decision to Admit Stat 09/06/19 01:35 Consult Neurology Routine 09/06/19 01:37 Consult Cardiology Routine 09/06/19 10:06 Consult Patient Rep / Service Excellence [Consult Patient Services] Stat Procedures Performed Operation Date: 09/03/19 21:30 Actual Procedures s Cineradiography w/Routine Exam - Samina manjarrez Aspiration/PCI w/PATRICIA for Stemi - Samina bravo Cath, Coronaries ONLY (no LV) - Samina manjarrez Injection / Imaging Aorta - Samina Sahu s Aortogram, Thoracic - Samina Sahu Ordered Studies 09/03/19 21:11 CL Cath Imgs for PACS use only Stat 09/03/19 21:57 CT head/brain wo con Stat Hospital Course (1) Admitted to intensive care unit: Patient is admitted to intensive care unit/status post cardiac arrest in the field with ventricular fibrillation/status post return of spontaneous circulation/cold therapy, Code Arctic/STEMI. - Cooling protocol per ICU. - Sedated - Amiodarone gtt for vfib - Concern for seizure today with increased peak pressures, EtCO2, and BIS monitor. Plan for EEG. Sedation switched by ICU team. Patient was made comfort measures on FridaySeptember 05. Overnight: the following occured. In short, patient had a ventricular fibrillation cardiac arrest on 09/02 with approximately 20 to 25-minute downtime before ROSC. She was noted to have some slight ST elevations upon return of circulation. She was taken to the catheterization suite where no culprit lesions were noted. Patient underwent therapeutic hypothermia protocol without significant problem. On 09/04, the patient was noted to have concerns for some seizure-like activity noted on exam. EEGs demonstrated toxic encephalopathy without seizure findings. Throughout the service loss control consultant hours of 09/05, the patient became increasingly dyssynchronous with the ventilator requiring multiple adjustments and increasing sedation. Patient assessed by neurology today as well as cardiology. Ultimately, family presented to the emergency department and POA noted that they had found paperwork stating that the patient would not have wished to undergo prolonged life support measures. At this point, after discussion with family, they did wish to proceed with compassionate extubation and comfort measures only. Patient peacefully with a time of of 2040. Assessment: Upon assessment, the patient was found to be in a terminal state. Pupils were fixed and dilated without response. No palpable pulses appreciated. No spontaneous breaths noted. Heart sounds were absent. No response to painful stimuli. Time of : 2040 as pronounced by myself. Family present at bedside. Appropriate response to grief appreciated. Condolences provided. Questions were addressed and emotional support was provided. Patients primary service was contacted and made aware of patient demise. Pronouncement section of the Certificate was filled out and signed by myself. Cause of : Primary - V-fib arrest Secondary - Hypoxic Encephalopathy Contributing Causes of - CAD, COPD, Chronic hypoxic respiratory failure, Cardiogenic shock Please feel free to contact me with any questions regarding the above-mentioned course. (2) Pneumonia: Initially placed on vancomycin IV and Zosyn IV due to likely aspiration. - Held now per ICU team (3) Cardiac arrest: See above (4) ST elevation (STEMI) myocardial infarction: See above (5) Cardiac arrest with ventricular fibrillation: See above (6) Signs of return of spontaneous circulation: See above Total Time Total Time Spent Total Time Spent (In Minutes): 20 Total Time Includes: Examination of the Patient Discharge Plan Discharge Items Patient Disposition: Reason For Visit: CARDIAC ARREST, CODE ARCTIC Follow-up/Referrals: Ricardo Person III, CRNP [Primary Care Provider] - Admission Data Admit Date/Time: 09/03/19 21:18 Other DC Date/Time DO NOT enter until pt leaves facility: 09/06/19 22:30 Coding Level of Care Code D/C Day Management <30 mins Diagnoses Admitted to intensive care unit Z78.9 Pneumonia J18.1 Laterality: right Lung location: lower lobe of lung Pneumonia type: due to unspecified organism Cardiac arrest I46.9 ST elevation (STEMI) myocardial infarction I21.3 Cardiac arrest with ventricular fibrillation I46.9; I49.01 Signs of return of spontaneous circulation
--- NOTE | 2019-09-13 13:16 | Billing Data ---
Date of Service August Coding Level of Care Code Critical Care 1st 30-74 mins Time Spent (min) 60 Comment I have personally spent 60 minutes of critical care time in the direct management of this patient. This is a life/limb threatening event. This includes time spent evaluating patient, direct bedside care, chart review, placing orders, interpretation of diagnostic studies, discussion with consultants, patient, and/or family members regarding treatment decisions, as well as other required patient management activities. This time is exclusive of all separately billable procedures, and teaching time and separate from and in addition to any other critical care service time.
--- NOTE | 2019-09-13 13:17 | Billing Data ---
Date of Service September 05, 2019 Coding Level of Care Code Critical Care 1st 30-74 mins Time Spent (min) 40 Comment I have personally spent 40 minutes of critical care time in the direct management of this patient. This is a life/limb threatening event. This includes time spent evaluating patient, direct bedside care, chart review, placing orders, interpretation of diagnostic studies, discussion with consultants, patient, and/or family members regarding treatment decisions, as well as other required patient management activities. This time is exclusive of all separately billable procedures, and teaching time and separate from and in addition to any other critical care service time.
== END 2019-09-06 22:30 | disposition expired ==
LOC: ED 20:56 → 1E 21:18 → SUATTDRO 21:18
PROC: CLB.CCO (2019-09-03 21:30)
PROC: CLB.IPA (2019-09-03 21:30)
PROC: CLB.ATH (2019-09-03 21:30)